=== PATIENT | female | born 1935 | race Caucasian/White ===

== ENCOUNTER 2018-07-28 17:24 | Emergency (ER) | payer OTHER, MEDICARE, BC ==
[2018-07-28] MEDS ORDERED: DIPH,PERTUS(ACELL)TETVAC-LF 0.5 ML VIAL IM ONE (17:26)
[2018-07-28] MEDS ORDERED: ceFAZolin 1,000 MG in DEXTROSE/WATER 1 50ML.BAG IVPB STA (17:33)
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
[2018-07-28 17:43] VITALS: RESP 18
[2018-07-28 17:59] LABS: Basophils % (A) 0 %; Eosinophils # (A) 0.4 k/uL (0-0.7); Eosinophils % (A) 6 %; HCT 39.3 % (34.0-46.0); Lymphocytes # (A) 1.5 k/uL (1.0-4.8); Lymphocytes % (A) 22 %; MCH 32.4 pg (25.0-35.0); MCHC 35.6 g/dL (31.0-37.0); MCV 90.8 fL (80.0-100.0); Mean Platelet Volume 6.9; Monocytes # (A) 0.2 k/uL (0-1.0); Monocytes % (A) 3 %; Neutrophils # (A) 4.3 k/uL (1.3-7.7); Neutrophils % (A) 66 %; Platelet Count 195 k/uL (150-450); RBC 4.33 m/uL (3.80-5.40); RDW 13.5 % (11.5-15.5); WBC 6.6 k/uL (3.8-10.6)
[2018-07-28 18:05] LABS: INR 2.3 (<1.2); Partial Thromboplastin Time 27.5 sec (22.0-30.0); Prothrombin Time 20.9 sec (9.0-12.0)
[2018-07-28 18:06] LABS: ALT 18 U/L (9-52); AST 34 U/L (14-36); Albumin 3.6 g/dL (3.5-5.0); Alcohol <10 mg/dL; Alkaline Phosphatase 74 U/L (38-126); Anion Gap 7 mmol/L; Blood Urea Nitrogen 20 mg/dL (7-17); Calcium 9.4 mg/dL (8.4-10.2); Carbon Dioxide 24 mmol/L (22-30); Chloride 106 mmol/L (98-107); Glucose 146 mg/dL (74-99); Potassium 4.9 mmol/L (3.5-5.1); Sodium 137 mmol/L (137-145); Total Bilirubin 0.5 mg/dL (0.2-1.3); Total Protein 6.4 g/dL (6.3-8.2)
[2018-07-28 18:12] LABS: Creatine Kinase 60 U/L (30-135)
[2018-07-28 18:25] LABS: Creatine Kinase MB 1.2 ng/mL (0.0-2.4); Troponin I <0.012 ng/mL (0.000-0.034)
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
[2018-07-28] MEDS ORDERED: fentaNYL (PF) 50 MCG/ML 2 ML AMP IVP STA (19:14)
[2018-07-28 19:33] VITALS: BP 122/98; PULSE 72; TEMP 98
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
== END 2018-07-28 19:56 | disposition other institution (70) ==
LOC: EC 17:24
DX: S02.81XA Fracture of other specified skull and facial bones, right side, initial encounter for closed fracture (principal); S52.101A Unspecified fracture of upper end of right radius, initial encounter for closed fracture; S52.001A Unspecified fracture of upper end of right ulna, initial encounter for closed fracture; S05.31XA Ocular laceration without prolapse or loss of intraocular tissue, right eye, initial encounter; S01.111A Laceration without foreign body of right eyelid and periocular area, initial encounter; I48.92 Unspecified atrial flutter; I25.10 Atherosclerotic heart disease of native coronary artery without angina pectoris; I48.91 Unspecified atrial fibrillation; I51.7 Cardiomegaly; Z95.810 Presence of automatic (implantable) cardiac defibrillator; Z95.818 Presence of other cardiac implants and grafts; Z79.899 Other long term (current) drug therapy; Z88.6 Allergy status to analgesic agent; Z88.5 Allergy status to narcotic agent; Z53.8 Procedure and treatment not carried out for other reasons; V89.2XXA Person injured in unspecified motor-vehicle accident, traffic, initial encounter; Y92.410 Unspecified street and highway as the place of occurrence of the external cause
CPT/HCPCS: 29125 ×2; 96365 ×2; 96375 ×2; 99291 ×2; 36415; 86900; 86901; 80053; 82550; 82553; 84484; 85025; 85610; 85730; 86850; 80320; 73090; 73100; 72125; 70486; 70450; 71260; 74177; J3010; J0690; Q9967

== ENCOUNTER 2018-08-02 09:06 | Emergency (ER) | payer MEDICARE, BC ==
[2018-08-02 09:12] VITALS: TEMP 98.3
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
[2018-08-02 11:12] VITALS: BP 90/60; PULSE 72; RESP 18
[2018-08-02 11:28] LABS: Basophils % (A) 0 %; Eosinophils # (A) 0.2 k/uL (0-0.7); Eosinophils % (A) 3 %; HCT 35.5 % (34.0-46.0); HGB 11.6 gm/dL (11.4-16.0); Lymphocytes # (A) 0.8 k/uL (1.0-4.8); Lymphocytes % (A) 10 %; MCH 30.3 pg (25.0-35.0); MCHC 32.8 g/dL (31.0-37.0); MCV 92.6 fL (80.0-100.0); Mean Platelet Volume 7.1; Monocytes # (A) 0.2 k/uL (0-1.0); Monocytes % (A) 3 %; Neutrophils # (A) 6.2 k/uL (1.3-7.7); Neutrophils % (A) 83 %; Platelet Count 199 k/uL (150-450); RBC 3.83 m/uL (3.80-5.40); RDW 13.8 % (11.5-15.5); WBC 7.5 k/uL (3.8-10.6)
[2018-08-02 11:42] LABS: Calcium 9.3 mg/dL (8.4-10.2); Magnesium 2.2 mg/dL (1.6-2.3)
== END 2018-08-02 11:35 | disposition home or self-care (01) ==
LOC: EC 09:06
DX: R55 Syncope and collapse (principal); S00.11XA Contusion of right eyelid and periocular area, initial encounter; I48.92 Unspecified atrial flutter; I25.10 Atherosclerotic heart disease of native coronary artery without angina pectoris; I48.91 Unspecified atrial fibrillation; I51.7 Cardiomegaly; Z95.810 Presence of automatic (implantable) cardiac defibrillator; Z95.818 Presence of other cardiac implants and grafts; Z79.52 Long term (current) use of systemic steroids; Z79.899 Other long term (current) drug therapy; Z88.6 Allergy status to analgesic agent; Z88.5 Allergy status to narcotic agent; X58.XXXA Exposure to other specified factors, initial encounter; Y92.531 Health care provider office as the place of occurrence of the external cause
CPT/HCPCS: 36415; 80048; 83735; 85025; 93005; 99284

== ENCOUNTER 2018-08-13 14:58 | Emergency (ER) | payer OTHER, MEDICARE, BC ==
[2018-08-13] MEDS ORDERED: Acetaminophen-Codeine 300-30mg TAB PO STA (15:30)
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
[2018-08-13 16:18] LABS: Basophils % (A) 0 %; Eosinophils # (A) 0.2 k/uL (0-0.7); Eosinophils % (A) 2 %; HCT 35.7 % (34.0-46.0); HGB 12.1 gm/dL (11.4-16.0); Lymphocytes % (A) 11 %; MCH 31.2 pg (25.0-35.0); MCV 91.8 fL (80.0-100.0); Mean Platelet Volume 6.5; Monocytes # (A) 0.3 k/uL (0-1.0); Monocytes % (A) 4 %; Neutrophils # (A) 7.8 k/uL (1.3-7.7); Neutrophils % (A) 82 %; Platelet Count 356 k/uL (150-450); RBC 3.89 m/uL (3.80-5.40); RDW 14.3 % (11.5-15.5); WBC 9.4 k/uL (3.8-10.6)
[2018-08-13 16:35] LABS: INR 1.4 (<1.2); Partial Thromboplastin Time 28.1 sec (22.0-30.0); Prothrombin Time 14.4 sec (9.0-12.0)
--- NOTE | 2018-08-13 16:55 | XR ---
EXAMINATION TYPE: XR forearm RT DATE OF EXAM: 08/13/2018 COMPARISON: NONE HISTORY: Pain TECHNIQUE: 3 views FINDINGS: 3 views were obtained through the cast but show transverse fractures between the proximal a nd middle thirds of the radius and ulna. There is posterior angulation at the fracture site. There is displacement up to 1.5 cm. There is probably overriding of the fragments. Exam is limited by the aman t. IMPRESSION: Angulated displaced fractures of the radius and ulna.
--- NOTE | 2018-08-13 16:57 | XR ---
EXAMINATION TYPE: XR humerus RT DATE OF EXAM: 08/13/2018 COMPARISON: NONE HISTORY: Pain TECHNIQUE: 2 views FINDINGS: I see no fracture nor dislocation. Shoulder joint is intact. Elbow joint is not well-seen o n this exam. IMPRESSION: No evidence of humerus fracture.
[2018-08-13] MEDS ORDERED: HYDROmorphone 1 MG/ML 1 ML SYRINGE IVP STA ×2 (17:50→18:27)
[2018-08-13 19:43] VITALS: BP 124/67; PULSE 74; RESP 20; TEMP 98
== END 2018-08-13 19:43 | disposition home or self-care (01) ==
LOC: EC 14:58
DX: S52.91XD Unspecified fracture of right forearm, subsequent encounter for closed fracture with routine healing (principal); S52.201D Unspecified fracture of shaft of right ulna, subsequent encounter for closed fracture with routine healing; I25.10 Atherosclerotic heart disease of native coronary artery without angina pectoris; I48.91 Unspecified atrial fibrillation; Z88.5 Allergy status to narcotic agent; Z88.6 Allergy status to analgesic agent; Z79.899 Other long term (current) drug therapy; Z86.79 Personal history of other diseases of the circulatory system; Z95.810 Presence of automatic (implantable) cardiac defibrillator; V99.XXXD Unspecified transport accident, subsequent encounter
CPT/HCPCS: 36415; 85025; 85610; 85730; 73060; 73090; 99284; 29105; 96374; 96376; J1170

== ENCOUNTER 2018-10-19 15:12 | Emergency (ER) | payer MEDICARE, BC ==
[2018-10-19 15:29] VITALS: RESP 18
--- NOTE | 2018-10-19 18:27 | CT ---
EXAMINATION TYPE: CT brain miranda guillermo con DATE OF EXAM: 10/19/2018 COMPARISON: 07/28/2018 HISTORY: Fall with mid frontal injury. Neck pain. Headache. CT DLP: 936.7 combined dlp mGycm Automated exposure control for dose reduction was used. TECHNIQUE: CT scan of the head and cervical spine are performed without contrast. FINDINGS: There is some cerebral cortical atrophy. There is no mass effect nor midline shift. There is no sign of intracranial hemorrhage. Calvarium is intact. The cervical vertebra show fairly normal alignment. There is degenerative disc space narrowing from C 3 to C7 with spurring of the endplates. Facet joints are intact. There is hypertrophic facet arthropa thy in the mid cervical spine. The skull base is intact. I see no fracture. 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 No fracture. Cerebral cortical atrophy. No acute intracranial abnormality. There is mild soft tissue swelling over the mid frontal bone. Brain and cervical spine unchanged compared to old exam.
--- NOTE | 2018-10-19 18:37 | CT ---
EXAMINATION TYPE: CT facial bones wo con DATE OF EXAM: 10/19/2018 COMPARISON: 07/28/2018 HISTORY: Fall with mid frontal injury. CT DLP: 936.7 combined dlp mGycm Automated exposure control for dose reduction was used. TECHNIQUE: CT scan of the sinuses is performed without contrast, axial images are obtained, coronal r eformatted images are also reviewed. FINDINGS: The orbital margins are intact. There is no evidence of a blowout fracture. There is fairly normal aeration of the paranasal sinuses. There is bilateral patency of the ostiomeatal complex. William al septum deviated slightly to the right side. There is no evidence of retro-orbital mass. The mandib ular ring is intact. Maxilla is intact. Zygomatic arches appear normal. Nasal bone is intact. There i s focal scalp soft tissue swelling over the mid frontal bone. IMPRESSION: Frontal scalp soft tissue swelling. No fracture.
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
[2018-10-19 19:34] VITALS: BP 133/75; PULSE 88; TEMP 98
== END 2018-10-19 19:33 | disposition home or self-care (01) ==
LOC: EC 15:12
DX: S00.83XA Contusion of other part of head, initial encounter (principal); H57.04 Mydriasis; H61.22 Impacted cerumen, left ear; I25.10 Atherosclerotic heart disease of native coronary artery without angina pectoris; Z88.5 Allergy status to narcotic agent; Z88.6 Allergy status to analgesic agent; Z79.899 Other long term (current) drug therapy; Z86.79 Personal history of other diseases of the circulatory system; Z95.810 Presence of automatic (implantable) cardiac defibrillator; Z95.818 Presence of other cardiac implants and grafts; Z98.890 Other specified postprocedural states; W18.09XA Striking against other object with subsequent fall, initial encounter; Y93.01 Activity, walking, marching and hiking; Y92.008 Other place in unspecified non-institutional (private) residence as the place of occurrence of the external cause
CPT/HCPCS: 70450; 70486; 72125; 99283

== ENCOUNTER 2018-10-29 13:08 | Inpatient (IN) | payer OTHER, MEDICARE, BC ==
[2018-10-29] MEDS ORDERED: DIPHENOX-ATROP 2.5-0.025 MG 1 EACH TAB PO STA (13:55)
[2018-10-29] MEDS ORDERED: SODIUM CHLORIDE 0.9% 1,000 ML IV STA ×2 (13:55→17:52)
[2018-10-29] MEDS ORDERED: SODIUM CHLORIDE 0.9% 500 ML 500 ML IV STA (13:55)
[2018-10-29 14:03] LABS: Basophils # (A) 0.1 k/uL (0-0.2); Basophils % (A) 1 %; Eosinophils # (A) 0.1 k/uL (0-0.7); Eosinophils % (A) 2 %; HCT 41.6 % (34.0-46.0); HGB 13.4 gm/dL (11.4-16.0); Lymphocytes # (A) 0.9 k/uL (1.0-4.8); Lymphocytes % (A) 12 %; MCH 31.5 pg (25.0-35.0); MCHC 32.3 g/dL (31.0-37.0); MCV 97.5 fL (80.0-100.0); Mean Platelet Volume 7.3; Monocytes # (A) 0.4 k/uL (0-1.0); Monocytes % (A) 5 %; Neutrophils % (A) 79 %; Platelet Count 197 k/uL (150-450); RBC 4.27 m/uL (3.80-5.40); RDW 14.6 % (11.5-15.5); WBC 7.6 k/uL (3.8-10.6)
--- NOTE | 2018-10-29 14:06 | ED ---
General Adult HPI - General Source: patient, RN notes reviewed Mode of arrival: wheelchair Limitations: no limitations <Mo Gamino - Last Filed: 10/29/18 17:00> <Mo Phipps - Last Filed: 10/29/18 18:47> - General Chief complaint: Nausea/Vomiting/Diarrhea Stated complaint: Diarrhea Time Seen by Provider: 10/29/18 13:15 - History of Present Illness Initial comments: This is an 83-year-old female presents emergency Department with a 10 day history of diarrhea. Patient has lost weight and according to family she is also altered mentally. Patient complains of generalized weakness and the diarrhea only she is not aware of being altered. Family states ask her simple questions like phone number and she does not know. Family states since July she's lost 20 pounds within that period of time she had an accident where she had some facial trauma and right arm trauma that his leg or to multiple surgeries. Patient denies any chest pain difficulty breathing shortness of breath. Patient denies any fever chills per patient denies being nauseated. Patient denies any recent injury or trauma patient has had multiple eye surgeries but the last one was a few weeks ago. (Mo Gamino) - Related Data Home Medications Medication Instructions Recorded Confirmed Digoxin [Lanoxin] 125 mcg PO DAILY 01/28/14 10/29/18 Lisinopril [Zestril] 2.5 mg PO DAILY 01/28/14 10/29/18 Allopurinol [Zyloprim] 100 mg PO DAILY 04/28/16 10/29/18 Spironolactone [Aldactone] 25 mg PO DAILY 04/28/16 10/29/18 Brimonidine Tartrate [Alphagan P 1 drop BOTH EYES BID 08/02/18 10/29/18 0.2% Ophth Soln] Carvedilol [Coreg] 25 mg PO DAILY 08/02/18 10/29/18 Dorzolamide-Timol 2.23%/0.68% 1 drop BOTH EYES BID 08/02/18 10/29/18 [Cosopt] Latanoprost/Pf [Latanoprost 0.005% 1 drop BOTH EYES HS 08/02/18 10/29/18 Eye Drop] Pilocarpine 2% Ophth Soln [Isopto 1 drops RIGHT EYE BID 10/29/18 10/29/18 Carpine 2%] Warfarin [Coumadin] 2.5 mg PO DAILY 10/29/18 10/29/18 acetaZOLAMIDE [Diamox Sequels] 500 mg PO DAILY 10/29/18 10/29/18 Allergies Allergy/AdvReac Type Severity Reaction Status Date / Time ibuprofen [From Motrin] Allergy Unknown Verified 10/29/18 13:22 meperidine HCl [From Demerol] Allergy Unknown Verified 10/29/18 13:22 morphine Allergy Unknown Verified 10/29/18 13:22 Review of Systems ROS Other: All systems not noted in ROS Statement are negative. <Mo Gamino - Last Filed: 10/29/18 17:00> ROS Other: All systems not noted in ROS Statement are negative. <Mo Phipps - Last Filed: 10/29/18 18:47> ROS Statement: Those systems with pertinent positive or pertinent negative responses have been documented in the HPI. Past Medical History Past Medical History: Atrial Flutter, Coronary Artery Disease (CAD), Osteoarthritis (OA) Additional Past Medical History / Comment(s): "DEVELOPED AFIB IN SX ONE TIME THEY PUT ME ON WARFARIN", ENLARGED HEART, HAD PNE VACCIONE APPROX 4 YEARS AGO NOT SURE OF DATE History of Any Multi-Drug Resistant Organisms: None Reported Past Surgical History: AICD, Appendectomy, Section, Heart Catheterization, Hysterectomy, Tonsillectomy Additional Past Surgical History / Comment(s): ,TOTAL HYSTERECTOMY, X3 C- SECTIONS, ORIF LEFT FEMUR-RODS/SCREWS, ANKLE /PLATE/SCREWS, TIBIAL PLATEAU REPAIRED, CATARACTS. Additional Past Anesthesia/Blood Transfusion Reaction / Comment(s): HAD BP PROBLEMS WITH ONE SX. MILD CLAUSTERPHOBIA. BLOOD TRANSFUSIONS - NO REACTIONS. Type of Cardiac Device: AICD Device Placement Date:: UNK Past Psychological History: No Psychological Hx Reported Smoking Status: Never smoker Past Alcohol Use History: Occasional Past Drug Use History: None Reported - Past Family History Mother Family Medical History: Congestive Heart Failure (CHF), Diabetes Mellitus Father Family Medical History: Renal Disease Additional Family Medical History / Comment(s): MVA <Mo Gamino - Last Filed: 10/29/18 17:00> General Exam Limitations: no limitations <Mo Gamino Filed: 10/29/18 17:00> General appearance: alert, in no apparent distress Head exam: Present: atraumatic, normocephalic, normal inspection Eye exam: Present: normal appearance, PERRL, EOMI. Absent: scleral icterus, conjunctival injection, periorbital swelling ENT exam: Present: normal exam, mucous membranes moist Neck exam: Present: normal inspection. Absent: tenderness, meningismus, lymphadenopathy Respiratory exam: Present: normal lung sounds bilaterally. Absent: respiratory distress, wheezes, rales, rhonchi, stridor Cardiovascular Exam: Present: regular rate, normal rhythm, normal heart sounds. Absent: systolic murmur, diastolic murmur, rubs, gallop, clicks GI/Abdominal exam: Present: soft, normal bowel sounds. Absent: distended, tenderness, guarding, rebound, rigid Extremities exam: Present: normal inspection, full ROM, normal capillary refill. Absent: tenderness, pedal edema, joint swelling, calf tenderness Back exam: Present: normal inspection Neurological exam: Present: alert, oriented X3, CN II-XII intact Psychiatric exam: Present: normal affect, normal mood Skin exam: Present: warm, dry, intact, normal color. Absent: rash <DesireJoshuaMo B - Last Filed: 10/29/18 18:47> - General Exam Comments Initial Comments: GENERAL: Patient is cachectic in appearance. ENT: Neck is soft and supple. No significant lymphadenopathy is noted. Extremities membranes are dry. Neck has full range of motion without eliciting any pain. EYES: The sclera were anicteric and conjunctiva were pink and moist. Patient's right pupil is dilated and she has no vision out of it. According to family this is her baseline since her accident November Eyelids were unremarkable. PULMONARY: Unlabored respirations. Good breath sounds bilaterally. No audible rales rhonchi or wheezing was noted. CARDIOVASCULAR: There is a regular rate and rhythm without any murmurs gallops or rubs. ABDOMEN: Soft and nontender with normal bowel sounds. No palpable organomegaly was noted. There is no palpable pulsatile mass. SKIN: Skin is clear with no lesions or rashes and otherwise unremarkable. NEUROLOGIC: Patient is alert and oriented 2. Cranial nerves II through XII are grossly intact. Motor and sensory are also intact. Normal speech, volume and content. Symmetrical smile. MUSCULOSKELETAL: Normal extremities with adequate strength and full range of motion. No lower extremity swelling or edema. No calf tenderness. LYMPHATICS: No significant lymphadenopathy is noted PSYCHIATRIC: Normal psychiatric evaluation. (Mo Gamino) Course <Mo Gamino - Last Filed: 10/29/18 17:00> <Mo Phipps - Last Filed: 10/29/18 18:47> Vital Signs 10/29/18 10/29/18 10/29/18 13:15 13:45 14:11 Temperature 97.9 F Pulse Rate 70 75 73 Respiratory 18 18 18 Rate Blood Pressure 62/33 81/53 81/68 O2 Sat by Pulse 89 L 96 100 Oximetry 10/29/18 10/29/18 10/29/18 14:47 15:17 16:00 Temperature Pulse Rate 75 70 72 Respiratory 18 16 18 Rate Blood Pressure 74/49 98/49 73/49 O2 Sat by Pulse 98 97 98 Oximetry 10/29/18 10/29/18 10/29/18 16:49 17:30 17:58 Temperature Pulse Rate 77 80 77 Respiratory 18 18 18 Rate Blood Pressure 85/68 116/99 67/56 O2 Sat by Pulse 100 97 97 Oximetry 10/29/18 18:18 Temperature Pulse Rate 74 Respiratory 18 Rate Blood Pressure 74/46 O2 Sat by Pulse 98 Oximetry - Reevaluation(s) Reevaluation #1: 10/29/18 18:44 Medical record is reviewed (Mo Phipps) Reevaluation #2: 10/29/18 18:44 Patient reevaluated, blood pressures improved and she is awake and alert without any significant complaint. Informed of testing results. (Mo Phipps) Procedures - Sepsis Sepsis Focused Exam #1 Time Sepsis Criteria Met: 18:46 Sepsis Focused Exam Date: 10/29/18 Sepsis Focused Exam Time: 18:46 Sepsis Focused Exam Complete: Yes Vital Signs & RN Notes Reviewed: Yes Capillary Refill: < 2 Seconds: Fingers, Toes Peripheral Pulses: Normal: Radial (R), Radial (L), Posterior Tibialis (R), Posterior Tibialis (L), Dorsalis Pedis (R), Dorsalis Pedis (L) Skin Color: Normal for Patient Respiratory Exam: normal lung sounds Cardiovascular Exam: regular rate <Roskopp,Mo B - Last Filed: 10/29/18 18:47> Medical Decision Making - Lab Data Result diagrams: 10/29/18 13:30 10/29/18 13:30 <Mo Gamino - Last Filed: 10/29/18 17:00> - Lab Data Result diagrams: 10/29/18 13:30 10/29/18 13:30 - Radiology Data Radiology results: report reviewed (CT brain CT abdomen pelvis negative for acute disease does have positive mass), image reviewed <DesireMo Allie - Last Filed: 10/29/18 18:47> - Medical Decision Making EKG shows atrial fibrillation wave at 77 bpm QRS is 148 QRS is 416 QTC is 470. Patient has a right bundle branch block. CT of the brain shows no acute abnormalities. KUB shows no acute normalities. CT of the abdomen shows some possible mass in the colon at the hepatic flexure. Patient's pancreatic enzymes are elevated. Patient has renal insufficiency. Patient is dehydrated. Patient received over 2 L of fluid. Patient also received hydrocortisone. According to family patient still slightly altered. I spoke with Dr. Aranda he agreed to admit the patient admitted the patient I wrote admitting orders. GI will be consulted. Dr. Phipps will be taking over the care of this patient at 5 PM (Mo Gamino) 83 female the ER for evaluation. Patient be admitted for continued IV resuscitation, GI evaluation as well as nephrology evaluation. Patient will place on antibiotics for UTI (Mo Phipps) - Lab Data Lab Results 10/29/18 10/29/18 10/29/18 Range/Units 13:30 13:30 13:30 WBC 7.6 (3.8-10.6) k/uL RBC 4.27 (3.80-5.40) m/uL Hgb 13.4 (11.4-16.0) gm/dL Hct 41.6 (34.0-46.0) % MCV 97.5 (80.0-100.0) fL MCH 31.5 (25.0-35.0) pg MCHC 32.3 (31.0-37.0) g/dL RDW 14.6 (11.5-15.5) % Plt Count 197 (150-450) k/uL Neutrophils % 79 % Lymphocytes % 12 % Monocytes % 5 % Eosinophils % 2 % Basophils % 1 % Neutrophils # 6.0 (1.3-7.7) k/uL Lymphocytes # 0.9 L (1.0-4.8) k/uL Monocytes # 0.4 (0-1.0) k/uL Eosinophils # 0.1 (0-0.7) k/uL Basophils # 0.1 (0-0.2) k/uL PT (9.0-12.0) sec INR (<1.2) APTT (22.0-30.0) sec Sodium 135 L (137-145) mmol/L Potassium 4.3 (3.5-5.1) mmol/L Chloride 109 H (98-107) mmol/L Carbon Dioxide 13 L (22-30) mmol/L Anion Gap 13 mmol/L BUN 46 H (7-17) mg/dL Creatinine 2.16 H (0.52-1.04) mg/dL Est GFR (CKD-EPI)AfAm 24 (>60 ml/min/1.73 sqM) Est GFR (CKD-EPI)NonAf 21 (>60 ml/min/1.73 sqM) Glucose 106 H (74-99) mg/dL Plasma Lactic Acid Sriram 1.0 (0.7-2.0) mmol/L Calcium 9.1 (8.4-10.2) mg/dL Total Bilirubin 0.5 (0.2-1.3) mg/dL AST 23 (14-36) U/L ALT 27 (9-52) U/L Alkaline Phosphatase 48 (38-126) U/L Total Protein 7.0 (6.3-8.2) g/dL Albumin 3.9 (3.5-5.0) g/dL Amylase 120 H (30-110) U/L Lipase 876 H (23-300) U/L Urine Color Urine Appearance (Clear) Urine pH (5.0-8.0) Ur Specific [place] (1.001-1.035) Urine Protein (Negative) Urine Glucose (UA) (Negative) Urine Ketones (Negative) Urine Blood (Negative) Urine Nitrite (Negative) Urine Bilirubin (Negative) Urine Urobilinogen (<2.0) mg/dL Ur Leukocyte Esterase (Negative) Urine RBC (0-5) /hpf Urine WBC (0-5) /hpf Ur Squamous Epith Cells (0-4) /hpf Urine Bacteria (None) /hpf Hyaline Casts (0-2) /lpf Urine Mucus (None) /hpf Digoxin ng/mL 10/29/18 10/29/18 10/29/18 Range/Units 13:30 13:30 17:25 WBC (3.8-10.6) k/uL RBC (3.80-5.40) m/uL Hgb (11.4-16.0) gm/dL Hct (34.0-46.0) % MCV (80.0-100.0) fL MCH (25.0-35.0) pg MCHC (31.0-37.0) g/dL RDW (11.5-15.5) % Plt Count (150-450) k/uL Neutrophils % % Lymphocytes % % Monocytes % % Eosinophils % % Basophils % % Neutrophils # (1.3-7.7) k/uL Lymphocytes # (1.0-4.8) k/uL Monocytes # (0-1.0) k/uL Eosinophils # (0-0.7) k/uL Basophils # (0-0.2) k/uL PT 9.9 (9.0-12.0) sec INR 0.9 (<1.2) APTT 26.9 (22.0-30.0) sec Sodium (137-145) mmol/L Potassium (3.5-5.1) mmol/L Chloride (98-107) mmol/L Carbon Dioxide (22-30) mmol/L Anion Gap mmol/L BUN (7-17) mg/dL Creatinine (0.52-1.04) mg/dL Est GFR (CKD-EPI)AfAm (>60 ml/min/1.73 sqM) Est GFR (CKD-EPI)NonAf (>60 ml/min/1.73 sqM) Glucose (74-99) mg/dL Plasma Lactic Acid Sriram (0.7-2.0) mmol/L Calcium (8.4-10.2) mg/dL Total Bilirubin (0.2-1.3) mg/dL AST (14-36) U/L ALT (9-52) U/L Alkaline Phosphatase (38-126) U/L Total Protein (6.3-8.2) g/dL Albumin (3.5-5.0) g/dL Amylase (30-110) U/L Lipase (23-300) U/L Urine Color Yellow Urine Appearance Cloudy H (Clear) Urine pH 6.0 (5.0-8.0) Ur Specific [place] 1.013 (1.001-1.035) Urine Protein Trace H (Negative) Urine Glucose (UA) Negative (Negative) Urine Ketones 1+ H (Negative) Urine Blood Negative (Negative) Urine Nitrite Negative (Negative) Urine Bilirubin Negative (Negative) Urine Urobilinogen <2.0 (<2.0) mg/dL Ur Leukocyte Esterase Moderate H (Negative) Urine RBC 1 (0-5) /hpf Urine WBC 27 H (0-5) /hpf Ur Squamous Epith Cells 2 (0-4) /hpf Urine Bacteria Few H (None) /hpf Hyaline Casts 5 H (0-2) /lpf Urine Mucus Rare H (None) /hpf Digoxin 1.3 ng/mL Critical Care Time Critical Care Time: Yes Total Critical Care Time: 35 <Mo Gamino - Last Filed: 10/29/18 17:00> Disposition Time of Disposition: 16:39 <Mo Gamino - Last Filed: 10/29/18 17:00> Is patient prescribed a controlled substance at d/c from ED?: No <Mo Phipps - Last Filed: 10/29/18 18:47> Clinical Impression: Renal insufficiency, Pancreatitis, Colonic mass, Dehydration, Generalized weakness, Diarrhea, Altered mental status, UTI (urinary tract infection) Disposition: ADMITTED IP TO THIS HOSP Condition: Fair Referrals: Solis Buckner MD [Primary Care Provider] - 1-2 days
[2018-10-29 14:14] LABS: Albumin 3.9 g/dL (3.5-5.0); Calcium 9.1 mg/dL (8.4-10.2); Potassium 4.3 mmol/L (3.5-5.1); Total Bilirubin 0.5 mg/dL (0.2-1.3)
--- NOTE | 2018-10-29 14:42 | CT ---
EXAMINATION TYPE: CT brain wo con DATE OF EXAM: 10/29/2018 COMPARISON: 10/19/2018 INDICATION: Diarrhea and Confusion DLP: 1099.4 mGycm, Automated exposure control for dose reduction was used. CONTRAST: None CT of the brain is performed utilizing 3 mm thick sections through the posterior fossa and 3 mm thick sections through the remaining calvarium. Study is performed within 24 hours of arrival to the hosp ital. No abnormal hyperdensity is present to suggest an acute intracranial hemorrhage. No mass lesion is evident. Physiologic basal ganglion calcifications at the bilateral basal ganglion. No acute infarcts are evident. There is mild periventricular white matter hypodensity, likely on the basis of chronic white matter ischemic changes. Ventricles and sulci are appropriate for the patient age. Paranasal sinuses and mastoid air cells within the [id number] are clear. IMPRESSIONS: 1. Mild periventricular white matter ischemic type changes. 2. No acute intracranial process
[2018-10-29 14:47] LABS: INR 0.9 (<1.2); Partial Thromboplastin Time 26.9 sec (22.0-30.0); Prothrombin Time 9.9 sec (9.0-12.0)
[2018-10-29] MEDS ORDERED: SODIUM CHLORIDE 0.9% 500 ML 500 ML IV ONE ×2 (14:56→20:08)
--- NOTE | 2018-10-29 15:03 | XR ---
EXAMINATION TYPE: XR KUB DATE OF EXAM: 10/29/2018 COMPARISON: None INDICATION: Abdomen pain TECHNIQUE: Single view abdomen supine view FINDINGS: There is a normal bowel gas pattern. Psoas margins are normal. No organomegaly is present. IMPRESSION: 1. Unremarkable Abdomen
[2018-10-29] MEDS ORDERED: SODIUM CHLORIDE 0.9% 1,000 ML IV ONE ×4 (15:18→21:24)
--- NOTE | 2018-10-29 16:05 | CT ---
EXAMINATION TYPE: CT abdomen pelvis wo con DATE OF EXAM: 10/29/2018 COMPARISON: None INDICATION: Diarrhea. DLP: 353.5 mGycm, Automated exposure control for dose reduction was used. CONTRAST: 0 mL of Isovue 300. Study performed without Oral Contrast TECHNIQUE: Axial images were obtained from above the diaphragm to the pubic rami in the axial plane a t 5 mm thick sections. Reconstructed images are reviewed on the computer in the coronal plane. FINDINGS: Limited CT sections are obtained the lung bases. The lung bases are clear. Coronary artery calcific ations present. Mild cardiomegaly is present. CT ABDOMEN: Liver: Normal Spleen: Normal. Splenic artery calcifications present. Pancreas: Normal Adrenal glands: The adrenal glands are normal. Gallbladder: Normal Kidneys: No masses are evident. No hydronephrosis is present. There is a large cyst at the inferior anterior pole right kidney measuring 4.0 cm -2 Hounsfield units Delayed images were obtained throug h the kidneys, which remain unremarkable. Aorta: Vascular calcification is within the aorta. Inferior vena cava: Normal. CT PELVIS: There may be some thickening through the splenic flexure. This may be the leading edge of the contras t. Follow-up can be performed. Little contrast is present within the bowel loops limiting their evalu ation. Appendix: The appendix is not identified and has limited evaluation. Urinary bladder: Urinary bladder is distended. There are punctate calcifications at the right uretero vesical junction. The larger measures approximately 0.2 cm. Diverticulum is in the right posterior la teral urinary bladder. No hydronephrosis or hydroureter is evident. Genitourinary structures: Uterus and ovaries are not identified. Osseous structures: No suspicious lytic or sclerotic lesions. IMPRESSIONS: 1. Thickening through the hepatic flexure suspicious for a colonic mass. Additional workup is recomm ended. Report was called to the emergency room by Dr. Quiroz at the time of dictation 1600 hours 10/07. 2. Urinary bladder diverticulum. 3. Suspected nonobstructing distal right ureteral stones. The larger measures 0.2 cm. Inferior pole r ight renal cyst. 4. Cardiomegaly
[2018-10-29] MEDS ORDERED: HYDROCORTISONE SUCCINATE 100 MG/2 ML VIAL IV STA (16:16)
[2018-10-29 17:40] LABS: Appearance,Urine Cloudy (Clear); Bacteria,Urine Few /hpf; Bilirubin,Urine Negative (Negative); Blood,Urine Negative (Negative); Color,Urine Yellow; Glucose,Urine (UA) Negative (Negative); Hyaline Casts,Urine 5 /lpf (0-2); Ketones,Urine 1+ (Negative); Leukocyte Esterase,Urine Moderate (Negative); Mucus,Urine Rare /hpf; Nitrite,Urine Negative (Negative); Protein,Urine Trace (Negative); RBC,Urine 1 /hpf (0-5); Specific Gravity,Urine 1.013 (1.001-1.035); Squamous Epithelial Cell,Urine 2 /hpf (0-4); Urobilinogen,Urine <2.0 mg/dL (<2.0); WBC,Urine 27 /hpf (0-5)
[2018-10-29] MEDS ORDERED: GLUCAGON 1 MG/ML VIAL IVP STA ×2 (20:08→21:00)
[2018-10-29] MEDS: SODIUM CHLORIDE 0.9% 1,000 ML IV ONE ×2 (20:14→20:22)
[2018-10-30 04:06] LABS: Glucose,Whole Blood 113 mg/dL (75-99)
--- NOTE | 2018-10-30 08:21 | XR ---
EXAMINATION TYPE: XR chest 1V DATE OF EXAM: 10/30/2018 CLINICAL HISTORY: Difficulty breathing progress study. TECHNIQUE: Single AP portable upright view of the chest is obtained. COMPARISON: Chest x-ray from April 28, 2016. CT July 28, 2018. FINDINGS: Cardiomegaly with single lead pacemaker/AICD is redemonstrated. Atherosclerotic thoracic a ruthie is again seen. There is chronic parenchymal change without suspicious new focal airspace opacity , pleural effusion, or pneumothorax seen bilaterally. Osseous structures are demineralized. IMPRESSION: Chronic parenchymal change and cardiomegaly without acute pulmonary process.
[2018-10-30] MEDS ORDERED: PANTOPRAZOLE 40 MG/10 ML VIAL IV SCH (09:00)
[2018-10-30] MEDS ORDERED: ENOXAPARIN 40 MG/0.4 ML SYRINGE SQ SCH (09:00)
[2018-10-30 09:59] VITALS: BMI 19.5
[2018-10-30] MEDS: LACTATED RINGERS 1,000 ML IV SCH ×3 (10:09→10:12)
[2018-10-30 11:00] LABS: Basophils % (A) 0 %; Eosinophils # (A) 0.1 k/uL (0-0.7); Eosinophils % (A) 1 %; HCT 35.2 % (34.0-46.0); HGB 11.1 gm/dL (11.4-16.0); Hypochromasia Moderate; Lymphocytes # (A) 0.9 k/uL (1.0-4.8); Lymphocytes % (A) 14 %; MCH 31.1 pg (25.0-35.0); MCHC 31.5 g/dL (31.0-37.0); MCV 98.8 fL (80.0-100.0); Mean Platelet Volume 6.6; Monocytes # (A) 0.5 k/uL (0-1.0); Monocytes % (A) 7 %; Neutrophils # (A) 5.3 k/uL (1.3-7.7); Neutrophils % (A) 77 %; Platelet Count 191 k/uL (150-450); RBC 3.56 m/uL (3.80-5.40); RDW 14.5 % (11.5-15.5); WBC 6.9 k/uL (3.8-10.6)
[2018-10-30] MEDS: DEXTROSE 5% IN WATER 1,000 ML with SODIUM BICARB (1 MEQ/ML) 150 ML IV SCH ×2 (11:07→23:16)
[2018-10-30 11:08] LABS: Amylase 94 U/L (30-110); Lipase 761 U/L (23-300)
--- NOTE | 2018-10-30 11:11 | P.NPCON ---
History of Present Illness - Reason for Consult acute renal failure, metabolic acidosis - History of Present Illness Reason for consultation: Acute kidney injury History of present illness: Patient is a 83-year-old female seen in renal consultation for acute kidney injury. Her baseline creatinine is 1 and was elevated at 2.16 as of yesterday. Patient presented to the hospital initially with diarrhea which was going on for about 10 days. She did undergo a CAT scan of the abdomen and pelvis which revealed concern for a colonic mass. No hydronephrosis was noted. She was noted to be quite acidotic and is currently maintained on bicarb drip running at 100 mL an hour. She is not on any vasopressors. She did receive 6 L of IV fluid in the ER. According to the family her ejection fraction is 18%. Her blood pressure has been fluctuating in the systolic 70s into the 1 teens. Denies use of NSAIDs. Denies family history of renal disease. No hematuria or dysuria. Oral intake has been quite poor. Vital signs are stable. General: The patient appeared well nourished and normally developed. HEENT: Head exam is unremarkable. Neck is without jugular venous distension. LUNGS: Lungs are clear to auscultation and percussion. Breath sounds decreased. HEART: Rate and Rhythm are regular. First and second heart sounds normal. No murmurs, rubs or gallops. ABDOMEN: Abdominal exam reveals normal bowel sounds. Non-tender and non- distended. No evidence of peritonitis. EXTREMITITES: No clubbing, cyanosis, or edema. Past Medical History Past Medical History: Atrial Flutter, Coronary Artery Disease (CAD), Osteoarthritis (OA) Additional Past Medical History / Comment(s): "DEVELOPED AFIB IN SX ONE TIME THEY PUT ME ON WARFARIN", ENLARGED HEART, HAD PNE VACCIONE APPROX 4 YEARS AGO NOT SURE OF DATE History of Any Multi-Drug Resistant Organisms: None Reported Past Surgical History: AICD, Appendectomy, Section, Heart Catheterization, Hysterectomy, Tonsillectomy Additional Past Surgical History / Comment(s): ,TOTAL HYSTERECTOMY, X3 C- SECTIONS, ORIF LEFT FEMUR-RODS/SCREWS, ANKLE /PLATE/SCREWS, TIBIAL PLATEAU REPAIRED, CATARACTS. Additional Past Anesthesia/Blood Transfusion Reaction / Comment(s): HAD BP PROBLEMS WITH ONE SX. MILD CLAUSTERPHOBIA. BLOOD TRANSFUSIONS - NO REACTIONS. Type of Cardiac Device: AICD Device Placement Date:: UNK Smoking Status: Never smoker - Past Family History Mother Family Medical History: Congestive Heart Failure (CHF), Diabetes Mellitus Father Family Medical History: Renal Disease Additional Family Medical History / Comment(s): MVA Medications and Allergies Home Medications Medication Instructions Recorded Confirmed Type Digoxin [Lanoxin] 125 mcg PO HS 01/28/14 10/30/18 History Lisinopril [Zestril] 2.5 mg PO HS 01/28/14 10/30/18 History Allopurinol [Zyloprim] 100 mg PO HS 04/28/16 10/30/18 History Spironolactone [Aldactone] 25 mg PO DAILY 04/28/16 10/30/18 History Brimonidine Tartrate [Alphagan P 1 drop BOTH EYES TID 08/02/18 10/30/18 History 0.2% Ophth Soln] Carvedilol [Coreg] 25 mg PO BID 08/02/18 10/30/18 History Dorzolamide-Timol 2.23%/0.68% 1 drop BOTH EYES BID 08/02/18 10/29/18 History [Cosopt] Latanoprost/Pf [Latanoprost 0.005% 1 drop BOTH EYES HS 08/02/18 10/29/18 History Eye Drop] Pilocarpine 2% Ophth Soln [Isopto 1 drops RIGHT EYE BID 10/29/18 10/29/18 History Carpine 2%] Warfarin [Coumadin] 2.5 mg PO SUTUTHSA 10/29/18 10/30/18 History acetaZOLAMIDE [Diamox Sequels] 500 mg PO BID 10/29/18 10/30/18 History Acetaminophen-Codeine 300-30mg 1 tab PO Q12H PRN 10/30/18 10/30/18 History [Tylenol w/codeine #3] Calcium Carbonate/Vitamin D3 1 tab PO BID 10/30/18 10/30/18 History [Calcium 500-Vit D3 200 Tablet] Cholecalciferol [Vitamin D3] 1,000 unit PO BID 10/30/18 10/30/18 History Cyanocobalamin (Vitamin B-12) 1,000 mcg PO DAILY 10/30/18 10/30/18 History [Vitamin B-12] Multivitamins, Thera [Multivitamin 1 tab PO DAILY 10/30/18 10/30/18 History (formulary)] Netarsudil Mesylate [Rhopressa] 1 drop RIGHT EYE HS 10/30/18 10/30/18 History Sodium Chloride 5% Ophth Oint 1 applic RIGHT EYE BID 10/30/18 10/30/18 History [Malaika 128] Warfarin [Coumadin] 1.25 mg PO MOWEFR 10/30/18 10/30/18 History diphenhydrAMINE [Benadryl] 50 mg PO HS 10/30/18 10/30/18 History prednisoLONE ACETATE 1% OPHTH 1 drops RIGHT EYE TID 10/30/18 10/30/18 History [Pred Forte 1%] Allergies Allergy/AdvReac Type Severity Reaction Status Date / Time ibuprofen [From Motrin] Allergy Unknown Verified 10/30/18 10:34 meperidine HCl [From Demerol] Allergy Unknown Verified 10/30/18 10:34 midazolam [From Versed] Allergy Unknown Verified 10/30/18 10:34 morphine Allergy Unknown Verified 10/30/18 10:34 Physical Exam Vitals: Vital Signs Temp Pulse Resp BP BP Pulse Ox 10/30/18 10:00 80 48 H 111/76 92 L 10/30/18 09:30 83 16 91/63 90 L 10/30/18 09:00 81 25 H 82/56 94 L 10/30/18 08:30 78 18 72/46 95 10/30/18 08:00 97.8 F 71 12 91/63 94 L 10/30/18 07:18 71 8 L 72/46 96 10/30/18 07:17 71 7 L 72/46 97 10/30/18 07:16 74 8 L 89/59 95 10/30/18 07:15 75 7 L 89/59 94 L 10/30/18 07:14 72 7 L 89/59 96 10/30/18 07:13 73 8 L 89/59 94 L 10/30/18 07:12 75 9 L 89/59 95 10/30/18 07:11 74 9 L 89/59 98 10/30/18 07:10 75 9 L 89/59 94 L 10/30/18 07:09 74 9 L 89/59 94 L 10/30/18 07:08 72 8 L 89/59 97 10/30/18 07:07 73 9 L 89/59 96 10/30/18 07:06 75 8 L 89/59 95 10/30/18 07:05 76 8 L 89/59 95 10/30/18 07:04 72 9 L 89/59 97 10/30/18 07:03 73 13 89/59 95 10/30/18 07:02 75 10 L 89/59 96 10/30/18 07:01 73 8 L 89/59 95 10/30/18 07:00 76 10 L 89/59 94 L 10/30/18 06:59 75 7 L 89/59 92 L 10/30/18 06:58 75 7 L 89/59 94 L 10/30/18 06:57 75 9 L 93 L 10/30/18 06:56 74 7 L 89/59 93 L 10/30/18 06:55 72 10 L 89/59 90 L 10/30/18 06:54 75 19 89/59 88 L 10/30/18 06:53 76 14 89/59 95 10/30/18 06:52 75 9 L 89/59 92 L 10/30/18 06:51 74 13 89/59 86 L 10/30/18 06:50 75 12 89/59 96 10/30/18 06:49 77 15 89/59 91 L 10/30/18 06:48 89 12 89/59 90 L 10/30/18 06:47 75 9 L 89/59 93 L 10/30/18 06:46 75 24 89/59 87 L 10/30/18 06:45 75 25 H 89/59 93 L 10/30/18 06:44 75 13 89/59 85 L 10/30/18 06:43 74 12 89/59 88 L 10/30/18 06:42 75 8 L 89/59 83 L 10/30/18 06:41 76 7 L 89/59 85 L 10/30/18 06:40 78 15 89/59 89 L 10/30/18 06:39 74 13 89/59 86 L 10/30/18 06:38 75 19 89/59 91 L 10/30/18 06:37 74 7 L 89/59 94 L 10/30/18 06:36 75 6 L 89/59 89 L 10/30/18 06:35 75 5 L 89/59 95 10/30/18 06:34 72 11 L 89/59 95 10/30/18 06:33 73 11 L 89/59 97 10/30/18 06:32 76 23 89/59 86 L 10/30/18 06:31 73 8 L 89/59 90 L 10/30/18 06:30 72 12 89/59 86 L 10/30/18 06:29 73 7 L 89/59 93 L 10/30/18 06:25 76 9 L 89/59 97 10/30/18 06:23 75 13 89/59 97 10/30/18 06:00 78 25 H 81/56 95 10/30/18 05:30 75 16 81/56 95 10/30/18 05:00 76 14 92/72 92 L 10/30/18 04:30 78 24 92/72 91 L 10/30/18 04:10 97.9 F 15 92/72 88 L 10/30/18 03:36 98.0 F 73 16 96/71 98 10/30/18 03:00 77 16 92/49 96 10/30/18 02:13 97.7 F 75 16 86/64 98 10/30/18 02:00 97.7 F 76 16 74/51 10/30/18 01:30 76 16 78/52 10/30/18 01:00 97.9 F 76 16 80/42 95 10/30/18 00:37 75 79/48 10/30/18 00:30 72 16 79/67 10/30/18 00:00 75 16 66/36 10/29/18 23:30 78 16 77/42 10/29/18 23:00 75 16 78/49 10/29/18 22:30 76 16 95/53 98 10/29/18 22:16 76 16 79/39 96 10/29/18 22:11 98.0 F 73 15 77/36 97 10/29/18 22:00 71 16 77/45 97 10/29/18 21:30 75 16 130/73 10/29/18 21:00 75 14 132/77 10/29/18 19:30 77 16 100/77 10/29/18 19:00 85 120/49 88 L 10/29/18 18:30 82 74/46 79 L 10/29/18 18:18 74 18 74/46 98 10/29/18 18:00 78 67/56 90 L 10/29/18 17:58 77 18 67/56 97 10/29/18 17:30 74 18 116/99 97 10/29/18 17:00 68 85/68 84 L 10/29/18 16:49 77 18 85/68 100 10/29/18 16:30 72 78/48 100 10/29/18 16:00 74 18 66/56 98 10/29/18 15:30 76 98/49 10/29/18 15:17 70 16 98/49 97 10/29/18 15:00 71 75/44 76 L 10/29/18 14:47 75 18 74/49 98 10/29/18 14:15 74 81/68 78 L 10/29/18 14:11 73 18 81/68 100 10/29/18 13:45 97.9 F 75 18 81/53 96 10/29/18 13:15 70 18 62/33 89 L Intake and Output 10/29/18 10/30/18 10/30/18 22:59 06:59 14:59 Intake Total 900 Output Total 150 800 305 Balance -150 -800 595 Intake: IV 450 Lactated Ringers 1,000 ml 450 @ 150 mls/hr IV .Q6H40M [facility] Rx#:[id number] Intake, IV Titration 450 Amount Lactated Ringers 1,000 ml 450 @ 150 mls/hr IV .Q6H40M [facility] Rx#:[id number] Output: Urine 150 800 305 Other: Voiding Method Indwelling Catheter Weight 45.359 kg Results - Lab Results Most recent lab results Calcium 9.1 mg/dL (8.4-10.2) 10/29/18 13:30 10/30/18 10:46 10/29/18 13:30 Assessment and Plan Plan: Assessment: 1. Acute kidney injury secondary to ATN secondary to intravascular volume depletion from diarrhea as well as hypotension. Creatinine 2.16 as of yesterday. Baseline creatinine near 1. No hydronephrosis noted on CT. 2. Systolic CHF with ejection fraction of 18%. Compensated. 3. Metabolic acidosis secondary to acute kidney injury and diarrhea. 4. Concern for colonic mass. GI has been consulted. This potential plan for colonoscopy this admission if the family and patient are agreeable. 5. Diarrhea. Possibly due to gastroenteritis. GI following. Plan: Maintain isotonic sodium bicarbonate drip to be run at 100 mL an hour. Avoid nephrotoxins. Monitor volume status closely due to depressed ejection fraction. Continue to monitor renal function and urine output. Check cortisol level. Thank you for the consultation. I will continue to follow the patient with you during her hospital stay.
[2018-10-30] MEDS ORDERED: Acetaminophen-Codeine 300-30mg TAB PO PRN (11:14)
--- NOTE | 2018-10-30 11:47 | P.HPIM ---
History of Present Illness H&P Date: 10/30/18 This is a 83-year-old female patient of Dr. Buckner. Patient presented to the hospital with complaints of increased weakness and confusion. Patient does appear to be a poor historian at this time. Family also seems to be unclear with events leading up to hospitalization. Per patient's family patient did have diarrhea for the past 3-4 days. Patient does have a past medical history of atrial flutter, coronary artery disease, osteoarthritis, AICD and heart cath. Patient reports she has not been taking her Coumadin for 2 weeks due to procedure done on her eyes. Patient and family report that she was instructed by her eye doctor to stop her Coumadin. Other reports are also seen Coumadin was stopped due to falls. Patient family also reports that she follows with [facility] cardiology. Urinary analysis showing positive for UTI. Urine culture ordered. KUB x-ray completed showing unremarkable abdomen. Head CT completed in ER showing mild periventricular white matter ischemic type changes. No intracranial process. Abdomen CT and pelvis completed showing thickening to the hepatic flexure suspicious chronic mass. Additional workup is recommended. Urinary bladder diverticulum. Suspected nonobstructing distal right ureteral stones. The larger measures 2.2 cm. Inferior Pole right renal cyst. Cardiomegaly. EKG completed showing wide QRS rhythm with occasional premature ventricular complexes. Left axis deviation. Reported bundle-branch block. Chest x-ray completed showing chronic parenchymal change and cardiomegaly without acute pulmonary process. Patient's creatinine elevated at 2.16 and bun 46. Patient also hypotensive receiving multiple fluid boluses in ER. Amylase elevated at 120 lipase 876. Digoxin level I.3. Patient admitted to the intensive care unit. Dr. Alexandra consulted for ICU management. Nephrology, cardiology and GI services consulted. As time patient remains confused. Patient denies chest pain or shortness breath. Patient denies nausea vomiting or diarrhea. Patient denies any urinary burning or frequency. Review of Systems please refer to HPI otherwise unremarkable Past Medical History Past Medical History: Atrial Flutter, Coronary Artery Disease (CAD), Osteoarthritis (OA) Additional Past Medical History / Comment(s): "DEVELOPED AFIB IN SX ONE TIME THEY PUT ME ON WARFARIN", ENLARGED HEART, HAD PNE VACCIONE APPROX 4 YEARS AGO NOT SURE OF DATE History of Any Multi-Drug Resistant Organisms: None Reported Past Surgical History: AICD, Appendectomy, Section, Heart Catheterization, Hysterectomy, Tonsillectomy Additional Past Surgical History / Comment(s): ,TOTAL HYSTERECTOMY, X3 C- SECTIONS, ORIF LEFT FEMUR-RODS/SCREWS, ANKLE /PLATE/SCREWS, TIBIAL PLATEAU REPAIRED, CATARACTS. Additional Past Anesthesia/Blood Transfusion Reaction / Comment(s): HAD BP PROBLEMS WITH ONE SX. MILD CLAUSTERPHOBIA. BLOOD TRANSFUSIONS - NO REACTIONS. Type of Cardiac Device: AICD Device Placement Date:: UNK Smoking Status: Never smoker - Past Family History Mother Family Medical History: Congestive Heart Failure (CHF), Diabetes Mellitus Father Family Medical History: Renal Disease Additional Family Medical History / Comment(s): MVA Medications and Allergies Home Medications Medication Instructions Recorded Confirmed Type Digoxin [Lanoxin] 125 mcg PO HS 01/28/14 10/30/18 History Lisinopril [Zestril] 2.5 mg PO HS 01/28/14 10/30/18 History Allopurinol [Zyloprim] 100 mg PO HS 04/28/16 10/30/18 History Spironolactone [Aldactone] 25 mg PO DAILY 04/28/16 10/30/18 History Brimonidine Tartrate [Alphagan P 1 drop BOTH EYES TID 08/02/18 10/30/18 History 0.2% Ophth Soln] Carvedilol [Coreg] 25 mg PO BID 08/02/18 10/30/18 History Dorzolamide-Timol 2.23%/0.68% 1 drop BOTH EYES BID 08/02/18 10/29/18 History [Cosopt] Latanoprost/Pf [Latanoprost 0.005% 1 drop BOTH EYES HS 08/02/18 10/29/18 History Eye Drop] [place]ine 2% Ophth Soln [Isopto 1 drops RIGHT EYE BID 10/29/18 10/29/18 History Carpine 2%] Warfarin [Coumadin] 2.5 mg PO SUTUTHSA 10/29/18 10/30/18 History acetaZOLAMIDE [Diamox Sequels] 500 mg PO BID 10/29/18 10/30/18 History Acetaminophen-Codeine 300-30mg 1 tab PO Q12H PRN 10/30/18 10/30/18 History [Tylenol w/codeine #3] Calcium Carbonate/Vitamin D3 1 tab PO BID 10/30/18 10/30/18 History [Calcium 500-Vit D3 200 Tablet] Cholecalciferol [Vitamin D3] 1,000 unit PO BID 10/30/18 10/30/18 History Cyanocobalamin (Vitamin B-12) 1,000 mcg PO DAILY 10/30/18 10/30/18 History [Vitamin B-12] Multivitamins, Thera [Multivitamin 1 tab PO DAILY 10/30/18 10/30/18 History (formulary)] Netarsudil Mesylate [Rhopressa] 1 drop RIGHT EYE HS 10/30/18 10/30/18 History Sodium Chloride 5% Ophth Oint 1 applic RIGHT EYE BID 10/30/18 10/30/18 History [Malaika 128] Warfarin [Coumadin] 1.25 mg PO MOWEFR 10/30/18 10/30/18 History diphenhydrAMINE [Benadryl] 50 mg PO HS 10/30/18 10/30/18 History prednisoLONE ACETATE 1% OPHTH 1 drops RIGHT EYE TID 10/30/18 10/30/18 History [Pred Forte 1%] Allergies Allergy/AdvReac Type Severity Reaction Status Date / Time ibuprofen [From Motrin] Allergy Unknown Verified 10/30/18 10:34 meperidine HCl [From Demerol] Allergy Unknown Verified 10/30/18 10:34 midazolam [From Versed] Allergy Unknown Verified 10/30/18 10:34 morphine Allergy Unknown Verified 10/30/18 10:34 Physical Exam Vitals: Vital Signs Temp Pulse Resp BP BP Pulse Ox 10/30/18 11:00 75 10 L 88/63 96 10/30/18 10:30 77 14 87/70 97 10/30/18 10:00 80 48 H 111/76 92 L 10/30/18 09:30 83 16 91/63 90 L 10/30/18 09:00 81 25 H 82/56 94 L 10/30/18 08:30 78 18 72/46 95 10/30/18 08:00 97.8 F 71 12 91/63 94 L 10/30/18 07:18 71 8 L 72/46 96 10/30/18 07:17 71 7 L 72/46 97 10/30/18 07:16 74 8 L 89/59 95 10/30/18 07:15 75 7 L 89/59 94 L 10/30/18 07:14 72 7 L 89/59 96 10/30/18 07:13 73 8 L 89/59 94 L 10/30/18 07:12 75 9 L 89/59 95 10/30/18 07:11 74 9 L 89/59 98 10/30/18 07:10 75 9 L 89/59 94 L 10/30/18 07:09 74 9 L 89/59 94 L 10/30/18 07:08 72 8 L 89/59 97 10/30/18 07:07 73 9 L 89/59 96 10/30/18 07:06 75 8 L 89/59 95 10/30/18 07:05 76 8 L 89/59 95 10/30/18 07:04 72 9 L 89/59 97 10/30/18 07:03 73 13 89/59 95 10/30/18 07:02 75 10 L 89/59 96 10/30/18 07:01 73 8 L 89/59 95 10/30/18 07:00 76 10 L 89/59 94 L 10/30/18 06:59 75 7 L 89/59 92 L 10/30/18 06:58 75 7 L 89/59 94 L 10/30/18 06:57 75 9 L 93 L 10/30/18 06:56 74 7 L 89/59 93 L 10/30/18 06:55 72 10 L 89/59 90 L 10/30/18 06:54 75 19 89/59 88 L 10/30/18 06:53 76 14 89/59 95 10/30/18 06:52 75 9 L 89/59 92 L 10/30/18 06:51 74 13 89/59 86 L 10/30/18 06:50 75 12 89/59 96 10/30/18 06:49 77 15 89/59 91 L 10/30/18 06:48 89 12 89/59 90 L 10/30/18 06:47 75 9 L 89/59 93 L 10/30/18 06:46 75 24 89/59 87 L 10/30/18 06:45 75 25 H 89/59 93 L 10/30/18 06:44 75 13 89/59 85 L 10/30/18 06:43 74 12 89/59 88 L 10/30/18 06:42 75 8 L 89/59 83 L 10/30/18 06:41 76 7 L 89/59 85 L 10/30/18 06:40 78 15 89/59 89 L 10/30/18 06:39 74 13 89/59 86 L 10/30/18 06:38 75 19 89/59 91 L 10/30/18 06:37 74 7 L 89/59 94 L 10/30/18 06:36 75 6 L 89/59 89 L 10/30/18 06:35 75 5 L 89/59 95 10/30/18 06:34 72 11 L 89/59 95 10/30/18 06:33 73 11 L 89/59 97 10/30/18 06:32 76 23 89/59 86 L 10/30/18 06:31 73 8 L 89/59 90 L 10/30/18 06:30 72 12 89/59 86 L 10/30/18 06:29 73 7 L 89/59 93 L 10/30/18 06:25 76 9 L 89/59 97 10/30/18 06:23 75 13 89/59 97 10/30/18 06:00 78 25 H 81/56 95 10/30/18 05:30 75 16 81/56 95 10/30/18 05:00 76 14 92/72 92 L 10/30/18 04:30 78 24 92/72 91 L 10/30/18 04:10 97.9 F 15 92/72 88 L 10/30/18 03:36 98.0 F 73 16 96/71 98 10/30/18 03:00 77 16 92/49 96 10/30/18 02:13 97.7 F 75 16 86/64 98 10/30/18 02:00 97.7 F 76 16 74/51 10/30/18 01:30 76 16 78/52 10/30/18 01:00 97.9 F 76 16 80/42 95 10/30/18 00:37 75 79/48 10/30/18 00:30 72 16 79/67 10/30/18 00:00 75 16 66/36 10/29/18 23:30 78 16 77/42 10/29/18 23:00 75 16 78/49 10/29/18 22:30 76 16 95/53 98 10/29/18 22:16 76 16 79/39 96 10/29/18 22:11 98.0 F 73 15 77/36 97 10/29/18 22:00 71 16 77/45 97 10/29/18 21:30 75 16 130/73 10/29/18 21:00 75 14 132/77 10/29/18 19:30 77 16 100/77 10/29/18 19:00 85 120/49 88 L 10/29/18 18:30 82 74/46 79 L 10/29/18 18:18 74 18 74/46 98 10/29/18 18:00 78 67/56 90 L 10/29/18 17:58 77 18 67/56 97 10/29/18 17:30 74 18 116/99 97 10/29/18 17:00 68 85/68 84 L 10/29/18 16:49 77 18 85/68 100 10/29/18 16:30 72 78/48 100 10/29/18 16:00 74 18 66/56 98 10/29/18 15:30 76 98/49 10/29/18 15:17 70 16 98/49 97 10/29/18 15:00 71 75/44 76 L 10/29/18 14:47 75 18 74/49 98 10/29/18 14:15 74 81/68 78 L 10/29/18 14:11 73 18 81/68 100 10/29/18 13:45 97.9 F 75 18 81/53 96 10/29/18 13:15 70 18 62/33 89 L Intake and Output 10/29/18 10/30/18 10/30/18 22:59 06:59 14:59 Intake Total 1050 Output Total 150 800 355 Balance -150 -800 695 Intake: IV 600 Lactated Ringers 1,000 ml 600 @ 150 mls/hr IV .Q6H40M [facility] Rx#:[id number] Intake, IV Titration 450 Amount Lactated Ringers 1,000 ml 450 @ 150 mls/hr IV .Q6H40M [facility] Rx#:[id number] Output: Urine 150 800 355 Other: Voiding Method Indwelling Catheter Weight 45.359 kg Head normocephalic Neck supple Lungs clear to auscultation bilaterally no wheezing or crackles Heart regular rate and rhythm S1-S2, no rub or gallop Abdomen is soft nontender nondistended positive bowel sounds no hepatosplenomegaly Extremities no edema Neuro equal strength throughout all extremities. Patient A and O x 2. Poor Historian Results CBC & Chem 7: 10/30/18 10:46 10/29/18 13:30 Labs: Abnormal Lab Results - Last 24 Hours (Table) 10/29/18 10/29/18 10/29/18 Range/Units 13:30 13:30 17:25 RBC (3.80-5.40) m/uL Hgb (11.4-16.0) gm/dL Lymphocytes # 0.9 L (1.0-4.8) k/uL Sodium 135 L (137-145) mmol/L Chloride 109 H (98-107) mmol/L Carbon Dioxide 13 L (22-30) mmol/L BUN 46 H (7-17) mg/dL Creatinine 2.16 H (0.52-1.04) mg/dL Glucose 106 H (74-99) mg/dL POC Glucose (mg/dL) (75-99) mg/dL Amylase 120 H (30-110) U/L Lipase 876 H (23-300) U/L Urine Appearance Cloudy H (Clear) Urine Protein Trace H (Negative) Urine Ketones 1+ H (Negative) Ur Leukocyte Esterase Moderate H (Negative) Urine WBC 27 H (0-5) /hpf Urine Bacteria Few H (None) /hpf Hyaline Casts 5 H (0-2) /lpf Urine Mucus Rare H (None) /hpf 10/30/18 10/30/18 10/30/18 Range/Units 04:05 10:46 10:46 RBC 3.56 L (3.80-5.40) m/uL Hgb 11.1 L (11.4-16.0) gm/dL Lymphocytes # 0.9 L (1.0-4.8) k/uL Sodium (137-145) mmol/L Chloride (98-107) mmol/L Carbon Dioxide (22-30) mmol/L BUN (7-17) mg/dL Creatinine (0.52-1.04) mg/dL Glucose (74-99) mg/dL POC Glucose (mg/dL) 113 H (75-99) mg/dL Amylase (30-110) U/L Lipase 761 H (23-300) U/L Urine Appearance (Clear) Urine Protein (Negative) Urine Ketones (Negative) Ur Leukocyte Esterase (Negative) Urine WBC (0-5) /hpf Urine Bacteria (None) /hpf Hyaline Casts (0-2) /lpf Urine Mucus (None) /hpf Thrombosis Risk Factor Assmnt - Choose All That Apply Each Risk Factor Represents 3 Points: Age 75 years or older Other congenital or acquired thrombophilia - If yes, enter type in comment: No Thrombosis Risk Factor Assessment Total Risk Factor Score: 3 Thrombosis Risk Factor Assessment Level: Moderate Risk Assessment and Plan Assessment: 1. Increased weakness and confusion with diarrhea. Head CT completed showing mild periventricular white matter ischemic type changes. C. diff stool culture ordered. 2. Elevated pancreatic enzymes. Initial amylase 120. Lipase 876. We'll continue to monitor GI service is consulted. Patient currently on clear liquid diet 3. Urinary tract infection. Urinary analysis positive for leukocyte esterase. Urine culture ordered. Patient currently on Rocephin. Blood culture ordered 4. Acute kidney injury. Initial creatinine 2.16 and bun 46. Nephrology services consulted. Patient to be started on sodium bicarbonate drip of Pepcid nephrotoxic medications. 5. History of A. fib/flutter. Patient reports she has been off her Coumadin for 2 weeks due to eye procedure. Jose Guadalupe Kirk consulted per Dr. Alexandra for further evaluation of d/c of coumadin. Patient reports she follows with [facility] cardiology. We'll consult our cardiology team at this time to further evaluate Coumadin and cardiac medications 6. Hypotension. Patient has received multiple fluid boluses. Patient is admitted to the intensive care unit Dr. Alexandra following. Cardiology service is consulted. Home blood pressure meds currently on hold 7. Systolic congestive heart failure. Patient reports EF of 18%. Cardiology services have been consulted 8. Metabolic acidosis secondary to kidney injury and diarrhea. Nephrology services are following. Patient will be started on sodium bicarbonate drip 9. Possible Colonic mass. CT of abdomen and pelvis completed showing thickening to the hepatic flexure suspicious for colonic mass. Additionally is recommended. Urinary bladder diverticulum. Suspect it nonobstructing distal right ureteral stones. The larger measures 0.2 cm appear pole right renal cyst cardiomegaly. GI service is consulted 10. History of coronary artery disease 11. History of AICD 12. History of osteoarthritis DVT prophylaxis Deyanirax. GI prophylaxis Protonix Patient admitted to the intensive care unit. Critical care, cardiology, GI services and nephrology service is consulted Dr. Grewal consulted due to recent eye surgery and discontinuing of coumadin per critical care Time with Patient: Greater than 30 (Greater than 60% of the total time spent in counseling and coordination of care. I performed an examination of the patient and discussed their management with the Nurse Practitioner. I have reviewed the Nurse Practitioner's notes and agree with the documented findings and plan of care)
[2018-10-30] MEDS: BRIMONIDINE TARTRATE 0.2% DROPS 5 ML BTL BOTH EYES SCH ×3 (14:16→21:41)
[2018-10-30] MEDS: DORZOLAMIDE-TIMOLOL 2.23%/0.68 10ML BTL BOTH EYES SCH ×2 (14:16→21:38)
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
[2018-10-30 15:16] LABS: Calcium 7.3 mg/dL (8.4-10.2); Magnesium 1.8 mg/dL (1.6-2.3); Phosphorus 3.2 mg/dL (2.5-4.5); Potassium 3.6 mmol/L (3.5-5.1)
[2018-10-30] MEDS: prednisoLONE ACETATE 1% OPHTH DROPS 5 ML BTL RIGHT EYE SCH ×2 (15:56→21:44)
[2018-10-30 17:22] LABS: INR 1.1 (<1.2); Prothrombin Time 11.9 sec (9.0-12.0)
[2018-10-30] MEDS: WARFARIN 5 MG TAB PO SCH (17:43)
[2018-10-30] MEDS ORDERED: acetaZOLAMIDE 250 MG TAB PO SCH (21:00)
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
[2018-10-30] MEDS: CHOLECALCIFEROL 1,000 UNIT TAB PO SCH (21:35)
[2018-10-30] MEDS: ALLOPURINOL 100 MG TAB PO SCH (21:35)
[2018-10-30] MEDS: CALCIUM CARB-VIT D 500MG-200UN 1 EACH TAB PO SCH (21:35)
[2018-10-30] MEDS: DIGOXIN 125 MCG TAB PO SCH (21:35)
[2018-10-30] MEDS: diphenhydrAMINE 50 MG CAP PO SCH (21:36)
[2018-10-30] MEDS: LATANOPROST 0.005% OPHTH DROPS 2.5 ML BTL BOTH EYES SCH (21:40)
[2018-10-30] MEDS: PILOCARPINE 2% OPHTH DROPS 15 ML BTL RIGHT EYE SCH (21:43)
[2018-10-30] MEDS: SODIUM CHLORIDE 5% OPHTH OINT 3.5 GM TUBE RIGHT EYE SCH (21:45)
[2018-10-31 05:21] LABS: Basophils % (A) 0 %; Eosinophils # (A) 0.2 k/uL (0-0.7); Eosinophils % (A) 4 %; HCT 29.7 % (34.0-46.0); HGB 10.1 gm/dL (11.4-16.0); Lymphocytes # (A) 0.7 k/uL (1.0-4.8); Lymphocytes % (A) 18 %; MCH 31.4 pg (25.0-35.0); MCHC 34.1 g/dL (31.0-37.0); Mean Platelet Volume 6.4; Monocytes # (A) 0.3 k/uL (0-1.0); Monocytes % (A) 8 %; Neutrophils # (A) 2.8 k/uL (1.3-7.7); Neutrophils % (A) 68 %; Platelet Count 181 k/uL (150-450); RBC 3.23 m/uL (3.80-5.40); RDW 14.5 % (11.5-15.5); WBC 4.1 k/uL (3.8-10.6)
[2018-10-31 05:27] LABS: MCV 92.1 fL (80.0-100.0)
[2018-10-31 05:30] LABS: INR 1.2 (<1.2); Prothrombin Time 12.3 sec (9.0-12.0)
[2018-10-31 05:35] LABS: Calcium 7.6 mg/dL (8.4-10.2); Magnesium 1.9 mg/dL (1.6-2.3); Phosphorus 1.5 mg/dL (2.5-4.5)
[2018-10-31] MEDS ORDERED: Phosphorus Replacement Protoco 1 EACH MISC MISCELLANE PRN (06:00)
[2018-10-31] MEDS ORDERED: Potassium Replacement Protocol 1 EACH MISC MISCELLANE PRN (06:00)
[2018-10-31] MEDS: POTASSIUM CHLORIDE ER 20 MEQ TAB.ER PO SCH ×2 (07:00→09:15)
[2018-10-31] MEDS: POTASSIUM PHOSPHATE 10 MMOL in SODIUM CHLORIDE 0.9% 250 ML IV SCH ×2 (07:03→09:17)
[2018-10-31] MEDS ORDERED: ENOXAPARIN 30 MG/0.3 ML SYRINGE SQ SCH (09:00)
[2018-10-31] MEDS: PANTOPRAZOLE 40 MG TABLET PO SCH (09:14)
[2018-10-31] MEDS: CHOLECALCIFEROL 1,000 UNIT TAB PO SCH ×2 (09:14→20:55)
[2018-10-31] MEDS: CALCIUM CARB-VIT D 500MG-200UN 1 EACH TAB PO SCH ×2 (09:14→20:55)
[2018-10-31] MEDS: CYANOCOBALAMIN 500 MCG TAB PO SCH (09:15)
[2018-10-31] MEDS: DEXTROSE 5% IN WATER 1,000 ML with SODIUM BICARB (1 MEQ/ML) 150 ML IV SCH (09:17)
[2018-10-31] MEDS: PILOCARPINE 2% OPHTH DROPS 15 ML BTL RIGHT EYE SCH ×2 (09:56→20:58)
[2018-10-31] MEDS: prednisoLONE ACETATE 1% OPHTH DROPS 5 ML BTL RIGHT EYE SCH ×3 (09:56→20:58)
[2018-10-31] MEDS: BRIMONIDINE TARTRATE 0.2% DROPS 5 ML BTL BOTH EYES SCH ×3 (09:56→20:58)
[2018-10-31] MEDS: DORZOLAMIDE-TIMOLOL 2.23%/0.68 10ML BTL BOTH EYES SCH ×2 (09:56→20:57)
[2018-10-31] MEDS: SODIUM CHLORIDE 5% OPHTH OINT 3.5 GM TUBE RIGHT EYE SCH ×2 (09:56→20:58)
--- NOTE | 2018-10-31 10:23 | P.PN ---
Subjective Patient is seen in follow-up for acute kidney injury. GFR is back to baseline. No significant diarrhea. Oral intake remains poor. Hemodynamically stable. Vital signs are stable. General: The patient appeared well nourished and normally developed. HEENT: Head exam is unremarkable. Neck is without jugular venous distension. LUNGS: Lungs are clear to auscultation and percussion. Breath sounds decreased. HEART: Rate and Rhythm are regular. First and second heart sounds normal. No murmurs, rubs or gallops. ABDOMEN: Abdominal exam reveals normal bowel sounds. Non-tender and non- distended. No evidence of peritonitis. EXTREMITITES: No clubbing, cyanosis, or edema. Objective - Vital Signs Vital signs: Vital Signs Temp 99.2 F 10/31/18 08:00 Pulse 83 10/31/18 09:00 Resp 12 10/31/18 09:00 BP 116/86 10/31/18 08:00 Pulse Ox 98 10/31/18 09:00 Intake & Output 10/30/18 10/31/18 10/31/18 18:59 06:59 18:59 Intake Total 1750 1200 800 Output Total 1120 1370 330 Balance 630 -170 470 Weight 45.359 kg 52.8 kg Intake: IV 1300 1200 300 Dextrose 5% in Water 1, 700 1200 300 000 ml @ 50 mls/hr IV . Q23H JESSICA with Sodium Bicarb (1 Meq/ml) 150 ml Rx#:[id number] Lactated Ringers 1,000 ml 600 @ 150 mls/hr IV .Q6H40M JESSICA Rx#:[id number] Intake, IV Titration 450 500 Amount Lactated Ringers 1,000 ml 450 @ 150 mls/hr IV .Q6H40M JESSICA Rx#:[id number] Potassium Phosphate 10 500 mmol In Sodium Chloride 0 .9% 250 ml @ 125 mls/hr IV Q2H JESSICA Rx#:[id number] Output: Urine 1120 1370 330 Other: Voiding Method Indwelling Catheter Indwelling Catheter Indwelling Catheter # Bowel Movements 1 - Labs CBC & Chem 7: 10/31/18 04:16 10/31/18 04:16 Labs: Abnormal Lab Results - Last 24 Hours (Table) 10/30/18 10/30/18 10/30/18 Range/Units 10:46 10:46 10:46 RBC 3.56 L (3.80-5.40) m/uL Hgb 11.1 L (11.4-16.0) gm/dL Hct (34.0-46.0) % Lymphocytes # 0.9 L (1.0-4.8) k/uL PT (9.0-12.0) sec INR (<1.2) Sodium (137-145) mmol/L Potassium (3.5-5.1) mmol/L Chloride 120 H (98-107) mmol/L Carbon Dioxide 8 L* (22-30) mmol/L BUN 28 H (7-17) mg/dL Creatinine 1.07 H (0.52-1.04) mg/dL Glucose (74-99) mg/dL Calcium 7.3 L (8.4-10.2) mg/dL Phosphorus (2.5-4.5) mg/dL Lipase 761 H (23-300) U/L 10/31/18 10/31/18 10/31/18 Range/Units 04:16 04:16 04:16 RBC 3.23 L (3.80-5.40) m/uL Hgb 10.1 L (11.4-16.0) gm/dL Hct 29.7 L (34.0-46.0) % Lymphocytes # 0.7 L (1.0-4.8) k/uL PT 12.3 H (9.0-12.0) sec INR 1.2 H (<1.2) Sodium 135 L (137-145) mmol/L Potassium 3.0 L (3.5-5.1) mmol/L Chloride 113 H (98-107) mmol/L Carbon Dioxide 17 L (22-30) mmol/L BUN 18 H (7-17) mg/dL Creatinine (0.52-1.04) mg/dL Glucose 110 H (74-99) mg/dL Calcium 7.6 L (8.4-10.2) mg/dL Phosphorus 1.5 L (2.5-4.5) mg/dL Lipase (23-300) U/L Microbiology - Last 24 Hours (Table) 10/30/18 11:43 Urine Culture - Preliminary Urine,Catheterized 10/30/18 15:36 Stool Culture - Preliminary Stool 02/24/19 17:15 Blood Culture - Preliminary Blood No Growth after 24 hours Assessment and Plan Plan: Assessment: 1. Acute kidney injury secondary to ATN secondary to intravascular volume depletion from diarrhea as well as hypotension. GFR back to baseline. No hydronephrosis noted on CT. 2. Systolic CHF with ejection fraction of 18%. Compensated. 3. Metabolic acidosis secondary to acute kidney injury and diarrhea. Better. 4. Concern for colonic mass. GI following. Patient refused C-scope. 5. Diarrhea. Possibly due to gastroenteritis. GI following. 6. Hypokalemia from poor oral intake and intracellular shifting from bicarb. 7. Hyperphosphatemia from poor oral intake. Plan: Maintain isotonic sodium bicarbonate drip to be run at 50 mL an hour. Avoid nephrotoxins. Encouraged oral intake. Replace potassium. 60 mEq today. Phosphorus also being replaced.
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
[2018-10-31] MEDS: MULTIVITAMINS, THERA 1 EACH TAB PO SCH (12:22)
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
[2018-10-31] MEDS: WARFARIN 5 MG TAB PO SCH (18:45)
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
[2018-10-31] MEDS: diphenhydrAMINE 50 MG CAP PO SCH (20:55)
[2018-10-31] MEDS: ALLOPURINOL 100 MG TAB PO SCH (20:55)
[2018-10-31] MEDS: DIGOXIN 125 MCG TAB PO SCH (20:56)
[2018-10-31] MEDS: LATANOPROST 0.005% OPHTH DROPS 2.5 ML BTL BOTH EYES SCH (20:57)
[2018-11-01] MEDS: CHOLECALCIFEROL 1,000 UNIT TAB PO SCH ×2 (08:44→20:55)
[2018-11-01] MEDS: MULTIVITAMINS, THERA 1 EACH TAB PO SCH (08:44)
[2018-11-01] MEDS: CALCIUM CARB-VIT D 500MG-200UN 1 EACH TAB PO SCH ×2 (08:44→20:55)
[2018-11-01] MEDS: PANTOPRAZOLE 40 MG TABLET PO SCH (08:44)
[2018-11-01] MEDS: CYANOCOBALAMIN 500 MCG TAB PO SCH (08:44)
[2018-11-01] MEDS: prednisoLONE ACETATE 1% OPHTH DROPS 5 ML BTL RIGHT EYE SCH ×3 (08:46→21:00)
[2018-11-01] MEDS: BRIMONIDINE TARTRATE 0.2% DROPS 5 ML BTL BOTH EYES SCH ×3 (08:46→21:01)
[2018-11-01] MEDS: DORZOLAMIDE-TIMOLOL 2.23%/0.68 10ML BTL BOTH EYES SCH ×2 (08:46→21:01)
[2018-11-01] MEDS: PILOCARPINE 2% OPHTH DROPS 15 ML BTL RIGHT EYE SCH ×2 (08:46→21:01)
[2018-11-01] MEDS: SODIUM CHLORIDE 5% OPHTH OINT 3.5 GM TUBE RIGHT EYE SCH ×2 (08:47→21:01)
[2018-11-01] MEDS ORDERED: ENOXAPARIN 40 MG/0.4 ML SYRINGE SQ SCH (09:00)
[2018-11-01 09:23] LABS: Basophils % (A) 1 %; Eosinophils # (A) 0.1 k/uL (0-0.7); Eosinophils % (A) 2 %; HCT 32.5 % (34.0-46.0); HGB 11.1 gm/dL (11.4-16.0); Lymphocytes # (A) 0.9 k/uL (1.0-4.8); Lymphocytes % (A) 16 %; MCH 30.5 pg (25.0-35.0); MCV 89.6 fL (80.0-100.0); Mean Platelet Volume 6.8; Monocytes # (A) 0.3 k/uL (0-1.0); Monocytes % (A) 7 %; Neutrophils # (A) 3.8 k/uL (1.3-7.7); Neutrophils % (A) 72 %; Platelet Count 184 k/uL (150-450); RBC 3.63 m/uL (3.80-5.40); RDW 14.4 % (11.5-15.5); WBC 5.2 k/uL (3.8-10.6)
[2018-11-01 09:34] LABS: Calcium 8.3 mg/dL (8.4-10.2); Potassium 3.4 mmol/L (3.5-5.1)
[2018-11-01 09:38] LABS: INR 2.2 (<1.2); Prothrombin Time 21.3 sec (9.0-12.0)
[2018-11-01] MEDS: DEXTROSE 5% IN WATER 1,000 ML with SODIUM BICARB (1 MEQ/ML) 150 ML IV SCH (10:54)
[2018-11-01] MEDS ORDERED: POTASSIUM CHLORIDE ER 20 MEQ TAB.ER PO STA (11:11)
--- NOTE | 2018-11-01 11:12 | P.PN ---
Subjective Patient is seen in follow-up for acute kidney injury. GFR is back to baseline. No significant diarrhea. Oral intake gradually improving. Hemodynamically stable. Vital signs are stable. General: The patient appeared well nourished and normally developed. HEENT: Head exam is unremarkable. Neck is without jugular venous distension. LUNGS: Lungs are clear to auscultation and percussion. Breath sounds decreased. HEART: Rate and Rhythm are regular. First and second heart sounds normal. No murmurs, rubs or gallops. ABDOMEN: Abdominal exam reveals normal bowel sounds. Non-tender and non- distended. No evidence of peritonitis. EXTREMITITES: No clubbing, cyanosis, or edema. Objective - Vital Signs Vital signs: Vital Signs Temp 98.1 F 11/01/18 05:28 Pulse 83 11/01/18 05:28 Resp 18 11/01/18 05:28 BP 133/88 11/01/18 05:28 Pulse Ox 96 11/01/18 05:28 Intake & Output 10/31/18 11/01/18 11/01/18 18:59 06:59 18:59 Intake Total 850 240 240 Output Total 330 193 Balance 520 47 240 Weight 58.5 kg Intake: IV 350 Dextrose 5% in Water 1, 350 000 ml @ 50 mls/hr IV . Q23H JESSICA with Sodium Bicarb (1 Meq/ml) 150 ml Rx#:[id number] Intake, IV Titration 500 Amount Potassium Phosphate 10 500 mmol In Sodium Chloride 0 .9% 250 ml @ 125 mls/hr IV Q2H JESSICA Rx#:[id number] Oral 240 240 Output: Urine 330 75 Post Void Residual 118 Other: Voiding Method Toilet Toilet # Voids 2 # Bowel Movements 1 - Labs CBC & Chem 7: 11/01/18 08:47 11/01/18 08:47 Labs: Abnormal Lab Results - Last 24 Hours (Table) 11/01/18 11/01/18 11/01/18 Range/Units 08:47 08:47 08:47 RBC 3.63 L (3.80-5.40) m/uL Hgb 11.1 L (11.4-16.0) gm/dL Hct 32.5 L (34.0-46.0) % Lymphocytes # 0.9 L (1.0-4.8) k/uL PT 21.3 H (9.0-12.0) sec INR 2.2 H (<1.2) Potassium 3.4 L (3.5-5.1) mmol/L Chloride 114 H (98-107) mmol/L Carbon Dioxide 19 L (22-30) mmol/L Glucose 103 H (74-99) mg/dL Calcium 8.3 L (8.4-10.2) mg/dL Lipase 885 H (23-300) U/L Microbiology - Last 24 Hours (Table) 10/30/18 11:43 Urine Culture - Final Urine,Catheterized 10/29/18 17:15 Blood Culture - Preliminary Blood No Growth after 48 hours Assessment and Plan Plan: Assessment: 1. Acute kidney injury secondary to ATN secondary to intravascular volume depletion from diarrhea as well as hypotension. GFR back to baseline. No hydronephrosis noted on CT. 2. Systolic CHF with ejection fraction of 18%. Compensated. 3. Metabolic acidosis secondary to acute kidney injury and diarrhea. Better. 4. Concern for colonic mass. GI following. Patient refused C-scope. 5. Diarrhea. Possibly due to gastroenteritis. GI following. Improved. 6. Hypokalemia from poor oral intake and intracellular shifting from bicarb. Better post replacement. 7. Hypophosphatemia from poor oral intake. Status post placement. Plan: Hep-Lock IV fluids. Review check phosphorus level. Avoid nephrotoxins. Encouraged oral intake. Replace potassium. 40 mEq today.
--- NOTE | 2018-11-01 12:49 | P.PN ---
Progress Note - Text Progress Note Date: 11/01/18 Please call GI service for questions and or concerns will follow up on an as- needed basis.
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
[2018-11-01] MEDS: CARVEDILOL 12.5 MG TAB PO SCH (17:22)
[2018-11-01] MEDS ORDERED: WARFARIN 1.25 MG TAB PO SCH (18:00)
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
[2018-11-01] MEDS: ALLOPURINOL 100 MG TAB PO SCH (20:55)
[2018-11-01] MEDS: DIGOXIN 125 MCG TAB PO SCH (20:55)
[2018-11-01] MEDS: diphenhydrAMINE 50 MG CAP PO SCH (20:55)
[2018-11-01] MEDS: LATANOPROST 0.005% OPHTH DROPS 2.5 ML BTL BOTH EYES SCH (21:00)
[2018-11-01] MEDS ORDERED: LISINOPRIL 2.5 MG TAB PO SCH (21:00)
[2018-11-02 07:17] LABS: INR 2.8 (<1.2); Prothrombin Time 26.9 sec (9.0-12.0)
[2018-11-02 07:23] LABS: Calcium 8.3 mg/dL (8.4-10.2); Magnesium 1.7 mg/dL (1.6-2.3); Phosphorus 2.3 mg/dL (2.5-4.5); Potassium 3.4 mmol/L (3.5-5.1)
[2018-11-02 07:26] LABS: Basophils % (A) 0 %; Eosinophils # (A) 0.2 k/uL (0-0.7); Eosinophils % (A) 3 %; HCT 30.6 % (34.0-46.0); HGB 10.7 gm/dL (11.4-16.0); Lymphocytes # (A) 0.7 k/uL (1.0-4.8); Lymphocytes % (A) 14 %; MCH 31.6 pg (25.0-35.0); MCHC 34.9 g/dL (31.0-37.0); MCV 90.7 fL (80.0-100.0); Mean Platelet Volume 6.5; Monocytes # (A) 0.3 k/uL (0-1.0); Monocytes % (A) 5 %; Neutrophils % (A) 76 %; Platelet Count 180 k/uL (150-450); RBC 3.37 m/uL (3.80-5.40); RDW 14.6 % (11.5-15.5); WBC 5.3 k/uL (3.8-10.6)
[2018-11-02] MEDS: DORZOLAMIDE-TIMOLOL 2.23%/0.68 10ML BTL BOTH EYES SCH (08:01)
[2018-11-02] MEDS: BRIMONIDINE TARTRATE 0.2% DROPS 5 ML BTL BOTH EYES SCH ×2 (08:01→17:57)
[2018-11-02] MEDS: SODIUM CHLORIDE 5% OPHTH OINT 3.5 GM TUBE RIGHT EYE SCH (08:02)
[2018-11-02] MEDS: PILOCARPINE 2% OPHTH DROPS 15 ML BTL RIGHT EYE SCH (08:02)
[2018-11-02] MEDS: prednisoLONE ACETATE 1% OPHTH DROPS 5 ML BTL RIGHT EYE SCH ×2 (08:02→17:57)
[2018-11-02] MEDS: PANTOPRAZOLE 40 MG TABLET PO SCH (08:33)
[2018-11-02] MEDS: CALCIUM CARB-VIT D 500MG-200UN 1 EACH TAB PO SCH (08:33)
[2018-11-02] MEDS: CYANOCOBALAMIN 500 MCG TAB PO SCH (08:33)
[2018-11-02] MEDS: CHOLECALCIFEROL 1,000 UNIT TAB PO SCH (08:33)
[2018-11-02] MEDS ORDERED: SPIRONOLACTONE 25 MG TAB PO SCH (09:00)
[2018-11-02] MEDS ORDERED: Phosphorus Replacement Protoco 1 EACH MISC MISCELLANE PRN (10:09)
[2018-11-02] MEDS ORDERED: POTASSIUM CHLORIDE ER 20 MEQ TAB.ER PO STA (10:10)
--- NOTE | 2018-11-02 10:11 | P.PN ---
Subjective Patient is seen in follow-up for acute kidney injury. GFR is back to baseline. No significant diarrhea. Oral intake gradually improving. Hemodynamically stable. No changes overnight. Vital signs are stable. General: The patient appeared well nourished and normally developed. HEENT: Head exam is unremarkable. Neck is without jugular venous distension. LUNGS: Lungs are clear to auscultation and percussion. Breath sounds decreased. HEART: Rate and Rhythm are regular. First and second heart sounds normal. No murmurs, rubs or gallops. ABDOMEN: Abdominal exam reveals normal bowel sounds. Non-tender and non- distended. No evidence of peritonitis. EXTREMITITES: No clubbing, cyanosis, or edema. Objective - Vital Signs Vital signs: Vital Signs Temp 98 F 11/02/18 04:36 Pulse 83 11/02/18 08:10 Resp 18 11/02/18 04:36 BP 101/69 11/02/18 08:10 Pulse Ox 97 11/02/18 04:36 Intake & Output 11/01/18 11/02/18 11/02/18 18:59 06:59 18:59 Intake Total 2040 Output Total 150 4 Balance 1890 -4 Weight 57.5 kg Intake: IV 600 Dextrose 5% in Water 1, 600 000 ml @ 50 mls/hr IV . Q23H JESSICA with Sodium Bicarb (1 Meq/ml) 150 ml Rx#:[id number] Intake, IV Titration 100 Amount cefTRIAXone 1 gm In 100 Sodium Chloride 0.9% 50 ml @ 100 mls/hr IVPB Q24H JSESICA Rx#:[id number] Oral 1340 Output: Urine 150 2 Stool 2 Other: Voiding Method Toilet Toilet # Voids 4 1 - Labs CBC & Chem 7: 11/02/18 06:34 11/02/18 06:34 Labs: Abnormal Lab Results - Last 24 Hours (Table) 11/01/18 11/02/18 11/02/18 Range/Units 15:16 06:34 06:34 RBC 3.37 L (3.80-5.40) m/uL Hgb 10.7 L (11.4-16.0) gm/dL Hct 30.6 L (34.0-46.0) % Lymphocytes # 0.7 L (1.0-4.8) k/uL PT (9.0-12.0) sec INR (<1.2) Potassium 3.4 L 3.4 L (3.5-5.1) mmol/L Chloride 115 H (98-107) mmol/L Carbon Dioxide 18 L (22-30) mmol/L Glucose 104 H (74-99) mg/dL Calcium 8.3 L (8.4-10.2) mg/dL Phosphorus 2.3 L (2.5-4.5) mg/dL Lipase 513 H (23-300) U/L 11/02/18 Range/Units 06:34 RBC (3.80-5.40) m/uL Hgb (11.4-16.0) gm/dL Hct (34.0-46.0) % Lymphocytes # (1.0-4.8) k/uL PT 26.9 H (9.0-12.0) sec INR 2.8 H (<1.2) Potassium (3.5-5.1) mmol/L Chloride (98-107) mmol/L Carbon Dioxide (22-30) mmol/L Glucose (74-99) mg/dL Calcium (8.4-10.2) mg/dL Phosphorus (2.5-4.5) mg/dL Lipase (23-300) U/L Microbiology - Last 24 Hours (Table) 10/30/18 15:36 Stool Culture - Preliminary Stool 10/29/18 17:15 Blood Culture - Preliminary Blood No Growth after 72 hours Assessment and Plan Plan: Assessment: 1. Acute kidney injury secondary to ATN secondary to intravascular volume depletion from diarrhea as well as hypotension. GFR back to baseline. No hydronephrosis noted on CT. 2. Systolic CHF with ejection fraction of 18%. Compensated. 3. Metabolic acidosis secondary to acute kidney injury and diarrhea. 4. Concern for colonic mass. GI following. Patient refused C-scope. 5. Diarrhea. Possibly due to gastroenteritis. GI following. Improved. 6. Hypokalemia from poor oral intake and intracellular shifting from bicarb. 7. Hypophosphatemia from poor oral intake. Plan: Avoid nephrotoxins. Encouraged oral intake. Replace potassium. 40 mEq today. Add oral bicarbonate. Replace phosphorus. Potential discharge today. Repeat BMP in 2-3 days postdischarge. Follow up outpatient in the next 2 weeks.
[2018-11-02] MEDS: MULTIVITAMINS, THERA 1 EACH TAB PO SCH (10:54)
[2018-11-02] MEDS: CARVEDILOL 12.5 MG TAB PO SCH ×2 (10:54→18:52)
--- NOTE | 2018-11-02 11:36 | US ---
EXAMINATION TYPE: US abdomen complete DATE OF EXAM: 11/02/2018 COMPARISON: CT 4 days ago CLINICAL HISTORY: elevate lipase. Elevated lipase, exam done portable. EXAM MEASUREMENTS: Liver Length: 12.1 cm Gallbladder Wall: 0.4 cm CBD: 0.8 cm Spleen: 9.9 cm Right Kidney: 9.1 x 3.9 x 4.3 cm Left Kidney: 9.5 x 4.1 x 4.2 cm Pancreas: visualized portions appear prominent Liver: mildly heterogeneous, 1.2cm echogenic focus posterior right lobe Gallbladder: multiple small echogenic foci along posterior wall, wall measures 0.4cm, small amount o f fluid seen anterior to gallbladder Evidence for sonographic Villalpando's sign: no CBD: dilated Spleen: wnl Right Kidney: complex cyst superior pole = 3.6 x 4.0 x 4.1cm Left Kidney: wnl Upper IVC: wnl Abd Aorta: wnl Small right pleural effusion The visualized liver is mildly heterogeneous without mass or ductal dilatation. The intrahepatic por tion of the IVC and visualized abdominal aorta are within normal limits. There is no evidence of sha dowing mobile cholelithiasis. Gallbladder wall thickness is 4 mm mildly thickened with trace adjacent ascites. Common bile duct is unremarkable. The visualized portions of the pancreas are homogenous. Pancreatic duct is visualized but not dilated. The spleen is unremarkable. Kidneys are symmetric an d free of hydronephrosis. Technologist nolasco 4.0 cm slightly lobulated poorly defined but otherwise t hin-walled exophytic cyst upper pole level right kidney corresponding to CT lesion. IMPRESSION: No worrisome peripancreatic mass or pancreatic ductal dilatation identified
[2018-11-02 12:18] VITALS: BP 81/60; RESP 15; TEMP 97.8
[2018-11-02] MEDS: POTASSIUM PHOSPHATE 10 MMOL in SODIUM CHLORIDE 0.9% 250 ML IV SCH ×2 (12:20→14:44)
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
[2018-11-02] MEDS ORDERED: WARFARIN 2.5 MG TAB PO SCH (18:00)
[2018-11-02 18:23] VITALS: PULSE 83
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
== END 2018-11-02 18:45 | disposition home or self-care (01) | DRG 683 ==
LOC: EC 13:08 → 3SCARD 18:47 → UNDOADMIN 18:47 → 2SICU 18:58 → 3SCARD 19:45 → EC 10-30 00:10 → 2SICU 10-30 04:36 → 3NMEDONC 10-31 19:05
PROVIDERS: ADMIT Internal Medicine; ATTEND Internal Medicine
DX: N17.0 Acute kidney failure with tubular necrosis (principal); N39.0 Urinary tract infection, site not specified; I42.9 Cardiomyopathy, unspecified; I48.92 Unspecified atrial flutter; I50.20 Unspecified systolic (congestive) heart failure; N20.1 Calculus of ureter; E87.2 Acidosis; E86.0 Dehydration; E78.00 Pure hypercholesterolemia, unspecified; E83.39 Other disorders of phosphorus metabolism; E87.6 Hypokalemia; H43.11 Vitreous hemorrhage, right eye; H54.61 Unqualified visual loss, right eye, normal vision left eye; H40.1130 Primary open-angle glaucoma, bilateral, stage unspecified; H18.20 Unspecified corneal edema; I11.0 Hypertensive heart disease with heart failure; I25.10 Atherosclerotic heart disease of native coronary artery without angina pectoris; I45.10 Unspecified right bundle-branch block; I48.2 Chronic atrial fibrillation; K86.89 Other specified diseases of pancreas; I95.9 Hypotension, unspecified; M19.90 Unspecified osteoarthritis, unspecified site; N28.1 Cyst of kidney, acquired; K52.9 Noninfective gastroenteritis and colitis, unspecified; N32.3 Diverticulum of bladder; Z79.01 Long term (current) use of anticoagulants; Z79.899 Other long term (current) drug therapy; Z82.49 Family history of ischemic heart disease and other diseases of the circulatory system; Z87.891 Personal history of nicotine dependence; Z88.5 Allergy status to narcotic agent; Z83.3 Family history of diabetes mellitus; Z90.710 Acquired absence of both cervix and uterus; Z95.810 Presence of automatic (implantable) cardiac defibrillator; Z88.6 Allergy status to analgesic agent; Z88.8 Allergy status to other drugs, medicaments and biological substances
CPT/HCPCS: 36415; 70450; 71045; 74018; 74176; 76700; 80048; 80053; 80162; 81001; 82150; 82378; 82533; 83605; 83690; 83735; 84100; 84132; 85025; 85610; 85730; 87040; 87045; 87046; 87086; 87324; 93005; 96361; 96365; 96375; 96376; 99291

== ENCOUNTER 2019-11-16 09:10 | Emergency (ER) | payer MEDICARE, BC ==
[2019-11-16] MEDS ORDERED: SODIUM CHLORIDE 0.9% 1,000 ML IV STA (09:28)
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
[2019-11-16 09:59] LABS: HCT 38.9 % (34.0-46.0); MCH 31.1 pg (25.0-35.0); MCHC 33.4 g/dL (31.0-37.0); MCV 93.2 fL (80.0-100.0); Mean Platelet Volume 7.5; Platelet Count 179 k/uL (150-450); RBC 4.18 m/uL (3.80-5.40); RDW 13.3 % (11.5-15.5); WBC 6.2 k/uL (3.8-10.6)
--- NOTE | 2019-11-16 10:01 | XR ---
EXAMINATION TYPE: XR chest 2V DATE OF EXAM: 11/16/2019 COMPARISON: Prior chest 10/30/2018 HISTORY: Weakness, syncopal episode, history atrial fibrillation TECHNIQUE: Frontal and lateral views of the chest are obtained. FINDINGS: There is a generator in left pectoral region, intracardiac defibrillator lead is stable. H eart does not appear enlarged as on prior likely due to differences in technique. Aorta is dense. Pu lmonary vascularity and herbie within normal limits. No evident airspace disease, pneumothorax or, or p leural effusion. Arthropathy is present in the chromic clavicular joints. IMPRESSION: No acute cardiopulmonary process.
[2019-11-16 10:04] VITALS: RESP 18
[2019-11-16 10:07] LABS: INR 4.6 (<1.2); Partial Thromboplastin Time 47.5 sec (22.0-30.0); Prothrombin Time 46.2 sec (9.0-12.0)
[2019-11-16 10:25] LABS: Band Neutrophils % 2 %; Eosinophils # (M) 0.06 k/uL (0-0.7); Lymphocytes # (M) 0.62 k/uL (1.0-4.8); Neutrophils % (M) 79 %; Nucleated Red Blood Cells 0 /100 WBC (0-0); Total Cells Counted 100
[2019-11-16 10:31] LABS: Digoxin 1.2 ng/mL
[2019-11-16 10:46] LABS: Albumin 3.7 g/dL (3.5-5.0); Calcium 9.2 mg/dL (8.4-10.2); Potassium 5.3 mmol/L (3.5-5.1); Total Bilirubin 0.5 mg/dL (0.2-1.3); Total Protein 6.3 g/dL (6.3-8.2)
[2019-11-16 11:34] LABS: Appearance,Urine Cloudy (Clear); Bacteria,Urine Occasional /hpf; Bilirubin,Urine Negative (Negative); Blood,Urine Negative (Negative); Color,Urine Yellow; Glucose,Urine (UA) Negative (Negative); Hyaline Casts,Urine 42 /lpf (0-2); Ketones,Urine Negative (Negative); Leukocyte Esterase,Urine Moderate (Negative); Mucus,Urine Rare /hpf; Nitrite,Urine Negative (Negative); PH, Urine 6.5 (5.0-8.0); Protein,Urine Negative (Negative); RBC,Urine 1 /hpf (0-5); Specific Gravity,Urine 1.016 (1.001-1.035); Squamous Epithelial Cell,Urine 3 /hpf (0-4); Urobilinogen,Urine <2.0 mg/dL (<2.0); WBC,Urine 7 /hpf (0-5)
[2019-11-16 12:23] VITALS: BP 96/58; PULSE 77; TEMP 97.8
[2019-11-16] MEDS ORDERED: cefTRIAXone IN SWFI 1,000 MG/10 ML SYRINGE IVP STA (12:30)
== END 2019-11-16 12:49 | disposition home or self-care (01) ==
LOC: EC 09:10
DX: N39.0 Urinary tract infection, site not specified (principal); I45.10 Unspecified right bundle-branch block; R00.1 Bradycardia, unspecified; R06.2 Wheezing; I25.10 Atherosclerotic heart disease of native coronary artery without angina pectoris; M19.90 Unspecified osteoarthritis, unspecified site; I50.9 Heart failure, unspecified; I48.20 Chronic atrial fibrillation, unspecified; Z79.01 Long term (current) use of anticoagulants; Z79.899 Other long term (current) drug therapy; Z88.6 Allergy status to analgesic agent; Z88.5 Allergy status to narcotic agent; Z95.810 Presence of automatic (implantable) cardiac defibrillator; Z95.5 Presence of coronary angioplasty implant and graft; Z82.49 Family history of ischemic heart disease and other diseases of the circulatory system
CPT/HCPCS: 99285; 96374; 96361; 36415; 93005; 80053; 82150; 80162; 83605; 83690; 83735; 84484; 85025; 85610; 85730; 81001; 71046; J0696

== ENCOUNTER 2020-02-14 14:35 | Emergency (ER) | payer MEDICARE, BC ==
[2020-02-14 14:48] VITALS: TEMP 97.9
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
--- NOTE | 2020-02-14 15:30 | XR ---
EXAMINATION TYPE: AP view pelvis and 2 views left hip DATE OF EXAM: 02/14/2020 COMPARISON: NONE HISTORY: 84-year-old female pain FINDINGS: Osteopenia. Degenerative changes lower lumbar spine. Osteitis pubis. Pelvic phleboliths. Mild degener ative change at the left hip. Partially visualized sideplate and screw fixation of the left femoral s haft. No displaced fracture seen. IMPRESSION: Mild left hip OA. Osteitis pubis. Degenerative changes lower lumbar spine. Partially visualized later al sideplate and screw fixation of the left femoral shaft. Osteopenia without displaced fracture seen .
[2020-02-14 16:14] VITALS: BP 110/70; PULSE 70; RESP 18
== END 2020-02-14 16:13 | disposition home or self-care (01) ==
LOC: EC 14:35
DX: M16.12 Unilateral primary osteoarthritis, left hip (principal); M86.8X8 Other osteomyelitis, other site; M47.896 Other spondylosis, lumbar region; M85.80 Other specified disorders of bone density and structure, unspecified site; I48.92 Unspecified atrial flutter; I25.10 Atherosclerotic heart disease of native coronary artery without angina pectoris; I48.20 Chronic atrial fibrillation, unspecified; M19.90 Unspecified osteoarthritis, unspecified site; I50.9 Heart failure, unspecified; Z79.891 Long term (current) use of opiate analgesic; Z95.810 Presence of automatic (implantable) cardiac defibrillator; Z95.818 Presence of other cardiac implants and grafts; Z79.01 Long term (current) use of anticoagulants; Z79.52 Long term (current) use of systemic steroids; Z79.899 Other long term (current) drug therapy; Z91.030 Bee allergy status; Z88.6 Allergy status to analgesic agent; Z88.5 Allergy status to narcotic agent; Z88.8 Allergy status to other drugs, medicaments and biological substances
CPT/HCPCS: 73502; 99283

== ENCOUNTER 2020-02-16 13:44 | Emergency (ER) | payer MEDICARE, BC ==
[2020-02-16 14:08] VITALS: BP 109/70; PULSE 73; RESP 18; TEMP 97.9
[2020-02-16] MEDS ORDERED: HYDROcodone/APAP 5-325MG 1 EACH TAB PO STA (14:46)
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
== END 2020-02-16 15:05 | disposition home or self-care (01) ==
LOC: EC 13:44
DX: M79.605 Pain in left leg (principal); M16.0 Bilateral primary osteoarthritis of hip; I25.10 Atherosclerotic heart disease of native coronary artery without angina pectoris; I50.9 Heart failure, unspecified; H54.61 Unqualified visual loss, right eye, normal vision left eye; I48.20 Chronic atrial fibrillation, unspecified; Z95.5 Presence of coronary angioplasty implant and graft; Z79.899 Other long term (current) drug therapy; Z88.5 Allergy status to narcotic agent; Z88.6 Allergy status to analgesic agent; Z88.8 Allergy status to other drugs, medicaments and biological substances; Z91.030 Bee allergy status; Z98.42 Cataract extraction status, left eye; Z98.41 Cataract extraction status, right eye; Z90.89 Acquired absence of other organs; Z90.49 Acquired absence of other specified parts of digestive tract; Z90.710 Acquired absence of both cervix and uterus; Z95.810 Presence of automatic (implantable) cardiac defibrillator
CPT/HCPCS: 99283

== ENCOUNTER 2021-03-04 12:15 | Emergency (ER) | payer MEDICARE, BC ==
[2021-03-04 12:26] VITALS: RESP 18; TEMP 98
[2021-03-04 13:22] LABS: Basophils # (A) 0.1 k/uL (0-0.2); Basophils % (A) 1 %; Eosinophils # (A) 0.2 k/uL (0-0.7); Eosinophils % (A) 3 %; HCT 37.2 % (34.0-46.0); HGB 12.6 gm/dL (11.4-16.0); Lymphocytes # (A) 1.7 k/uL (1.0-4.8); Lymphocytes % (A) 22 %; MCH 31.5 pg (25.0-35.0); MCHC 33.9 g/dL (31.0-37.0); Mean Platelet Volume 7.3; Monocytes # (A) 0.3 k/uL (0-1.0); Monocytes % (A) 4 %; Neutrophils # (A) 5.5 k/uL (1.3-7.7); Neutrophils % (A) 69 %; Platelet Count 196 k/uL (150-450); RDW 13.6 % (11.5-15.5); WBC 7.9 k/uL (3.8-10.6)
[2021-03-04 13:34] LABS: Albumin 3.7 g/dL (3.5-5.0); Calcium 9.3 mg/dL (8.4-10.2); INR 2.1 (<1.2); Partial Thromboplastin Time 31.1 sec (22.0-30.0); Potassium 4.9 mmol/L (3.5-5.1); Prothrombin Time 20.8 sec (9.0-12.0); Total Bilirubin 0.4 mg/dL (0.2-1.3); Total Protein 6.3 g/dL (6.3-8.2)
--- NOTE | 2021-03-04 13:49 | CT ---
EXAMINATION TYPE: CT brain wo con DATE OF EXAM: 03/04/2021 COMPARISON: 10/29/2018 INDICATION: Superior injury with laceration DLP: 1099.4 mGycm, Automated exposure control for dose reduction was used. CONTRAST: None CT of the brain is performed utilizing 3 mm thick sections through the posterior fossa and 3 mm thick sections through the remaining calvarium. Study is performed within 24 hours of arrival to the hosp [facility]. No abnormal hyperdensity is present to suggest an acute intracranial hemorrhage. No mass lesion is evident. No acute infarcts are evident. Mild periventricular white matter hypodensity is present, likely on th e basis of chronic white matter ischemic change. Ventricles and sulci are appropriate for the patient age. Paranasal sinuses and mastoid air cells within the [id number] are clear. There is soft tissue swelling over the superficial soft tissues of the left parietal vertex. No under lying fracture is evident. IMPRESSIONS: 1. Mild chronic appearing white matter changes. 2. Superficial right parietal vertex soft tissue swelling
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
[2021-03-04 14:26] VITALS: BP 125/77; PULSE 59
== END 2021-03-04 14:46 | disposition home or self-care (01) ==
LOC: EC 12:15
DX: S01.01XA Laceration without foreign body of scalp, initial encounter (principal); I25.10 Atherosclerotic heart disease of native coronary artery without angina pectoris; I48.20 Chronic atrial fibrillation, unspecified; M19.90 Unspecified osteoarthritis, unspecified site; I50.9 Heart failure, unspecified; Z79.01 Long term (current) use of anticoagulants; Z79.52 Long term (current) use of systemic steroids; Z88.5 Allergy status to narcotic agent; Z88.6 Allergy status to analgesic agent; Z91.030 Bee allergy status; Z95.810 Presence of automatic (implantable) cardiac defibrillator; Z79.899 Other long term (current) drug therapy; W23.0XXA Caught, crushed, jammed, or pinched between moving objects, initial encounter; Y93.01 Activity, walking, marching and hiking; Y92.481 Parking lot as the place of occurrence of the external cause
CPT/HCPCS: 12004; 36415; 70450; 80053; 85025; 85610; 85730; 99284

== ENCOUNTER 2021-03-06 10:10 | Emergency (ER) | payer MEDICARE, BC ==
[2021-03-06 10:14] VITALS: PULSE 68; TEMP 98.5
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
[2021-03-06] MEDS: LIDOCAINE 1%-EPI 1:100,000 20 ML VIAL SQ STA (11:06)
[2021-03-06 12:02] VITALS: BP 116/80; RESP 17
== END 2021-03-06 12:05 | disposition home or self-care (01) ==
LOC: EC 10:10
DX: L76.22 Postprocedural hemorrhage of skin and subcutaneous tissue following other procedure (principal); M19.90 Unspecified osteoarthritis, unspecified site; I25.10 Atherosclerotic heart disease of native coronary artery without angina pectoris; I48.20 Chronic atrial fibrillation, unspecified; Z91.030 Bee allergy status; Z88.6 Allergy status to analgesic agent; Z88.5 Allergy status to narcotic agent; Z88.4 Allergy status to anesthetic agent; Z79.899 Other long term (current) drug therapy; Z79.01 Long term (current) use of anticoagulants
CPT/HCPCS: 99282

== ENCOUNTER 2022-04-23 13:25 | Emergency (ER) | payer MEDICARE, BC ==
[2022-04-23] MEDS ORDERED: SODIUM CHLORIDE 0.9% 500 ML 500 ML IV ONE ×2 (13:42→15:21)
[2022-04-23 14:18] VITALS: RESP 18
[2022-04-23 14:30] LABS: Basophils # (A) 0.1 k/uL (0-0.2); Basophils % (A) 1 %; Eosinophils # (A) 0.2 k/uL (0-0.7); Eosinophils % (A) 3 %; HCT 33.9 % (34.0-46.0); HGB 11.1 gm/dL (11.4-16.0); Lymphocytes # (A) 1.1 k/uL (1.0-4.8); Lymphocytes % (A) 12 %; MCH 31.3 pg (25.0-35.0); MCHC 32.6 g/dL (31.0-37.0); MCV 96.1 fL (80.0-100.0); Mean Platelet Volume 7.3; Monocytes # (A) 0.4 k/uL (0-1.0); Monocytes % (A) 4 %; Neutrophils # (A) 7.4 k/uL (1.3-7.7); Neutrophils % (A) 80 %; Platelet Count 336 k/uL (150-450); RBC 3.53 m/uL (3.80-5.40); WBC 9.2 k/uL (3.8-10.6)
--- NOTE | 2022-04-23 14:43 | XR ---
EXAMINATION TYPE: XR chest 2V DATE OF EXAM: 04/23/2022 COMPARISON: 11/16/2019 HISTORY: Shortness of breath TECHNIQUE: Frontal and lateral views of the chest are obtained. FINDINGS: Scattered senescent parenchymal changes noted. Hyperinflation compatible with COPD. No evidence for infiltrate. No evidence for atelectasis. Heart size is stable. Mediastinal structures are stable and grossly unremarkable. No evidence for hilar prominence. Degenerative changes dorsal spine. IMPRESSION: 1. No evidence for acute pulmonary disease.
[2022-04-23 14:47] LABS: Albumin 3.6 g/dL (3.5-5.0); Calcium 9.3 mg/dL (8.4-10.2); Potassium 5.1 mmol/L (3.5-5.1); Total Bilirubin 0.6 mg/dL (0.2-1.3); Total Protein 6.3 g/dL (6.3-8.2)
--- NOTE | 2022-04-23 14:51 | CT ---
EXAMINATION TYPE: CT brain miranda guillermo con DATE OF EXAM: 04/23/2022 COMPARISON: 03/04/2021 HISTORY: fall CT DLP: 1331.6 mGycm Automated exposure control for dose reduction was used. TECHNIQUE: CT scan of the head and cervical spine are performed without contrast. FINDINGS: There is no acute intracranial hemorrhage, mass effect, or midline shift identified. The ventricles and sulci are within normal limits in size for the patient's age. There is age-appropriat e atrophy. The intraorbital contents are normal and symmetric. There is near complete opacification of the left maxillary sinus and multiple left ethmoid air cells. There is marked thinning of the medial wall of t he left maxillary sinus and enlargement of the left middle nasal turbinate. Findings suggest the pres ence of chronic sinusitis possibly inverting papilloma. Chronic inflammatory changes are also seen in the sphenoid sinus as well. The mastoid air cells are well aerated . The craniovertebral junction relationships are normal and the prevertebral soft tissues are normal. There is slight degenerative anterolisthesis of C3-4 and C5 and there are advanced degenerative nieto es at the C3-C4, C4-5, C5-6 and C6-7 levels. There is no evidence of acute trauma or fracture. There is no bony compromise of the cervical spinal canal. IMPRESSION: 1. There is no acute fracture or dislocation evident in the cervical spine. There are significant deg enerative changes as described above. 2. No acute intracranial hemorrhage, mass effect, or midline shift is seen. There is age-appropriate atrophy. 3. Abnormalities involving the paranasal sinuses as described above.
[2022-04-23 14:54] LABS: Prothrombin Time 69.1 sec (9.0-12.0)
[2022-04-23 14:59] LABS: INR 6.8 (<1.2); Partial Thromboplastin Time 62.9 sec (22.0-30.0)
[2022-04-23] MEDS ORDERED: PHYTONADIONE ORAL 5 MG/5 ML ORAL.SYRG PO STA (15:15)
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
[2022-04-23 16:13] VITALS: BP 117/73; PULSE 70; TEMP 97.7
== END 2022-04-23 16:13 | disposition home or self-care (01) ==
LOC: EC 13:25
DX: S06.0X9A Concussion with loss of consciousness of unspecified duration, initial encounter (principal); Z91.030 Bee allergy status; Z88.6 Allergy status to analgesic agent; Z88.0 Allergy status to penicillin; Z88.8 Allergy status to other drugs, medicaments and biological substances; W01.0XXA Fall on same level from slipping, tripping and stumbling without subsequent striking against object, initial encounter
CPT/HCPCS: 36415; 70450; 71046; 72125; 80053; 85025; 85610; 85730

== ENCOUNTER 2022-05-19 13:37 | Inpatient (IN) | payer MEDICARE, BC ==
[2022-05-19 14:28] LABS: Basophils % (A) 0 %; Eosinophils % (A) 0 %; HCT 40.1 % (34.0-46.0); HGB 13.4 gm/dL (11.4-16.0); Lymphocytes # (A) 0.9 k/uL (1.0-4.8); Lymphocytes % (A) 7 %; MCH 32.5 pg (25.0-35.0); MCHC 33.5 g/dL (31.0-37.0); Mean Platelet Volume 6.9; Monocytes # (A) 0.3 k/uL (0-1.0); Monocytes % (A) 3 %; Neutrophils # (A) 10.6 k/uL (1.3-7.7); Neutrophils % (A) 89 %; Platelet Count 316 k/uL (150-450); RBC 4.13 m/uL (3.80-5.40); RDW 14.5 % (11.5-15.5); WBC 11.9 k/uL (3.8-10.6)
[2022-05-19 14:34] LABS: INR 1.6 (<1.2); Partial Thromboplastin Time 26.6 sec (22.0-30.0); Prothrombin Time 16.5 sec (9.0-12.0)
[2022-05-19 14:35] LABS: ALT 14 U/L (4-34); AST 26 U/L (14-36); African American GFR (CKD) >90 (>60 ml/min/1.73 sqM); Albumin 4.2 g/dL (3.5-5.0); Alkaline Phosphatase 72 U/L (38-126); Anion Gap 12 mmol/L; Blood Urea Nitrogen 12 mg/dL (7-17); Calcium 9.3 mg/dL (8.4-10.2); Carbon Dioxide 24 mmol/L (22-30); Chloride 96 mmol/L (98-107); Glucose 153 mg/dL (74-99); Non-African American GFR(CKD) 79 (>60 ml/min/1.73 sqM); Potassium 4.1 mmol/L (3.5-5.1); Sodium 132 mmol/L (137-145); Total Bilirubin 0.6 mg/dL (0.2-1.3); Total Protein 6.7 g/dL (6.3-8.2)
[2022-05-19] MEDS ORDERED: SODIUM CHLORIDE 0.9% 500 ML 500 ML IV STA (14:35)
[2022-05-19] MEDS ORDERED: ONDANSETRON 4 MG/2 ML VIAL IVP STA (14:35)
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
[2022-05-19] MEDS ORDERED: HYDROmorphone 0.5 MG/0.5 ML SYRINGE IVP STA ×3 (15:15→19:23)
--- NOTE | 2022-05-19 16:19 | CT ---
EXAMINATION TYPE: CT abdomen pelvis w con DATE OF EXAM: 05/19/2022 COMPARISON: 10/29/2018 INDICATION: abdominal pain, nausea, vomiting DLP: 564.9 mGycm, Automated exposure control for dose reduction was used. CONTRAST: 80cc mL of Isovue 300. Study performed without Oral Contrast TECHNIQUE: Axial images were obtained from above the diaphragm to the pubic rami in the axial plane a t 5 mm thick sections. Reconstructed images are reviewed on the computer in the coronal plane. FINDINGS: Limited CT sections are obtained the lung bases. The lung bases are clear. Note is made of coronary artery calcification. CT ABDOMEN: Liver: Normal Spleen: Normal Pancreas: Normal Adrenal glands: The adrenal glands are normal. Gallbladder: Normal Kidneys: No masses are evident. No hydronephrosis is present. There is cyst superior medial right k idney measuring 3.5 cm. Delayed images were obtained through the kidneys, which remain unremarkable. Aorta: Vascular calcification is within the aorta. Inferior vena cava: Normal. CT PELVIS: There is free fluid within the pelvis. There are small bowel loops with some wall edema within the right and lower quadrant and midabdomen. This may have a zone of transition in the anterior right lower quadrant. Consider intussusception wit hin the differential. Ileitis could be considered. Sella and volvulus of the right lower quadrant ile um could be considered. Note no central swirl or malrotation of other loops of bowel are radiographic ally evident. Some fecal debris appears to be within the terminal ileum. There are diverticular nieto es within the distal colon. Proximal small bowel loops are nondilated. No obstruction is identified. Appendix: Not identified. Clinical management highly suspected appendicitis will be required. Urinary bladder: Normal. Genitourinary structures: Uterus and ovaries are not identified. Osseous structures: No suspicious lytic or sclerotic lesions. IMPRESSIONS: 1. There are dilated thick-walled loops of ileum in the right lower quadrant. An intussusception cou ld be considered. Ileitis should be considered. Volvulus not entirely excluded but considered less naomi vides. Case was called and discussed with the emergency room PA by Dr. Quiroz by telephone [id number] hours 05/19/2022. Consider repeat CT Abdomen Pelvis With water-soluble oral contrast.
[2022-05-19] MEDS ORDERED: IOPAMIDOL CONTRAST (ORAL USE) VIAL PO PRN (16:32)
[2022-05-19 18:16] LABS: Appearance,Urine Clear (Clear); Bilirubin,Urine Negative (Negative); Blood,Urine Small (Negative); Color,Urine Yellow; Glucose,Urine (UA) Negative (Negative); Ketones,Urine 2+ (Negative); Leukocyte Esterase,Urine Small (Negative); Mucus,Urine Rare /hpf; Nitrite,Urine Negative (Negative); PH, Urine 5.5 (5.0-8.0); Protein,Urine Trace (Negative); RBC,Urine 18 /hpf (0-5); Specific Gravity,Urine >1.050 (1.001-1.035); Squamous Epithelial Cell,Urine 6 /hpf (0-4); Urobilinogen,Urine <2.0 mg/dL (<2.0); WBC,Urine 7 /hpf (0-5)
[2022-05-19 18:20] LABS: Amylase 65 U/L (30-110); Lipase 184 U/L (23-300)
--- NOTE | 2022-05-19 19:17 | CT ---
EXAMINATION TYPE: CT abdomen pelvis wo con DATE OF EXAM: 05/19/2022 COMPARISON: Today HISTORY: abdominal pain. pt only able to tolerate 1 and 1/2 of the drinks over a 2 hour time frame. I V contrast was given on the scan [address] DLP: 353.8 mGycm Automated exposure control for dose reduction was used. Images obtained from the diaphragm to the floor the pelvis with the oral contrast. Lung bases show mild subsegmental atelectasis. Heart is enlarged. No pericardial effusion. No pleural effusion. Liver is intact. Stomach is distended with contrast material. Spleen is intact. There is no pancreati c mass. There is vascular calcification. Gallbladder appears normal. The bile ducts are not dilated. There is no adrenal mass. There is contrast in the kidneys and urinary bladder from previous contrast exam today. There is no hydronephrosis. There is 4.2 cm cortical cyst medial right kidney. The ureters are not di lated. No retroperitoneal adenopathy. Bladder distends smoothly. No inguinal hernia. There is interme diate density free fluid in the pelvis. This has density of 65. There are some dilated small bowel loops with mild wall thickening in the right side of the abdomen. Small bowel measures up to 3.5 cm. The fecal pattern is fairly normal. No evidence of free air. No me senteric edema. The lumbar vertebra show fairly normal alignment. There is narrowing at L4-5 disc with vacuum disc an d spur formation. No lumbar compression fracture. The bony pelvis is intact. The hip joints are intac t. IMPRESSION: Compared to exam earlier today there is significant increased density in the free fluid in the pelvis . The fluid had density of 10 and now has density of 65. This could be hemorrhagic fluid and source i s not clear. Also consider urinoma with ureteral leak. Fluid volume appears increased compared to exa m 3 hours ago. Follow-up is recommended. There is dilated thick walled small bowel in the right lower quadrant. I would consider inflammatory bowel disease or ischemic bowel.
[2022-05-19] MEDS ORDERED: NALOXONE 0.4 MG/ML 1 ML VIAL IV PRN (19:41)
[2022-05-19] MEDS ORDERED: PHYTONADIONE ORAL 5 MG/5 ML ORAL.SYRG PO STA (20:20)
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
[2022-05-19] MEDS ORDERED: SODIUM CHLORIDE 0.9% 1,000 ML IV ONE (20:22)
[2022-05-19] MEDS: SODIUM CHLORIDE 0.9% 1,000 ML IV SCH (21:27)
[2022-05-19] MEDS: HYDROmorphone 1 MG/ML 1 ML SYRINGE IVP PRN (23:24)
[2022-05-20] MEDS: HYDROmorphone 1 MG/ML 1 ML SYRINGE IVP PRN ×3 (02:18→08:36)
[2022-05-20 07:26] LABS: Basophils % (A) 0 %; Eosinophils % (A) 0 %; HCT 31.8 % (34.0-46.0); HGB 10.6 gm/dL (11.4-16.0); Lymphocytes # (A) 1.3 k/uL (1.0-4.8); Lymphocytes % (A) 8 %; MCHC 33.2 g/dL (31.0-37.0); MCV 99.4 fL (80.0-100.0); Macrocytosis Slight; Mean Platelet Volume 7.3; Monocytes # (A) 0.8 k/uL (0-1.0); Monocytes % (A) 5 %; Neutrophils # (A) 13.1 k/uL (1.3-7.7); Neutrophils % (A) 85 %; Platelet Count 293 k/uL (150-450); RDW 14.9 % (11.5-15.5); WBC 15.4 k/uL (3.8-10.6)
[2022-05-20 07:32] LABS: INR 1.8 (<1.2); Prothrombin Time 18.6 sec (9.0-12.0)
[2022-05-20 07:46] LABS: ALT 10 U/L (4-34); AST 21 U/L (14-36); African American GFR (CKD) 70 (>60 ml/min/1.73 sqM); Albumin 3.2 g/dL (3.5-5.0); Albumin/Globulin Ratio 1.5; Alkaline Phosphatase 56 U/L (38-126); Anion Gap 9 mmol/L; Blood Urea Nitrogen 15 mg/dL (7-17); Calcium 8.4 mg/dL (8.4-10.2); Carbon Dioxide 23 mmol/L (22-30); Chloride 99 mmol/L (98-107); Globulin 2.2 g/dL; Glucose 123 mg/dL (74-99); Non-African American GFR(CKD) 61 (>60 ml/min/1.73 sqM); Potassium 4.2 mmol/L (3.5-5.1); Sodium 131 mmol/L (137-145); Total Bilirubin 0.6 mg/dL (0.2-1.3); Total Protein 5.4 g/dL (6.3-8.2)
[2022-05-20] MEDS: carvediloL 12.5 MG TAB PO SCH ×2 (09:27→17:50)
[2022-05-20] MEDS: PANTOPRAZOLE 40 MG/10 ML VIAL IV SCH (09:27)
[2022-05-20] MEDS: DIGOXIN 125 MCG TAB PO SCH (09:27)
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
--- NOTE | 2022-05-20 10:20 | CA ---
Transthoracic Echo Report Name: Marina Vargas Age: 86 Gender: F : 1935 Exam Date: 05/20/2022 08:23 Exam Location: [facility] Ht (in): 59 Wt (lb): 85 Ordering Physician: Bang Zavaleta MD Attending/Referring Phys: Sagger Preparer Erika Garcia RDCS Procedure CPT: Indications: surgical clearance Cardiac Hx: Technical Quality: Fair Contrast 1: Total Dose (mL): Contrast 2: Total Dose (mL): MEASUREMENTS (Male / Female) Normal Values 2D ECHO LV Diastolic Diameter PLAX 4.8 cm 4.2 - 5.9 / 3.9 - 5.3 cm LV Systolic Diameter PLAX 3.1 cm IVS Diastolic Thickness 1.0 cm 0.6 - 1.0 / 0.6 - 0.9 cm LVPW Diastolic Thickness 1.0 cm 0.6 - 1.0 / 0.6 - 0.9 cm LV Relative Wall Thickness 0.4 RV Internal Dim ED PLAX 3.4 cm LA Systolic Diameter LX 2.9 cm 3.0 - 4.0 / 2.7 - 3.8 cm M-MODE Aortic Root Diameter MM 3.7 cm MV E Point Septal Separation 1.3 cm AV Cusp Separation MM 1.7 cm DOPPLER AV Peak Velocity 149.6 cm/s AV Peak Gradient 9.0 mmHg AI Peak Velocity 435.3 cm/s AI Peak Gradient 75.8 mmHg AI Pressure Half Time 472.0 ms TR Peak Velocity 281.1 cm/s TR Peak Gradient 31.6 mmHg Right Ventricular Systolic Press 36.0 mmHg FINDINGS Left Ventricle Left ventricular ejection fraction is estimated at 55-60 %. Left ventricular cavity size normal. Left ventricular wall thickness normal. Right Ventricle Mild right ventricular dilatation. Mild pulmonary hypertension. Right Atrium Normal right atrial size. Left Atrium Normal left atrial size. Mitral Valve Mitral valve thickened. Mitral annular calcification. Trace to mild mitral regurgitation. Aortic Valve Trileaflet aortic valve. Focal thickening of the aortic valve cusps. Mild aortic regurgitation. Tricuspid Valve Mild tricuspid regurgitation. Pulmonic Valve Trace pulmonic regurgitation. Pericardium Normal pericardium. No pericardial effusion. Aorta Normal size aortic root and proximal ascending aorta. CONCLUSIONS Preserved LV size and systolic function Mild RV enlargement Lead noted in the right ventricle Previewed by: Dr. Kye Nathan MD (Electronically Signed) Final Date: 20 May 2022 10:19
[2022-05-20] MEDS ORDERED: LACTATED RINGERS 1,000 ML IV ONE ×2 (11:40→12:49)
[2022-05-20] MEDS ORDERED: SODIUM CHLORIDE 0.9% 1,000 ML IV ONE ×2 (11:40→14:53)
[2022-05-20 11:55] LABS: Glucose,Whole Blood 142 mg/dL (70-110)
--- NOTE | 2022-05-20 12:01 | P.PN ---
Subjective Progress Note Date: 05/20/22 CHIEF COMPLAINT: Abdominal pain HISTORY OF PRESENT ILLNESS: The patient is a 86-year-old female admitted with abdominal pain. Per nursing, patient had no further episodes of emesis. This morning she reports persistent abdominal pain. Family is at bedside. Patient has been seen by cardiology and cleared. ROS: No reports of nausea and vomiting. No bowel movements. No fevers or chills. PHYSICAL EXAM: VITAL SIGNS: Reviewed CONSTITUTIONAL: Well developed and underweight. EYES: Conjuctivae without sclera icterus. Extraocular movements grossly intact. HEAD, EARS, NOSE, THROAT: Moist buccal mucosa. Head is atraumatic, normocephalic. Hears conversational speech. No nasal drainage. RESPIRATORY: Non-labored respirations and equal bilateral excursions. CARDIOVASCULAR: Palpable 2+ radial pulses. ABDOMEN: Diffusely tender with guarding. MUSCULOSKELETAL: No gross deformity of the lower extremities noted. No clubbing. No cyanosis. SKIN: Good skin turgor. Well perfused. NEUROLOGIC: Cranial nerves II through XII grossly intact. No focal or lateralizing signs. PSYCH: Alert and oriented to person, place. CLINICAL LABS: Reviewed. WBC elevated over 15,000. INR elevated to 1.8. ECHO: Reviewed with EF over 55%. ASSESSMENT: 1. Acute abdominal pain 2. Abnormal CT scan for ileitis vs volvulus 3. Chronic coumadin therapy PLAN: 1. Benefits and risks of surgery including laparotomy, bowel resection, prolonged intubation, increase bleeding, ICU recovery etc described to patient and family due to acute presentation. 2. FFP transfusion for elevated INR 3. Overall, patient is elevated risk for complications with prolonged hospitalization. 4. Questions reviewed with patient and family. Objective - Vital Signs Vital signs: Vital Signs Temp 97.4 F L 05/20/22 11:39 Pulse 95 05/20/22 11:39 Resp 16 05/20/22 11:39 BP 120/69 05/20/22 11:39 Pulse Ox 97 05/20/22 11:39 FiO2 Intake & Output 05/19/22 05/20/22 05/20/22 18:59 06:59 18:59 Intake Total 1400 Output Total 359 Balance 1400 -359 Weight 38.555 kg 38.555 kg 38.555 kg Intake: IV 900 Sodium Chloride 0.9% 1, 900 000 ml @ 75 mls/hr IV . [id number] JESSICA Rx#:[id number] Intake, IV Titration 500 Amount Sodium Chloride 0.9% 1, 500 000 ml @ 500 mls/hr IV . Q2H ONE Rx#:[id number] Output: Post Void Residual 359 Other: Voiding Method Indwelling Catheter - Labs CBC & Chem 7: 05/20/22 06:58 05/20/22 06:58 Labs: Abnormal Lab Results - Last 24 Hours (Table) 05/19/22 05/19/22 05/19/22 Range/Units 14:13 14:13 14:13 WBC 11.9 H (3.8-10.6) k/uL RBC (3.80-5.40) m/uL Hgb (11.4-16.0) gm/dL Hct (34.0-46.0) % Neutrophils # 10.6 H (1.3-7.7) k/uL Lymphocytes # 0.9 L (1.0-4.8) k/uL PT 16.5 H (9.0-12.0) sec INR 1.6 H (<1.2) Sodium 132 L (137-145) mmol/L Chloride 96 L (98-107) mmol/L Glucose 153 H (74-99) mg/dL Total Protein (6.3-8.2) g/dL Albumin (3.5-5.0) g/dL Ur Specific [place] (1.001-1.035) Urine Protein (Negative) Urine Ketones (Negative) Urine Blood (Negative) Ur Leukocyte Esterase (Negative) Urine RBC (0-5) /hpf Urine WBC (0-5) /hpf Ur Squamous Epith Cells (0-4) /hpf Urine Mucus (None) /hpf 05/19/22 05/20/22 05/20/22 Range/Units 17:55 06:58 06:58 WBC 15.4 H (3.8-10.6) k/uL RBC 3.20 L (3.80-5.40) m/uL Hgb 10.6 L (11.4-16.0) gm/dL Hct 31.8 L (34.0-46.0) % Neutrophils # 13.1 H (1.3-7.7) k/uL Lymphocytes # (1.0-4.8) k/uL PT 18.6 H (9.0-12.0) sec INR 1.8 H (<1.2) Sodium (137-145) mmol/L Chloride (98-107) mmol/L Glucose (74-99) mg/dL Total Protein (6.3-8.2) g/dL Albumin (3.5-5.0) g/dL Ur Specific [place] >1.050 H (1.001-1.035) Urine Protein Trace H (Negative) Urine Ketones 2+ H (Negative) Urine Blood Small H (Negative) Ur Leukocyte Esterase Small H (Negative) Urine RBC 18 H (0-5) /hpf Urine WBC 7 H (0-5) /hpf Ur Squamous Epith Cells 6 H (0-4) /hpf Urine Mucus Rare H (None) /hpf 05/20/22 Range/Units 06:58 WBC (3.8-10.6) k/uL RBC (3.80-5.40) m/uL Hgb (11.4-16.0) gm/dL Hct (34.0-46.0) % Neutrophils # (1.3-7.7) k/uL Lymphocytes # (1.0-4.8) k/uL PT (9.0-12.0) sec INR (<1.2) Sodium 131 L (137-145) mmol/L Chloride (98-107) mmol/L Glucose 123 H (74-99) mg/dL Total Protein 5.4 L (6.3-8.2) g/dL Albumin 3.2 L (3.5-5.0) g/dL Ur Specific [place] (1.001-1.035) Urine Protein (Negative) Urine Ketones (Negative) Urine Blood (Negative) Ur Leukocyte Esterase (Negative) Urine RBC (0-5) /hpf Urine WBC (0-5) /hpf Ur Squamous Epith Cells (0-4) /hpf Urine Mucus (None) /hpf
[2022-05-20] MEDS ORDERED: fentaNYL (PF) 50 MCG/ML 2 ML AMP ONE (12:19)
[2022-05-20] MEDS ORDERED: LIDOCAINE 2% INJ 20 MG/ML (2 ML VIAL) ONE (12:19)
[2022-05-20] MEDS ORDERED: ETOMIDATE 2 MG/ML 10 ML VIAL ONE (12:19)
[2022-05-20] MEDS ORDERED: PHENYLEPHRINE-0.9% NACL SYG 1,000 MCG/10 ML SYRINGE ONE (12:19)
[2022-05-20] MEDS ORDERED: ePHEDrine 50 MG/ML 1 ML VIAL ONE (12:19)
[2022-05-20] MEDS ORDERED: ROCURONIUM 10 MG/ML (5 ML VIAL) IV ONE (12:19)
[2022-05-20] MEDS ORDERED: SUCCINYLCHOLINE CHLORIDE 200 MG/10 ML VIAL IV ONE (12:19)
[2022-05-20] MEDS ORDERED: BUPIVACAIN-EPI 0.25%-1:200,000 30 ML VIAL SQ ONE ×2 (12:48→13:18)
[2022-05-20] MEDS ORDERED: SODIUM CHLORIDE 0.9% 100 ML with ceFAZolin 2,000 MG IV ONE ×2 (13:14)
[2022-05-20] MEDS ORDERED: metroNIDAZOLE-NS PMX 500 MG in SALINE 1 100ML.BAG IVPB ONE (13:30)
[2022-05-20] MEDS ORDERED: SODIUM CHLORIDE 0.9% 100 ML with metroNIDAZOLE-NS PMX 500 MG IV ONE ×2 (13:38)
[2022-05-20 15:24] LABS: Glucose,Whole Blood 130 mg/dL (70-110)
[2022-05-20] MEDS ORDERED: ARTIFICIAL TEARS-HYPROMELLOSE DROPS 15 ML BTL BOTH EYES PRN (15:37)
[2022-05-20 15:56] LABS: ABG Base Excess -3.8 mmol/L; ABG HCO3 21 mmol/L (21-25); ABG Hematocrit 26 % (34.0-46.0); ABG Oxygen Saturation 97.6 % (94-97); ABG PCO2 34 mmHg (35-45); ABG PO2 253 mmHg (83-108); ABG TCO2 22 mmol/L (19-24); Allen Test Performed? Yes
--- NOTE | 2022-05-20 15:59 | XR ---
EXAMINATION TYPE: XR chest 1V portable DATE OF EXAM: 05/20/2022 Comparison: 04/23/2022 Clinical History: 86-year-old female Tube placement Findings: ET tube satisfactory. NG tube sidehole at the GE junction level. Heart normal size. There is blunted right costophrenic angle. Retrocardiac and left basilar opacity is noted. Left anterior chest wall pa cemaker generator with right ventricular ICD lead. Impression: Small effusions left greater than right along with adjacent retrocardiac atelectasis and/or consolida tion.
[2022-05-20] MEDS: SODIUM CHLORIDE 0.9% 1,000 ML IV SCH ×2 (16:05→22:40)
--- NOTE | 2022-05-20 16:07 | P.OP ---
Date of Procedure: 05/20/22 Description of Procedure: SURGEON: HALINA TREJO MD PREOPERATIVE DIAGNOSIS: 1. Acute abdomen with peritonitis 2. Abnormal computed tomography scan for small bowel volvulus 3. Chronic obstructive pulmonary disease 4. Cardiac arrhythmia with atrial flutter/atrial fibrillation 5. Coronary artery disease 6. Hypertensive heart disease with congestive heart failure 7. Underweight, BMI 17.2 8. AICD in situ 9. History of total hysterectomy 10. Chronic anticoagulant use POSTOPERATIVE DIAGNOSIS: 1. Small bowel necrosis due to adhesive band disease 2. Small bowel volvulus due to adhesive band disease 3. Chronic obstructive pulmonary disease 4. Cardiac arrhythmia with atrial flutter/atrial fibrillation 5. Coronary artery disease 6. Hypertensive heart disease with congestive heart failure 7. Underweight, BMI 17.2 8. AICD in situ 9. Small bowel necrosis 10. Hemoperitoneum OPERATION: 1. Diagnostic laparoscopy converted to open exploratory laparotomy 2. Small bowel resection with primary anastomosis 3. Lysis of adhesions with reduction of small bowel volvulus 4. Abdominal washout of hemoperitoneum, 2 L normal saline for peritoneal lavage 5. Application of PREVENA 20 cm incisional length wound VAC system 6. Placement of round #19 Radhames-Conrad drain in pelvis Anesthesia: GETA Estimated Blood Loss (ml): 20 Pathology: Aerobic and anaerobic cultures of hemoperitoneum Condition: stable Disposition: floor Complications: None Operative Findings: 1. Abdominal ascites of hemoperitoneum over 500 mL aspirated from the abdomen 2. Adhesive band of greater omentum to right lower quadrant causing internal hernia, closed loop bowel obstruction and ileum small bowel volvulus of the mesentery 3. No intussusception identified 4. Moderate hemoperitoneum from small bowel necrosis evacuated 5. Small bowel resection involving over 60 cm/2 feet resected at 60 cm proximal to the ileocecal valve 6. Viable primary anastomosis with mesenteric defect closed to avoid internal hernia 7. Cecum, ascending colon, transverse colon, sigmoid colon, descending colon unremarkable for intraluminal lesions/neoplasm 8. Transverse mesocolon adherent to the abdominal wall from prior hysterectomy with internal hernias all lysed INDICATIONS: The patient is a 86-year-old female who presents with history of chronic diarrhea who developed acute onset abdominal pain diffuse. Multiple diagnostic studies were obtained with possible diagnoses of ileitis, intussusception, volvulus. Cardiac risk assessment including preoperative echo was obtained. Surgical intervention was advised with diagnostic laparoscopy possible exploratory laparotomy possible bowel resection. Benefits and risks of the procedures were discussed. Informed consent was obtained. DESCRIPTION: The patient was brought to the operating room with a Saini catheter. After general induction, the abdomen was prepped and draped in standard sterile fashion. Ioban draping was also placed. Prior to incision, a timeout protocol was confirmed with surgical team regarding patient's name including procedures to be performed. Preoperative medications were confirmed. At the left upper quadrant, a transverse incision was made using #15 blade. A 5 mm laparoscopic trocar entry was performed using a 5-mm 0 laparoscope. The abdomen was insufflated to 15 mm of pressure which she tolerated well. Diagnostic laparoscopy demonstrated midline pelvic adhesions of omentum to abdominal wall and dark violaceous small bowel of the right lower quadrant consistent with bowel. On this finding, open exploration was performed. A #10 blade was used to enter along the epigastrium and extended down to the pubis along her previous cicatrix. Carefully the abdomen was entered using electro- Bovie cautery. The small bowel along the right lower quadrant was dark violaceous consistent with bowel. A closed loop bowel obstruction was confirmed from a adhesion involving the greater omentum adherent to the right lower quadrant pelvis. Hemorrhagic ascites over 500 mL was drained from the abdomen with cultures obtained. No intussusception was found. A tight adhesive band with complete strangulation of the ileum was identified. The adhesive band was 2-cm thickness adherent to the right pelvis. The adhesive band was sharply taken down using Enseal energy device. Hemostasis was excellent. Proximally and distally to small bowel necrosis, 3-0 silk was placed and Covidien tri- stapler 60 mm james loads were fired proximally and distally for resection of small bowel necrosis. The ileum mesentery was also necrotic and resected using Enseal. In an antiperistaltic fashion, the proximal and distal viable bowel were positioned for preanastomosis. Enterotomies were placed along the antimesenteric border. 60 mm james loads were fired with closure of the enterotomy. The small bowel mesenteric defect was closed using green 2-0 VLOC. Small bowel resection confirmed 60 cm proximal to the ileocecal valve. The rest of the cecum ascending colon transverse colon descending colon and sigmoid colon were palpated and unremarkable for intraluminal metastases or neoplastic process. The liver surface was smooth and unremarkable. The greater omentum and transverse mesocolon were inspected for defects of internal hernia and were lysed. The abdomen was copiously irrigated with 2 L normal saline for peritoneal lavage until clear. Hemostasis was excellent throughout the out the entire case. Blood loss was less than 20 mL. Radhames-Conrad drain #19 was placed on the pelvis and exited via the left lower quadrant. All sponge counts were verified as correct. The abdomen was closed using double stranded 0 PDS after irrigating the subcutaneous tissue with dilute hydrogen proximal. The subcutaneous tissue was reapproximated using interrupted 3-0 Vicryl followed by running 3-0 Monocryl subcuticular fashion. An PREVENA 20-cm incisional length dressing was placed. At the end of the procedure, needle, sponge, and instrument count had been verified correct by the surgical services asst. The patient was sent to the postanesthesia care unit in stable condition. Intraoperative findings including images were described to the patient's family who were very pleased with the level of care. Postoperative recovery in detail was described.
[2022-05-20 16:34] LABS: Basophils % (A) 0 %; Eosinophils % (A) 0 %; HCT 25.9 % (34.0-46.0); Lymphocytes # (A) 0.8 k/uL (1.0-4.8); Lymphocytes % (A) 7 %; MCH 32.8 pg (25.0-35.0); MCHC 32.8 g/dL (31.0-37.0); Macrocytosis Slight; Mean Platelet Volume 8.7; Monocytes # (A) 0.5 k/uL (0-1.0); Monocytes % (A) 4 %; Neutrophils # (A) 10.2 k/uL (1.3-7.7); Neutrophils % (A) 88 %; Platelet Count 209 k/uL (150-450); RBC 2.59 m/uL (3.80-5.40); RDW 15.1 % (11.5-15.5); WBC 11.7 k/uL (3.8-10.6)
[2022-05-20 16:43] LABS: Albumin 2.7 g/dL (3.5-5.0); Calcium 7.7 mg/dL (8.4-10.2); Magnesium 1.7 mg/dL (1.6-2.3); Phosphorus 3.2 mg/dL (2.5-4.5); Potassium 3.8 mmol/L (3.5-5.1); Total Bilirubin 0.4 mg/dL (0.2-1.3); Total Protein 4.7 g/dL (6.3-8.2)
[2022-05-20 16:45] LABS: INR 1.7 (<1.2); Prothrombin Time 17.5 sec (9.0-12.0)
[2022-05-20 16:54] LABS: HGB 8.5 gm/dL (11.4-16.0)
[2022-05-20] MEDS: PIPERACILLIN-TAZOBACTAM 3.375 GM in SODIUM CHLORIDE 0.9% 100 ML IVPB SCH (17:26)
[2022-05-20] MEDS ORDERED: LACTATED RINGERS 1,000 ML IV SCH (17:30)
[2022-05-20] MEDS: HYDROmorphone 0.5 MG/0.5 ML SYRINGE IVP PRN (17:35)
[2022-05-20] MEDS: LACTATED RINGERS 500 ML IV SCH ×2 (17:36→18:46)
[2022-05-20] MEDS ORDERED: WARFARIN 1.25 MG TAB PO ONE (18:00)
--- NOTE | 2022-05-20 18:04 | P.PN ---
Progress Note - Text Progress Note Date: 05/20/22 Notified by nursing patient now extubated with OG tube pulled. Okay to leave OG tube out. NPO for tonight due to ischemic bowel and need for bowel rest. Continue antibiotics. Plan to start coumadin on Thursday 05/24 not 05/20. Pharmacy notified not to change order from original TuesdayMay 24 start of anticoagulant. Repeat INR at 1.7 from 1.8 this evening. Due to moderate pre-existing hemoperitoneum, hold anticoagulation for now. SCDs in the interim.
[2022-05-20] MEDS: ACETAMINOPHEN IVPB SCH (18:49)
[2022-05-20] MEDS ORDERED: NOREPINEPHRIN 4 MG-0.9% NS PMX 4 MG/250 ML ML IV ONE (19:25)
[2022-05-20] MEDS: LACTATED RINGERS 1,000 ML IV SCH ×3 (19:50→23:39)
[2022-05-20] MEDS: NOREPINEPHRINE 4 MG in SODIUM CHLORIDE 0.9% 250 ML IV SCH (22:00)
[2022-05-20] MEDS: DORZOLAMIDE-TIMOLOL 2.23%/0.68 10ML BTL BOTH EYES SCH (22:01)
[2022-05-20] MEDS: BRIMONIDINE TARTRATE 0.2% DROPS 5 ML BTL BOTH EYES SCH (22:02)
[2022-05-20] MEDS: LATANOPROST 0.005% OPHTH DROPS 2.5 ML BTL BOTH EYES SCH (22:02)
[2022-05-20] MEDS: CHLORHEXIDINE GLUCONATE 15 ML CUP MUCOUS MEM SCH (22:02)
[2022-05-20] MEDS: prednisoLONE ACETATE 1% OPHTH DROPS 5 ML BTL LEFT EYE SCH (22:02)
[2022-05-21] MEDS: ACETAMINOPHEN IVPB SCH ×3 (00:01→12:00)
[2022-05-21] MEDS: PIPERACILLIN-TAZOBACTAM 3.375 GM in SODIUM CHLORIDE 0.9% 100 ML IVPB SCH ×4 (00:29→23:46)
[2022-05-21 01:02] LABS: Glucose,Whole Blood 133 mg/dL (70-110)
[2022-05-21 04:52] LABS: Basophils % (A) 0 %; Eosinophils % (A) 0 %; HCT 21.8 % (34.0-46.0); HGB 7.1 gm/dL (11.4-16.0); Lymphocytes # (A) 0.7 k/uL (1.0-4.8); Lymphocytes % (A) 7 %; MCH 31.7 pg (25.0-35.0); MCHC 32.5 g/dL (31.0-37.0); MCV 97.6 fL (80.0-100.0); Mean Platelet Volume 8.5; Monocytes # (A) 0.6 k/uL (0-1.0); Monocytes % (A) 5 %; Neutrophils # (A) 9.4 k/uL (1.3-7.7); Neutrophils % (A) 87 %; Platelet Count 176 k/uL (150-450); RBC 2.23 m/uL (3.80-5.40); RDW 14.4 % (11.5-15.5); WBC 10.8 k/uL (3.8-10.6)
[2022-05-21 05:00] LABS: Albumin 2.2 g/dL (3.5-5.0); Calcium 7.4 mg/dL (8.4-10.2); Magnesium 1.7 mg/dL (1.6-2.3); Phosphorus 2.4 mg/dL (2.5-4.5); Potassium 3.8 mmol/L (3.5-5.1); Total Bilirubin 0.4 mg/dL (0.2-1.3); Total Protein 4.2 g/dL (6.3-8.2)
[2022-05-21 05:08] LABS: INR 1.9 (<1.2); Prothrombin Time 18.7 sec (9.0-12.0)
[2022-05-21] MEDS ORDERED: LACTATED RINGERS 1,000 ML IV ONE (07:00)
[2022-05-21 07:07] LABS: Glucose,Whole Blood 120 mg/dL (70-110)
--- NOTE | 2022-05-21 07:36 | P.PN ---
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 She underwent exploratory laparotomy and she underwent small bowel obstruction and abdominal wash. Currently she has a wound VAC. May [id number] The patient was seen this morning in the intensive care unit. She is agitated with a change in mental status. Hemodynamically she is in stable and she just was started on norepinephrine. She has been maintaining normal sinus mechanism. She underwent an echo earlier and that revealed preserved left ventricle systolic function with no significant valvular abnormalities. From a cardiovascular standpoint of view, we will continue the current medical regimen. Currently she is euvolemic. The only medication and going to stop his Aldactone giving that the patient is hypotensive requiring vasopressors. Her hemoglobin this morning 7.1. Objective - Vital Signs Vital signs: Vital Signs Temp 98 F 05/21/22 04:00 Pulse 87 05/21/22 06:45 Resp 15 05/21/22 06:45 BP 101/56 05/21/22 06:45 Pulse Ox 96 05/21/22 06:57 FiO2 50 05/20/22 16:00 Intake & Output 05/20/22 05/21/22 05/21/22 18:59 06:59 18:59 Intake Total 2842.713 2115.680 75 Output Total 974 470 90 Balance 0818.115 2765.680 -15 Weight 38.555 kg 49.9 kg Intake: IV 2625 8 75 .acetaminophen IV (Peds) 58 580 mg In Empty Bag 1 bag @ 232 mls/hr IVPB Q6HR JESSICA Rx#:[id number] Lactated Ringers 1,000 ml 1000 @ 999 mls/hr IV .Q1H1M JESSICA Rx#:[id number] Lactated Ringers 500 ml @ 500 999 mls/hr IV .Q31M JESSICA Rx#:[id number] Piperacillin-Tazobactam 3 100 100 .375 gm In Sodium Chloride 0.9% 100 ml @ 25 mls/hr IVPB Q8HR JESSICA Rx# :[id number] Sodium Chloride 0.9% 1, 225 900 75 000 ml @ 75 mls/hr IV . [id number] [facility] Rx#:[id number] metroNIDAZOLE-NS PMX 500 100 mg In Saline 1 100ml.bag @ 100 mls/hr IVPB ONCE ONE Rx#:[id number] Intake, IV Titration 0.713 57.680 Amount Norepinephrine 4 mg In 57.680 Sodium Chloride 0.9% 250 ml @ 0.05 MCG/KG/MIN 7. 345 mls/hr IV .Q24H [facility] Rx#:[id number] propofoL 1,000 mg In 0.713 Empty Bag 1 bag @ 5 MCG/ KG/MIN 1.157 mls/hr IV . Q24H [facility] Rx#:[id number] Blood Product 217 Ffp 24 Pher Acda Cnt1 217 Unit [id number] Output: Drainage 80 130 60 Left VERÓNICA Drain 80 130 60 Urine 515 340 30 Post Void Residual 359 Estimated Blood Loss 20 Other: Voiding Method Indwelling Catheter Indwelling Catheter ABP, PAP, CO, CI - Last Documented Arterial Blood Pressure 115/51 - Constitutional General appearance: Present: no acute distress - Respiratory Respiratory: bilateral: diminished - Cardiovascular Rhythm: regular - Labs CBC & Chem 7: 05/21/22 04:40 05/21/22 04:40 Labs: Abnormal Lab Results - Last 24 Hours (Table) 05/20/22 05/20/22 05/20/22 Range/Units 06:58 06:58 11:44 WBC (3.8-10.6) k/uL RBC (3.80-5.40) m/uL Hgb (11.4-16.0) gm/dL Hct (34.0-46.0) % Neutrophils # (1.3-7.7) k/uL Lymphocytes # (1.0-4.8) k/uL PT 18.6 H (9.0-12.0) sec INR 1.8 H (<1.2) ABG pCO2 (35-45) mmHg ABG pO2 (83-108) mmHg ABG O2 Saturation (94-97) % ABG Hematocrit (34.0-46.0) % Hemoglobin (11.4-16.0) gm/dL Sodium 131 L (137-145) mmol/L Carbon Dioxide (22-30) mmol/L BUN (7-17) mg/dL Glucose 123 H (74-99) mg/dL POC Glucose (mg/dL) 142 H (70-110) mg/dL Calcium (8.4-10.2) mg/dL Phosphorus (2.5-4.5) mg/dL Total Protein 5.4 L (6.3-8.2) g/dL Albumin 3.2 L (3.5-5.0) g/dL 05/20/22 05/20/22 05/20/22 Range/Units 15:22 15:36 15:36 WBC 11.7 H (3.8-10.6) k/uL RBC 2.59 L (3.80-5.40) m/uL Hgb 8.5 L D (11.4-16.0) gm/dL Hct 25.9 L (34.0-46.0) % Neutrophils # 10.2 H (1.3-7.7) k/uL Lymphocytes # 0.8 L (1.0-4.8) k/uL PT (9.0-12.0) sec INR (<1.2) ABG pCO2 (35-45) mmHg ABG pO2 (83-108) mmHg ABG O2 Saturation (94-97) % ABG Hematocrit (34.0-46.0) % Hemoglobin (11.4-16.0) gm/dL Sodium 134 L (137-145) mmol/L Carbon Dioxide 19 L (22-30) mmol/L BUN (7-17) mg/dL Glucose 144 H (74-99) mg/dL POC Glucose (mg/dL) 130 H (70-110) mg/dL Calcium 7.7 L (8.4-10.2) mg/dL Phosphorus (2.5-4.5) mg/dL Total Protein 4.7 L (6.3-8.2) g/dL Albumin 2.7 L (3.5-5.0) g/dL 05/20/22 05/20/22 05/21/22 Range/Units 15:37 15:46 01:00 WBC (3.8-10.6) k/uL RBC (3.80-5.40) m/uL Hgb (11.4-16.0) gm/dL Hct (34.0-46.0) % Neutrophils # (1.3-7.7) k/uL Lymphocytes # (1.0-4.8) k/uL PT 17.5 H (9.0-12.0) sec INR 1.7 H (<1.2) ABG pCO2 34 L (35-45) mmHg ABG pO2 253 H (83-108) mmHg ABG O2 Saturation 97.6 H (94-97) % ABG Hematocrit 26 L (34.0-46.0) % Hemoglobin 8.3 L (11.4-16.0) gm/dL Sodium (137-145) mmol/L Carbon Dioxide (22-30) mmol/L BUN (7-17) mg/dL Glucose (74-99) mg/dL POC Glucose (mg/dL) 133 H (70-110) mg/dL Calcium (8.4-10.2) mg/dL Phosphorus (2.5-4.5) mg/dL Total Protein (6.3-8.2) g/dL Albumin (3.5-5.0) g/dL 05/21/22 05/21/22 05/21/22 Range/Units 04:40 04:40 04:40 WBC 10.8 H (3.8-10.6) k/uL RBC 2.23 L (3.80-5.40) m/uL Hgb 7.1 L (11.4-16.0) gm/dL Hct 21.8 L (34.0-46.0) % Neutrophils # 9.4 H (1.3-7.7) k/uL Lymphocytes # 0.7 L (1.0-4.8) k/uL PT 18.7 H (9.0-12.0) sec INR 1.9 H (<1.2) ABG pCO2 (35-45) mmHg ABG pO2 (83-108) mmHg ABG O2 Saturation (94-97) % ABG Hematocrit (34.0-46.0) % Hemoglobin (11.4-16.0) gm/dL Sodium 133 L (137-145) mmol/L Carbon Dioxide (22-30) mmol/L BUN 18 H (7-17) mg/dL Glucose 117 H (74-99) mg/dL POC Glucose (mg/dL) (70-110) mg/dL Calcium 7.4 L (8.4-10.2) mg/dL Phosphorus 2.4 L (2.5-4.5) mg/dL Total Protein 4.2 L (6.3-8.2) g/dL Albumin 2.2 L (3.5-5.0) g/dL 05/21/22 Range/Units 07:06 WBC (3.8-10.6) k/uL RBC (3.80-5.40) m/uL Hgb (11.4-16.0) gm/dL Hct (34.0-46.0) % Neutrophils # (1.3-7.7) k/uL Lymphocytes # (1.0-4.8) k/uL PT (9.0-12.0) sec INR (<1.2) ABG pCO2 (35-45) mmHg ABG pO2 (83-108) mmHg ABG O2 Saturation (94-97) % ABG Hematocrit (34.0-46.0) % Hemoglobin (11.4-16.0) gm/dL Sodium (137-145) mmol/L Carbon Dioxide (22-30) mmol/L BUN (7-17) mg/dL Glucose (74-99) mg/dL POC Glucose (mg/dL) 120 H (70-110) mg/dL Calcium (8.4-10.2) mg/dL Phosphorus (2.5-4.5) mg/dL Total Protein (6.3-8.2) g/dL Albumin (3.5-5.0) g/dL Microbiology - Last 24 Hours (Table) 05/20/22 18:56 Wound Culture - Preliminary Other - Other Assessment and Plan Assessment: Assessment Abdominal discomfort and status post small bowel obstruction Paroxysmal atrial fibrillation Heart failure was preserved ejection fraction History of cardiomyopathy and status post AICD Blood loss anemia Hypertension requiring vasopressors Plan DC Aldactone in the light of low blood pressure Continue the current medical regimen Continue monitor the hemoglobin Try to wean the patient from norepinephrine She has been maintaining normal sinus mechanism Recent echo showed preserved left ventricular systolic function
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
--- NOTE | 2022-05-21 08:13 | XR ---
EXAMINATION TYPE: XR chest 1V portable DATE OF EXAM: 05/21/2022 HISTORY: Shortness of breath. COMPARISON: 05/20/2022 TECHNIQUE: Single view of the chest is submitted. FINDINGS: Demonstrated are scattered senescent parenchymal change. Endotracheal and NG tubes have been removed. No evidence for pneumothorax. Left lower lobe infiltrate and/or atelectasis persists. The heart is stable. Hilar and mediastinal structures are within normal limits. Degenerative changes are seen of the dorsal spine. IMPRESSION: 1. Left lower lobe infiltrate and/or atelectasis. Removal of the endotracheal and NG tubes.
[2022-05-21] MEDS: DEXMEDETOMIDINE/0.9% NACL(PMX) 400 MCG in EMPTY BAG 1 BAG IV SCH ×2 (08:17→22:24)
--- NOTE | 2022-05-21 08:20 | P.PN ---
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 She was extubated yesterday afternoon shortly after surgery per electric power line examiner. Overnight, patient had acute dementia with removal of lines per discussion with daytime nerves. Patient currently in restraints. Patient reports appropriate incisional pain. Per discussion with nursing, patient was on levo and now receiving fluid boluses. ROS: No reports of nausea and vomiting. No bowel movements. No fevers or chills. Overnight had tachycardia. Patient has acute dementia PHYSICAL EXAM: VITAL SIGNS: Reviewed CONSTITUTIONAL: Well developed and underweight. EYES: Conjuctivae without sclera icterus. Extraocular movements grossly intact. HEAD, EARS, NOSE, THROAT: Moist buccal mucosa. Head is atraumatic, normocephalic. No nasal drainage. RESPIRATORY: Non-labored respirations and equal bilateral excursions. CARDIOVASCULAR: Palpable 2+ radial pulses. ABDOMEN: Tender. No rigidity. VERÓNICA serosanguineous. Outputs over 200 mL in 12 hours serosanguineous. Nondistended. Incisional vacuum dressing intact. MUSCULOSKELETAL: No gross deformity of the lower extremities noted. No clubbing. No cyanosis. SKIN: Good skin turgor. Well perfused. NEUROLOGIC: Cranial nerves II through XII grossly intact. No focal or lateralizing signs. PSYCH: Alert to person. CLINICAL LABS: Reviewed. Hemoglobin down 7.1, anemia INR elevated to 1.9. WBC down 15.4-10.8. ECHO: Reviewed with EF over 55%. ASSESSMENT: 1. Small bowel necrosis status post enterectomy 2. Acute dementia 3. Acute blood loss anemia due to anticoagulant effect and pre-existing hemoperitoneum 4. Hypotension supported by vasoconstrictors PLAN: 1. Agree with fluid boluses. 2. I personally discussed patient's current concerns with her daughter Renetta Ashby. Her daughter confirms mother has acute dementia just prior to surgery. 3. Overall, continue antibiotics. 4. Continue nothing by mouth status as patient's on vasoconstrictor, levo which may aggravate small bowel ischemia. 5. May have mouth swabs. 6. Strict nothing by mouth. 7. Discontinue ice chips. 8. Recommend switch from oral medications to IV medications due to risk of recurrent small bowel infarction Objective - Vital Signs Vital signs: Vital Signs Temp 98 F 05/21/22 04:00 Pulse 78 05/21/22 07:30 Resp 13 05/21/22 07:30 BP 113/74 05/21/22 07:30 Pulse Ox 97 05/21/22 07:30 FiO2 50 05/20/22 16:00 Intake & Output 05/20/22 05/21/22 05/21/22 18:59 06:59 18:59 Intake Total 2842.713 2115.680 75 Output Total 974 470 90 Balance 9400.713 0264.680 -15 Weight 38.555 kg 49.9 kg Intake: IV 2625 2058 75 .acetaminophen IV (Peds) 58 580 mg In Empty Bag 1 bag @ 232 mls/hr IVPB Q6HR [facility] Rx#:[id number] Lactated Ringers 1,000 ml 1000 @ 999 mls/hr IV .Q1H1M [facility] Rx#:[id number] Lactated Ringers 500 ml @ 500 999 mls/hr IV .Q31M [facility] Rx#:[id number] Piperacillin-Tazobactam 3 100 100 .375 gm In Sodium Chloride 0.9% 100 ml @ 25 mls/hr IVPB Q8HR [facility] Rx# :[id number] Sodium Chloride 0.9% 1, 225 900 75 000 ml @ 75 mls/hr IV . [id number] [facility] Rx#:[id number] metroNIDAZOLE-NS PMX 500 100 mg In Saline 1 100ml.bag @ 100 mls/hr IVPB ONCE ONE Rx#:[id number] Intake, IV Titration 0.713 57.680 Amount Norepinephrine 4 mg In 57.680 Sodium Chloride 0.9% 250 ml @ 0.05 MCG/KG/MIN 7. 345 mls/hr IV .Q24H [facility] Rx#:[id number] propofoL 1,000 mg In 0.713 Empty Bag 1 bag @ 5 MCG/ KG/MIN 1.157 mls/hr IV . Q24H [facility] Rx#:[id number] Blood Product 217 Ffp 24 Pher Acda Cnt1 217 Unit [id number] Output: Drainage 80 130 60 Left VERÓNICA Drain 80 130 60 Urine 515 340 30 Post Void Residual 359 Estimated Blood Loss 20 Other: Voiding Method Indwelling Catheter Indwelling Catheter ABP, PAP, CO, CI - Last Documented Arterial Blood Pressure 102/46 - Labs CBC & Chem 7: 05/21/22 04:40 05/21/22 04:40 Labs: Abnormal Lab Results - Last 24 Hours (Table) 05/20/22 05/20/22 05/20/22 Range/Units 11:44 15:22 15:36 WBC 11.7 H (3.8-10.6) k/uL RBC 2.59 L (3.80-5.40) m/uL Hgb 8.5 L D (11.4-16.0) gm/dL Hct 25.9 L (34.0-46.0) % Neutrophils # 10.2 H (1.3-7.7) k/uL Lymphocytes # 0.8 L (1.0-4.8) k/uL PT (9.0-12.0) sec INR (<1.2) ABG pCO2 (35-45) mmHg ABG pO2 (83-108) mmHg ABG O2 Saturation (94-97) % ABG Hematocrit (34.0-46.0) % Hemoglobin (11.4-16.0) gm/dL Sodium (137-145) mmol/L Carbon Dioxide (22-30) mmol/L BUN (7-17) mg/dL Glucose (74-99) mg/dL POC Glucose (mg/dL) 142 H 130 H (70-110) mg/dL Calcium (8.4-10.2) mg/dL Phosphorus (2.5-4.5) mg/dL Total Protein (6.3-8.2) g/dL Albumin (3.5-5.0) g/dL 05/20/22 05/20/22 05/20/22 Range/Units 15:36 15:37 15:46 WBC (3.8-10.6) k/uL RBC (3.80-5.40) m/uL Hgb (11.4-16.0) gm/dL Hct (34.0-46.0) % Neutrophils # (1.3-7.7) k/uL Lymphocytes # (1.0-4.8) k/uL PT 17.5 H (9.0-12.0) sec INR 1.7 H (<1.2) ABG pCO2 34 L (35-45) mmHg ABG pO2 253 H (83-108) mmHg ABG O2 Saturation 97.6 H (94-97) % ABG Hematocrit 26 L (34.0-46.0) % Hemoglobin 8.3 L (11.4-16.0) gm/dL Sodium 134 L (137-145) mmol/L Carbon Dioxide 19 L (22-30) mmol/L BUN (7-17) mg/dL Glucose 144 H (74-99) mg/dL POC Glucose (mg/dL) (70-110) mg/dL Calcium 7.7 L (8.4-10.2) mg/dL Phosphorus (2.5-4.5) mg/dL Total Protein 4.7 L (6.3-8.2) g/dL Albumin 2.7 L (3.5-5.0) g/dL 05/21/22 05/21/22 05/21/22 Range/Units 01:00 04:40 04:40 WBC 10.8 H (3.8-10.6) k/uL RBC 2.23 L (3.80-5.40) m/uL Hgb 7.1 L (11.4-16.0) gm/dL Hct 21.8 L (34.0-46.0) % Neutrophils # 9.4 H (1.3-7.7) k/uL Lymphocytes # 0.7 L (1.0-4.8) k/uL PT (9.0-12.0) sec INR (<1.2) ABG pCO2 (35-45) mmHg ABG pO2 (83-108) mmHg ABG O2 Saturation (94-97) % ABG Hematocrit (34.0-46.0) % Hemoglobin (11.4-16.0) gm/dL Sodium 133 L (137-145) mmol/L Carbon Dioxide (22-30) mmol/L BUN 18 H (7-17) mg/dL Glucose 117 H (74-99) mg/dL POC Glucose (mg/dL) 133 H (70-110) mg/dL Calcium 7.4 L (8.4-10.2) mg/dL Phosphorus 2.4 L (2.5-4.5) mg/dL Total Protein 4.2 L (6.3-8.2) g/dL Albumin 2.2 L (3.5-5.0) g/dL 05/21/22 05/21/22 Range/Units 04:40 07:06 WBC (3.8-10.6) k/uL RBC (3.80-5.40) m/uL Hgb (11.4-16.0) gm/dL Hct (34.0-46.0) % Neutrophils # (1.3-7.7) k/uL Lymphocytes # (1.0-4.8) k/uL PT 18.7 H (9.0-12.0) sec INR 1.9 H (<1.2) ABG pCO2 (35-45) mmHg ABG pO2 (83-108) mmHg ABG O2 Saturation (94-97) % ABG Hematocrit (34.0-46.0) % Hemoglobin (11.4-16.0) gm/dL Sodium (137-145) mmol/L Carbon Dioxide (22-30) mmol/L BUN (7-17) mg/dL Glucose (74-99) mg/dL POC Glucose (mg/dL) 120 H (70-110) mg/dL Calcium (8.4-10.2) mg/dL Phosphorus (2.5-4.5) mg/dL Total Protein (6.3-8.2) g/dL Albumin (3.5-5.0) g/dL Microbiology - Last 24 Hours (Table) 05/20/22 18:56 Wound Culture - Preliminary Other - Other
[2022-05-21] MEDS: PANTOPRAZOLE 40 MG/10 ML VIAL IV SCH (08:22)
[2022-05-21] MEDS: DORZOLAMIDE-TIMOLOL 2.23%/0.68 10ML BTL BOTH EYES SCH ×2 (08:31→20:33)
[2022-05-21] MEDS: CHLORHEXIDINE GLUCONATE 15 ML CUP MUCOUS MEM SCH ×2 (08:31→20:31)
[2022-05-21] MEDS: BRIMONIDINE TARTRATE 0.2% DROPS 5 ML BTL BOTH EYES SCH ×2 (08:32→20:32)
[2022-05-21] MEDS: prednisoLONE ACETATE 1% OPHTH DROPS 5 ML BTL LEFT EYE SCH ×2 (08:32→20:33)
[2022-05-21] MEDS ORDERED: SPIRONOLACTONE 25 MG TAB PO SCH (09:00)
[2022-05-21 09:40] LABS: % Iron Saturation 3.97 (12.00-45.00)
[2022-05-21] MEDS: DIGOXIN 125 MCG TAB PO SCH (10:39)
[2022-05-21] MEDS: NOREPINEPHRINE 4 MG in SODIUM CHLORIDE 0.9% 250 ML IV SCH (10:40)
[2022-05-21] MEDS: SODIUM CHLORIDE 0.9% 1,000 ML IV SCH (10:47)
[2022-05-21] MEDS: HYDROmorphone 0.5 MG/0.5 ML SYRINGE IVP PRN ×3 (11:17→20:42)
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
--- NOTE | 2022-05-21 14:38 | P.PN ---
Subjective Progress Note Date: 05/21/22 Marina Vargas, he is an 86-year-old female presented to [facility] emergency room with a chief complaint of abdominal pain, with nausea and vomiting She was evaluated in the emergency room vital examination on presentation revealed a temperature of 96.9 pulse 80 respiration 18 blood pressure 133/76 pulse ox 98% on room air Laboratory data reveals a white blood count of 15.4 hemoglobin 10.6 platelet count 293 INR 1.8 sodium 131 potassium 4.2 chloride 99 CO2 23 BUN 15 creatinine 0.87 Testing in the emergency room revealed computed tomography scan of the abdomen and pelvis done in the emergency room revealed dilated thick-walled loops of ileum in the right lower quadrant with differential diagnosis of intussusception versus volulus, repeat computed tomography scan done with oral contrast revealed evidence of fluid density in the pelvis possible hemorrhage. Patient had evidence of acute abdomen she was taken to operating room by Dr. Louise and and evidence of small bowel necrosis and volvulus, and hemoperitoneum, patient had open exploratory laparotomy with small bowel resection and primary anastomosis and lysis of adhesion and reduction of small bowel volvulus, she was admitted to intensive care unit post surgery Past medical history is significant for history of coronary artery disease, history of COPD, history of cardiac arrhythmia with atrial fibrillation, history of AICD placement. Objective - Vital Signs Vital signs: Vital Signs Temp 97.8 F 05/21/22 08:00 Pulse 84 05/21/22 10:15 Resp 22 05/21/22 10:15 BP 82/54 05/21/22 10:15 Pulse Ox 95 05/21/22 10:15 FiO2 50 05/20/22 16:00 Intake & Output 05/20/22 05/21/22 05/21/22 18:59 06:59 18:59 Intake Total 2842.713 2115.680 654.320 Output Total 974 470 210 Balance 0303.640 4943.680 444.320 Weight 38.555 kg 49.9 kg 49.9 kg Intake: IV 2625 2058 458 .acetaminophen IV (Peds) 58 58 580 mg In Empty Bag 1 bag @ 232 mls/hr IVPB Q6HR [facility] Rx#:[id number] Lactated Ringers 1,000 ml 1000 @ 999 mls/hr IV .Q1H1M [facility] Rx#:[id number] Lactated Ringers 500 ml @ 500 999 mls/hr IV .Q31M [facility] Rx#:[id number] Piperacillin-Tazobactam 3 100 100 100 .375 gm In Sodium Chloride 0.9% 100 ml @ 25 mls/hr IVPB Q8HR [facility] Rx# :[id number] Sodium Chloride 0.9% 1, 225 900 300 000 ml @ 75 mls/hr IV . [id number] [facility] Rx#:[id number] metroNIDAZOLE-NS PMX 500 100 mg In Saline 1 100ml.bag @ 100 mls/hr IVPB ONCE ONE Rx#:[id number] Intake, IV Titration 0.713 57.680 196.320 Amount Norepinephrine 4 mg In 57.680 196.320 Sodium Chloride 0.9% 250 ml @ 0.05 MCG/KG/MIN 7. 345 mls/hr IV .Q24H [facility] Rx#:[id number] propofoL 1,000 mg In 0.713 Empty Bag 1 bag @ 5 MCG/ KG/MIN 1.157 mls/hr IV . Q24H [facility] Rx#:[id number] Blood Product 217 Ffp 24 Pher Acda Cnt1 217 Unit [id number] Output: Drainage 80 130 60 Left VERÓNICA Drain 80 130 60 Urine 515 340 150 Post Void Residual 359 Estimated Blood Loss 20 Other: Voiding Method Indwelling Catheter Indwelling Catheter ABP, PAP, CO, CI - Last Documented Arterial Blood Pressure 98/47 - Exam In general patient is alert and oriented x 3 in no distress HEENT head normocephalic and atraumatic Neck is supple no JVD no goiter no lymphadenopathy no carotid bruit Chest examination is clear to auscultation no crackles no wheezing Cardiac exam reveals regular heart sounds S1 and S2 no gallops no murmurs Abdomen is soft nontender no organomegaly with normal bowel sounds Extremity exam reveals no edema no cyanosis or clubbing Neurological examination reveals no gross focal deficits - Labs CBC & Chem 7: 05/21/22 04:40 05/21/22 04:40 Labs: Abnormal Lab Results - Last 24 Hours (Table) 05/20/22 05/20/22 05/20/22 Range/Units 15:22 15:36 15:36 WBC 11.7 H (3.8-10.6) k/uL RBC 2.59 L (3.80-5.40) m/uL Hgb 8.5 L D (11.4-16.0) gm/dL Hct 25.9 L (34.0-46.0) % Neutrophils # 10.2 H (1.3-7.7) k/uL Lymphocytes # 0.8 L (1.0-4.8) k/uL PT (9.0-12.0) sec INR (<1.2) ABG pCO2 (35-45) mmHg ABG pO2 (83-108) mmHg ABG O2 Saturation (94-97) % ABG Hematocrit (34.0-46.0) % Hemoglobin (11.4-16.0) gm/dL Sodium 134 L (137-145) mmol/L Carbon Dioxide 19 L (22-30) mmol/L BUN (7-17) mg/dL Glucose 144 H (74-99) mg/dL POC Glucose (mg/dL) 130 H (70-110) mg/dL Calcium 7.7 L (8.4-10.2) mg/dL Phosphorus (2.5-4.5) mg/dL Iron (50-170) ug/dL TIBC (228-460) ug/dL % Saturation (12.00-45.00) Transferrin (204.0-354.0) mg/dL Total Protein 4.7 L (6.3-8.2) g/dL Albumin 2.7 L (3.5-5.0) g/dL 05/20/22 05/20/22 05/21/22 Range/Units 15:37 15:46 01:00 WBC (3.8-10.6) k/uL RBC (3.80-5.40) m/uL Hgb (11.4-16.0) gm/dL Hct (34.0-46.0) % Neutrophils # (1.3-7.7) k/uL Lymphocytes # (1.0-4.8) k/uL PT 17.5 H (9.0-12.0) sec INR 1.7 H (<1.2) ABG pCO2 34 L (35-45) mmHg ABG pO2 253 H (83-108) mmHg ABG O2 Saturation 97.6 H (94-97) % ABG Hematocrit 26 L (34.0-46.0) % Hemoglobin 8.3 L (11.4-16.0) gm/dL Sodium (137-145) mmol/L Carbon Dioxide (22-30) mmol/L BUN (7-17) mg/dL Glucose (74-99) mg/dL POC Glucose (mg/dL) 133 H (70-110) mg/dL Calcium (8.4-10.2) mg/dL Phosphorus (2.5-4.5) mg/dL Iron (50-170) ug/dL TIBC (228-460) ug/dL % Saturation (12.00-45.00) Transferrin (204.0-354.0) mg/dL Total Protein (6.3-8.2) g/dL Albumin (3.5-5.0) g/dL 05/21/22 05/21/22 05/21/22 Range/Units 04:40 04:40 04:40 WBC 10.8 H (3.8-10.6) k/uL RBC 2.23 L (3.80-5.40) m/uL Hgb 7.1 L (11.4-16.0) gm/dL Hct 21.8 L (34.0-46.0) % Neutrophils # 9.4 H (1.3-7.7) k/uL Lymphocytes # 0.7 L (1.0-4.8) k/uL PT 18.7 H (9.0-12.0) sec INR 1.9 H (<1.2) ABG pCO2 (35-45) mmHg ABG pO2 (83-108) mmHg ABG O2 Saturation (94-97) % ABG Hematocrit (34.0-46.0) % Hemoglobin (11.4-16.0) gm/dL Sodium 133 L (137-145) mmol/L Carbon Dioxide (22-30) mmol/L BUN 18 H (7-17) mg/dL Glucose 117 H (74-99) mg/dL POC Glucose (mg/dL) (70-110) mg/dL Calcium 7.4 L (8.4-10.2) mg/dL Phosphorus 2.4 L (2.5-4.5) mg/dL Iron 6 L (50-170) ug/dL TIBC 160 L (228-460) ug/dL % Saturation 3.97 L (12.00-45.00) Transferrin 114.0 L (204.0-354.0) mg/dL Total Protein 4.2 L (6.3-8.2) g/dL Albumin 2.2 L (3.5-5.0) g/dL 05/21/22 Range/Units 07:06 WBC (3.8-10.6) k/uL RBC (3.80-5.40) m/uL Hgb (11.4-16.0) gm/dL Hct (34.0-46.0) % Neutrophils # (1.3-7.7) k/uL Lymphocytes # (1.0-4.8) k/uL PT (9.0-12.0) sec INR (<1.2) ABG pCO2 (35-45) mmHg ABG pO2 (83-108) mmHg ABG O2 Saturation (94-97) % ABG Hematocrit (34.0-46.0) % Hemoglobin (11.4-16.0) gm/dL Sodium (137-145) mmol/L Carbon Dioxide (22-30) mmol/L BUN (7-17) mg/dL Glucose (74-99) mg/dL POC Glucose (mg/dL) 120 H (70-110) mg/dL Calcium (8.4-10.2) mg/dL Phosphorus (2.5-4.5) mg/dL Iron (50-170) ug/dL TIBC (228-460) ug/dL % Saturation (12.00-45.00) Transferrin (204.0-354.0) mg/dL Total Protein (6.3-8.2) g/dL Albumin (3.5-5.0) g/dL Microbiology - Last 24 Hours (Table) 05/20/22 18:56 Wound Culture - Preliminary Other - Other Assessment and Plan Plan: Acute abdomen with evidence of Volvulus and small bowel necrosis, status post surgery today Underlying history of COPD Underlying history of coronary artery disease Underlying history of AICD placement Underlying history of cardiac arrhythmia Postoperative mechanical ventilation, patient was extubated on 05/20/2022 Episode of mild hypotension patient received 1 L of lactated Ringer, and received norepinephrine for pressure support At this time patient remains on IV Zosyn and Flagyl At this time patient underwent surgery she is admitted to intensive care unit She was evaluated by cardiology and was cleared for surgery Pulmonary critical care are following for management in ICU Will follow closely prognosis is guarded due to age and multiple underlying morbidities.
--- NOTE | 2022-05-21 14:46 | CDI ---
Documentation Clarification Form Date: 05/24/2022 02:28:28 PM From: Renetta BrionesANIBAL cobb, CCDS Admit Date: 05/19/2022 07:41:00 PM Patient Name: Marina Vargas Visit Number: [id number] Discharge Date: ATTENTION: The Clinical Documentation Specialists (CDI) and [facility] Coding Staff appreciate your assistance in clarifying documentation. Please respond to the clarification below the line at the bottom and electronically sign. The CDI & [facility] Coding staff will review the response and follow-up if needed. Please note: Queries are made part of the Legal Health Record. If you have any questions, please contact the author of this message via ITS. Dr. Kirill Malhotra: Mild Postoperative Hypotension is documented in the 05/21 Pulmonary/Critical Care Consult. Additional clarification is requested regarding the relationship, if any, that exists between the diagnosis and the procedure. Patients Admitting Diagnosis per the 05/20 Procedure Note: Abdominal ascites of hemoperitoneum, Adhesive band of greater omentum to right lower quadrant causing hernia, closed loop bowel obstruction and ileum small bowel volvulus of the mesentery. Transverse mesocolon adherent to the abdominal wall from prior hysterectomy with internal hernias. Post-Operative Diagnosis: Same. Procedure performed: Diagnostic Laparoscopy, converted to open Exploratory Laparotomy. Small bowel resection with primary anastomosis. Lysis of adhesions with reduction of small bowel volvulus. Abdominal washout of hemoperitoneum, 2L normal saline for peritoneal lavage. History/Risk Factors per the 05/19 ED Note: CAD, CHF with EF <20%, Atrial Flutter with AICD. Osteoarthritis, Chronic Atrial Fibrillation, Alcoholism. Clinical Indicators: Presented to the ED on 05/19 with Abdominal Pain, Back Pain, multiple episodes of Vomiting and some diarrhea. Admit with Bowel Obstruction 05/20 Procedure as above. To ICU on vent, subsequently extubated postoperatively. 05/19 BP: 133/76, 147/66. 05/20 BP: 123/70, 80/44, 80/53. 05/21 BP: 87/51, 113/74, 82/54 Treatment 05/20: Extubated in ICU to 4Lnc, IV Zosyn 100 mls @ 25 mls/hr q8H, IV Lactated Ringers 1,000 mls @ 999 mls/hr q1H , IV Tylenol 58 mls @ 2.32 mls/hr q6H, IV Norepinephrine 254 mls @ 7.345 mls/hr q24H What relationship, if any, exists between the diagnosis of Postoperative Hypotension and the procedure: [ x ] Postoperative Hypotension is a complication of surgical procedure [ ] Postoperative Hypotension is an expected outcome of the surgical procedure [ ] Postoperative Hypotension is related to patients co-morbid condition(s), (Please specify: ) and is not a complication of the procedure [ ] Other please specify: [ ] Unable to determine (Template Last Revised: November 2020) MTDD
[2022-05-21] MEDS ORDERED: ACETAMINOPHEN IVPB ONE (16:30)
[2022-05-21] MEDS: LATANOPROST 0.005% OPHTH DROPS 2.5 ML BTL BOTH EYES SCH (20:32)
[2022-05-21] MEDS: diphenhydrAMINE 50 MG/ML 1 ML VIAL IVP PRN (20:42)
[2022-05-22] MEDS: HYDROmorphone 0.5 MG/0.5 ML SYRINGE IVP PRN ×3 (00:15→14:53)
[2022-05-22 04:51] LABS: Basophils % (A) 0 %; Eosinophils # (A) 0.1 k/uL (0-0.7); Eosinophils % (A) 1 %; Lymphocytes # (A) 0.5 k/uL (1.0-4.8); Lymphocytes % (A) 8 %; MCH 32.1 pg (25.0-35.0); MCHC 32.3 g/dL (31.0-37.0); MCV 99.3 fL (80.0-100.0); Macrocytosis Slight; Monocytes # (A) 0.3 k/uL (0-1.0); Monocytes % (A) 5 %; Neutrophils # (A) 5.9 k/uL (1.3-7.7); Neutrophils % (A) 86 %; Platelet Count 161 k/uL (150-450); RBC 1.93 m/uL (3.80-5.40); RDW 14.5 % (11.5-15.5); WBC 6.9 k/uL (3.8-10.6)
[2022-05-22 04:55] LABS: HGB 6.2 gm/dL (11.4-16.0)
[2022-05-22] MEDS: DEXMEDETOMIDINE/0.9% NACL(PMX) 400 MCG in EMPTY BAG 1 BAG IV SCH (04:55)
[2022-05-22 04:56] LABS: HCT 19.2 % (34.0-46.0)
[2022-05-22] MEDS: SODIUM CHLORIDE 0.9% 1,000 ML IV SCH ×2 (04:57→13:46)
[2022-05-22 05:08] LABS: Calcium 7.1 mg/dL (8.4-10.2); Potassium 3.3 mmol/L (3.5-5.1)
[2022-05-22 05:11] LABS: INR 1.3 (<1.2); Prothrombin Time 13.2 sec (9.0-12.0)
[2022-05-22] MEDS ORDERED: Potassium Replacement Protocol 1 EACH MISC MISCELLANE PRN (05:40)
--- NOTE | 2022-05-22 07:22 | P.PN ---
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 She underwent exploratory laparotomy and she underwent small bowel obstruction and abdominal wash. Currently she has a wound VAC. May [id number] The patient was seen this morning in the intensive care unit. She is agitated with a change in mental status. Hemodynamically she is in stable and she just was started on norepinephrine. She has been maintaining normal sinus mechanism. She underwent an echo earlier and that revealed preserved left ventricle systolic function with no significant valvular abnormalities. From a cardiovascular standpoint of view, we will continue the current medical regimen. Currently she is euvolemic. The only medication and going to stop his Aldactone giving that the patient is hypotensive requiring vasopressors. Her hemoglobin this morning 7.1. 05/12/2022 The patient was seen this morning. She is definitely less agitated than yesterday. Hemodynamically she continues to be unstable and requiring norepinephrine but at the same time she is severely anemic with a hemoglobin below 7 and currently she is in process of receiving blood. Beside that she has been maintaining normal sinus mechanism. She underwent an echo which revealed normal left ventricular systolic function was no significant valvular abnormalities. Overall clinically on examination she seems to be euvolemic and not in fluid overload. Obviously oral anticoagulation is on hold in the light of the recent surgery and blood loss anemia Objective - Vital Signs Vital signs: Vital Signs Temp 97.3 F L 05/22/22 07:11 Pulse 74 05/22/22 07:11 Resp 15 05/22/22 07:11 BP 102/75 05/22/22 07:11 Pulse Ox 97 05/22/22 07:11 FiO2 50 05/20/22 16:00 Intake & Output 05/21/22 05/22/22 05/22/22 18:59 06:59 18:59 Intake Total 6672.623 3437.097 85.795 Output Total 780 640 100 Balance 831.226 523.097 -14.205 Weight 49.9 kg 58 kg Intake: IV 1216 900 75 .acetaminophen IV (Peds) 116 580 mg In Empty Bag 1 bag @ 232 mls/hr IVPB Q6HR JESSICA Rx#:[id number] Piperacillin-Tazobactam 3 200 .375 gm In Sodium Chloride 0.9% 100 ml @ 25 mls/hr IVPB Q8HR JESSICA Rx# :[id number] Sodium Chloride 0.9% 1, 900 900 75 000 ml @ 75 mls/hr IV . [id number] JESSICA Rx#:[id number] Intake, IV Titration 295.226 263.097 10.795 Amount Dexmedetomidine/0.9% NaCl 70.061 10.795 (Pmx) 400 mcg In Empty Bag 1 bag @ 0.2 MCG/KG/HR 1.928 mls/hr IV .Q24H JESSICA Rx#:[id number] Norepinephrine 4 mg In 295.226 93.036 Sodium Chloride 0.9% 250 ml @ 0.05 MCG/KG/MIN 7. 345 mls/hr IV .Q24H JESSICA Rx#:[id number] Piperacillin-Tazobactam 3 100 .375 gm In Sodium Chloride 0.9% 100 ml @ 25 mls/hr IVPB Q8HR JESSICA Rx# :[id number] Oral 100 Blood Product 0 Unit 0 Output: Drainage 190 Left VERÓNICA Drain 190 Urine 590 640 100 Other: Voiding Method Indwelling Catheter Indwelling Catheter ABP, PAP, CO, CI - Last Documented Arterial Blood Pressure 85/73 - Constitutional General appearance: Present: no acute distress - Respiratory Respiratory: bilateral: diminished - Cardiovascular Rhythm: regular Abnormal Heart Sounds: Present: systolic murmur - Labs CBC & Chem 7: 05/22/22 04:20 05/22/22 04:20 Labs: Abnormal Lab Results - Last 24 Hours (Table) 05/20/22 05/21/22 05/22/22 Range/Units 06:58 04:40 04:20 RBC 1.93 L (3.80-5.40) m/uL Hgb 6.2 L* (11.4-16.0) gm/dL Hct 19.2 L* (34.0-46.0) % Lymphocytes # 0.5 L (1.0-4.8) k/uL PT (9.0-12.0) sec INR (<1.2) Sodium (137-145) mmol/L Potassium (3.5-5.1) mmol/L Carbon Dioxide (22-30) mmol/L Calcium (8.4-10.2) mg/dL Iron 6 L (50-170) ug/dL TIBC 160 L (228-460) ug/dL % Saturation 3.97 L (12.00-45.00) Transferrin 114.0 L (204.0-354.0) mg/dL Crossmatch See Detail 05/22/22 05/22/22 Range/Units 04:20 04:45 RBC (3.80-5.40) m/uL Hgb (11.4-16.0) gm/dL Hct (34.0-46.0) % Lymphocytes # (1.0-4.8) k/uL PT 13.2 H (9.0-12.0) sec INR 1.3 H (<1.2) Sodium 134 L (137-145) mmol/L Potassium 3.3 L (3.5-5.1) mmol/L Carbon Dioxide 20 L (22-30) mmol/L Calcium 7.1 L (8.4-10.2) mg/dL Iron (50-170) ug/dL TIBC (228-460) ug/dL % Saturation (12.00-45.00) Transferrin (204.0-354.0) mg/dL Crossmatch Microbiology - Last 24 Hours (Table) 05/20/22 18:56 Gram Stain - Preliminary Other - Other Wound Culture - Preliminary Assessment and Plan Assessment: Assessment Abdominal discomfort and status post small bowel obstruction Paroxysmal atrial fibrillation Heart failure was preserved ejection fraction History of cardiomyopathy and status post AICD Blood loss anemia Hypertension requiring vasopressors Plan The patient is in process of receiving blood Continue the current medical regimen Continue monitor the hemoglobin Try to wean the patient from norepinephrine She has been maintaining normal sinus mechanism Recent echo showed preserved left ventricular systolic function
[2022-05-22] MEDS: PIPERACILLIN-TAZOBACTAM 3.375 GM in SODIUM CHLORIDE 0.9% 100 ML IVPB SCH ×3 (09:11→23:46)
[2022-05-22] MEDS: PANTOPRAZOLE 40 MG/10 ML VIAL IV SCH (09:11)
[2022-05-22] MEDS: DIGOXIN 125 MCG TAB PO SCH (09:11)
[2022-05-22] MEDS: POTASSIUM CHLORIDE 10 MEQ in WATER FOR INJECTION 1 100ML.BAG IVPB SCH ×4 (09:11→13:45)
[2022-05-22] MEDS: BRIMONIDINE TARTRATE 0.2% DROPS 5 ML BTL BOTH EYES SCH ×2 (09:12→20:42)
[2022-05-22] MEDS: prednisoLONE ACETATE 1% OPHTH DROPS 5 ML BTL LEFT EYE SCH ×2 (09:13→20:41)
[2022-05-22] MEDS: DORZOLAMIDE-TIMOLOL 2.23%/0.68 10ML BTL BOTH EYES SCH ×2 (09:13→20:41)
--- NOTE | 2022-05-22 09:24 | P.PN ---
Subjective Progress Note Date: 05/22/22 Marina Vargas, he is an 86-year-old female presented to [facility] emergency room with a chief complaint of abdominal pain, with nausea and vomiting She was evaluated in the emergency room vital examination on presentation revealed a temperature of 96.9 pulse 80 respiration 18 blood pressure 133/76 pulse ox 98% on room air Laboratory data reveals a white blood count of 15.4 hemoglobin 10.6 platelet count 293 INR 1.8 sodium 131 potassium 4.2 chloride 99 CO2 23 BUN 15 creatinine 0.87 Testing in the emergency room revealed computed tomography scan of the abdomen and pelvis done in the emergency room revealed dilated thick-walled loops of ileum in the right lower quadrant with differential diagnosis of intussusception versus volulus, repeat computed tomography scan done with oral contrast revealed evidence of fluid density in the pelvis possible hemorrhage. Patient had evidence of acute abdomen she was taken to operating room by Dr. Louise and and evidence of small bowel necrosis and volvulus, and hemoperitoneum, patient had open exploratory laparotomy with small bowel resection and primary anastomosis and lysis of adhesion and reduction of small bowel volvulus, she was admitted to intensive care unit post surgery Past medical history is significant for history of coronary artery disease, history of COPD, history of cardiac arrhythmia with atrial fibrillation, history of AICD placement. On 05/22/2022 patient is resting comfortably in the intensive care unit. Per nursing staff patient did have some confusion last night seems to be improved. Patient remains on small dose of Levophed for pressure support at this time. Hemoglobin was 6.2 this AM. 1 unit PRBCs have been ordered. Patient remains nothing by mouth. Good urine output per nursing staff. White Blood cell 6.9. Current vital signs temp 97.3, heart rate 74, respiratory rate 15, blood pressure 102/75, oxygen saturation 97% on 3 L Objective - Vital Signs Vital signs: Vital Signs Temp 97.3 F L 05/22/22 07:11 Pulse 74 05/22/22 07:11 Resp 15 05/22/22 07:11 BP 102/75 05/22/22 07:11 Pulse Ox 97 05/22/22 07:11 FiO2 50 05/20/22 16:00 Intake & Output 05/21/22 05/22/22 05/22/22 18:59 06:59 18:59 Intake Total 6235.533 4442.097 85.795 Output Total 780 640 100 Balance 831.226 523.097 -14.205 Weight 49.9 kg 58 kg Intake: IV 1216 900 75 .acetaminophen IV (Peds) 116 580 mg In Empty Bag 1 bag @ 232 mls/hr IVPB Q6HR JESSICA Rx#:[id number] Piperacillin-Tazobactam 3 200 .375 gm In Sodium Chloride 0.9% 100 ml @ 25 mls/hr IVPB Q8HR JESSICA Rx# :[id number] Sodium Chloride 0.9% 1, 900 900 75 000 ml @ 75 mls/hr IV . [id number] JESSICA Rx#:[id number] Intake, IV Titration 295.226 263.097 10.795 Amount Dexmedetomidine/0.9% NaCl 70.061 10.795 (Pmx) 400 mcg In Empty Bag 1 bag @ 0.2 MCG/KG/HR 1.928 mls/hr IV .Q24H JESSICA Rx#:[id number] Norepinephrine 4 mg In 295.226 93.036 Sodium Chloride 0.9% 250 ml @ 0.05 MCG/KG/MIN 7. 345 mls/hr IV .Q24H JESSICA Rx#:[id number] Piperacillin-Tazobactam 3 100 .375 gm In Sodium Chloride 0.9% 100 ml @ 25 mls/hr IVPB Q8HR JESSICA Rx# :[id number] Oral 100 Blood Product 0 Unit 0 Output: Drainage 190 Left VERÓNICA Drain 190 Urine 590 640 100 Other: Voiding Method Indwelling Catheter Indwelling Catheter ABP, PAP, CO, CI - Last Documented Arterial Blood Pressure 85/73 - Exam In general patient is alert and oriented x 3 in no distress HEENT head normocephalic and atraumatic Neck is supple no JVD no goiter no lymphadenopathy no carotid bruit Chest examination is clear to auscultation no crackles no wheezing Cardiac exam reveals regular heart sounds S1 and S2 no gallops no murmurs Abdomen is soft nontender no organomegaly with normal bowel sounds Extremity exam reveals no edema no cyanosis or clubbing Neurological examination reveals no gross focal deficits - Labs CBC & Chem 7: 05/22/22 04:20 05/22/22 04:20 Labs: Abnormal Lab Results - Last 24 Hours (Table) 05/20/22 05/21/22 05/22/22 Range/Units 06:58 04:40 04:20 RBC 1.93 L (3.80-5.40) m/uL Hgb 6.2 L* (11.4-16.0) gm/dL Hct 19.2 L* (34.0-46.0) % Lymphocytes # 0.5 L (1.0-4.8) k/uL PT (9.0-12.0) sec INR (<1.2) Sodium (137-145) mmol/L Potassium (3.5-5.1) mmol/L Carbon Dioxide (22-30) mmol/L Calcium (8.4-10.2) mg/dL Iron 6 L (50-170) ug/dL TIBC 160 L (228-460) ug/dL % Saturation 3.97 L (12.00-45.00) Transferrin 114.0 L (204.0-354.0) mg/dL Crossmatch See Detail 05/22/22 05/22/22 Range/Units 04:20 04:45 RBC (3.80-5.40) m/uL Hgb (11.4-16.0) gm/dL Hct (34.0-46.0) % Lymphocytes # (1.0-4.8) k/uL PT 13.2 H (9.0-12.0) sec INR 1.3 H (<1.2) Sodium 134 L (137-145) mmol/L Potassium 3.3 L (3.5-5.1) mmol/L Carbon Dioxide 20 L (22-30) mmol/L Calcium 7.1 L (8.4-10.2) mg/dL Iron (50-170) ug/dL TIBC (228-460) ug/dL % Saturation (12.00-45.00) Transferrin (204.0-354.0) mg/dL Crossmatch Microbiology - Last 24 Hours (Table) 05/20/22 18:56 Gram Stain - Preliminary Other - Other Wound Culture - Preliminary Assessment and Plan Plan: Acute abdomen with evidence of Volvulus and small bowel necrosis, status post surgery 05/21/2022 Underlying history of COPD Underlying history of coronary artery disease Underlying history of AICD placement Underlying history of cardiac arrhythmia Postoperative mechanical ventilation, patient was extubated on 05/20/2022 Episode of mild hypotension patient received 1 L of lactated Ringer, and received norepinephrine for pressure support At this time patient remains on IV Zosyn and Flagyl Acute blood loss secondary to surgery expected. Hemoglobin 6.2. 1 unit of PRBCs ordered At this time patient underwent surgery she is admitted to intensive care unit She was evaluated by cardiology and was cleared for surgery Pulmonary critical care are following for management in ICU Will follow closely prognosis is guarded due to age and multiple underlying morbidities.
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
[2022-05-22 12:13] LABS: Glucose,Whole Blood 87 mg/dL (70-110)
[2022-05-22] MEDS: SODIUM FERRIC GLUCONAT-SUCROSE 125 MG in SODIUM CHLORIDE 0.9% 100 ML IVPB SCH (14:53)
[2022-05-22 15:43] LABS: Basophils % (A) 0 %; Eosinophils % (A) 0 %; HCT 25.9 % (34.0-46.0); Hypochromasia Slight; Lymphocytes # (A) 0.5 k/uL (1.0-4.8); Lymphocytes % (A) 6 %; MCH 32.8 pg (25.0-35.0); MCHC 32.6 g/dL (31.0-37.0); MCV 100.6 fL (80.0-100.0); Macrocytosis Slight; Mean Platelet Volume 7.8; Monocytes # (A) 0.3 k/uL (0-1.0); Monocytes % (A) 3 %; Neutrophils # (A) 7.5 k/uL (1.3-7.7); Neutrophils % (A) 89 %; Platelet Count 180 k/uL (150-450); RBC 2.57 m/uL (3.80-5.40); RDW 15.3 % (11.5-15.5); WBC 8.4 k/uL (3.8-10.6)
[2022-05-22 15:45] LABS: HGB 8.4 gm/dL (11.4-16.0)
--- NOTE | 2022-05-22 15:54 | P.PN ---
Subjective Progress Note Date: 05/22/22 CHIEF COMPLAINT: Abdominal pain HISTORY OF PRESENT ILLNESS: The patient is a 86-year-old female status post exploratory laparotomy, small bowel resection for small bowel necrosis due to closed-loop obstruction and volvulus, 05/20/2022. Family is at bedside. Patient is confused. No flatus. No bowel movement. Patient given 1 unit of blood for hemoglobin 6.2. No osiel source of bleeding. She is off vasopressors from this morning. ROS: No reports of nausea and vomiting. No bowel movements. No fevers or chills. PHYSICAL EXAM: VITAL SIGNS: Reviewed CONSTITUTIONAL: Well developed and underweight. EYES: Conjuctivae without sclera icterus. Extraocular movements grossly intact. HEAD, EARS, NOSE, THROAT: Moist buccal mucosa. Head is atraumatic, normocephalic. No nasal drainage. RESPIRATORY: Non-labored respirations and equal bilateral excursions. CARDIOVASCULAR: Palpable 2+ radial pulses. ABDOMEN: Incision clean dry and intact. VERÓNICA serous sanguinous MUSCULOSKELETAL: No gross deformity of the lower extremities noted. No clubbing. No cyanosis. SKIN: Good skin turgor. Well perfused. NEUROLOGIC: Cranial nerves II through XII grossly intact. No focal or lateralizing signs. PSYCH: Alert to person. CLINICAL LABS: Reviewed. Hemoglobin down 7.1 to 6.2 now 8.4 after 1 unit of blood. WBC normal 8.4. Iron low ASSESSMENT: 1. Small bowel necrosis status post enterectomy 2. Acute dementia 3. Acute blood loss anemia due to anticoagulant effect and pre-existing hemoperitoneum 4. Hypotension supported by vasoconstrictors 5. Iron deficiency anemia PLAN: 1. May start popsicles with clear liquid diet in 24 hours 2. Continue ICU care 3. Continue antibiotics 4. Incentive spirometer use encourage the patient and family 5. Resume anticoagulation in 48 hours pending improvement of hemoglobin 6. Iron infusion ordered 7. Care plan discussed and reviewed with patient and family at bedside with questions answered Objective - Vital Signs Vital signs: Vital Signs Temp 98.0 F 05/22/22 12:00 Pulse 68 05/22/22 15:00 Resp 15 05/22/22 15:30 BP 104/68 05/22/22 15:30 Pulse Ox 95 05/22/22 15:30 FiO2 50 05/20/22 16:00 Intake & Output 05/21/22 05/22/22 05/22/22 18:59 06:59 18:59 Intake Total 7389.207 1504.097 1026.928 Output Total 780 640 470 Balance 831.226 523.097 556.928 Weight 49.9 kg 58 kg Intake: IV 1216 900 975 .acetaminophen IV (Peds) 116 580 mg In Empty Bag 1 bag @ 232 mls/hr IVPB Q6HR JESSICA Rx#:[id number] Piperacillin-Tazobactam 3 200 100 .375 gm In Sodium Chloride 0.9% 100 ml @ 25 mls/hr IVPB Q8HR JESSICA Rx# :[id number] Potassium Chloride 10 meq 400 In Water For Injection 1 100ml.bag @ 100 mls/hr IVPB Q1HR JESSICA Rx#: [id number] Sodium Chloride 0.9% 1, 900 900 375 000 ml @ 75 mls/hr IV . [id number] JESSICA Rx#:[id number] Sodium Ferric Gluconat- 100 Sucrose 125 mg In Sodium Chloride 0.9% 100 ml @ 100 mls/hr IVPB DAILY JESSICA Rx#:[id number] Intake, IV Titration 295.226 263.097 51.928 Amount Dexmedetomidine/0.9% NaCl 70.061 10.795 (Pmx) 400 mcg In Empty Bag 1 bag @ 0.2 MCG/KG/HR 1.928 mls/hr IV .Q24H JESSICA Rx#:[id number] Norepinephrine 4 mg In 295.226 93.036 41.133 Sodium Chloride 0.9% 250 ml @ 0.05 MCG/KG/MIN 7. 345 mls/hr IV .Q24H JESSICA Rx#:[id number] Piperacillin-Tazobactam 3 100 .375 gm In Sodium Chloride 0.9% 100 ml @ 25 mls/hr IVPB Q8HR JESSICA Rx# :[id number] Oral 100 Blood Product 0 Unit 0 Output: Drainage 190 120 Left VERÓNICA Drain 190 120 Urine 590 640 350 Other: Voiding Method Indwelling Catheter Indwelling Catheter Indwelling Catheter ABP, PAP, CO, CI - Last Documented Arterial Blood Pressure 85/73 - Labs CBC & Chem 7: 05/22/22 12:31 05/22/22 04:20 Labs: Abnormal Lab Results - Last 24 Hours (Table) 05/20/22 05/22/2205/22/22 Range/Units 06:58 04:20 04:20 RBC 1.93 L (3.80-5.40) m/uL Hgb 6.2 L* (11.4-16.0) gm/dL Hct 19.2 L* (34.0-46.0) % MCV (80.0-100.0) fL Lymphocytes # 0.5 L (1.0-4.8) k/uL PT (9.0-12.0) sec INR (<1.2) Sodium 134 L (137-145) mmol/L Potassium 3.3 L (3.5-5.1) mmol/L Carbon Dioxide 20 L (22-30) mmol/L Calcium 7.1 L (8.4-10.2) mg/dL Crossmatch See Detail 05/22/22 05/22/22 Range/Units 04:45 12:31 RBC 2.57 L (3.80-5.40) m/uL Hgb 8.4 L D (11.4-16.0) gm/dL Hct 25.9 L (34.0-46.0) % MCV 100.6 H (80.0-100.0) fL Lymphocytes # 0.5 L (1.0-4.8) k/uL PT 13.2 H (9.0-12.0) sec INR 1.3 H (<1.2) Sodium (137-145) mmol/L Potassium (3.5-5.1) mmol/L Carbon Dioxide (22-30) mmol/L Calcium (8.4-10.2) mg/dL Crossmatch Microbiology - Last 24 Hours (Table) 05/20/22 18:56 Gram Stain - Preliminary Other - Other Wound Culture - Preliminary
[2022-05-22] MEDS: HYDROmorphone 1 MG/ML 1 ML SYRINGE IVP PRN (17:59)
[2022-05-22] MEDS: LATANOPROST 0.005% OPHTH DROPS 2.5 ML BTL BOTH EYES SCH (20:42)
[2022-05-22 23:57] LABS: Glucose,Whole Blood 72 mg/dL (70-110)
[2022-05-23] MEDS: HYDROmorphone 0.5 MG/0.5 ML SYRINGE IVP PRN ×4 (01:25→21:01)
[2022-05-23] MEDS: SODIUM CHLORIDE 0.9% 1,000 ML IV SCH ×2 (02:45→15:57)
[2022-05-23] MEDS: ONDANSETRON 4 MG/2 ML VIAL IVP PRN ×2 (04:42→15:14)
[2022-05-23 05:56] LABS: Glucose,Whole Blood 76 mg/dL (70-110)
[2022-05-23 06:04] LABS: Basophils % (A) 0 %; Eosinophils # (A) 0.1 k/uL (0-0.7); Eosinophils % (A) 1 %; HCT 28.2 % (34.0-46.0); HGB 9.3 gm/dL (11.4-16.0); Hypochromasia Slight; INR 1.1 (<1.2); Lymphocytes # (A) 0.7 k/uL (1.0-4.8); Lymphocytes % (A) 7 %; MCH 32.8 pg (25.0-35.0); MCHC 32.9 g/dL (31.0-37.0); MCV 99.5 fL (80.0-100.0); Macrocytosis Slight; Mean Platelet Volume 7.5; Monocytes # (A) 0.4 k/uL (0-1.0); Monocytes % (A) 4 %; Neutrophils # (A) 8.9 k/uL (1.3-7.7); Neutrophils % (A) 88 %; Platelet Count 227 k/uL (150-450); Poikilocytosis Slight; Prothrombin Time 12.1 sec (9.0-12.0); RBC 2.83 m/uL (3.80-5.40); RDW 15.4 % (11.5-15.5); WBC 10.1 k/uL (3.8-10.6)
[2022-05-23 06:12] LABS: Albumin 2.4 g/dL (3.5-5.0); Calcium 7.6 mg/dL (8.4-10.2); Potassium 3.9 mmol/L (3.5-5.1); Total Bilirubin 0.5 mg/dL (0.2-1.3); Total Protein 4.5 g/dL (6.3-8.2)
[2022-05-23] MEDS: POTASSIUM CHLORIDE 10 MEQ in WATER FOR INJECTION 1 100ML.BAG IVPB SCH ×2 (07:06→08:47)
--- NOTE | 2022-05-23 07:30 | P.PN ---
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 She underwent exploratory laparotomy and she underwent small bowel obstruction and abdominal wash. Currently she has a wound VAC. May [id number] The patient was seen this morning in the intensive care unit. She is agitated with a change in mental status. Hemodynamically she is in stable and she just was started on norepinephrine. She has been maintaining normal sinus mechanism. She underwent an echo earlier and that revealed preserved left ventricle systolic function with no significant valvular abnormalities. From a cardiovascular standpoint of view, we will continue the current medical regimen. Currently she is euvolemic. The only medication and going to stop his Aldactone giving that the patient is hypotensive requiring vasopressors. Her hemoglobin this morning 7.1. 05/22/2022 The patient was seen this morning. She is definitely less agitated than yesterday. Hemodynamically she continues to be unstable and requiring norepinephrine but at the same time she is severely anemic with a hemoglobin below 7 and currently she is in process of receiving blood. Beside that she has been maintaining normal sinus mechanism. She underwent an echo which revealed normal left ventricular systolic function was no significant valvular abnormalities. Overall clinically on examination she seems to be euvolemic and not in fluid overload. Obviously oral anticoagulation is on hold in the light of the recent surgery and blood loss anemia May [id number] The patient was seen this morning. She is able to 90 stable and not on norepinephrine anymore. She has been maintaining normal sinus mechanism with frequent PVCs. I am going to start the patient back on a small dose of lisinopril at 2.5 mg by mouth daily. She was receiving Coumadin as an outpatient. We'll restart the Coumadin back was patient is stable from the surgical standpoint of view. Meanwhile continue monitor the kidney function as well as continue monitor the electrolytes and follow-up with the patient Objective - Vital Signs Vital signs: Vital Signs Temp 98.3 F 05/23/22 05:00 Pulse 80 05/23/22 06:30 Resp 11 L 05/23/22 06:30 BP 130/71 05/23/22 06:30 Pulse Ox 95 05/23/22 06:30 FiO2 50 05/20/22 16:00 Intake & Output 05/22/22 05/23/22 05/23/22 18:59 06:59 18:59 Intake Total 1460.665 950 Output Total 750 1025 Balance 710.665 -75 Weight 60.4 kg Intake: IV 1375 925 Piperacillin-Tazobactam 3 200 100 .375 gm In Sodium Chloride 0.9% 100 ml @ 25 mls/hr IVPB Q8HR [facility] Rx# :[id number] Potassium Chloride 10 meq 400 In Water For Injection 1 100ml.bag @ 100 mls/hr IVPB Q1HR [facility] Rx#: [id number] Sodium Chloride 0.9% 1, 675 825 000 ml @ 75 mls/hr IV . [id number] [facility] Rx#:[id number] Sodium Ferric Gluconat- 100 Sucrose 125 mg In Sodium Chloride 0.9% 100 ml @ 100 mls/hr IVPB DAILY [facility] Rx#:[id number] Intake, IV Titration 85.665 25 Amount Dexmedetomidine/0.9% NaCl 44.532 (Pmx) 400 mcg In Empty Bag 1 bag @ 0.2 MCG/KG/HR 1.928 mls/hr IV .Q24H [facility] Rx#:[id number] Norepinephrine 4 mg In 41.133 Sodium Chloride 0.9% 250 ml @ 0.05 MCG/KG/MIN 7. 345 mls/hr IV .Q24H [facility] Rx#:[id number] Piperacillin-Tazobactam 3 25 .375 gm In Sodium Chloride 0.9% 100 ml @ 25 mls/hr IVPB Q8HR [facility] Rx# :[id number] Output: Drainage 220 390 Left VERÓNICA Drain 220 390 Urine 530 635 Other: Voiding Method Indwelling Catheter Indwelling Catheter ABP, PAP, CO, CI - Last Documented Arterial Blood Pressure 85/73 - Constitutional General appearance: Present: no acute distress - Respiratory Respiratory: bilateral: diminished - Cardiovascular Rhythm: regular - Labs CBC & Chem 7: 05/23/22 05:04 05/23/22 05:04 Labs: Abnormal Lab Results - Last 24 Hours (Table) 05/22/22 05/23/22 05/23/22 Range/Units 12:31 05:04 05:04 RBC 2.57 L 2.83 L (3.80-5.40) m/uL Hgb 8.4 L D 9.3 L (11.4-16.0) gm/dL Hct 25.9 L 28.2 L (34.0-46.0) % MCV 100.6 H (80.0-100.0) fL Neutrophils # 8.9 H (1.3-7.7) k/uL Lymphocytes # 0.5 L 0.7 L (1.0-4.8) k/uL PT 12.1 H (9.0-12.0) sec Sodium (137-145) mmol/L Carbon Dioxide (22-30) mmol/L Glucose (74-99) mg/dL Calcium (8.4-10.2) mg/dL Total Protein (6.3-8.2) g/dL Albumin (3.5-5.0) g/dL 05/23/22 Range/Units 05:04 RBC (3.80-5.40) m/uL Hgb (11.4-16.0) gm/dL Hct (34.0-46.0) % MCV (80.0-100.0) fL Neutrophils # (1.3-7.7) k/uL Lymphocytes # (1.0-4.8) k/uL PT (9.0-12.0) sec Sodium 134 L (137-145) mmol/L Carbon Dioxide 16 L (22-30) mmol/L Glucose 71 L (74-99) mg/dL Calcium 7.6 L (8.4-10.2) mg/dL Total Protein 4.5 L (6.3-8.2) g/dL Albumin 2.4 L (3.5-5.0) g/dL Microbiology - Last 24 Hours (Table) 05/20/22 18:56 Gram Stain - Final Other - Other Wound Culture - Final Assessment and Plan Assessment: Assessment Abdominal discomfort and status post small bowel obstruction Paroxysmal atrial fibrillation History of nonischemic cardiomyopathy History of cardiomyopathy and status post AICD Blood loss anemia Hypertension requiring vasopressors Plan Continue the current medical regimen Restart the patient back on small dose of lisinopril Continue Coumadin once the patient stable from the surgical standpoint overview Follow-up with the patient
[2022-05-23] MEDS: NOREPINEPHRINE 4 MG in SODIUM CHLORIDE 0.9% 250 ML IV SCH ×2 (08:01→21:59)
--- NOTE | 2022-05-23 08:06 | XR ---
EXAMINATION TYPE: XR chest 1V portable DATE OF EXAM: 05/23/2022 Comparison: 05/21/2022 Clinical History: 86-year-old female shortness of breath, ICU follow-up Findings: Left anterior chest wall AICD generator with right ventricular lead. Heart upper limits of normal in size. Worsening retrocardiac and left basilar opacity. Remainder of the lungs appear relatively clear . Impression: Worsening retrocardiac and left basilar opacity, likely combination of pleural effusion with atelecta sis and/or airspace disease.
[2022-05-23] MEDS: diphenhydrAMINE 50 MG/ML 1 ML VIAL IVP PRN (08:39)
[2022-05-23] MEDS: PIPERACILLIN-TAZOBACTAM 3.375 GM in SODIUM CHLORIDE 0.9% 100 ML IVPB SCH ×3 (08:43→23:05)
[2022-05-23] MEDS: PANTOPRAZOLE 40 MG/10 ML VIAL IV SCH (08:43)
[2022-05-23] MEDS: DORZOLAMIDE-TIMOLOL 2.23%/0.68 10ML BTL BOTH EYES SCH ×2 (08:49→20:15)
[2022-05-23] MEDS: prednisoLONE ACETATE 1% OPHTH DROPS 5 ML BTL LEFT EYE SCH ×2 (08:49→20:15)
[2022-05-23] MEDS: BRIMONIDINE TARTRATE 0.2% DROPS 5 ML BTL BOTH EYES SCH ×2 (08:49→20:15)
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
[2022-05-23] MEDS ORDERED: TRIMETHOBENZAMIDE 100 MG/ML 2 ML VIAL IM PRN (10:52)
[2022-05-23] MEDS: PROCHLORPERAZINE INJ 10 MG/2 ML VIAL IVP PRN ×2 (11:36→21:25)
[2022-05-23] MEDS: SODIUM FERRIC GLUCONAT-SUCROSE 125 MG in SODIUM CHLORIDE 0.9% 100 ML IVPB SCH (11:36)
[2022-05-23 12:10] LABS: Glucose,Whole Blood 84 mg/dL (70-110)
--- NOTE | 2022-05-23 12:25 | P.PN ---
Subjective Progress Note Date: 05/23/22 Marina Vargas, he is an 86-year-old female presented to [facility] emergency room with a chief complaint of abdominal pain, with nausea and vomiting She was evaluated in the emergency room vital examination on presentation revealed a temperature of 96.9 pulse 80 respiration 18 blood pressure 133/76 pulse ox 98% on room air Laboratory data reveals a white blood count of 15.4 hemoglobin 10.6 platelet count 293 INR 1.8 sodium 131 potassium 4.2 chloride 99 CO2 23 BUN 15 creatinine 0.87 Testing in the emergency room revealed computed tomography scan of the abdomen and pelvis done in the emergency room revealed dilated thick-walled loops of ileum in the right lower quadrant with differential diagnosis of intussusception versus volulus, repeat computed tomography scan done with oral contrast revealed evidence of fluid density in the pelvis possible hemorrhage. Patient had evidence of acute abdomen she was taken to operating room by Dr. Louise and and evidence of small bowel necrosis and volvulus, and hemoperitoneum, patient had open exploratory laparotomy with small bowel resection and primary anastomosis and lysis of adhesion and reduction of small bowel volvulus, she was admitted to intensive care unit post surgery Past medical history is significant for history of coronary artery disease, history of COPD, history of cardiac arrhythmia with atrial fibrillation, history of AICD placement. On 05/22/2022 patient is resting comfortably in the intensive care unit. Per nursing staff patient did have some confusion last night seems to be improved. Patient remains on small dose of Levophed for pressure support at this time. Hemoglobin was 6.2 this AM. 1 unit PRBCs have been ordered. Patient remains nothing by mouth. Good urine output per nursing staff. White Blood cell 6.9. Current vital signs temp 97.3, heart rate 74, respiratory rate 15, blood pressure 102/75, oxygen saturation 97% on 3 L On 05/23/2022 patient was seen and examined in the ICU she is alert responsive in no apparent distress she had episodes of nausea and vomiting this morning she is complaining of abdominal pain otherwise she denies any complaints there is no fever or chills no headache or dizziness no chest pain no shortness of breath no cough and no urinary symptoms Objective - Vital Signs Vital signs: Vital Signs Temp 98.4 F 05/23/22 08:00 Pulse 75 05/23/22 11:00 Resp 13 05/23/22 11:00 BP 140/78 05/23/22 11:00 Pulse Ox 96 05/23/22 11:00 FiO2 50 05/20/22 16:00 Intake & Output 05/22/22 05/23/22 05/23/22 18:59 06:59 18:59 Intake Total 1770.665 950 475 Output Total 750 1025 295 Balance 1020.665 -75 180 Weight 60.4 kg Intake: IV 1375 925 475 Piperacillin-Tazobactam 3 200 100 75 .375 gm In Sodium Chloride 0.9% 100 ml @ 25 mls/hr IVPB Q8HR [facility] Rx# :[id number] Potassium Chloride 10 meq 400 100 In Water For Injection 1 100ml.bag @ 100 mls/hr IVPB Q1HR [facility] Rx#: [id number] Sodium Chloride 0.9% 1, 675 825 300 000 ml @ 75 mls/hr IV . [id number] [facility] Rx#:[id number] Sodium Ferric Gluconat- 100 Sucrose 125 mg In Sodium Chloride 0.9% 100 ml @ 100 mls/hr IVPB DAILY [facility] Rx#:[id number] Intake, IV Titration 85.665 25 Amount Dexmedetomidine/0.9% NaCl 44.532 (Pmx) 400 mcg In Empty Bag 1 bag @ 0.2 MCG/KG/HR 1.928 mls/hr IV .Q24H [facility] Rx#:[id number] Norepinephrine 4 mg In 41.133 Sodium Chloride 0.9% 250 ml @ 0.05 MCG/KG/MIN 7. 345 mls/hr IV .Q24H [facility] Rx#:[id number] Piperacillin-Tazobactam 3 25 .375 gm In Sodium Chloride 0.9% 100 ml @ 25 mls/hr IVPB Q8HR [facility] Rx# :[id number] Blood Product 310 Rc As-1 Unit 310 [id number] Output: Drainage 220 390 40 Left VERÓNICA Drain 220 390 40 Urine 530 635 255 Other: Voiding Method Indwelling Catheter Indwelling Catheter ABP, PAP, CO, CI - Last Documented Arterial Blood Pressure 85/73 - Exam In general patient is alert and oriented x 3 in no distress HEENT head normocephalic and atraumatic Neck is supple no JVD no goiter no lymphadenopathy no carotid bruit Chest examination is clear to auscultation no crackles no wheezing Cardiac exam reveals regular heart sounds S1 and S2 no gallops no murmurs Abdomen is soft with mild diffuse tenderness no organomegaly bowel sounds are sluggish Extremity exam reveals no edema no cyanosis or clubbing Neurological examination reveals no gross focal deficits - Labs CBC & Chem 7: 05/23/22 05:04 05/23/22 05:04 Labs: Abnormal Lab Results - Last 24 Hours (Table) 05/20/22 05/22/22 05/23/22 Range/Units 06:58 12:31 05:04 RBC 2.57 L (3.80-5.40) m/uL Hgb 8.4 L D (11.4-16.0) gm/dL Hct 25.9 L (34.0-46.0) % MCV 100.6 H (80.0-100.0) fL Neutrophils # (1.3-7.7) k/uL Lymphocytes # 0.5 L (1.0-4.8) k/uL PT 12.1 H (9.0-12.0) sec Sodium (137-145) mmol/L Carbon Dioxide (22-30) mmol/L Glucose (74-99) mg/dL Calcium (8.4-10.2) mg/dL Total Protein (6.3-8.2) g/dL Albumin (3.5-5.0) g/dL Crossmatch See Detail 05/23/22 05/23/22 Range/Units 05:04 05:04 RBC 2.83 L (3.80-5.40) m/uL Hgb 9.3 L (11.4-16.0) gm/dL Hct 28.2 L (34.0-46.0) % MCV (80.0-100.0) fL Neutrophils # 8.9 H (1.3-7.7) k/uL Lymphocytes # 0.7 L (1.0-4.8) k/uL PT (9.0-12.0) sec Sodium 134 L (137-145) mmol/L Carbon Dioxide 16 L (22-30) mmol/L Glucose 71 L (74-99) mg/dL Calcium 7.6 L (8.4-10.2) mg/dL Total Protein 4.5 L (6.3-8.2) g/dL Albumin 2.4 L (3.5-5.0) g/dL Crossmatch Microbiology - Last 24 Hours (Table) 05/20/22 18:56 Gram Stain - Final Other - Other Wound Culture - Final Assessment and Plan Plan: Acute abdomen with evidence of Volvulus and small bowel necrosis, status post surgery 05/21/2022 Underlying history of COPD Underlying history of coronary artery disease Underlying history of AICD placement Underlying history of cardiac arrhythmia Postoperative mechanical ventilation, patient was extubated on 05/20/2022 Episode of mild hypotension patient received 1 L of lactated Ringer, and received norepinephrine for pressure support At this time patient remains on IV Zosyn and Flagyl Acute blood loss secondary to surgery expected. Hemoglobin 6.2. 1 unit of PRBCs ordered At this time patient underwent surgery she is admitted to intensive care unit She was evaluated by cardiology and was cleared for surgery Pulmonary critical care are following for management in ICU Will follow closely prognosis is guarded due to age and multiple underlying morbidities.
[2022-05-23] MEDS: DIGOXIN 125 MCG TAB PO SCH (13:08)
--- NOTE | 2022-05-23 14:10 | P.PN ---
Subjective Progress Note Date: 05/23/22 CHIEF COMPLAINT: Abdominal pain HISTORY OF PRESENT ILLNESS: The patient is a 86-year-old female status post exploratory laparotomy, small bowel resection for small bowel necrosis due to closed-loop obstruction and volvulus, 05/20/2022. Family is at bedside. Patient had intractable nausea vomiting starting this morning after start of clear liquid diet. Hemoglobin improved from 6.2-9.3 after 1 unit of blood. She is on iron infusions. ROS: No bowel movements. No fevers or chills. PHYSICAL EXAM: VITAL SIGNS: Reviewed CONSTITUTIONAL: Well developed and underweight. EYES: Conjuctivae without sclera icterus. Extraocular movements grossly intact. HEAD, EARS, NOSE, THROAT: Moist buccal mucosa. Head is atraumatic, normocephalic. No nasal drainage. RESPIRATORY: Non-labored respirations and equal bilateral excursions. CARDIOVASCULAR: Palpable 2+ radial pulses. ABDOMEN: Incision clean dry and intact incisional wound VAC system. VERÓNICA serous sanguinous MUSCULOSKELETAL: No gross deformity of the lower extremities noted. No clubbing. No cyanosis. SKIN: Good skin turgor. Well perfused. NEUROLOGIC: Cranial nerves II through XII grossly intact. No focal or lateralizing signs. PSYCH: Alert to person. CLINICAL LABS: Reviewed. Hemoglobin up to 9.3 after 1 unit of blood for hemoglobin 6.2. WBC normal 10.1. ASSESSMENT: 1. Small bowel necrosis status post enterectomy 2. Acute dementia 3. Acute blood loss anemia due to anticoagulant effect and pre-existing hemoperitoneum 4. Hypotension supported by vasoconstrictors 5. Iron deficiency anemia 6. Intractable nausea and vomiting PLAN: 1. I discussed with patient and family will start PICC line for TPN including IV antibiotics 2. Downgrade to ice chips Popsicles and medications 3. Do not start Coumadin until after PICC line placement 4. Overall, expected ileus due to small bowel ischemia due to pathology Objective - Vital Signs Vital signs: Vital Signs Temp 98.4 F 05/23/22 08:00 Pulse 79 05/23/22 14:00 Resp 22 05/23/22 14:00 BP 138/95 05/23/22 14:00 Pulse Ox 95 05/23/22 14:00 FiO2 50 05/20/22 16:00 Intake & Output 05/22/22 05/23/22 05/23/22 18:59 06:59 18:59 Intake Total 1770.665 950 750 Output Total 750 1025 405 Balance 1020.665 -75 345 Weight 60.4 kg Intake: IV 1375 925 750 Piperacillin-Tazobactam 3 200 100 100 .375 gm In Sodium Chloride 0.9% 100 ml @ 25 mls/hr IVPB Q8HR [facility] Rx# :[id number] Potassium Chloride 10 meq 400 100 In Water For Injection 1 100ml.bag @ 100 mls/hr IVPB Q1HR [facility] Rx#: [id number] Sodium Chloride 0.9% 1, 675 825 450 000 ml @ 75 mls/hr IV . [id number] [facility] Rx#:[id number] Sodium Ferric Gluconat- 100 100 Sucrose 125 mg In Sodium Chloride 0.9% 100 ml @ 100 mls/hr IVPB DAILY [facility] Rx#:[id number] Intake, IV Titration 85.665 25 Amount Dexmedetomidine/0.9% NaCl 44.532 (Pmx) 400 mcg In Empty Bag 1 bag @ 0.2 MCG/KG/HR 1.928 mls/hr IV .Q24H [facility] Rx#:[id number] Norepinephrine 4 mg In 41.133 Sodium Chloride 0.9% 250 ml @ 0.05 MCG/KG/MIN 7. 345 mls/hr IV .Q24H [facility] Rx#:[id number] Piperacillin-Tazobactam 3 25 .375 gm In Sodium Chloride 0.9% 100 ml @ 25 mls/hr IVPB Q8HR [facility] Rx# :[id number] Blood Product 310 Rc As-1 Unit 310 [id number] Output: Drainage 220 390 40 Left VERÓNICA Drain 220 390 40 Urine 530 635 365 Other: Voiding Method Indwelling Catheter Indwelling Catheter Indwelling Catheter ABP, PAP, CO, CI - Last Documented Arterial Blood Pressure 85/73 - Labs CBC & Chem 7: 05/23/22 05:04 05/23/22 05:04 Labs: Abnormal Lab Results - Last 24 Hours (Table) 05/20/22 05/22/22 05/23/22 Range/Units 06:58 12:31 05:04 RBC 2.57 L (3.80-5.40) m/uL Hgb 8.4 L D (11.4-16.0) gm/dL Hct 25.9 L (34.0-46.0) % MCV 100.6 H (80.0-100.0) fL Neutrophils # (1.3-7.7) k/uL Lymphocytes # 0.5 L (1.0-4.8) k/uL PT 12.1 H (9.0-12.0) sec Sodium (137-145) mmol/L Carbon Dioxide (22-30) mmol/L Glucose (74-99) mg/dL Calcium (8.4-10.2) mg/dL Total Protein (6.3-8.2) g/dL Albumin (3.5-5.0) g/dL Crossmatch See Detail 05/23/22 05/23/22 Range/Units 05:04 05:04 RBC 2.83 L (3.80-5.40) m/uL Hgb 9.3 L (11.4-16.0) gm/dL Hct 28.2 L (34.0-46.0) % MCV (80.0-100.0) fL Neutrophils # 8.9 H (1.3-7.7) k/uL Lymphocytes # 0.7 L (1.0-4.8) k/uL PT (9.0-12.0) sec Sodium 134 L (137-145) mmol/L Carbon Dioxide 16 L (22-30) mmol/L Glucose 71 L (74-99) mg/dL Calcium 7.6 L (8.4-10.2) mg/dL Total Protein 4.5 L (6.3-8.2) g/dL Albumin 2.4 L (3.5-5.0) g/dL Crossmatch Microbiology - Last 24 Hours (Table) 05/20/22 18:56 Gram Stain - Final Other - Other Wound Culture - Final
[2022-05-23 16:27] LABS: Glucose,Whole Blood 72 mg/dL (70-110)
[2022-05-23] MEDS: DEXMEDETOMIDINE/0.9% NACL(PMX) 400 MCG in EMPTY BAG 1 BAG IV SCH (19:59)
[2022-05-23] MEDS: LATANOPROST 0.005% OPHTH DROPS 2.5 ML BTL BOTH EYES SCH (20:15)
[2022-05-24] LABS: Glucose,Whole Blood 84 mg/dL (70-110)
[2022-05-24] MEDS: HYDROmorphone 0.5 MG/0.5 ML SYRINGE IVP PRN ×4 (03:28→18:32)
[2022-05-24] MEDS: ONDANSETRON 4 MG/2 ML VIAL IVP PRN ×3 (03:38→17:45)
[2022-05-24 04:17] LABS: Basophils % (A) 0 %; Eosinophils # (A) 0.1 k/uL (0-0.7); Eosinophils % (A) 1 %; HCT 29.7 % (34.0-46.0); HGB 9.7 gm/dL (11.4-16.0); Hypochromasia Slight; Lymphocytes # (A) 0.8 k/uL (1.0-4.8); Lymphocytes % (A) 8 %; MCH 31.8 pg (25.0-35.0); MCHC 32.5 g/dL (31.0-37.0); MCV 97.8 fL (80.0-100.0); Mean Platelet Volume 7.9; Monocytes # (A) 0.5 k/uL (0-1.0); Monocytes % (A) 5 %; Neutrophils # (A) 7.6 k/uL (1.3-7.7); Neutrophils % (A) 84 %; Platelet Count 259 k/uL (150-450); RBC 3.04 m/uL (3.80-5.40); RDW 14.7 % (11.5-15.5)
[2022-05-24 04:22] LABS: INR 1.6 (<1.2); Prothrombin Time 16.2 sec (9.0-12.0)
[2022-05-24] MEDS: SODIUM CHLORIDE 0.9% 1,000 ML IV SCH (04:23)
[2022-05-24 04:54] LABS: ALT 9 U/L (4-34); AST 22 U/L (14-36); African American GFR (CKD) >90 (>60 ml/min/1.73 sqM); Albumin 2.3 g/dL (3.5-5.0); Alkaline Phosphatase 45 U/L (38-126); Anion Gap 13 mmol/L; Blood Urea Nitrogen 9 mg/dL (7-17); Calcium 7.5 mg/dL (8.4-10.2); Carbon Dioxide 15 mmol/L (22-30); Chloride 105 mmol/L (98-107); Glucose 86 mg/dL (74-99); Magnesium 1.8 mg/dL (1.6-2.3); Non-African American GFR(CKD) 80 (>60 ml/min/1.73 sqM); Potassium 3.8 mmol/L (3.5-5.1); Sodium 133 mmol/L (137-145); Total Bilirubin 0.4 mg/dL (0.2-1.3); Total Protein 4.4 g/dL (6.3-8.2)
[2022-05-24] MEDS ORDERED: Magnesium Replacement Protocol 1 EACH MISC MISCELLANE PRN (04:56)
[2022-05-24] MEDS: POTASSIUM CHLORIDE 10 MEQ in WATER FOR INJECTION 1 100ML.BAG IVPB SCH ×2 (05:22→06:27)
[2022-05-24] MEDS: MAGNESIUM SULFATE-D5W PMX 1 GM in DEXTROSE/WATER 1 100ML.BAG IVPB SCH ×2 (05:26→06:29)
[2022-05-24] MEDS: PROCHLORPERAZINE INJ 10 MG/2 ML VIAL IVP PRN ×3 (05:32→21:33)
[2022-05-24 06:40] LABS: Glucose,Whole Blood 103 mg/dL (70-110)
--- NOTE | 2022-05-24 07:44 | P.PN ---
Subjective Progress Note Date: 05/24/22 PROGRESS NOTE The patient is an 86-year-old female with a history of nonischemic cardiomyopathy in the past, post ICD, followed by Dr. Dejesus at [facility] who presented with abdominal pain and underwent surgical intervention on the May with small bowel resection and lysis of adhesion. Her echocardiogram here showed a preserved systolic function. She is in sinus mechanism this morning. She has a history of paroxysmal atrial fibrillation. She is sleeping but has no symptoms of chest discomfort. Her anticoagulation continues to be on hold. Hemodynamically her blood pressure is stable and she is on no vasopressor. There is no evidence of ventricular ectopic activity. Medications: Digoxin 0.125 mg daily, lisinopril 2.5 mg daily PHYSICAL EXAMINATION: Blood pressure 138/89 heart rate 72 LUNGS: Clear to auscultation HEART: Regular rate and rhythm, S1, S2. No S3. systolic ejection murmur at the base ABDOMEN: Soft, nontender, no organomegaly, dressing in place, hypoactive bowel sounds EXTREMETIES: No edema LAB: Hemoglobin 9.7, BUN 9, creatinine 0.67, potassium 3.8 IMPRESSION: 1. Status post bowel resection with ileus 2. Paroxysmal atrial fibrillation, maintaining sinus mechanism at this time 3. Prior history of cardiomyopathy, post ICD, repeat echocardiogram done during this admission shows a preserved systolic function 4. Hypotension, resolved 5. Change in mental status PLAN: 1. Restart low dose beta teresa 2. PICC line today and then initiate anticoagulation 3. Follow her renal functions 4. Depending on her progress further recommendations will be made Objective - Vital Signs Vital signs: Vital Signs Temp 98.1 F 05/24/22 04:00 Pulse 72 05/24/22 07:00 Resp 12 05/24/22 07:00 BP 138/89 05/24/22 07:00 Pulse Ox 98 05/24/22 07:21 FiO2 50 05/20/22 16:00 Intake & Output 05/23/22 05/24/22 05/24/22 18:59 06:59 18:59 Intake Total 1225 1125 275 Output Total 820 830 45 Balance 405 295 230 Weight 59.1 kg Intake: IV 1225 1125 275 Magnesium Sulfate-D5w Pmx 100 100 1 gm In Dextrose/Water 1 100ml.bag @ 100 mls/hr IVPB Q1H [facility] Rx#: [id number] Piperacillin-Tazobactam 3 200 100 .375 gm In Sodium Chloride 0.9% 100 ml @ 25 mls/hr IVPB Q8HR [facility] Rx# :[id number] Potassium Chloride 10 meq 100 100 In Water For Injection 1 100ml.bag @ 100 mls/hr IVPB Q1H [facility] Rx#: [id number] Potassium Chloride 10 meq 100 In Water For Injection 1 100ml.bag @ 100 mls/hr IVPB Q1HR [facility] Rx#: [id number] Sodium Chloride 0.9% 1, 825 825 75 000 ml @ 75 mls/hr IV . [id number] [facility] Rx#:[id number] Sodium Ferric Gluconat- 100 Sucrose 125 mg In Sodium Chloride 0.9% 100 ml @ 100 mls/hr IVPB DAILY [facility] Rx#:[id number] Output: Drainage 220 160 VERÓNICA Drain 220 160 Urine 600 670 45 Other: Voiding Method Indwelling Catheter Indwelling Catheter ABP, PAP, CO, CI - Last Documented Arterial Blood Pressure 85/73 - Labs CBC & Chem 7: 05/24/22 04:06 05/24/22 04:06 Labs: Abnormal Lab Results - Last 24 Hours (Table) 05/20/22 05/24/22 05/24/22 Range/Units 06:58 04:06 04:06 RBC 3.04 L (3.80-5.40) m/uL Hgb 9.7 L (11.4-16.0) gm/dL Hct 29.7 L (34.0-46.0) % Lymphocytes # 0.8 L (1.0-4.8) k/uL PT 16.2 H (9.0-12.0) sec INR 1.6 H (<1.2) Sodium (137-145) mmol/L Carbon Dioxide (22-30) mmol/L Calcium (8.4-10.2) mg/dL Total Protein (6.3-8.2) g/dL Albumin (3.5-5.0) g/dL Crossmatch See Detail 05/24/22 Range/Units 04:06 RBC (3.80-5.40) m/uL Hgb (11.4-16.0) gm/dL Hct (34.0-46.0) % Lymphocytes # (1.0-4.8) k/uL PT (9.0-12.0) sec INR (<1.2) Sodium 133 L (137-145) mmol/L Carbon Dioxide 15 L (22-30) mmol/L Calcium 7.5 L (8.4-10.2) mg/dL Total Protein 4.4 L (6.3-8.2) g/dL Albumin 2.3 L (3.5-5.0) g/dL Crossmatch
[2022-05-24] MEDS: PIPERACILLIN-TAZOBACTAM 3.375 GM in SODIUM CHLORIDE 0.9% 100 ML IVPB SCH ×2 (07:46→17:18)
[2022-05-24] MEDS: PANTOPRAZOLE 40 MG/10 ML VIAL IV SCH (08:46)
[2022-05-24] MEDS: SODIUM FERRIC GLUCONAT-SUCROSE 125 MG in SODIUM CHLORIDE 0.9% 100 ML IVPB SCH (09:20)
[2022-05-24] MEDS: carvediloL 3.125 MG TAB PO SCH ×2 (09:45→18:32)
[2022-05-24] MEDS: DIGOXIN 125 MCG TAB PO SCH (09:45)
[2022-05-24] MEDS: DEXTROSE 5% IN WATER 1,000 ML with SODIUM BICARB (1 MEQ/ML) 50 ML IV SCH (09:46)
[2022-05-24] MEDS: DORZOLAMIDE-TIMOLOL 2.23%/0.68 10ML BTL BOTH EYES SCH ×2 (09:47→20:09)
[2022-05-24] MEDS: prednisoLONE ACETATE 1% OPHTH DROPS 5 ML BTL LEFT EYE SCH ×2 (09:47→20:09)
[2022-05-24] MEDS: BRIMONIDINE TARTRATE 0.2% DROPS 5 ML BTL BOTH EYES SCH ×2 (09:47→20:09)
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
[2022-05-24 12:24] LABS: Glucose,Whole Blood 87 mg/dL (70-110)
[2022-05-24 12:38] LABS: Phosphorus 1.8 mg/dL (2.5-4.5)
--- NOTE | 2022-05-24 13:25 | CDI ---
Documentation Clarification Form Date: 05/24/2022 01:11:19 PM From: Renetta MonroeBrionesANIBAL cobb, CCDs Admit Date: 05/19/2022 07:41:00 PM Patient Name: Marina Vargas Visit Number: [id number] Discharge Date: ATTENTION: The Clinical Documentation Specialists (CDI) and [facility] Coding Staff appreciate your assistance in clarifying documentation. Please respond to the clarification below the line at the bottom and electronically sign. The CDI & [facility] Coding staff will review the response and follow-up if needed. Please note: Queries are made part of the Legal Health Record. If you have any questions, please contact the author of this message via ITS. Dr. Lisandro Aranda: Per the 05/21, 05/22 and 05/23 Attending Physician Progress Notes: patient was agitated with a change in mental status. The patient is POD 4 status post Small Bowel Resection. Additional clarification regarding the patient's change in mental status is requested. History/Risk Factors per the 05/20 H/P: CAD, COPD, Atrial Fibrillation, has AICD, CHF with EF <20%. Clinical Indicators: Presented to the ED on 05/19 with Abdominal Pain, Nausea, Vomiting and Diarrhea. Admit with Bowel Obstruction. 05/20 Procedure Note Diagnosis: Small bowel necrosis due to adhesive band disease. Small bowel volvulus due to adhesive band disease. Procedure: Diagnostic laparosocpy converted to Open Exploratory Laparotomy, Small Bowel Resection with primary anastomosis, Lysis of Adhesions with reduction of small bowel volvulus, Abdominal washout of Hemoperitoneum. 05/21 VS: T 98.0, P 101, 82, 106; R 17, 22; BP 101/69, 115/64, 98/75; PO 98 4Lnc. 05/21 LAB: WBC 10.8, RBC 2.23, Hgb 7.1, Hct 21.8, Neut 9.4, Lymph 0.7. Na 133, BUN 18, Glucose 117, Calcium 7.4, Phosphorus 2.4, Iron 6, TIBC 160, % Sat 3.97, Transferrin 114.0, Total protein 4.2, Albumin 2.2. 05/22 LAB: RBC 1.93, Hgb 6.2, Hct 19.2, Lymph 0.5. 05/21 CXR: Left lower lobe infiltrate and/or atelectasis. Treatment 05/21: IV Lactated Ringers 1,000 mls @ 999 mls/hr q1H, IV tylenol 58 mls @ 232 mls/hr x1. Please clarify the cause of the patient's mental status changes if known: [ x] Metabolic Encephalopathy [ ] Toxic Encephalopathy [ ] Other, please specify [ ] Unable to determine (Template Last Revised: November 2020) metabolic encephalopathy MTDD
--- NOTE | 2022-05-24 13:53 | P.PN ---
Subjective Progress Note Date: 05/24/22 CHIEF COMPLAINT: Abdominal pain HISTORY OF PRESENT ILLNESS: The patient is a 86-year-old female status post exploratory laparotomy, small bowel resection for small bowel necrosis due to closed-loop obstruction and volvulus, 05/20/2022. Family is at bedside. She had a bowel movement. She still reports appropriate nausea. She is in the intensive care unit. She is off pressors. She is on ice chips and popsicles. She is sitting up in a chair. ROS: No fevers or chills. No chest pain. No new neurological event PHYSICAL EXAM: VITAL SIGNS: Reviewed CONSTITUTIONAL: Well developed and underweight. EYES: Conjuctivae without sclera icterus. Extraocular movements grossly intact. HEAD, EARS, NOSE, THROAT: Moist buccal mucosa. Head is atraumatic, normocephalic. No nasal drainage. RESPIRATORY: Non-labored respirations and equal bilateral excursions. CARDIOVASCULAR: Palpable 2+ radial pulses. ABDOMEN: Incision clean dry and intact incisional wound VAC system. VERÓNICA serous sanguinous MUSCULOSKELETAL: No gross deformity of the lower extremities noted. No clubbing. No cyanosis. SKIN: Good skin turgor. Well perfused. NEUROLOGIC: Cranial nerves II through XII grossly intact. No focal or lateralizing signs. PSYCH: Alert to person. CLINICAL LABS: Reviewed. Hemoglobin up to 9.3 up to 9.7. WBC normal. ASSESSMENT: 1. 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 Acute dementia 3. Acute blood loss anemia due to anticoagulant effect and pre-existing hemoperitoneum 4. Hypotension supported by vasoconstrictors now resolved 5. Iron deficiency anemia 6. Intractable nausea and vomiting PLAN: 1. At this time, pending PICC line for TPN 2. Slow advancement of diet due to nausea 3. Continue ICU care Objective - Vital Signs Vital signs: Vital Signs Temp 97.6 F 05/24/22 12:00 Pulse 78 05/24/22 12:00 Resp 14 05/24/22 12:00 BP 118/76 05/24/22 12:00 Pulse Ox 96 05/24/22 12:00 FiO2 50 05/20/22 16:00 Intake & Output 05/23/22 05/24/22 05/24/22 18:59 06:59 18:59 Intake Total 1225 1125 750 Output Total 820 830 470 Balance 405 295 280 Weight 59.1 kg 59.1 kg Intake: IV 1225 1125 700 Dextrose 5% in Water 1, 150 000 ml @ 75 mls/hr IV . Q14H [facility] with Sodium Bicarb (1 Meq/ml) 50 ml Rx#:[id number] Magnesium Sulfate-D5w Pmx 100 100 1 gm In Dextrose/Water 1 100ml.bag @ 100 mls/hr IVPB Q1H [facility] Rx#: [id number] Piperacillin-Tazobactam 3 200 100 100 .375 gm In Sodium Chloride 0.9% 100 ml @ 25 mls/hr IVPB Q8HR [facility] Rx# :[id number] Potassium Chloride 10 meq 100 100 In Water For Injection 1 100ml.bag @ 100 mls/hr IVPB Q1H [facility] Rx#: [id number] Potassium Chloride 10 meq 100 In Water For Injection 1 100ml.bag @ 100 mls/hr IVPB Q1HR [facility] Rx#: [id number] Sodium Chloride 0.9% 1, 825 825 150 000 ml @ 75 mls/hr IV . [id number] [facility] Rx#:[id number] Sodium Ferric Gluconat- 100 100 Sucrose 125 mg In Sodium Chloride 0.9% 100 ml @ 100 mls/hr IVPB DAILY [facility] Rx#:[id number] Oral 50 Output: Drainage 220 160 115 VERÓNICA Drain 220 160 115 Urine 600 670 355 Other: Voiding Method Indwelling Catheter Indwelling Catheter Indwelling Catheter ABP, PAP, CO, CI - Last Documented Arterial Blood Pressure 85/73 - Labs CBC & Chem 7: 05/24/22 04:06 05/24/22 04:06 Labs: Abnormal Lab Results - Last 24 Hours (Table) 05/24/22 05/24/22 05/24/22 Range/Units 04:06 04:06 04:06 RBC 3.04 L (3.80-5.40) m/uL Hgb 9.7 L (11.4-16.0) gm/dL Hct 29.7 L (34.0-46.0) % Lymphocytes # 0.8 L (1.0-4.8) k/uL PT 16.2 H (9.0-12.0) sec INR 1.6 H (<1.2) Sodium 133 L (137-145) mmol/L Carbon Dioxide 15 L (22-30) mmol/L Calcium 7.5 L (8.4-10.2) mg/dL Phosphorus (2.5-4.5) mg/dL Total Protein 4.4 L (6.3-8.2) g/dL Albumin 2.3 L (3.5-5.0) g/dL 05/24/22 Range/Units 04:06 RBC (3.80-5.40) m/uL Hgb (11.4-16.0) gm/dL Hct (34.0-46.0) % Lymphocytes # (1.0-4.8) k/uL PT (9.0-12.0) sec INR (<1.2) Sodium (137-145) mmol/L Carbon Dioxide (22-30) mmol/L Calcium (8.4-10.2) mg/dL Phosphorus 1.8 L (2.5-4.5) mg/dL Total Protein (6.3-8.2) g/dL Albumin (3.5-5.0) g/dL
[2022-05-24] MEDS ORDERED: Phosphorus Replacement Protoco 1 EACH MISC MISCELLANE PRN (14:42)
[2022-05-24] MEDS ORDERED: LIDOCAINE 1% INJ 10MG/ML (30 ML VIAL-PF) SQ ONE (15:30)
--- NOTE | 2022-05-24 16:05 | XR ---
EXAMINATION TYPE: XR chest 1V portable DATE OF EXAM: 05/24/2022 1542 hours COMPARISON: 05/24/2022 INDICATION: PICC line placement TECHNIQUE: Single frontal view of the chest is obtained. FINDINGS: The heart size is normal. The pulmonary vasculature is normal. There is silhouetting left diaphragm. Pacemaker overlies the left chest. PICC line enters on the right with tip directed out of the [id number] into the neck. IMPRESSION: 1. PICC line entering on the right directed superiorly.
--- NOTE | 2022-05-24 16:09 | XR ---
EXAMINATION TYPE: XR chest 1V DATE OF EXAM: 05/24/2022 COMPARISON: Chest x-ray same dated earlier time HISTORY: PICC line placement TECHNIQUE: Single frontal view of the chest is obtained. FINDINGS: There is been interval repositioning of the PICC line, distal tip is near the cavoatrial j unction. No evident pneumothorax or pleural effusion. IMPRESSION: No evident complication status post PICC line placement
--- NOTE | 2022-05-24 16:13 | XR ---
EXAMINATION TYPE: XR chest 1V portable DATE OF EXAM: 05/24/2022 COMPARISON: Chest x-ray 05/23/2022 HISTORY: PICC line placement TECHNIQUE: Single frontal view of the chest is obtained. FINDINGS: Right-sided PICC line is coursing in a cephalad direction likely in the course of the righ t jugular vein. No evident pneumothorax or pleural effusion. No other significant interval change. IMPRESSION: PICC line as described
--- NOTE | 2022-05-24 16:16 | XR ---
EXAMINATION TYPE: XR chest 1V portable DATE OF EXAM: 05/24/2022 1539 hours COMPARISON: 05/23/2022 INDICATION: PICC line placement TECHNIQUE: Single frontal view of the chest is obtained. FINDINGS: The heart size is normal. The pulmonary vasculature is normal. There is silhouetting of the left diaphragm. Small effusion may be present. A PIC line on the right with the tip out of the field of view directed into the neck. IMPRESSION: 1. Right-sided PICC line directed superiorly in the neck.
--- NOTE | 2022-05-24 16:26 | IR ---
EXAMINATION TYPE: IR cvc insert >=5 years DATE OF EXAM: 05/24/2022 COMPARISON: NONE HISTORY: Small bowel necrosis, needs long-term intravenous access for therapy FINDINGS: Maximal barrier technique was utilized. Hand hygiene obtained with soap and water and alco hol-based hand rub. The skin overlying the right brachial vein was localized with ultrasound and note d to be compressible and patent by ultrasound. An ultrasound image was obtained and submitted on pat rosi's chart. Sterile technique utilized with the ultrasound machine. The skin overlying was prepped and draped and Lidocaine used for local anesthesia. A skin paul was made with a scalpel. Access was gained to the vein under direct ultrasound guidance with a 21-gauge needle and a 0.018 inch wire was advanced. Access site was dilated with a peel-away sheath and the catheter tailored to length. Cat heter advanced centrally and a post procedure chest x-ray verified placement with tip at the cavoatri al junction following manipulations. Catheter was fixed to the skin and a sterile dressing placed. Hemostasis achieved and the catheter was aspirated and flushed with sterile saline. The patient laurel ined in stable condition. IMPRESSION: STATUS POST ULTRASOUND GUIDED PICC LINE PLACEMENT, READY FOR USE. THIS PROCEDURE WAS PER FORMED BY THE UNDERSIGNED.
[2022-05-24] MEDS ORDERED: MVI, ADULT NO.4 WITH VIT K 10 ML, TRACE (CONC-1ML/DOSE) 1 ML in AMINO ACID 5%-D15W+LYTE... IV ONE ×3 (17:00)
[2022-05-24] MEDS: SODIUM PHOSPHATE 10 MMOL in SODIUM CHLORIDE 0.9% 250 ML IVPB SCH ×2 (17:18→20:08)
[2022-05-24] MEDS ORDERED: WARFARIN 1.25 MG TAB PO ONE ×2 (18:00)
--- NOTE | 2022-05-24 18:59 | P.PN ---
Subjective Progress Note Date: 05/24/22 Marina Vargas, he is an 86-year-old female presented to [facility] emergency room with a chief complaint of abdominal pain, with nausea and vomiting She was evaluated in the emergency room vital examination on presentation revealed a temperature of 96.9 pulse 80 respiration 18 blood pressure 133/76 pulse ox 98% on room air Laboratory data reveals a white blood count of 15.4 hemoglobin 10.6 platelet count 293 INR 1.8 sodium 131 potassium 4.2 chloride 99 CO2 23 BUN 15 creatinine 0.87 Testing in the emergency room revealed computed tomography scan of the abdomen and pelvis done in the emergency room revealed dilated thick-walled loops of ileum in the right lower quadrant with differential diagnosis of intussusception versus volulus, repeat computed tomography scan done with oral contrast revealed evidence of fluid density in the pelvis possible hemorrhage. Patient had evidence of acute abdomen she was taken to operating room by Dr. Louise and and evidence of small bowel necrosis and volvulus, and hemoperitoneum, patient had open exploratory laparotomy with small bowel resection and primary anastomosis and lysis of adhesion and reduction of small bowel volvulus, she was admitted to intensive care unit post surgery Past medical history is significant for history of coronary artery disease, history of COPD, history of cardiac arrhythmia with atrial fibrillation, history of AICD placement. On 05/22/2022 patient is resting comfortably in the intensive care unit. Per nursing staff patient did have some confusion last night seems to be improved. Patient remains on small dose of Levophed for pressure support at this time. Hemoglobin was 6.2 this AM. 1 unit PRBCs have been ordered. Patient remains nothing by mouth. Good urine output per nursing staff. White Blood cell 6.9. Current vital signs temp 97.3, heart rate 74, respiratory rate 15, blood pressure 102/75, oxygen saturation 97% on 3 L On 05/23/2022 patient was seen and examined in the ICU she is alert responsive in no apparent distress she had episodes of nausea and vomiting this morning she is complaining of abdominal pain otherwise she denies any complaints there is no fever or chills no headache or dizziness no chest pain no shortness of breath no cough and no urinary symptoms. On 05/24/2022 patient was seen and examined in the ICU patient is complaining of nausea and occasional vomiting she is still having some abdominal pain she is not passing any gas or having any bowel movements, temperature is 98.1 white blood count 9.0 hemoglobin 9.7 critical care are following patient is being considered for TPN, will continue to follow closely Objective - Vital Signs Vital signs: Vital Signs Temp 98.1 F 05/24/22 16:00 Pulse 98 05/24/22 18:00 Resp 10 L 05/24/22 18:00 BP 120/86 05/24/22 18:00 Pulse Ox 93 L 05/24/22 18:00 FiO2 50 05/20/22 16:00 Intake & Output 05/23/22 05/24/22 05/24/22 18:59 06:59 18:59 Intake Total 1225 1125 1475 Output Total 820 830 695 Balance 405 295 780 Weight 59.1 kg 59.1 kg Intake: IV 1225 1125 1425 Dextrose 5% in Water 1, 525 000 ml @ 75 mls/hr IV . Q14H [facility] with Sodium Bicarb (1 Meq/ml) 50 ml Rx#:[id number] Magnesium Sulfate-D5w Pmx 100 100 1 gm In Dextrose/Water 1 100ml.bag @ 100 mls/hr IVPB Q1H [facility] Rx#: [id number] Piperacillin-Tazobactam 3 200 100 200 .375 gm In Sodium Chloride 0.9% 100 ml @ 25 mls/hr IVPB Q8HR [facility] Rx# :[id number] Potassium Chloride 10 meq 100 100 In Water For Injection 1 100ml.bag @ 100 mls/hr IVPB Q1H [facility] Rx#: [id number] Potassium Chloride 10 meq 100 In Water For Injection 1 100ml.bag @ 100 mls/hr IVPB Q1HR [facility] Rx#: [id number] Sodium Chloride 0.9% 1, 825 825 150 000 ml @ 75 mls/hr IV . [id number] [facility] Rx#:[id number] Sodium Ferric Gluconat- 100 100 Sucrose 125 mg In Sodium Chloride 0.9% 100 ml @ 100 mls/hr IVPB DAILY [facility] Rx#:[id number] Sodium Phosphate 10 mmol 250 In Sodium Chloride 0.9% 250 ml @ 125 mls/hr IVPB Q2H [facility] Rx#:[id number] Oral 50 Output: Drainage 220 160 115 VERÓNICA Drain 220 160 115 Urine [phone] Other: Voiding Method Indwelling Catheter Indwelling Catheter Indwelling Catheter ABP, PAP, CO, CI - Last Documented Arterial Blood Pressure 85/73 - Exam In general patient is alert and oriented x 3 in no distress HEENT head normocephalic and atraumatic Neck is supple no JVD no goiter no lymphadenopathy no carotid bruit Chest examination is clear to auscultation no crackles no wheezing Cardiac exam reveals regular heart sounds S1 and S2 no gallops no murmurs Abdomen is soft with mild diffuse tenderness no organomegaly bowel sounds are sluggish Extremity exam reveals no edema no cyanosis or clubbing Neurological examination reveals no gross focal deficits - Labs CBC & Chem 7: 05/24/22 04:06 05/24/22 04:06 Labs: Abnormal Lab Results - Last 24 Hours (Table) 05/24/22 05/24/22 05/24/22 Range/Units 04:06 04:06 04:06 RBC 3.04 L (3.80-5.40) m/uL Hgb 9.7 L (11.4-16.0) gm/dL Hct 29.7 L (34.0-46.0) % Lymphocytes # 0.8 L (1.0-4.8) k/uL PT 16.2 H (9.0-12.0) sec INR 1.6 H (<1.2) Sodium 133 L (137-145) mmol/L Carbon Dioxide 15 L (22-30) mmol/L Calcium 7.5 L (8.4-10.2) mg/dL Phosphorus (2.5-4.5) mg/dL Total Protein 4.4 L (6.3-8.2) g/dL Albumin 2.3 L (3.5-5.0) g/dL 05/24/22 Range/Units 04:06 RBC (3.80-5.40) m/uL Hgb (11.4-16.0) gm/dL Hct (34.0-46.0) % Lymphocytes # (1.0-4.8) k/uL PT (9.0-12.0) sec INR (<1.2) Sodium (137-145) mmol/L Carbon Dioxide (22-30) mmol/L Calcium (8.4-10.2) mg/dL Phosphorus 1.8 L (2.5-4.5) mg/dL Total Protein (6.3-8.2) g/dL Albumin (3.5-5.0) g/dL Assessment and Plan Plan: Acute abdomen with evidence of Volvulus and small bowel necrosis, status post surgery 05/21/2022 Underlying history of COPD Underlying history of coronary artery disease Underlying history of AICD placement Underlying history of cardiac arrhythmia Postoperative mechanical ventilation, patient was extubated on 05/20/2022 Episode of mild hypotension patient received 1 L of lactated Ringer, and received norepinephrine for pressure support At this time patient remains on IV Zosyn and Flagyl Acute blood loss secondary to surgery expected. Hemoglobin 6.2. 1 unit of PRBCs ordered At this time patient underwent surgery she is admitted to intensive care unit She was evaluated by cardiology and was cleared for surgery Pulmonary critical care are following for management in ICU Will follow closely prognosis is guarded due to age and multiple underlying morbidities.
[2022-05-24] MEDS: LATANOPROST 0.005% OPHTH DROPS 2.5 ML BTL BOTH EYES SCH (20:08)
[2022-05-24] MEDS: DEXMEDETOMIDINE/0.9% NACL(PMX) 400 MCG in EMPTY BAG 1 BAG IV SCH (20:08)
[2022-05-24] MEDS: HYDROmorphone 1 MG/ML 1 ML SYRINGE IVP PRN (21:33)
[2022-05-25] MEDS: PIPERACILLIN-TAZOBACTAM 3.375 GM in SODIUM CHLORIDE 0.9% 100 ML IVPB SCH ×3 (00:14→16:41)
[2022-05-25] MEDS: HYDROmorphone 0.5 MG/0.5 ML SYRINGE IVP PRN ×4 (00:43→21:14)
[2022-05-25] MEDS: DEXTROSE 5% IN WATER 1,000 ML with SODIUM BICARB (1 MEQ/ML) 50 ML IV SCH (03:11)
[2022-05-25 04:43] LABS: INR 1.7 (<1.2)
[2022-05-25 04:51] LABS: Chloride 99 mmol/L (98-107); Glucose 162 mg/dL (74-99)
[2022-05-25 04:52] LABS: African American GFR (CKD) >90 (>60 ml/min/1.73 sqM); Anion Gap 6 mmol/L; Blood Urea Nitrogen 8 mg/dL (7-17); Calcium 7.3 mg/dL (8.4-10.2); Carbon Dioxide 23 mmol/L (22-30); Magnesium 1.7 mg/dL (1.6-2.3); Non-African American GFR(CKD) 85 (>60 ml/min/1.73 sqM); Phosphorus 1.6 mg/dL (2.5-4.5); Sodium 128 mmol/L (137-145)
[2022-05-25] MEDS: ONDANSETRON 4 MG/2 ML VIAL IVP PRN (04:53)
[2022-05-25] MEDS: MAGNESIUM SULFATE-D5W PMX 1 GM in DEXTROSE/WATER 1 100ML.BAG IVPB SCH ×2 (06:21→10:55)
[2022-05-25] MEDS: POTASSIUM CHLORIDE 20 MEQ in WATER FOR INJECTION 1 100ML.BAG IVPB SCH ×2 (06:21→08:35)
[2022-05-25] MEDS: carvediloL 3.125 MG TAB PO SCH ×2 (07:00→18:40)
--- NOTE | 2022-05-25 07:27 | P.PN ---
Subjective Progress Note Date: 05/25/22 PROGRESS NOTE The patient is an 86-year-old female with a history of nonischemic cardiomyopathy in the past, post ICD, followed by Dr. Dejesus at [facility] who presented with abdominal pain and underwent surgical intervention on the May with small bowel resection and lysis of adhesion. Her echocardiogram here showed a preserved systolic function. She is in sinus mechanism this morning. She has a history of paroxysmal atrial fibrillation. She is sleeping but has no symptoms of chest discomfort. Her anticoagulation continues to be on hold. Hemodynamically her blood pressure is stable and she is on no vasopressor. There is no evidence of ventricular ectopic activity. May 25: The patient is more awake and alert today, she is in sinus mechanism, she had episodes of paroxysmal atrial fibrillation earlier. She had a PICC line placed yesterday. She denies any chest discomfort or dizziness. She was up in the chair. Her urinary output has been.. She denies any nausea or vomiting. She continues to be on IV antibiotics. Medications: Digoxin 0.125 mg daily, lisinopril 2.5 mg daily, Coreg 3.125 mg twice a day, her Coumadin was reinitiated yesterday PHYSICAL EXAMINATION: Blood pressure 105/70 heart rate 89 LUNGS: Clear to auscultation HEART: Regular rate and rhythm, S1, S2. No S3. systolic ejection murmur at the base ABDOMEN: Soft, nontender, no organomegaly, dressing in place, hypoactive bowel sounds EXTREMETIES: No edema LAB: Potassium 3.0, BUN 8, creatinine 0.56. INR 1.7 IMPRESSION: 1. Status post bowel resection with ileus, improving 2. Paroxysmal atrial fibrillation, maintaining sinus mechanism at this time, anticoagulation reinitiated 3. Prior history of cardiomyopathy, post ICD, repeat echocardiogram done during this admission shows a preserved systolic function 4. Hypotension, resolved 5. Change in mental status, improved PLAN: 1. Continue present therapy 2. Increase physical activity 3. Pending on her blood pressure adjust beta teresa and DEANDRE inhibitor. 4. Continue anticoagulation 5. Replace potassium Objective - Vital Signs Vital signs: Vital Signs Temp 97.8 F 05/25/22 07:00 Pulse 89 05/25/22 07:00 Resp 10 L 05/25/22 07:00 BP 105/77 05/25/22 07:00 Pulse Ox 95 05/25/22 07:00 FiO2 50 05/20/22 16:00 Intake & Output 05/24/22 05/25/22 05/25/22 18:59 06:59 18:59 Intake Total 1550 1250 75 Output Total 770 775 40 Balance 780 475 35 Weight 59.1 kg 58.8 kg Intake: IV 1500 1250 75 Dextrose 5% in Water 1, 600 900 75 000 ml @ 75 mls/hr IV . Q14H [facility] with Sodium Bicarb (1 Meq/ml) 50 ml Rx#:[id number] Magnesium Sulfate-D5w Pmx 100 1 gm In Dextrose/Water 1 100ml.bag @ 100 mls/hr IVPB Q1H [facility] Rx#: [id number] Piperacillin-Tazobactam 3 200 100 .375 gm In Sodium Chloride 0.9% 100 ml @ 25 mls/hr IVPB Q8HR [facility] Rx# :[id number] Potassium Chloride 10 meq 100 In Water For Injection 1 100ml.bag @ 100 mls/hr IVPB Q1H [facility] Rx#: [id number] Sodium Chloride 0.9% 1, 150 000 ml @ 75 mls/hr IV . [id number] [facility] Rx#:[id number] Sodium Ferric Gluconat- 100 Sucrose 125 mg In Sodium Chloride 0.9% 100 ml @ 100 mls/hr IVPB DAILY [facility] Rx#:[id number] Sodium Phosphate 10 mmol 250 250 In Sodium Chloride 0.9% 250 ml @ 125 mls/hr IVPB Q2H [facility] Rx#:[id number] Oral 50 Output: Drainage 115 80 VERÓNICA Drain 115 80 Urine [phone] 40 Other: Voiding Method Indwelling Catheter Indwelling Catheter ABP, PAP, CO, CI - Last Documented Arterial Blood Pressure 85/73 - Labs CBC & Chem 7: 05/24/22 04:06 05/25/22 04:19 Labs: Abnormal Lab Results - Last 24 Hours (Table) 05/24/22 05/25/22 05/25/22 Range/Units 04:06 04:19 04:19 PT 17.0 H (9.0-12.0) sec INR 1.7 H (<1.2) Sodium 128 L (137-145) mmol/L Potassium 3.0 L (3.5-5.1) mmol/L Glucose 162 H (74-99) mg/dL Calcium 7.3 L (8.4-10.2) mg/dL Phosphorus 1.8 L 1.6 L (2.5-4.5) mg/dL
[2022-05-25] MEDS: PANTOPRAZOLE 40 MG/10 ML VIAL IV SCH (08:30)
[2022-05-25] MEDS: DIGOXIN 125 MCG TAB PO SCH (08:31)
[2022-05-25] MEDS: DORZOLAMIDE-TIMOLOL 2.23%/0.68 10ML BTL BOTH EYES SCH ×2 (08:36→20:43)
[2022-05-25] MEDS: BRIMONIDINE TARTRATE 0.2% DROPS 5 ML BTL BOTH EYES SCH ×2 (08:36→20:43)
[2022-05-25] MEDS: prednisoLONE ACETATE 1% OPHTH DROPS 5 ML BTL LEFT EYE SCH ×2 (08:37→20:43)
[2022-05-25] MEDS: PROCHLORPERAZINE INJ 10 MG/2 ML VIAL IVP PRN (08:48)
[2022-05-25] MEDS: DEXMEDETOMIDINE/0.9% NACL(PMX) 400 MCG in EMPTY BAG 1 BAG IV SCH (08:49)
[2022-05-25] MEDS ORDERED: FAT EMULSION 20% 500 ML in EMPTY BAG 1 BAG IV SCH (09:00)
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
[2022-05-25] MEDS: POTASSIUM PHOSPHATE 10 MMOL in SODIUM CHLORIDE 0.9% 100 ML IV SCH ×2 (10:55→12:46)
[2022-05-25 11:53] LABS: Glucose,Whole Blood 207 mg/dL (70-110)
--- NOTE | 2022-05-25 12:07 | US ---
EXAMINATION TYPE: US venous doppler duplex UE LT DATE OF EXAM: 05/25/2022 COMPARISON: NONE CLINICAL HISTORY: LUE swelling and redness. Left arm swelling. Not on blood thinners. ICU pt. SIDE PERFORMED: Left Grayscale, color doppler, spectral doppler imaging performed of the deep veins of the left upper extr emity. There is normal venous waveforms with color flow and compressibility involving the internal ju gular vein. Normal venous waveforms with color Doppler flow involving the left subclavian vein. There is compressibility of the left axillary, brachial, basilic, cephalic, radial, and ulnar veins. Left Arm: Negative for DVT. Edema seen. IMPRESSION: No deep venous thrombosis of the left upper extremity.
--- NOTE | 2022-05-25 15:23 | P.PN ---
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 Patient remains in the ICU. She had 4 bowel movements yesterday and 2 bowel movements today. She does complain of some left lower sided abdominal pain. Pain is better with pain medication. Per nursing staff patient had been complaining of pain throughout the body. Nausea is better. Patient has started on TPN. She did have some clear liquids. VERÓNICA drain with 310 mL serous drainage throughout the night and 30 mL today. Afebrile. INR 1.7 sodium 128 potassium is up from 3-3.6 creatinine 0.56 magnesium 1.7 PHYSICAL EXAM: VITAL SIGNS: Reviewed. GENERAL: Well-developed in no acute distress. HEENT: No sclera icterus. Extraocular movements grossly intact. Moist buccal mucosa. Head is atraumatic, normocephalic. ABDOMEN: Soft. Nondistended. Tenderness to palpation left lower abdomen NEUROLOGIC: Alert to her name ASSESSMENT: 1. 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 Acute dementia 3. Acute blood loss anemia due to anticoagulant effect and pre-existing hemoperitoneum 4. Hypotension supported by vasoconstrictors now resolved 5. Iron deficiency anemia 6. Intractable nausea and vomiting PLAN: -Continue clear liquid diet -Continue TPN for nutrition support -Continue to replace potassium -Change abdominal dressing to optifoam silver -Continue supportive care -Surgical standpoint patient can be transferred out of the ICU to regular medical floor Physician Fish Stringer Assembler note has been reviewed by physician. Signing provider agrees with the documented findings, assessment, and plan of care. 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 She is in the intensive care unit. She is sitting up in a chair. Per discussion with nursing, she is having bowel movements. She is increasing her diet with clear liquids. She reports appropriate abdominal soreness. She is on TPN. She is ambulating to the commode and back. Blood pressure stable. She is not on vasopressors. She was started on Coumadin yesterday. ROS: No fevers or chills. No chest pain. No new neurological event PHYSICAL EXAM: VITAL SIGNS: Reviewed CONSTITUTIONAL: Well developed and underweight. EYES: Conjuctivae without sclera icterus. Extraocular movements grossly intact. HEAD, EARS, NOSE, THROAT: Moist buccal mucosa. Head is atraumatic, normocephalic. No nasal drainage. RESPIRATORY: Non-labored respirations and equal bilateral excursions. CARDIOVASCULAR: Palpable 2+ radial pulses. ABDOMEN: Incision clean dry and intact incisional wound VAC system. VERÓNICA serous sanguinous MUSCULOSKELETAL: No gross deformity of the lower extremities noted. No clubbing. No cyanosis. SKIN: Good skin turgor. Well perfused. NEUROLOGIC: Cranial nerves II through XII grossly intact. No focal or lateralizing signs. PSYCH: Alert to person. CLINICAL LABS: Reviewed. Sodium low at 128. Potassium low at 3.0. INR 1.7. ASSESSMENT: 1. 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 Acute dementia 3. Acute blood loss anemia due to anticoagulant effect and pre-existing hemoperitoneum 4. Iron deficiency anemia PLAN: 1. Continue TPN 2. Continue antibiotics 3. Continue anticoagulation 4. Slow advancement of diet to full liquids 5. Change incisional VAC system to optifoam dressing 6. Stable for transfer out of intensive care unit once cleared by recyclable materials distributor 7. Sodium replacement and potassium replacement Objective - Vital Signs Vital signs: Vital Signs Temp 97.7 F 05/25/22 08:00 Pulse 101 H 05/25/22 15:00 Resp 12 05/25/22 15:00 BP 108/72 05/25/22 15:00 Pulse Ox 91 L 05/25/22 15:00 FiO2 50 05/20/22 16:00 Intake & Output 05/24/22 05/25/22 05/25/22 18:59 06:59 18:59 Intake Total 1550 1250 840 Output Total 770 775 970 Balance 780 475 -130 Weight 59.1 kg 58.8 kg Intake: IV 1500 1250 840 .9 NS 50 Dextrose 5% in Water 1, 600 900 150 000 ml @ 75 mls/hr IV . Q14H [facility] with Sodium Bicarb (1 Meq/ml) 50 ml Rx#:[id number] Magnesium Sulfate-D5w Pmx 100 1 gm In Dextrose/Water 1 100ml.bag @ 100 mls/hr IVPB Q1H [facility] Rx#: [id number] Magnesium Sulfate-D5w Pmx 100 1 gm In Dextrose/Water 1 100ml.bag @ 100 mls/hr IVPB Q1H [facility] Rx#: [id number] Mvi, Adult No.4 with Vit 240 K 10 ml Trace (Conc-1Ml/ Dose) 1 ml In Amino Acid 5%-D15w+Lytes*E* 1,000 ml @ 30 mls/hr IV .Q24H [facility] Rx#:[id number] Piperacillin-Tazobactam 3 200 100 100 .375 gm In Sodium Chloride 0.9% 100 ml @ 25 mls/hr IVPB Q8HR [facility] Rx# :[id number] Potassium Chloride 10 meq 100 In Water For Injection 1 100ml.bag @ 100 mls/hr IVPB Q1H [facility] Rx#: [id number] Potassium Chloride 20 meq 200 In Water For Injection 1 100ml.bag @ 50 mls/hr IVPB Q2H [facility] Rx#: [id number] Sodium Chloride 0.9% 1, 150 000 ml @ 75 mls/hr IV . [id number] [facility] Rx#:[id number] Sodium Ferric Gluconat- 100 Sucrose 125 mg In Sodium Chloride 0.9% 100 ml @ 100 mls/hr IVPB DAILY [facility] Rx#:[id number] Sodium Phosphate 10 mmol 250 250 In Sodium Chloride 0.9% 250 ml @ 125 mls/hr IVPB Q2H [facility] Rx#:[id number] Oral 50 Output: Drainage 115 80 30 VERÓNICA Drain 115 80 30 Urine [id number] Other: Voiding Method Indwelling Catheter Indwelling Catheter Indwelling Catheter ABP, PAP, CO, CI - Last Documented Arterial Blood Pressure 85/73 - Labs CBC & Chem 7: 05/24/22 04:06 05/25/22 13:11 Labs: Abnormal Lab Results - Last 24 Hours (Table) 05/25/22 05/25/22 05/25/22 Range/Units 04:19 04:19 11:52 PT 17.0 H (9.0-12.0) sec INR 1.7 H (<1.2) Sodium 128 L (137-145) mmol/L Potassium 3.0 L (3.5-5.1) mmol/L Glucose 162 H (74-99) mg/dL POC Glucose (mg/dL) 207 H (70-110) mg/dL Calcium 7.3 L (8.4-10.2) mg/dL Phosphorus 1.6 L (2.5-4.5) mg/dL
[2022-05-25] MEDS ORDERED: POTASSIUM CHLORIDE ER 20 MEQ TAB.ER PO SCH (16:00)
[2022-05-25] MEDS ORDERED: 1: MVI, ADULT NO.4 WITH VIT K 10 ML, TRACE (CONC-1ML/DOSE) 1 ML in AMINO ACID 5%-D15W+LY IV SCH ×3 (17:00)
[2022-05-25] MEDS ORDERED: 1: MVI, ADULT NO.4 WITH VIT K 10 ML, TRACE (CONC-1ML/DOSE) 1 ML, POTASSIUM CHLORIDE 20 M IV SCH ×6 (17:00)
--- NOTE | 2022-05-25 17:43 | P.PN ---
Subjective Progress Note Date: 05/25/22 Marina Vargas, he is an 86-year-old female presented to [facility] emergency room with a chief complaint of abdominal pain, with nausea and vomiting She was evaluated in the emergency room vital examination on presentation revealed a temperature of 96.9 pulse 80 respiration 18 blood pressure 133/76 pulse ox 98% on room air Laboratory data reveals a white blood count of 15.4 hemoglobin 10.6 platelet count 293 INR 1.8 sodium 131 potassium 4.2 chloride 99 CO2 23 BUN 15 creatinine 0.87 Testing in the emergency room revealed computed tomography scan of the abdomen and pelvis done in the emergency room revealed dilated thick-walled loops of ileum in the right lower quadrant with differential diagnosis of intussusception versus volulus, repeat computed tomography scan done with oral contrast revealed evidence of fluid density in the pelvis possible hemorrhage. Patient had evidence of acute abdomen she was taken to operating room by Dr. Louise and and evidence of small bowel necrosis and volvulus, and hemoperitoneum, patient had open exploratory laparotomy with small bowel resection and primary anastomosis and lysis of adhesion and reduction of small bowel volvulus, she was admitted to intensive care unit post surgery Past medical history is significant for history of coronary artery disease, history of COPD, history of cardiac arrhythmia with atrial fibrillation, history of AICD placement. On 05/22/2022 patient is resting comfortably in the intensive care unit. Per nursing staff patient did have some confusion last night seems to be improved. Patient remains on small dose of Levophed for pressure support at this time. Hemoglobin was 6.2 this AM. 1 unit PRBCs have been ordered. Patient remains nothing by mouth. Good urine output per nursing staff. White Blood cell 6.9. Current vital signs temp 97.3, heart rate 74, respiratory rate 15, blood pressure 102/75, oxygen saturation 97% on 3 L On 05/23/2022 patient was seen and examined in the ICU she is alert responsive in no apparent distress she had episodes of nausea and vomiting this morning she is complaining of abdominal pain otherwise she denies any complaints there is no fever or chills no headache or dizziness no chest pain no shortness of breath no cough and no urinary symptoms. On 05/24/2022 patient was seen and examined in the ICU patient is complaining of nausea and occasional vomiting she is still having some abdominal pain she is not passing any gas or having any bowel movements, temperature is 98.1 white blood count 9.0 hemoglobin 9.7 critical care are following patient is being considered for TPN, will continue to follow closely. On 05/25/2022 patient was seen and examined in the ICU she is still complaining of abdominal pain but is feeling better she is sitting up in a chair she is maintained on TPN for nutrition support she is passing gas and having liquid bowel movements, otherwise she denies any complaints there is no fever or chills no headache or dizziness no chest pain no shortness of breath no cough no nausea or vomiting no burning was urination no frequency or urgency and no hematuria Objective - Vital Signs Vital signs: Vital Signs Temp 97.7 F 05/25/22 08:00 Pulse 101 H 05/25/22 15:00 Resp 12 05/25/22 15:00 BP 108/72 05/25/22 15:00 Pulse Ox 91 L 05/25/22 15:00 FiO2 50 05/20/22 16:00 Intake & Output 05/24/22 05/25/22 05/25/22 18:59 06:59 18:59 Intake Total 1550 1250 840 Output Total 770 775 970 Balance 780 475 -130 Weight 59.1 kg 58.8 kg Intake: IV 1500 1250 840 .9 NS 50 Dextrose 5% in Water 1, 600 900 150 000 ml @ 75 mls/hr IV . Q14H [facility] with Sodium Bicarb (1 Meq/ml) 50 ml Rx#:[id number] Magnesium Sulfate-D5w Pmx 100 1 gm In Dextrose/Water 1 100ml.bag @ 100 mls/hr IVPB Q1H [facility] Rx#: [id number] Magnesium Sulfate-D5w Pmx 100 1 gm In Dextrose/Water 1 100ml.bag @ 100 mls/hr IVPB Q1H [facility] Rx#: [id number] Mvi, Adult No.4 with Vit 240 K 10 ml Trace (Conc-1Ml/ Dose) 1 ml In Amino Acid 5%-D15w+Lytes*E* 1,000 ml @ 30 mls/hr IV .Q24H [facility] Rx#:[id number] Piperacillin-Tazobactam 3 200 100 100 .375 gm In Sodium Chloride 0.9% 100 ml @ 25 mls/hr IVPB Q8HR [facility] Rx# :[id number] Potassium Chloride 10 meq 100 In Water For Injection 1 100ml.bag @ 100 mls/hr IVPB Q1H [facility] Rx#: [id number] Potassium Chloride 20 meq 200 In Water For Injection 1 100ml.bag @ 50 mls/hr IVPB Q2H [facility] Rx#: [id number] Sodium Chloride 0.9% 1, 150 000 ml @ 75 mls/hr IV . [id number] [facility] Rx#:[id number] Sodium Ferric Gluconat- 100 Sucrose 125 mg In Sodium Chloride 0.9% 100 ml @ 100 mls/hr IVPB DAILY [facility] Rx#:[id number] Sodium Phosphate 10 mmol 250 250 In Sodium Chloride 0.9% 250 ml @ 125 mls/hr IVPB Q2H [facility] Rx#:[id number] Oral 50 Output: Drainage 115 80 30 VERÓNICA Drain 115 80 30 Urine [id number] Other: Voiding Method Indwelling Catheter Indwelling Catheter Indwelling Catheter ABP, PAP, CO, CI - Last Documented Arterial Blood Pressure 85/73 - Exam In general patient is alert and oriented x 3 in no distress HEENT head normocephalic and atraumatic Neck is supple no JVD no goiter no lymphadenopathy no carotid bruit Chest examination is clear to auscultation no crackles no wheezing Cardiac exam reveals regular heart sounds S1 and S2 no gallops no murmurs Abdomen is soft with mild diffuse tenderness no organomegaly bowel sounds are sluggish Extremity exam reveals no edema no cyanosis or clubbing Neurological examination reveals no gross focal deficits - Labs CBC & Chem 7: 05/24/22 04:06 05/25/22 13:11 Labs: Abnormal Lab Results - Last 24 Hours (Table) 05/25/22 05/25/22 05/25/22 Range/Units 04:19 04:19 11:52 PT 17.0 H (9.0-12.0) sec INR 1.7 H (<1.2) Sodium 128 L (137-145) mmol/L Potassium 3.0 L (3.5-5.1) mmol/L Glucose 162 H (74-99) mg/dL POC Glucose (mg/dL) 207 H (70-110) mg/dL Calcium 7.3 L (8.4-10.2) mg/dL Phosphorus 1.6 L (2.5-4.5) mg/dL Assessment and Plan Plan: Acute abdomen with evidence of Volvulus and small bowel necrosis, status post surgery 05/21/2022 Underlying history of COPD Underlying history of coronary artery disease Underlying history of AICD placement Underlying history of cardiac arrhythmia Postoperative mechanical ventilation, patient was extubated on 05/20/2022 Episode of mild hypotension patient received 1 L of lactated Ringer, and received norepinephrine for pressure support At this time patient remains on IV Zosyn and Flagyl Acute blood loss secondary to surgery expected. Hemoglobin 6.2. 1 unit of PRBCs ordered At this time patient underwent surgery she is admitted to intensive care unit She was evaluated by cardiology and was cleared for surgery Pulmonary critical care are following for management in ICU Will follow closely prognosis is guarded due to age and multiple underlying morb idities.
[2022-05-25] MEDS: WARFARIN 1.25 MG TAB PO ONE ×2 (18:28→18:41)
[2022-05-25] MEDS: LATANOPROST 0.005% OPHTH DROPS 2.5 ML BTL BOTH EYES SCH (20:43)
[2022-05-25] MEDS: ACETAMINOPHEN TAB 325 MG TAB PO PRN (21:15)
--- NOTE | 2022-05-25 23:53 | XR ---
EXAMINATION TYPE: XR chest 1V portable DATE OF EXAM: 05/25/2022 COMPARISON: Yesterday HISTORY: PICC line removal TECHNIQUE: Single view FINDINGS: There is some mild infiltrate and atelectasis at the lung bases without change. No pneumoth orax. Thoracic aorta is atheromatous. There is left axillary pacemaker. No heart failure. IMPRESSION: Bilateral patchy linear infiltrate and atelectasis. No change.
[2022-05-26] MEDS ORDERED: QUEtiapine 25 MG TAB PO STA (00:16)
[2022-05-26] MEDS: DEXTROSE 5%-0.45% NACL 1,000 ML IV SCH ×2 (01:09→16:03)
[2022-05-26] MEDS: PIPERACILLIN-TAZOBACTAM 3.375 GM in SODIUM CHLORIDE 0.9% 100 ML IVPB SCH ×4 (01:09→23:13)
[2022-05-26] MEDS ORDERED: LORazepam 1 MG/0.5 ML VIAL IV PRN (03:27)
[2022-05-26] MEDS: ACETAMINOPHEN TAB 325 MG TAB PO PRN (03:39)
[2022-05-26 04:14] LABS: Basophils # (A) 0.1 k/uL (0-0.2); Basophils % (A) 1 %; Eosinophils # (A) 0.4 k/uL (0-0.7); Eosinophils % (A) 4 %; HCT 31.4 % (34.0-46.0); HGB 10.4 gm/dL (11.4-16.0); Lymphocytes % (A) 12 %; MCH 31.6 pg (25.0-35.0); MCHC 33.1 g/dL (31.0-37.0); MCV 95.3 fL (80.0-100.0); Monocytes # (A) 0.5 k/uL (0-1.0); Monocytes % (A) 6 %; Neutrophils # (A) 6.9 k/uL (1.3-7.7); Neutrophils % (A) 77 %; Platelet Count 233 k/uL (150-450); RDW 14.5 % (11.5-15.5); WBC 8.9 k/uL (3.8-10.6)
[2022-05-26 04:21] LABS: INR 1.2 (<1.2); Prothrombin Time 12.3 sec (9.0-12.0)
[2022-05-26 04:32] LABS: ALT 11 U/L (4-34); AST 26 U/L (14-36); African American GFR (CKD) >90 (>60 ml/min/1.73 sqM); Albumin 2.3 g/dL (3.5-5.0); Alkaline Phosphatase 47 U/L (38-126); Anion Gap 7 mmol/L; Blood Urea Nitrogen 8 mg/dL (7-17); Carbon Dioxide 24 mmol/L (22-30); Chloride 99 mmol/L (98-107); Glucose 98 mg/dL (74-99); Magnesium 1.9 mg/dL (1.6-2.3); Non-African American GFR(CKD) 84 (>60 ml/min/1.73 sqM); Phosphorus 2.3 mg/dL (2.5-4.5); Potassium 3.8 mmol/L (3.5-5.1); Sodium 130 mmol/L (137-145); Total Bilirubin 0.5 mg/dL (0.2-1.3); Total Protein 4.4 g/dL (6.3-8.2)
[2022-05-26] MEDS: DEXMEDETOMIDINE/0.9% NACL(PMX) 400 MCG in EMPTY BAG 1 BAG IV SCH (05:26)
[2022-05-26] MEDS: carvediloL 3.125 MG TAB PO SCH (06:50)
[2022-05-26] MEDS ORDERED: NOREPINEPHRIN 4 MG-0.9% NS PMX 4 MG/250 ML ML IV ONE (07:31)
[2022-05-26] MEDS: NOREPINEPHRINE 4 MG in SODIUM CHLORIDE 0.9% 250 ML IV SCH (07:36)
--- NOTE | 2022-05-26 07:45 | P.PN ---
Subjective Progress Note Date: 05/26/22 PROGRESS NOTE The patient is an 86-year-old female with a history of nonischemic cardiomyopathy in the past, post ICD, followed by Dr. Dejesus at [facility] who presented with abdominal pain and underwent surgical intervention on the May with small bowel resection and lysis of adhesion. Her echocardiogram here showed a preserved systolic function. She is in sinus mechanism this morning. She has a history of paroxysmal atrial fibrillation. She is sleeping but has no symptoms of chest discomfort. Her anticoagulation continues to be on hold. Hemodynamically her blood pressure is stable and she is on no vasopressor. There is no evidence of ventricular ectopic activity. May 25: The patient is more awake and alert today, she is in sinus mechanism, she had episodes of paroxysmal atrial fibrillation earlier. She had a PICC line placed yesterday. She denies any chest discomfort or dizziness. She was up in the chair. Her urinary output has been.. She denies any nausea or vomiting. She continues to be on IV antibiotics. May 26: During the night the patient became more confused, pulled her PICC line out. She is moving all her extremities but confused and not responding to verbal commands. Her blood pressure has been stable earlier, her O2 saturation is above 90 on room air. She had episodes of paroxysmal atrial fibrillation. There is no ventricular ectopic activity. Her urine output has been good and she is afebrile. Her lab data showed no leukocytosis and her renal function remained stable. She was started on Precedex. Medications: Digoxin 0.125 mg daily, lisinopril 2.5 mg daily, Coreg 3.125 mg twice a day, her Coumadin was reinitiated yesterday, Precedex IV PHYSICAL EXAMINATION: She is confused, not responding to verbal command, moving all extremities Blood pressure 110/80 heart rate 110 LUNGS: Clear to auscultation anteriorly HEART: Irregular rate and rhythm, S1, S2. No S3. systolic ejection murmur at the base ABDOMEN: Soft, nontender, no organomegaly, dressing in place, hypoactive bowel sounds EXTREMETIES: No edema LAB: Potassium 3.8, sodium 1:30, BUN 8, creatinine 0.58, hemoglobin 10.4, white blood cell 8.9. IMPRESSION: 1. Acute confusion, appears to be metabolic encephalopathy. There is no evidence to suggest cerebrovascular accident. 2. Status post small bowel resection and lysis of adhesion with abdominal washout 3. Paroxysmal atrial fibrillation, anticoagulation being initiated 4. Prior history of cardiomyopathy and ICD implantation, echocardiogram showed a preserved systolic function 5. History of CAD PLAN: 1. Evaluation of the mental change, may require computed tomography scan 2. Continue supportive care and anticoagulation 3. Placement of a new PICC line for feeding 4. Findings discussed with family Objective - Vital Signs Vital signs: Vital Signs Temp 98.1 F 05/26/22 03:27 Pulse 126 H 05/26/22 06:00 Resp 23 05/26/22 06:00 BP 110/81 05/26/22 06:00 Pulse Ox 96 05/26/22 06:00 FiO2 50 05/20/22 16:00 Intake & Output 05/25/22 05/26/22 05/26/22 18:59 06:59 18:59 Intake Total 880 1022.137 Output Total 1220 2000 Balance -340 -577.863 Intake: IV 880 1020 .9 NS 60 10 Dextrose 5% in Water 1, 150 490 000 ml @ 75 mls/hr IV . Q14H [facility] with Sodium Bicarb (1 Meq/ml) 50 ml Rx#:[id number] Magnesium Sulfate-D5w Pmx 100 1 gm In Dextrose/Water 1 100ml.bag @ 100 mls/hr IVPB Q1H [facility] Rx#: [id number] Mvi, Adult No.4 with Vit 270 420 K 10 ml Trace (Conc-1Ml/ Dose) 1 ml In Amino Acid 5%-D15w+Lytes*E* 1,000 ml @ 30 mls/hr IV .Q24H [facility] Rx#:[id number] Piperacillin-Tazobactam 3 100 100 .375 gm In Sodium Chloride 0.9% 100 ml @ 25 mls/hr IVPB Q8HR [facility] Rx# :[id number] Potassium Chloride 20 meq 200 In Water For Injection 1 100ml.bag @ 50 mls/hr IVPB Q2H [facility] Rx#: [id number] Intake, IV Titration 2.137 Amount Dexmedetomidine/0.9% NaCl 2.137 (Pmx) 400 mcg In Empty Bag 1 bag @ 0.2 MCG/KG/HR 1.928 mls/hr IV .Q24H [facility] Rx#:[id number] Output: Drainage 30 180 VERÓNICA Drain 30 180 Urine [id number] Other: Voiding Method Indwelling Catheter Indwelling Catheter # Bowel Movements 4 ABP, PAP, CO, CI - Last Documented Arterial Blood Pressure 85/73 - Labs CBC & Chem 7: 05/26/22 03:43 05/26/22 03:43 Labs: Abnormal Lab Results - Last 24 Hours (Table) 05/25/22 05/26/22 05/26/22 Range/Units 11:52 03:43 03:43 RBC (3.80-5.40) m/uL Hgb (11.4-16.0) gm/dL Hct (34.0-46.0) % PT 12.3 H (9.0-12.0) sec INR 1.2 H (<1.2) Sodium 130 L (137-145) mmol/L POC Glucose (mg/dL) 207 H (70-110) mg/dL Calcium 8.0 L (8.4-10.2) mg/dL Phosphorus 2.3 L (2.5-4.5) mg/dL Total Protein 4.4 L (6.3-8.2) g/dL Albumin 2.3 L (3.5-5.0) g/dL 05/26/22 Range/Units 03:43 RBC 3.30 L (3.80-5.40) m/uL Hgb 10.4 L (11.4-16.0) gm/dL Hct 31.4 L (34.0-46.0) % PT (9.0-12.0) sec INR (<1.2) Sodium (137-145) mmol/L POC Glucose (mg/dL) (70-110) mg/dL Calcium (8.4-10.2) mg/dL Phosphorus (2.5-4.5) mg/dL Total Protein (6.3-8.2) g/dL Albumin (3.5-5.0) g/dL
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
[2022-05-26] MEDS ORDERED: QUEtiapine 50 MG TAB PO SCH (09:00)
[2022-05-26] MEDS ORDERED: LIDOCAINE 1% INJ 10MG/ML (30 ML VIAL-PF) SQ ONE (09:16)
--- NOTE | 2022-05-26 09:42 | XR ---
EXAMINATION TYPE: XR chest 1V portable DATE OF EXAM: 05/26/2022 COMPARISON: 05/25/2022 INDICATION: PICC line placement TECHNIQUE: Single frontal view of the chest is obtained. FINDINGS: The heart size is normal. The pulmonary vasculature is normal. There is some silhouetting the left diaphragm. Retrocardiac infiltrate should be suspected. There is placement of PICC line on the left with the tip directed out of the field of view and the ne ck. Readjustment is recommended. IMPRESSION: 1. PICC line directed superiorly into the neck. 2. Correlate for retrocardiac infiltrate. Small effusion could be considered.
--- NOTE | 2022-05-26 09:44 | XR ---
EXAMINATION TYPE: XR chest 1V portable DATE OF EXAM: 05/26/2022 0925 hours COMPARISON: Earlier exam INDICATION: PICC line adjustment TECHNIQUE: Single frontal view of the chest is obtained. FINDINGS: The heart size is normal. The pulmonary vasculature is normal. Retrocardiac infiltrate or small effusion may be present on the left. PICC line remains directed into the neck with the tip out of the field of view. IMPRESSION: 1. Retrocardiac infiltrate and/or small left pleural effusion. 2. Right-sided PICC line remains directed superiorly into the neck.
[2022-05-26] MEDS: PANTOPRAZOLE 40 MG/10 ML VIAL IV SCH (09:46)
--- NOTE | 2022-05-26 09:46 | XR ---
EXAMINATION TYPE: XR chest 1V portable DATE OF EXAM: 05/26/2022 0931 hours COMPARISON: Earlier exams INDICATION: PICC line adjustment TECHNIQUE: Single frontal view of the chest is obtained. FINDINGS: The heart size is normal. The pulmonary vasculature is normal. Small left pleural effusion is present. There is partial silhouetting of the left diaphragm. PICC line adjustment has the right-sided PICC line directed into the distal superior vena cava region . Pacemaker overlies the left chest. Right-sided lateral chest excluded from the [id number]. IMPRESSION: 1. PICC line adjustment with the tip directed into the distal superior vena cava region. 2. Small left pleural effusion. There is partial silhouetting left diaphragm exam
[2022-05-26 09:58] VITALS: BMI 26.2
[2022-05-26] MEDS: prednisoLONE ACETATE 1% OPHTH DROPS 5 ML BTL LEFT EYE SCH ×2 (10:23→21:44)
[2022-05-26] MEDS: DORZOLAMIDE-TIMOLOL 2.23%/0.68 10ML BTL BOTH EYES SCH ×2 (10:24→21:42)
[2022-05-26] MEDS: BRIMONIDINE TARTRATE 0.2% DROPS 5 ML BTL BOTH EYES SCH ×2 (10:34→21:42)
--- NOTE | 2022-05-26 10:52 | IR ---
EXAMINATION TYPE: IR cvc insert >=5 years DATE OF EXAM: 05/26/2022 COMPARISON: NONE HISTORY: Altered mental status, needs long-term intravenous access for total parenteral nutrition. Bong weiner pulled prior PICC line out. FINDINGS: Maximal barrier technique was utilized. Hand hygiene obtained with soap and water and alco hol-based hand rub. The skin overlying the right brachial vein was localized with ultrasound and note d to be compressible and patent by ultrasound. An ultrasound image was obtained and submitted on kirill aranda's chart. Sterile technique utilized with the ultrasound machine. The skin overlying was prepped and draped and Lidocaine used for local anesthesia. A skin paul was made with a scalpel. Access was gained to the vein under direct ultrasound guidance with a 21-gauge needle and a 0.018 inch wire was advanced. Access site was dilated with a peel-away sheath and the catheter tailored to length. Cat heter advanced centrally and a post procedure chest x-ray verified placement with tip at the superior vena cava. Catheter was fixed to the skin and a sterile dressing placed. Hemostasis achieved and t he catheter was aspirated and flushed with sterile saline. The patient remained in stable condition. IMPRESSION: STATUS POST ULTRASOUND GUIDED PICC LINE PLACEMENT, READY FOR USE. THIS PROCEDURE WAS PER FORMED BY THE UNDERSIGNED.
[2022-05-26] MEDS: DIGOXIN 125 MCG TAB PO SCH (11:24)
[2022-05-26] MEDS ORDERED: 1: MVI, ADULT NO.4 WITH VIT K 10 ML, TRACE (CONC-1ML/DOSE) 1 ML, POTASSIUM CHLORIDE 20 M IV SCH ×7 (11:30)
--- NOTE | 2022-05-26 11:56 | P.PN ---
Subjective Progress Note Date: 05/26/22 Marina Vargas, he is an 86-year-old female presented to [facility] emergency room with a chief complaint of abdominal pain, with nausea and vomiting She was evaluated in the emergency room vital examination on presentation revealed a temperature of 96.9 pulse 80 respiration 18 blood pressure 133/76 pulse ox 98% on room air Laboratory data reveals a white blood count of 15.4 hemoglobin 10.6 platelet count 293 INR 1.8 sodium 131 potassium 4.2 chloride 99 CO2 23 BUN 15 creatinine 0.87 Testing in the emergency room revealed computed tomography scan of the abdomen and pelvis done in the emergency room revealed dilated thick-walled loops of ileum in the right lower quadrant with differential diagnosis of intussusception versus volulus, repeat computed tomography scan done with oral contrast revealed evidence of fluid density in the pelvis possible hemorrhage. Patient had evidence of acute abdomen she was taken to operating room by Dr. Louise and and evidence of small bowel necrosis and volvulus, and hemoperitoneum, patient had open exploratory laparotomy with small bowel resection and primary anastomosis and lysis of adhesion and reduction of small bowel volvulus, she was admitted to intensive care unit post surgery Past medical history is significant for history of coronary artery disease, history of COPD, history of cardiac arrhythmia with atrial fibrillation, history of AICD placement. On 05/22/2022 patient is resting comfortably in the intensive care unit. Per nursing staff patient did have some confusion last night seems to be improved. Patient remains on small dose of Levophed for pressure support at this time. Hemoglobin was 6.2 this AM. 1 unit PRBCs have been ordered. Patient remains nothing by mouth. Good urine output per nursing staff. White Blood cell 6.9. Current vital signs temp 97.3, heart rate 74, respiratory rate 15, blood pressure 102/75, oxygen saturation 97% on 3 L On 05/23/2022 patient was seen and examined in the ICU she is alert responsive in no apparent distress she had episodes of nausea and vomiting this morning she is complaining of abdominal pain otherwise she denies any complaints there is no fever or chills no headache or dizziness no chest pain no shortness of breath no cough and no urinary symptoms. On 05/24/2022 patient was seen and examined in the ICU patient is complaining of nausea and occasional vomiting she is still having some abdominal pain she is not passing any gas or having any bowel movements, temperature is 98.1 white blood count 9.0 hemoglobin 9.7 critical care are following patient is being considered for TPN, will continue to follow closely. On 05/25/2022 patient was seen and examined in the ICU she is still complaining of abdominal pain but is feeling better she is sitting up in a chair she is maintained on TPN for nutrition support she is passing gas and having liquid bowel movements, otherwise she denies any complaints there is no fever or chills no headache or dizziness no chest pain no shortness of breath no cough no nausea or vomiting no burning was urination no frequency or urgency and no hematuria On 05/26/2022 patient remains in the intensive care unit per nursing staff last night patient had increased confusion pulled out PICC line wound VAC. Patient was started on precedex critical care but did have drop in blood pressure requiring Levophed. Psychiatry service is consulted for increased confusion. Patient also given Ativan. Due to decrease in blood pressure will check blood and urine cultures. Critical care services, cardiology and surgical service is currently following. New PICC line to be placed Objective - Vital Signs Vital signs: Vital Signs Temp 98.1 F 05/26/22 03:27 Pulse 84 05/26/22 11:00 Resp 14 05/26/22 11:00 BP 79/25 05/26/22 11:00 Pulse Ox 100 05/26/22 11:00 FiO2 50 05/20/22 16:00 Intake & Output 05/25/22 05/26/22 05/26/22 18:59 06:59 18:59 Intake Total 880 1022.137 326.509 Output Total 1220 2000 500 Balance -340 -977.863 -173.491 Weight 58.8 kg Intake: IV 880 1020 300 .9 NS 60 10 300 Dextrose 5% in Water 1, 150 490 000 ml @ 75 mls/hr IV . Q14H JESSICA with Sodium Bicarb (1 Meq/ml) 50 ml Rx#:[id number] Magnesium Sulfate-D5w Pmx 100 1 gm In Dextrose/Water 1 100ml.bag @ 100 mls/hr IVPB Q1H JESSICA Rx#: [id number] Mvi, Adult No.4 with Vit 270 420 K 10 ml Trace (Conc-1Ml/ Dose) 1 ml In Amino Acid 5%-D15w+Lytes*E* 1,000 ml @ 30 mls/hr IV .Q24H ONE Rx#:[id number] Piperacillin-Tazobactam 3 100 100 .375 gm In Sodium Chloride 0.9% 100 ml @ 25 mls/hr IVPB Q8HR ON LICENSE OF [facility] Rx# :[id number] Potassium Chloride 20 meq 200 In Water For Injection 1 100ml.bag @ 50 mls/hr IVPB Q2H ON LICENSE OF [facility] Rx#: [id number] Intake, IV Titration 2.137 26.509 Amount Dexmedetomidine/0.9% NaCl 2.137 (Pmx) 400 mcg In Empty Bag 1 bag @ 0.2 MCG/KG/HR 1.928 mls/hr IV .Q24H ON LICENSE OF [facility] Rx#:[id number] Norepinephrine 4 mg In 26.509 Sodium Chloride 0.9% 250 ml @ 0.05 MCG/KG/MIN 11. 201 mls/hr IV .[id number] ON LICENSE OF [facility] Rx#:[id number] Output: Drainage 30 180 VERÓNICA Drain 30 180 Urine 1190 1820 500 Other: Voiding Method Indwelling Catheter Indwelling Catheter # Bowel Movements 4 ABP, PAP, CO, CI - Last Documented Arterial Blood Pressure 85/73 - Exam In general patient is alert and oriented x 3 in no distress HEENT head normocephalic and atraumatic Neck is supple no JVD no goiter no lymphadenopathy no carotid bruit Chest examination is clear to auscultation no crackles no wheezing Cardiac exam reveals regular heart sounds S1 and S2 no gallops no murmurs Abdomen is soft with mild diffuse tenderness no organomegaly bowel sounds are sluggish Extremity exam reveals no edema no cyanosis or clubbing Neurological examination reveals no gross focal deficits - Labs CBC & Chem 7: 05/26/22 03:43 05/26/22 03:43 Labs: Abnormal Lab Results - Last 24 Hours (Table) 05/25/22 05/26/22 05/26/22 Range/Units 11:52 03:43 03:43 RBC (3.80-5.40) m/uL Hgb (11.4-16.0) gm/dL Hct (34.0-46.0) % PT 12.3 H (9.0-12.0) sec INR 1.2 H (<1.2) Sodium 130 L (137-145) mmol/L POC Glucose (mg/dL) 207 H (70-110) mg/dL Calcium 8.0 L (8.4-10.2) mg/dL Phosphorus 2.3 L (2.5-4.5) mg/dL Total Protein 4.4 L (6.3-8.2) g/dL Albumin 2.3 L (3.5-5.0) g/dL 05/26/22 Range/Units 03:43 RBC 3.30 L (3.80-5.40) m/uL Hgb 10.4 L (11.4-16.0) gm/dL Hct 31.4 L (34.0-46.0) % PT (9.0-12.0) sec INR (<1.2) Sodium (137-145) mmol/L POC Glucose (mg/dL) (70-110) mg/dL Calcium (8.4-10.2) mg/dL Phosphorus (2.5-4.5) mg/dL Total Protein (6.3-8.2) g/dL Albumin (3.5-5.0) g/dL Assessment and Plan Plan: Acute abdomen with evidence of Volvulus and small bowel necrosis, status post surgery 05/21/2022 Underlying history of COPD Underlying history of coronary artery disease Underlying history of AICD placement Underlying history of cardiac arrhythmia Postoperative mechanical ventilation, patient was extubated on 05/20/2022 Episode of mild hypotension patient received 1 L of lactated Ringer, and receiv ed norepinephrine for pressure support At this time patient remains on IV Zosyn and Flagyl Acute blood loss secondary to surgery expected. Hemoglobin 6.2. 1 unit of PRBCs ordered Increased confusion. [facility] Hypotension blood and urine cultures ordered patient started on Levophed per critical care Patient remains in the intensive care unit Critical care, surgical services, cardiology and psychiatry service is consulted Plan new PICC line to be placed Blood and urine cultures ordered
[2022-05-26] MEDS: METOPROLOL TARTRATE 5 MG/5 ML VIAL IVP SCH ×2 (11:57→21:44)
[2022-05-26] MEDS ORDERED: ENOXAPARIN 60 MG/0.6 ML SYRINGE SQ SCH (12:00)
[2022-05-26 12:47] LABS: Glucose,Whole Blood 127 mg/dL (70-110)
[2022-05-26] MEDS ORDERED: HALOPERIDOL LACTATE 5 MG/ML 1 ML VIAL IVP ONE (13:18)
[2022-05-26 13:22] LABS: Appearance,Urine Cloudy (Clear); Bacteria,Urine Rare /hpf; Bilirubin,Urine Negative (Negative); Blood,Urine Moderate (Negative); Color,Urine Yellow; Glucose,Urine (UA) Negative (Negative); Ketones,Urine Negative (Negative); Leukocyte Esterase,Urine Moderate (Negative); Mucus,Urine Occasional /hpf; Nitrite,Urine Negative (Negative); PH, Urine 6.5 (5.0-8.0); Protein,Urine Negative (Negative); RBC,Urine 39 /hpf (0-5); Specific Gravity,Urine 1.008 (1.001-1.035); Squamous Epithelial Cell,Urine 4 /hpf (0-4); Urobilinogen,Urine <2.0 mg/dL (<2.0); WBC,Urine 6 /hpf (0-5)
[2022-05-26] MEDS ORDERED: OLANZapine 2.5 MG TAB PO PRN (15:16)
[2022-05-26] MEDS ORDERED: OLANZapine 10 MG VIAL IM PRN (15:16)
--- NOTE | 2022-05-26 15:18 | P.PN ---
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 Patient remains in the ICU. Patient became severely agitated this morning. She had pulled out her PICC line and pulled off her prevana wound vac. She had become tachycardic and was placed on Precedex. Precedex was then discontinued patient was becoming hypotensive. She did require to be placed on Levophed. Her PICC line has been replaced. She is being restarted on TPN and. And she is currently receiving a wet-to-dry dressing on the abdomen. VERÓNICA drain 180 ML of serous output. Patient was seen and examined this morning and was resting comfortably. Afebrile. WBC is 8.9 Hgb 10.4+ to 33 INR is 1.2 sodium is 1:30 creatinine 0.58 potassium 3.8 lactic acid 1.2 critical care service has added Seroquel due to patient's agitation. She did also receive a dose of Haldol this morning. And Lovenox and his added for DVT prophylaxis PHYSICAL EXAM: VITAL SIGNS: Reviewed. GENERAL: Well-developed in no acute distress. HEENT: No sclera icterus. Extraocular movements grossly intact. Moist buccal mucosa. Head is atraumatic, normocephalic. ABDOMEN: Soft. Nondistended. NEUROLOGIC: Resting comfortably ASSESSMENT: 1. 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 Acute dementia 3. Acute blood loss anemia due to anticoagulant effect and pre-existing hemoperitoneum 4. Hypotension 5. Iron deficiency anemia 6. Intractable nausea and vomiting 7. History of atrial fibrillation PLAN: -Continue full liquid diet -Continue TPN for nutrition support -Continue supportive care -Change incisional dressing to optifoam -Continue supportive care -Continue ICU management Physician Filter Tank Tender Helper note has been reviewed by physician. Signing provider agrees with the documented findings, assessment, and plan of care. 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 She is in the intensive care unit. Her family is at bedside. She had acute delirium last night and removed her vac dressing and PICC line. VERÓNICA is present. She is in restraints. She has tolerated full liquid diet. Family notes she has not needed any pain medications or complaining of abdominal pain. PICC line was replaced for her TPN and antibiotics. ROS: No fevers or chills. No chest pain. Acute psychosis overnight with afib PHYSICAL EXAM: VITAL SIGNS: Reviewed CONSTITUTIONAL: Well developed and underweight. EYES: Conjuctivae without sclera icterus. Extraocular movements grossly intact. HEAD, EARS, NOSE, THROAT: Moist buccal mucosa. Head is atraumatic, normocephalic. No nasal drainage. RESPIRATORY: Non-labored respirations and equal bilateral excursions. CARDIOVASCULAR: Palpable 2+ radial pulses. ABDOMEN: Optifoam dressing placed. No infection. Incision intact. VERÓNICA serous. MUSCULOSKELETAL: No gross deformity of the lower extremities noted. No clubbing. No cyanosis. SKIN: Good skin turgor. Well perfused. NEUROLOGIC: Cranial nerves II through XII grossly intact. No focal or lateralizing signs. PSYCH: Alert to person. CLINICAL LABS: Reviewed. WBC normal. INR 1.3. Hgb 10.3 and improving. ASSESSMENT: 1. 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 Acute dementia 3. Acute blood loss anemia due to anticoagulant effect and pre-existing hemoperitoneum 4. Iron deficiency anemia PLAN: 1. She is on percidex. Continue ICU care 2. Continue full liquid diet for now as delirium improves 3. Coumadin re-started 4. Continue VERÓNICA drain until output less than 30 ml/hr 5. Care plan reviewed with family for dietary plan Objective - Vital Signs Vital signs: Vital Signs Temp 97.9 F 05/26/22 08:00 Pulse 80 05/26/22 12:00 Resp 15 05/26/22 12:00 BP 120/68 05/26/22 12:00 Pulse Ox 100 05/26/22 12:00 FiO2 50 05/20/22 16:00 Intake & Output 05/25/22 05/26/22 05/26/22 18:59 06:59 18:59 Intake Total 880 1022.137 527.550 Output Total 1220 2000 715 Balance -340 -977.863 -187.450 Weight 58.8 kg Intake: IV 880 1020 450 .9 NS 60 10 450 Dextrose 5% in Water 1, 150 490 000 ml @ 75 mls/hr IV . Q14H JESSICA with Sodium Bicarb (1 Meq/ml) 50 ml Rx#:[id number] Magnesium Sulfate-D5w Pmx 100 1 gm In Dextrose/Water 1 100ml.bag @ 100 mls/hr IVPB Q1H [facility] Rx#: [id number] Mvi, Adult No.4 with Vit 270 420 K 10 ml Trace (Conc-1Ml/ Dose) 1 ml In Amino Acid 5%-D15w+Lytes*E* 1,000 ml @ 30 mls/hr IV .Q24H [facility] Rx#:[id number] Piperacillin-Tazobactam 3 100 100 .375 gm In Sodium Chloride 0.9% 100 ml @ 25 mls/hr IVPB Q8HR [facility] Rx# :[id number] Potassium Chloride 20 meq 200 In Water For Injection 1 100ml.bag @ 50 mls/hr IVPB Q2H [facility] Rx#: [id number] Intake, IV Titration 2.137 77.550 Amount Dexmedetomidine/0.9% NaCl 2.137 (Pmx) 400 mcg In Empty Bag 1 bag @ 0.2 MCG/KG/HR 1.928 mls/hr IV .Q24H [facility] Rx#:[id number] Norepinephrine 4 mg In 77.550 Sodium Chloride 0.9% 250 ml @ 0.05 MCG/KG/MIN 11. 201 mls/hr IV .[id number] [facility] Rx#:[id number] Output: Drainage 30 180 VERÓNICA Drain 30 180 Urine 1190 1820 715 Other: Voiding Method Indwelling Catheter Indwelling Catheter Indwelling Catheter # Bowel Movements 4 1 ABP, PAP, CO, CI - Last Documented Arterial Blood Pressure 85/73 - Labs CBC & Chem 7: 05/26/22 03:43 05/26/22 03:43 Labs: Abnormal Lab Results - Last 24 Hours (Table) 05/26/22 05/26/22 05/26/22 Range/Units 03:43 03:43 03:43 RBC 3.30 L (3.80-5.40) m/uL Hgb 10.4 L (11.4-16.0) gm/dL Hct 31.4 L (34.0-46.0) % PT 12.3 H (9.0-12.0) sec INR 1.2 H (<1.2) Sodium 130 L (137-145) mmol/L POC Glucose (mg/dL) (70-110) mg/dL Calcium 8.0 L (8.4-10.2) mg/dL Phosphorus 2.3 L (2.5-4.5) mg/dL Total Protein 4.4 L (6.3-8.2) g/dL Albumin 2.3 L (3.5-5.0) g/dL Urine Appearance (Clear) Urine Blood (Negative) Ur Leukocyte Esterase (Negative) Urine RBC (0-5) /hpf Urine WBC (0-5) /hpf Urine Bacteria (None) /hpf Urine Mucus (None) /hpf 05/26/22 05/26/22 Range/Units 12:45 13:16 RBC (3.80-5.40) m/uL Hgb (11.4-16.0) gm/dL Hct (34.0-46.0) % PT (9.0-12.0) sec INR (<1.2) Sodium (137-145) mmol/L POC Glucose (mg/dL) 127 H (70-110) mg/dL Calcium (8.4-10.2) mg/dL Phosphorus (2.5-4.5) mg/dL Total Protein (6.3-8.2) g/dL Albumin (3.5-5.0) g/dL Urine Appearance Cloudy H (Clear) Urine Blood Moderate H (Negative) Ur Leukocyte Esterase Moderate H (Negative) Urine RBC 39 H (0-5) /hpf Urine WBC 6 H (0-5) /hpf Urine Bacteria Rare H (None) /hpf Urine Mucus Occasional H (None) /hpf
--- NOTE | 2022-05-26 15:25 | P.CN ---
Psychiatric Consult - . Consult date: 05/26/22 Consult:: 05/26/22 14:29 IDENTIFYING DATA: This patient is a 86-year-old female, currently lives alone independently in a duplex, has 4 daughters. REASON FOR REFERRAL: Psychiatry was consulted for delirium/confusion HISTORY OF PRESENT ILLNESS: The patient presented to the hospital initially on 05/19 for nausea and vomiting and abdominal pain. Patient was noted to have elevated WBCs. Patient was operated on and had surgery for her small bowel necrosis volvulus and hemoperitoneum. Patient's sodium level was 1:30. Patient apparently was having an increase in confusion last night and apparently pulling out her lines. Patient's nurse states that patient has been confused after her extubation. Nurse also claims that patient pulled out her picc and also her wound VAC. They apparently attempted Precedex yesterday however pressure had dropped. Patient was not given Seroquel yet today however was given yesterday. Patient's granddaughter gave further history and social history as well. She states that patient has been hallucinating and "speaking bizarrely". Patient was seen at the bedside today and was illogical, inappropriate and disorganized. She was oriented to her first name only and did not know today's date or that she was in the hospital. She does not understand her situation at this time and appeared to be taking and moving restlessly on the bed. At this time patient denies any suicidal or homical ideations, intent or plan. Patient denies any auditory, visual hallucinations. Granddaughter states that patient does not use any drugs or substances. PAST PSYCHIATRIC HISTORY: Patient apparently has no significant psychiatric history. Patient denies being on any psychiatric medications. Patient denies any previous psychiatric hospitalizations. Patient denies any psychiatric outpatient follow-up. Patient denies any history of suicide attempts in the past. PAST MEDICAL HISTORY: As per medicine H&P ALLERGIES: as per EMR. CHEMICAL DEPENDENCY HISTORY: as per HPI. FAMILY PSYCHIATRIC/SUBSTANCE USE HISTORY: denies SOCIAL HISTORY: Patient was born and raised in [place] and also in [place]. 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 Patient has 4 daughters. She lives independently in a duplex. MENTAL STATUS EXAM: General Appearance: Patient appears to be thin, wearing glasses, stated age is alert, kicking and restless in the past. Patient appears to have fair hygiene and grooming wearing hospital gown with poor eye contact. Behavior: Patient is lying in the bed, restless. Speech: Patient's speech is fluent and nonpressured. Disorganized. Mood/Affect: Patient reports their mood is "ok", affect is congruent Suicidality/Homicidality: Patient denies having any suicidal or homicidal ideation intent or plan. Perceptions: Patient denies any visual hallucinations and denies any auditory hallucinations however patient is responding to internal stimuli. Though content/process: Disorganized, illogical and loose associations. Memory and concentration: AOX1 to her name only and has poor attention span. Not following commands. Cannot spell "WORLD" backwards Judgment and insight: poor IMPRESSIONS: Delirium, multifactorial PLAN: -At this time patient DOES NOT meet criteria for inpatient psychiatric admission. 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 please attempt to cut down on opioids as this will increase confusion/delirium. also d/c ativan and benadryl as this will increase delirium. -Communicated plan to patient's nurse and patients family -Will continue to follow along -Please contact with any questions. 05/26/22 15:24
[2022-05-26] MEDS: HALOPERIDOL ORAL SOLN 10 MG/5 ML CUP PO SCH ×2 (15:57→21:43)
[2022-05-26 16:00] LABS: Glucose,Whole Blood 145 mg/dL (70-110)
[2022-05-26] MEDS ORDERED: WARFARIN 2.5 MG TAB PO ONE (18:00)
[2022-05-26 20:33] LABS: Glucose,Whole Blood 154 mg/dL (70-110)
[2022-05-26] MEDS ORDERED: MELATONIN 3 MG TABLET PO SCH (21:00)
[2022-05-26] MEDS: LATANOPROST 0.005% OPHTH DROPS 2.5 ML BTL BOTH EYES SCH (21:43)
[2022-05-27] MEDS: 1: MVI, ADULT NO.4 WITH VIT K 10 ML, TRACE (CONC-1ML/DOSE) 1 ML, POTASSIUM CHLORIDE 20 M IV SCH ×12 (02:26→17:49)
[2022-05-27 06:16] LABS: Basophils % (A) 0 %; Eosinophils # (A) 0.4 k/uL (0-0.7); Eosinophils % (A) 4 %; HCT 30.3 % (34.0-46.0); Lymphocytes # (A) 1.1 k/uL (1.0-4.8); Lymphocytes % (A) 12 %; MCH 32.1 pg (25.0-35.0); MCHC 33.1 g/dL (31.0-37.0); MCV 96.9 fL (80.0-100.0); Mean Platelet Volume 7.2; Monocytes # (A) 0.4 k/uL (0-1.0); Monocytes % (A) 4 %; Neutrophils # (A) 6.7 k/uL (1.3-7.7); Neutrophils % (A) 78 %; Platelet Count 251 k/uL (150-450); RBC 3.12 m/uL (3.80-5.40); RDW 14.5 % (11.5-15.5); WBC 8.6 k/uL (3.8-10.6)
[2022-05-27 06:31] LABS: ALT 15 U/L (4-34); AST 34 U/L (14-36); African American GFR (CKD) >90 (>60 ml/min/1.73 sqM); Albumin 2.4 g/dL (3.5-5.0); Alkaline Phosphatase 46 U/L (38-126); Anion Gap 8 mmol/L; Blood Urea Nitrogen 10 mg/dL (7-17); Calcium 7.9 mg/dL (8.4-10.2); Carbon Dioxide 23 mmol/L (22-30); Chloride 101 mmol/L (98-107); Glucose 131 mg/dL (74-99); Magnesium 1.8 mg/dL (1.6-2.3); Non-African American GFR(CKD) 90 (>60 ml/min/1.73 sqM); Phosphorus 2.6 mg/dL (2.5-4.5); Potassium 3.8 mmol/L (3.5-5.1); Sodium 132 mmol/L (137-145); Total Bilirubin 0.3 mg/dL (0.2-1.3); Total Protein 4.5 g/dL (6.3-8.2)
[2022-05-27 06:32] LABS: INR 1.2 (<1.2); Prothrombin Time 12.7 sec (9.0-12.0)
--- NOTE | 2022-05-27 07:29 | P.PN ---
Subjective Progress Note Date: 05/27/22 PROGRESS NOTE The patient is an 86-year-old female with a history of nonischemic cardiomyopathy in the past, post ICD, followed by Dr. Dejesus at [facility] who presented with abdominal pain and underwent surgical intervention on the May with small bowel resection and lysis of adhesion. Her echocardiogram here showed a preserved systolic function. She is in sinus mechanism this morning. She has a history of paroxysmal atrial fibrillation. She is sleeping but has no symptoms of chest discomfort. Her anticoagulation continues to be on hold. Hemodynamically her blood pressure is stable and she is on no vasopressor. There is no evidence of ventricular ectopic activity. May 25: The patient is more awake and alert today, she is in sinus mechanism, she had episodes of paroxysmal atrial fibrillation earlier. She had a PICC line placed yesterday. She denies any chest discomfort or dizziness. She was up in the chair. Her urinary output has been.. She denies any nausea or vomiting. She continues to be on IV antibiotics. May 26: During the night the patient became more confused, pulled her PICC line out. She is moving all her extremities but confused and not responding to verbal commands. Her blood pressure has been stable earlier, her O2 saturation is above 90 on room air. She had episodes of paroxysmal atrial fibrillation. There is no ventricular ectopic activity. Her urine output has been good and she is afebrile. Her lab data showed no leukocytosis and her renal function remained stable. She was started on Precedex. May 27: The patient is more awake and alert remains confused but is aware that she is in the hospital. She is in sinus mechanism with frequent PACs and short burst of atrial fibrillation. She is on TPN. She is off norepinephrine and her blood pressure is under good control. Her urinary output is good. There is no evidence to suggest acute cerebrovascular accident. She is taking clear fluid. Medications: Digoxin 0.125 mg daily, lisinopril 2.5 mg daily, metoprolol 2.5 mg IV twice a day, her Coumadin was reinitiated yesterday, she is on subcu Lovenox PHYSICAL EXAMINATION: She is confused, answering questions at times appropriate, aware she is in the hospital. Blood pressure 136/84, heart rate of 100 LUNGS: Clear to auscultation anteriorly HEART: Regular rate and rhythm, S1, S2. No S3. systolic ejection murmur at the base ABDOMEN: Soft, nontender, no organomegaly, dressing in place, hypoactive bowel sounds EXTREMETIES: No edema LAB: Potassium 3.8, BUN 10, creatinine 0.47, sodium 132, hemoglobin of 10, white blood cells 8.6 IMPRESSION: 1. Acute confusion, appears to be metabolic encephalopathy. There is no evidence to suggest cerebrovascular accident., Improving slowly 2. Status post small bowel resection and lysis of adhesion with abdominal washout 3. Paroxysmal atrial fibrillation, anticoagulation being initiated 4. Prior history of cardiomyopathy and ICD implantation, echocardiogram showed a preserved systolic function 5. History of CAD PLAN: 1. Change anticoagulation to Eliquis 2. Change beta teresa to oral 3. Continue supportive care 4. Continue TPN 5. Follow renal functions Objective - Vital Signs Vital signs: Vital Signs Temp 98.2 F 05/27/22 04:00 Pulse 105 H 05/27/22 07:00 Resp 14 05/27/22 07:00 BP 136/84 05/27/22 07:00 Pulse Ox 97 05/27/22 07:00 FiO2 21 05/26/22 19:19 Intake & Output 05/26/22 05/27/22 05/27/22 18:59 06:59 18:59 Intake Total 8192.997 8747 90 Output Total 1445 2475 420 Balance -377.450 -1375 -330 Weight 58.8 kg Intake: IV 570 1030 90 .9 NS 570 160 20 Mvi, Adult No.4 with Vit 770 70 K 10 ml Trace (Conc-1Ml/ Dose) 1 ml Potassium Chloride 20 meq Potassium Phosphate 6 mmol Magnesium Sulfate gm 1 gm In Amino Acid 5%-D15w+ Lytes*E* 1,000 ml @ 70 mls/hr IV .BY DURATION [facility] Rx#:[id number] Piperacillin-Tazobactam 3 100 .375 gm In Sodium Chloride 0.9% 100 ml @ 25 mls/hr IVPB Q8HR [facility] Rx# :[id number] Intake, IV Titration 497.550 70 Amount Norepinephrine 4 mg In 77.550 Sodium Chloride 0.9% 250 ml @ 0.05 MCG/KG/MIN 11. 201 mls/hr IV .[id number] [facility] Rx#:[id number] Potassium Chloride 20 meq 420 70 Potassium Phosphate 6 mmol Magnesium Sulfate gm 1 gm In Amino Acid 5%- D15w+Lytes*E* 1,000 ml @ 70 mls/hr IV .BY DURATION [facility] Rx#:[id number] Output: Drainage 30 90 20 VERÓNICA Drain 30 90 20 Urine 1415 2385 400 Other: Voiding Method Indwelling Catheter Indwelling Catheter # Bowel Movements 1 1 ABP, PAP, CO, CI - Last Documented Arterial Blood Pressure 85/73 - Labs CBC & Chem 7: 05/27/22 06:01 05/27/22 06:01 Labs: Abnormal Lab Results - Last 24 Hours (Table) 05/26/22 05/26/22 05/26/22 Range/Units 12:45 13:16 15:58 RBC (3.80-5.40) m/uL Hgb (11.4-16.0) gm/dL Hct (34.0-46.0) % PT (9.0-12.0) sec INR (<1.2) Sodium (137-145) mmol/L Creatinine (0.52-1.04) mg/dL Glucose (74-99) mg/dL POC Glucose (mg/dL) 127 H 145 H (70-110) mg/dL Calcium (8.4-10.2) mg/dL Total Protein (6.3-8.2) g/dL Albumin (3.5-5.0) g/dL Urine Appearance Cloudy H (Clear) Urine Blood Moderate H (Negative) Ur Leukocyte Esterase Moderate H (Negative) Urine RBC 39 H (0-5) /hpf Urine WBC 6 H (0-5) /hpf Urine Bacteria Rare H (None) /hpf Urine Mucus Occasional H (None) /hpf 05/26/22 05/27/22 05/27/22 Range/Units 20:32 06:01 06:01 RBC 3.12 L (3.80-5.40) m/uL Hgb 10.0 L (11.4-16.0) gm/dL Hct 30.3 L (34.0-46.0) % PT (9.0-12.0) sec INR (<1.2) Sodium 132 L (137-145) mmol/L Creatinine 0.47 L (0.52-1.04) mg/dL Glucose 131 H (74-99) mg/dL POC Glucose (mg/dL) 154 H (70-110) mg/dL Calcium 7.9 L (8.4-10.2) mg/dL Total Protein 4.5 L (6.3-8.2) g/dL Albumin 2.4 L (3.5-5.0) g/dL Urine Appearance (Clear) Urine Blood (Negative) Ur Leukocyte Esterase (Negative) Urine RBC (0-5) /hpf Urine WBC (0-5) /hpf Urine Bacteria (None) /hpf Urine Mucus (None) /hpf 05/27/22 Range/Units 06:01 RBC (3.80-5.40) m/uL Hgb (11.4-16.0) gm/dL Hct (34.0-46.0) % PT 12.7 H (9.0-12.0) sec INR 1.2 H (<1.2) Sodium (137-145) mmol/L Creatinine (0.52-1.04) mg/dL Glucose (74-99) mg/dL POC Glucose (mg/dL) (70-110) mg/dL Calcium (8.4-10.2) mg/dL Total Protein (6.3-8.2) g/dL Albumin (3.5-5.0) g/dL Urine Appearance (Clear) Urine Blood (Negative) Ur Leukocyte Esterase (Negative) Urine RBC (0-5) /hpf Urine WBC (0-5) /hpf Urine Bacteria (None) /hpf Urine Mucus (None) /hpf
[2022-05-27] MEDS: NOREPINEPHRINE 4 MG in SODIUM CHLORIDE 0.9% 250 ML IV SCH (07:51)
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
[2022-05-27] MEDS: PIPERACILLIN-TAZOBACTAM 3.375 GM in SODIUM CHLORIDE 0.9% 100 ML IVPB SCH (09:24)
[2022-05-27] MEDS: PANTOPRAZOLE 40 MG/10 ML VIAL IV SCH (09:25)
[2022-05-27] MEDS: HALOPERIDOL ORAL SOLN 10 MG/5 ML CUP PO SCH (09:25)
[2022-05-27] MEDS: DORZOLAMIDE-TIMOLOL 2.23%/0.68 10ML BTL BOTH EYES SCH ×2 (09:25→20:34)
[2022-05-27] MEDS: APIXABAN 2.5 MG TABLET PO SCH ×2 (09:25→20:33)
[2022-05-27] MEDS: BRIMONIDINE TARTRATE 0.2% DROPS 5 ML BTL BOTH EYES SCH ×2 (09:25→20:33)
[2022-05-27] MEDS: DIGOXIN 125 MCG TAB PO SCH (09:25)
[2022-05-27] MEDS: METOPROLOL SUCCINATE (ER) 25 MG TAB.ER.24H PO SCH ×2 (09:25→20:33)
[2022-05-27] MEDS: prednisoLONE ACETATE 1% OPHTH DROPS 5 ML BTL LEFT EYE SCH (09:26)
[2022-05-27 11:07] LABS: Glucose,Whole Blood 141 mg/dL (70-110)
[2022-05-27] MEDS: ACETAMINOPHEN TAB 325 MG TAB PO PRN ×2 (12:20→23:29)
--- NOTE | 2022-05-27 13:52 | P.PN ---
Progress Note - Text Progress Note Date: 05/27/22 Interval History: Patient was seen today for psychiatric follow-up regarding patient's delirium. Patient appears to be less restless today in the bed and more directable during conversation. Improvement in her attention span. She claims that she does not recognize medical technical writer from yesterday. She believes that she is at the "[facility]" and believes that it is "the 19" and the year is 1934. She is denying any depression or anxiety today. She continues to ramble at times and his illogical however this is improving. She is less bizarre today and more directable. Apparently she did not sleep well last night. [employer] Field Processing Supervisor spoke with patient's daughter outside of the room who claims that patient is doing better from yesterday however continues to be "making up stories" and apparently stating that she is hallucinating as well at times during the day. At this time patient denies any suicidal or homical ideations, intent or plan. Patient denies any auditory, visual hallucinations and denies any paranoia or delusions. Patient denies any side effects from the medications and has been compliant with meds. Mental Status Exam: General Appearance: Patient appears to be thin, wearing glasses, stated age is alert, calmer today. Patient appears to have fair hygiene and grooming wearing hospital gown with improving eye contact. Behavior: Patient is lying in the bed, less restless. Speech: Patient's speech is fluent and nonpressured. Disorganized, mild improvement. Mood/Affect: Patient reports their mood is "ok", affect is congruent Suicidality/Homicidality: Patient denies having any suicidal or homicidal ideation intent or plan. Perceptions: Patient denies any visual hallucinations and denies any auditory hallucinations Though content/process: Disorganized, illogical and loose associations, improving mildly Memory and concentration: AOX1 to her name only and has improving attention span. follows some commands. Cannot spell "WORLD" backwards Judgment and insight: poor, improving mildly IMPRESSIONS: Delirium, multiple etiologies PLAN: -At this time patient DOES NOT meet criteria for inpatient psychiatric admission. -Delirium precautions recommended with patient including - avoiding use of narcotics and MANAGER MISSION sedatives, limit anticholinergic medications when possible, frequent re-orientation, minimize use of restraints, open window shades during the day and close them at night -Would recommend the following medication changes/additions: increase Melatonin 6 mg daily at bedtime for sleep, increase Haldol liquid 2 mg twice a day for delirium/psychosis, Zyprexa by mouth and IM when necessary's for agitation/psychosis. added remeron 7.5 mg qhs for insomnia/mood. please attempt to cut down on opioids as this will increase confusion/delirium. -Communicated plan to patient's patients family -Will continue to follow along -Please contact with any questions.
--- NOTE | 2022-05-27 13:53 | P.PN ---
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 Patient remains in the ICU. She is off of Levophed. Her incisional dressing was changed to optifoam silver. Patient did have 2 liquidy bowel movements. No nausea or vomiting. Tolerating full liquid diet. Afebrile. Cardiology did change Coumadin to Eliquis for a nticoagulation PHYSICAL EXAM: VITAL SIGNS: Reviewed. GENERAL: Well-developed in no acute distress. HEENT: No sclera icterus. Extraocular movements grossly intact. Moist buccal mucosa. Head is atraumatic, normocephalic. ABDOMEN: Soft. Nondistended. Incisional dressing clean dry and intact NEUROLOGIC: Pleasantly confused ASSESSMENT: 1. 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 Acute dementia 3. Acute blood loss anemia due to anticoagulant effect and pre-existing hemoperitoneum 4. Hypotension 5. Iron deficiency anemia 6. Intractable nausea and vomiting 7. History of atrial fibrillation PLAN: -Continue full liquid diet -Continue TPN for nutrition support -Continue supportive care -Continue ICU management Physician Fpga Engineer note has been reviewed by physician. Signing provider agrees with the documented findings, assessment, and plan of care. 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 Patient is now on Haldol and medications for antipsychotics. No further acute psychosis or acute delirium. Family is at bedside. Patient tolerating full liquid diet. She denies any moderate abdominal pain. She is passing flatus having bowel movements. She is off pressors. No reports or signs of bleeding upon start of Coumadin. ROS: No fevers or chills. No chest pain. No nausea or vomiting. PHYSICAL EXAM: VITAL SIGNS: Reviewed CONSTITUTIONAL: Well developed and underweight. EYES: Conjuctivae without sclera icterus. Extraocular movements grossly intact. HEAD, EARS, NOSE, THROAT: Moist buccal mucosa. Head is atraumatic, normocephalic. No nasal drainage. RESPIRATORY: Non-labored respirations and equal bilateral excursions. CARDIOVASCULAR: Palpable 2+ radial pulses. ABDOMEN: Optifoam dressing placed by me clean dry and intact. VERÓNICA serous. MUSCULOSKELETAL: No gross deformity of the lower extremities noted. No clubbing. No cyanosis. SKIN: Good skin turgor. Well perfused. NEUROLOGIC: Cranial nerves II through XII grossly intact. No focal or lateralizing signs. PSYCH: Alert to person, place. CLINICAL LABS: Reviewed. WBC normal. INR 1.2. Hgb 10.3 now 10.0. ASSESSMENT: 1. 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 Acute dementia 3. Acute blood loss anemia due to anticoagulant effect and pre-existing hemoperitoneum 4. Iron deficiency anemia PLAN: 1. Will advance diet to mechanical ground diet due to her being edentulous. 2. Start calorie counts prior to discontinuing TPN 3. Segundo nutritional supplement 3 times daily 4. Agreeable for transfer to floor once cleared by intensive 5. Patient has been switched from Coumadin to Eliquis. Monitor for signs of bleeding. Objective - Vital Signs Vital signs: Vital Signs Temp 98.2 F 05/27/22 04:00 Pulse 95 05/27/22 12:00 Resp 14 05/27/22 12:00 BP 125/83 05/27/22 12:00 Pulse Ox 96 05/27/22 12:00 FiO2 21 05/26/22 19:19 Intake & Output 05/26/22 05/27/22 05/27/22 18:59 06:59 18:59 Intake Total 4798.088 3413 90 Output Total 1445 2475 1770 Balance -377.450 -1375 -1680 Weight 58.8 kg Intake: IV 570 1030 90 .9 NS 570 160 20 Mvi, Adult No.4 with Vit 770 70 K 10 ml Trace (Conc-1Ml/ Dose) 1 ml Potassium Chloride 20 meq Potassium Phosphate 6 mmol Magnesium Sulfate gm 1 gm In Amino Acid 5%-D15w+ Lytes*E* 1,000 ml @ 70 mls/hr IV .BY DURATION [facility] Rx#:[id number] Piperacillin-Tazobactam 3 100 .375 gm In Sodium Chloride 0.9% 100 ml @ 25 mls/hr IVPB Q8HR [facility] Rx# :[id number] Intake, IV Titration 497.550 70 Amount Norepinephrine 4 mg In 77.550 Sodium Chloride 0.9% 250 ml @ 0.05 MCG/KG/MIN 11. 201 mls/hr IV .[id number] [facility] Rx#:[id number] Potassium Chloride 20 meq 420 70 Potassium Phosphate 6 mmol Magnesium Sulfate gm 1 gm In Amino Acid 5%- D15w+Lytes*E* 1,000 ml @ 70 mls/hr IV .BY DURATION [facility] Rx#:[id number] Output: Drainage 30 90 20 VERÓNICA Drain 30 90 20 Urine 1415 2385 1750 Other: Voiding Method Indwelling Catheter Indwelling Catheter Indwelling Catheter # Bowel Movements 1 1 ABP, PAP, CO, CI - Last Documented Arterial Blood Pressure 85/73 - Labs CBC & Chem 7: 05/27/22 06:01 05/27/22 06:01 Labs: Abnormal Lab Results - Last 24 Hours (Table) 05/26/22 05/26/22 05/27/22 Range/Units 15:58 20:32 06:01 RBC 3.12 L (3.80-5.40) m/uL Hgb 10.0 L (11.4-16.0) gm/dL Hct 30.3 L (34.0-46.0) % PT (9.0-12.0) sec INR (<1.2) Sodium (137-145) mmol/L Creatinine (0.52-1.04) mg/dL Glucose (74-99) mg/dL POC Glucose (mg/dL) 145 H 154 H (70-110) mg/dL Calcium (8.4-10.2) mg/dL Total Protein (6.3-8.2) g/dL Albumin (3.5-5.0) g/dL 05/27/22 05/27/22 05/27/22 Range/Units 06:01 06:01 11:06 RBC (3.80-5.40) m/uL Hgb (11.4-16.0) gm/dL Hct (34.0-46.0) % PT 12.7 H (9.0-12.0) sec INR 1.2 H (<1.2) Sodium 132 L (137-145) mmol/L Creatinine 0.47 L (0.52-1.04) mg/dL Glucose 131 H (74-99) mg/dL POC Glucose (mg/dL) 141 H (70-110) mg/dL Calcium 7.9 L (8.4-10.2) mg/dL Total Protein 4.5 L (6.3-8.2) g/dL Albumin 2.4 L (3.5-5.0) g/dL
[2022-05-27] MEDS: MELATONIN 3 MG TABLET PO SCH (20:32)
[2022-05-27] MEDS: LATANOPROST 0.005% OPHTH DROPS 2.5 ML BTL BOTH EYES SCH (20:34)
[2022-05-27] MEDS: MIRTAZAPINE 15 MG TAB PO SCH (20:58)
[2022-05-27] MEDS ORDERED: HALOPERIDOL ORAL SOLN 10 MG/5 ML CUP PO SCH (21:00)
[2022-05-28] MEDS: NOREPINEPHRINE 4 MG in SODIUM CHLORIDE 0.9% 250 ML IV SCH (06:16)
[2022-05-28 07:15] LABS: HGB 10.3 gm/dL (11.4-16.0); Hypochromasia Slight; MCH 32.1 pg (25.0-35.0); MCHC 32.4 g/dL (31.0-37.0); MCV 99.3 fL (80.0-100.0); Macrocytosis Slight; Mean Platelet Volume 7.3; Platelet Count 248 k/uL (150-450); RBC 3.22 m/uL (3.80-5.40); RDW 14.8 % (11.5-15.5); WBC 9.5 k/uL (3.8-10.6)
[2022-05-28 07:31] LABS: African American GFR (CKD) >90 (>60 ml/min/1.73 sqM); Anion Gap 8 mmol/L; Blood Urea Nitrogen 14 mg/dL (7-17); Calcium 8.1 mg/dL (8.4-10.2); Carbon Dioxide 22 mmol/L (22-30); Chloride 103 mmol/L (98-107); Glucose 124 mg/dL (74-99); Non-African American GFR(CKD) >90 (>60 ml/min/1.73 sqM); Phosphorus 3.4 mg/dL (2.5-4.5); Sodium 133 mmol/L (137-145)
--- NOTE | 2022-05-28 07:32 | P.PN ---
Subjective Progress Note Date: 05/28/22 PROGRESS NOTE The patient is an 86-year-old female with a history of nonischemic cardiomyopathy in the past, post ICD, followed by Dr. Dejesus at [facility] who presented with abdominal pain and underwent surgical intervention on the May with small bowel resection and lysis of adhesion. Her echocardiogram here showed a preserved systolic function. She is in sinus mechanism this morning. She has a history of paroxysmal atrial fibrillation. She is sleeping but has no symptoms of chest discomfort. Her anticoagulation continues to be on hold. Hemodynamically her blood pressure is stable and she is on no vasopressor. There is no evidence of ventricular ectopic activity. May 25: The patient is more awake and alert today, she is in sinus mechanism, she had episodes of paroxysmal atrial fibrillation earlier. She had a PICC line placed yesterday. She denies any chest discomfort or dizziness. She was up in the chair. Her urinary output has been.. She denies any nausea or vomiting. She continues to be on IV antibiotics. May 26: During the night the patient became more confused, pulled her PICC line out. She is moving all her extremities but confused and not responding to verbal commands. Her blood pressure has been stable earlier, her O2 saturation is above 90 on room air. She had episodes of paroxysmal atrial fibrillation. There is no ventricular ectopic activity. Her urine output has been good and she is afebrile. Her lab data showed no leukocytosis and her renal function remained stable. She was started on Precedex. May 27: The patient is more awake and alert remains confused but is aware that she is in the hospital. She is in sinus mechanism with frequent PACs and short burst of atrial fibrillation. She is on TPN. She is off norepinephrine and her blood pressure is under good control. Her urinary output is good. There is no evidence to suggest acute cerebrovascular accident. She is taking clear fluid. May 28: The patient is sleeping today but she was more awake and alert during the afternoon, was able to ambulate in the unit. She has been waking up frequently during the night going to the bathroom. She continues to be in sinus mechanism with frequent PACs. Her blood pressure is stable. Her confusion was better. She had no evidence of ventricular ectopic activity. She has been able to tolerate oral medication and intake. Her confusion has improved. She is receiving TPN. Her urinary output is stable. Medications: Digoxin 0.125 mg daily, lisinopril 2.5 mg daily, metoprolol succinate 25 mg twice a day, Eliquis 2.5 mg twice a day PHYSICAL EXAMINATION: She is sleepy. Blood pressure 121/80, heart rate of 70 LUNGS: Clear to auscultation anteriorly HEART: Regular rate and rhythm, S1, S2. No S3. systolic ejection murmur at the base ABDOMEN: Soft, nontender, no organomegaly, dressing in place, hypoactive bowel sounds EXTREMETIES: No edema LAB: Hemoglobin 10.3, white blood cell 9.5 IMPRESSION: 1. Acute confusion, appears to be metabolic encephalopathy. Improved 2. Status post small bowel resection and lysis of adhesion with abdominal washout 3. Paroxysmal atrial fibrillation, anticoagulation being initiated, maintaining sinus mechanism 4. Prior history of cardiomyopathy and ICD implantation, echocardiogram showed a preserved systolic function 5. History of CAD PLAN: 1. Stop digoxin 2. Continue beta teresa and DEANDRE inhibitor 3. Continue anticoagulation 4. Increase physical activity 5. We will see her on an as needed basis, please feel free to call us for any question. Objective - Vital Signs Vital signs: Vital Signs Temp 97.2 F L 05/28/22 04:00 Pulse 70 05/28/22 07:00 Resp 11 L 05/28/22 07:00 BP 121/80 05/28/22 04:00 Pulse Ox 97 05/28/22 04:00 FiO2 21 05/26/22 19:19 Intake & Output 05/27/22 05/28/22 05/28/22 18:59 06:59 18:59 Intake Total 640 990 90 Output Total 3170 100 Balance -2530 890 90 Intake: IV 90 990 90 .9 NS 20 220 20 Mvi, Adult No.4 with Vit 70 770 70 K 10 ml Trace (Conc-1Ml/ Dose) 1 ml Potassium Chloride 20 meq Potassium Phosphate 6 mmol Magnesium Sulfate gm 1 gm In Amino Acid 5%-D15w+ Lytes*E* 1,000 ml @ 70 mls/hr IV .BY DURATION JESSICA Rx#:[id number] Oral 550 Output: Drainage 20 100 VERÓNICA Drain 20 100 Urine 3150 Other: Voiding Method Indwelling Catheter Toilet Bedside Commode Bedpan # Voids 2 2 1 # Bowel Movements 1 ABP, PAP, CO, CI - Last Documented Arterial Blood Pressure 85/73 - Labs CBC & Chem 7: 05/28/22 06:57 05/27/22 06:01 Labs: Abnormal Lab Results - Last 24 Hours (Table) 05/27/22 05/28/22 Range/Units 11:06 06:57 RBC 3.22 L (3.80-5.40) m/uL Hgb 10.3 L (11.4-16.0) gm/dL Hct 32.0 L (34.0-46.0) % POC Glucose (mg/dL) 141 H (70-110) mg/dL Microbiology - Last 24 Hours (Table) 05/26/22 16:16 Blood Culture - Preliminary Blood No Growth after 24 hours
[2022-05-28 07:34] LABS: Potassium 4.6 mmol/L (3.5-5.1)
[2022-05-28] MEDS: 1: MVI, ADULT NO.4 WITH VIT K 10 ML, TRACE (CONC-1ML/DOSE) 1 ML, POTASSIUM CHLORIDE 20 M IV SCH ×6 (08:58)
--- NOTE | 2022-05-28 09:18 | P.PN ---
Subjective Progress Note Date: 05/27/22 Marina Vargas, he is an 86-year-old female presented to [facility] emergency room with a chief complaint of abdominal pain, with nausea and vomiting She was evaluated in the emergency room vital examination on presentation revealed a temperature of 96.9 pulse 80 respiration 18 blood pressure 133/76 pulse ox 98% on room air Laboratory data reveals a white blood count of 15.4 hemoglobin 10.6 platelet count 293 INR 1.8 sodium 131 potassium 4.2 chloride 99 CO2 23 BUN 15 creatinine 0.87 Testing in the emergency room revealed computed tomography scan of the abdomen and pelvis done in the emergency room revealed dilated thick-walled loops of ileum in the right lower quadrant with differential diagnosis of intussusception versus volulus, repeat computed tomography scan done with oral contrast revealed evidence of fluid density in the pelvis possible hemorrhage. Patient had evidence of acute abdomen she was taken to operating room by Dr. Louise and and evidence of small bowel necrosis and volvulus, and hemoperitoneum, patient had open exploratory laparotomy with small bowel resection and primary anastomosis and lysis of adhesion and reduction of small bowel volvulus, she was admitted to intensive care unit post surgery Past medical history is significant for history of coronary artery disease, history of COPD, history of cardiac arrhythmia with atrial fibrillation, history of AICD placement. On 05/22/2022 patient is resting comfortably in the intensive care unit. Per nursing staff patient did have some confusion last night seems to be improved. Patient remains on small dose of Levophed for pressure support at this time. Hemoglobin was 6.2 this AM. 1 unit PRBCs have been ordered. Patient remains nothing by mouth. Good urine output per nursing staff. White Blood cell 6.9. Current vital signs temp 97.3, heart rate 74, respiratory rate 15, blood pressure 102/75, oxygen saturation 97% on 3 L On 05/23/2022 patient was seen and examined in the ICU she is alert responsive in no apparent distress she had episodes of nausea and vomiting this morning she is complaining of abdominal pain otherwise she denies any complaints there is no fever or chills no headache or dizziness no chest pain no shortness of breath no cough and no urinary symptoms. On 05/24/2022 patient was seen and examined in the ICU patient is complaining of nausea and occasional vomiting she is still having some abdominal pain she is not passing any gas or having any bowel movements, temperature is 98.1 white blood count 9.0 hemoglobin 9.7 critical care are following patient is being considered for TPN, will continue to follow closely. On 05/25/2022 patient was seen and examined in the ICU she is still complaining of abdominal pain but is feeling better she is sitting up in a chair she is maintained on TPN for nutrition support she is passing gas and having liquid bowel movements, otherwise she denies any complaints there is no fever or chills no headache or dizziness no chest pain no shortness of breath no cough no nausea or vomiting no burning was urination no frequency or urgency and no hematuria On 05/26/2022 patient remains in the intensive care unit per nursing staff last night patient had increased confusion pulled out PICC line wound VAC. Patient was started on precedex critical care but did have drop in blood pressure requiring Levophed. Psychiatry service is consulted for increased confusion. Patient also given Ativan. Due to decrease in blood pressure will check blood and urine cultures. Critical care services, cardiology and surgical service is currently following. New PICC line to be placed On 05/27/2020 patient was seen and examined in the ICU she is alert, she has episodes of confusion, she has a new PICC line in and is maintained on TPN, she was seen by psychiatry and was started on Haldol and Zyprexa, she is afebrile, she is complaining of abdominal pain otherwise she denies any complaints, she is followed by pulmonary critical care , prognosis is guarded Objective - Vital Signs Vital signs: Vital Signs Temp 98.2 F 05/27/22 04:00 Pulse 95 05/27/22 12:00 Resp 14 05/27/22 12:00 BP 125/83 05/27/22 12:00 Pulse Ox 96 05/27/22 12:00 FiO2 21 05/26/22 19:19 Intake & Output 05/26/22 05/27/22 05/27/22 18:59 06:59 18:59 Intake Total 2024.952 5337 90 Output Total 1445 6305 6420 Balance -768.338 -8687 -4210 Weight 58.8 kg Intake: IV 570 1030 90 .9 NS 570 160 20 Mvi, Adult No.4 with Vit 770 70 K 10 ml Trace (Conc-1Ml/ Dose) 1 ml Potassium Chloride 20 meq Potassium Phosphate 6 mmol Magnesium Sulfate gm 1 gm In Amino Acid 5%-D15w+ Lytes*E* 1,000 ml @ 70 mls/hr IV .BY DURATION [facility] Rx#:[id number] Piperacillin-Tazobactam 3 100 .375 gm In Sodium Chloride 0.9% 100 ml @ 25 mls/hr IVPB Q8HR JESSICA Rx# :[id number] Intake, IV Titration 497.550 70 Amount Norepinephrine 4 mg In 77.550 Sodium Chloride 0.9% 250 ml @ 0.05 MCG/KG/MIN 11. 201 mls/hr IV .[id number] JESSICA Rx#:[id number] Potassium Chloride 20 meq 420 70 Potassium Phosphate 6 mmol Magnesium Sulfate gm 1 gm In Amino Acid 5%- D15w+Lytes*E* 1,000 ml @ 70 mls/hr IV .BY DURATION [facility] Rx#:[id number] Output: Drainage 30 90 20 VERÓNICA Drain 30 90 20 Urine 1415 2385 2250 Other: Voiding Method Indwelling Catheter Indwelling Catheter Indwelling Catheter # Voids 2 # Bowel Movements 1 1 ABP, PAP, CO, CI - Last Documented Arterial Blood Pressure 85/73 - Exam In general patient is alert and oriented x 3 in no distress HEENT head normocephalic and atraumatic Neck is supple no JVD no goiter no lymphadenopathy no carotid bruit Chest examination is clear to auscultation no crackles no wheezing Cardiac exam reveals regular heart sounds S1 and S2 no gallops no murmurs Abdomen is soft with mild diffuse tenderness no organomegaly bowel sounds are sluggish Extremity exam reveals no edema no cyanosis or clubbing Neurological examination reveals no gross focal deficits - Labs CBC & Chem 7: 05/28/22 06:57 05/28/22 06:57 Labs: Abnormal Lab Results - Last 24 Hours (Table) 05/26/22 05/26/22 05/27/22 Range/Units 15:58 20:32 06:01 RBC 3.12 L (3.80-5.40) m/uL Hgb 10.0 L (11.4-16.0) gm/dL Hct 30.3 L (34.0-46.0) % PT (9.0-12.0) sec INR (<1.2) Sodium (137-145) mmol/L Creatinine (0.52-1.04) mg/dL Glucose (74-99) mg/dL POC Glucose (mg/dL) 145 H 154 H (70-110) mg/dL Calcium (8.4-10.2) mg/dL Total Protein (6.3-8.2) g/dL Albumin (3.5-5.0) g/dL 05/27/22 05/27/22 05/27/22 Range/Units 06:01 06:01 11:06 RBC (3.80-5.40) m/uL Hgb (11.4-16.0) gm/dL Hct (34.0-46.0) % PT 12.7 H (9.0-12.0) sec INR 1.2 H (<1.2) Sodium 132 L (137-145) mmol/L Creatinine 0.47 L (0.52-1.04) mg/dL Glucose 131 H (74-99) mg/dL POC Glucose (mg/dL) 141 H (70-110) mg/dL Calcium 7.9 L (8.4-10.2) mg/dL Total Protein 4.5 L (6.3-8.2) g/dL Albumin 2.4 L (3.5-5.0) g/dL Assessment and Plan Plan: Acute abdomen with evidence of Volvulus and small bowel necrosis, status post surgery 05/21/2022 Underlying history of COPD Underlying history of coronary artery disease Underlying history of AICD placement Underlying history of cardiac arrhythmia Postoperative mechanical ventilation, patient was extubated on 05/20/2022 Episode of mild hypotension patient received 1 L of lactated Ringer, and received norepinephrine for pressure support At this time patient remains on IV Zosyn and Flagyl Acute blood loss secondary to surgery expected. Hemoglobin 6.2. 1 unit of PRBCs ordered Increased confusion. Psychiatry service is consulted Ativan order Hypotension blood and urine cultures ordered patient started on Levophed per critical care Patient remains in the intensive care unit Critical care, surgical services, cardiology and psychiatry service is consulted Plan new PICC line to be placed Blood and urine cultures ordered
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
[2022-05-28] MEDS: PANTOPRAZOLE 40 MG/10 ML VIAL IV SCH (10:13)
[2022-05-28] MEDS: METOPROLOL SUCCINATE (ER) 25 MG TAB.ER.24H PO SCH ×2 (10:13→21:37)
[2022-05-28] MEDS: APIXABAN 2.5 MG TABLET PO SCH ×2 (10:14→21:37)
[2022-05-28] MEDS: BRIMONIDINE TARTRATE 0.2% DROPS 5 ML BTL BOTH EYES SCH ×2 (10:15→21:47)
[2022-05-28] MEDS: DORZOLAMIDE-TIMOLOL 2.23%/0.68 10ML BTL BOTH EYES SCH ×2 (10:16→21:47)
--- NOTE | 2022-05-28 10:20 | P.PN ---
Subjective Progress Note Date: 05/28/22 Marina Vargas, he is an 86-year-old female presented to [facility] emergency room with a chief complaint of abdominal pain, with nausea and vomiting She was evaluated in the emergency room vital examination on presentation revealed a temperature of 96.9 pulse 80 respiration 18 blood pressure 133/76 pulse ox 98% on room air Laboratory data reveals a white blood count of 15.4 hemoglobin 10.6 platelet count 293 INR 1.8 sodium 131 potassium 4.2 chloride 99 CO2 23 BUN 15 creatinine 0.87 Testing in the emergency room revealed computed tomography scan of the abdomen and pelvis done in the emergency room revealed dilated thick-walled loops of ileum in the right lower quadrant with differential diagnosis of intussusception versus volulus, repeat computed tomography scan done with oral contrast revealed evidence of fluid density in the pelvis possible hemorrhage. Patient had evidence of acute abdomen she was taken to operating room by Dr. Louise and and evidence of small bowel necrosis and volvulus, and hemoperitoneum, patient had open exploratory laparotomy with small bowel resection and primary anastomosis and lysis of adhesion and reduction of small bowel volvulus, she was admitted to intensive care unit post surgery Past medical history is significant for history of coronary artery disease, history of COPD, history of cardiac arrhythmia with atrial fibrillation, history of AICD placement. On 05/22/2022 patient is resting comfortably in the intensive care unit. Per nursing staff patient did have some confusion last night seems to be improved. Patient remains on small dose of Levophed for pressure support at this time. Hemoglobin was 6.2 this AM. 1 unit PRBCs have been ordered. Patient remains nothing by mouth. Good urine output per nursing staff. White Blood cell 6.9. Current vital signs temp 97.3, heart rate 74, respiratory rate 15, blood pressure 102/75, oxygen saturation 97% on 3 L On 05/23/2022 patient was seen and examined in the ICU she is alert responsive in no apparent distress she had episodes of nausea and vomiting this morning she is complaining of abdominal pain otherwise she denies any complaints there is no fever or chills no headache or dizziness no chest pain no shortness of breath no cough and no urinary symptoms. On 05/24/2022 patient was seen and examined in the ICU patient is complaining of nausea and occasional vomiting she is still having some abdominal pain she is not passing any gas or having any bowel movements, temperature is 98.1 white blood count 9.0 hemoglobin 9.7 critical care are following patient is being considered for TPN, will continue to follow closely. On 05/25/2022 patient was seen and examined in the ICU she is still complaining of abdominal pain but is feeling better she is sitting up in a chair she is maintained on TPN for nutrition support she is passing gas and having liquid bowel movements, otherwise she denies any complaints there is no fever or chills no headache or dizziness no chest pain no shortness of breath no cough no nausea or vomiting no burning was urination no frequency or urgency and no hematuria On 05/26/2022 patient remains in the intensive care unit per nursing staff last night patient had increased confusion pulled out PICC line wound VAC. Patient was started on precedex critical care but did have drop in blood pressure requiring Levophed. Psychiatry service is consulted for increased confusion. Patient also given Ativan. Due to decrease in blood pressure will check blood and urine cultures. Critical care services, cardiology and surgical service is currently following. New PICC line to be placed On 05/27/2020 patient was seen and examined in the ICU she is alert, she has episodes of confusion, she has a new PICC line in and is maintained on TPN, she was seen by psychiatry and was started on Haldol and Zyprexa, she is afebrile, she is complaining of abdominal pain otherwise she denies any complaints, she is followed by pulmonary critical care , prognosis is guarded On 05/28/2022 patient is more alert. Patient remains in the ICU. Patient remains on p.m. Patient has been tolerating minimal diet. Critical care, surgical, psychiatry and cardiology services following. Dressing is clean dry and intact at this time patient denies chest pain or shortness breath. Patient denies nausea vomiting or diarrhea. Patient denies urinary burning or frequency Objective - Vital Signs Vital signs: Vital Signs Temp 97.2 F L 05/28/22 04:00 Pulse 70 05/28/22 07:00 Resp 11 L 05/28/22 07:00 BP 121/80 05/28/22 04:00 Pulse Ox 97 05/28/22 04:00 FiO2 21 05/26/22 19:19 Intake & Output 05/27/22 05/28/22 05/28/22 18:59 06:59 18:59 Intake Total 1665 990 90 Output Total 3170 100 Balance -1505 890 90 Intake: IV 90 990 90 .9 NS 20 220 20 Mvi, Adult No.4 with Vit 70 770 70 K 10 ml Trace (Conc-1Ml/ Dose) 1 ml Potassium Chloride 20 meq Potassium Phosphate 6 mmol Magnesium Sulfate gm 1 gm In Amino Acid 5%-D15w+ Lytes*E* 1,000 ml @ 70 mls/hr IV .BY DURATION JESSICA Rx#:[id number] Intake, IV Titration 1025 Amount Mvi, Adult No.4 with Vit 1025 K 10 ml Trace (Conc-1Ml/ Dose) 1 ml Potassium Chloride 20 meq Potassium Phosphate 6 mmol Magnesium Sulfate gm 1 gm In Amino Acid 5%-D15w+ Lytes*E* 1,000 ml @ 70 mls/hr IV .BY DURATION JESSICA Rx#:[id number] Oral 550 Output: Drainage 20 100 VERÓNICA Drain 20 100 Urine 3150 Other: Voiding Method Indwelling Catheter Toilet Bedside Commode Bedpan # Voids 2 2 1 # Bowel Movements 1 ABP, PAP, CO, CI - Last Documented Arterial Blood Pressure 85/73 - Exam In general patient is alert and oriented x 3 in no distress HEENT head normocephalic and atraumatic Neck is supple no JVD no goiter no lymphadenopathy no carotid bruit Chest examination is clear to auscultation no crackles no wheezing Cardiac exam reveals regular heart sounds S1 and S2 no gallops no murmurs Abdomen is soft with mild diffuse tenderness no organomegaly bowel sounds are sluggish Extremity exam reveals no edema no cyanosis or clubbing Neurological examination reveals no gross focal deficits - Labs CBC & Chem 7: 05/28/22 06:57 05/28/22 06:57 Labs: Abnormal Lab Results - Last 24 Hours (Table) 05/27/22 05/28/22 05/28/22 Range/Units 11:06 06:57 06:57 RBC 3.22 L (3.80-5.40) m/uL Hgb 10.3 L (11.4-16.0) gm/dL Hct 32.0 L (34.0-46.0) % Sodium 133 L (137-145) mmol/L Creatinine 0.44 L (0.52-1.04) mg/dL Glucose 124 H (74-99) mg/dL POC Glucose (mg/dL) 141 H (70-110) mg/dL Calcium 8.1 L (8.4-10.2) mg/dL Microbiology - Last 24 Hours (Table) 05/26/22 16:16 Blood Culture - Preliminary Blood No Growth after 24 hours Assessment and Plan Plan: Acute abdomen with evidence of Volvulus and small bowel necrosis, status post surgery 05/21/2022 Underlying history of COPD Underlying history of coronary artery disease Underlying history of AICD placement Underlying history of cardiac arrhythmia Postoperative mechanical ventilation, patient was extubated on 05/20/2022 Episode of mild hypotension patient received 1 L of lactated Ringer, and received norepinephrine for pressure support Acute blood loss secondary to surgery expected. Hemoglobin 6.2. 1 unit of PRBCs ordered Increased confusion. Psychiatry service is consulted Hypotension blood and urine cultures ordered patient started on Levophed per critical care. This has been weaned off Patient remains in the intensive care unit Critical care, surgical services, cardiology and psychiatry service is consulted Plan new PICC line to be placed Blood and urine cultures ordered
[2022-05-28] MEDS ORDERED: HALOPERIDOL ORAL SOLN 10 MG/5 ML CUP PO SCH (10:30)
[2022-05-28] MEDS: ACETAMINOPHEN TAB 325 MG TAB PO PRN (10:32)
--- NOTE | 2022-05-28 11:26 | P.PN ---
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 Family is at bedside. She is tolerating mechanical ground diet. No reports of abdominal pain. She is having bowel movements. She passing flatus. No further psychosis or delirium. She is on blood thinner Eliquis. ROS: No fevers or chills. No chest pain. No nausea or vomiting. PHYSICAL EXAM: VITAL SIGNS: Reviewed CONSTITUTIONAL: Well developed and underweight. EYES: Conjuctivae without sclera icterus. Extraocular movements grossly intact. HEAD, EARS, NOSE, THROAT: Moist buccal mucosa. Head is atraumatic, normocephalic. No nasal drainage. RESPIRATORY: Non-labored respirations and equal bilateral excursions. CARDIOVASCULAR: Palpable 2+ radial pulses. ABDOMEN: Dressing clean dry and intact. VERÓNICA is serous. MUSCULOSKELETAL: No gross deformity of the lower extremities noted. No clubbing. No cyanosis. SKIN: Good skin turgor. Well perfused. NEUROLOGIC: Cranial nerves II through XII grossly intact. No focal or lateralizing signs. PSYCH: Alert to person, place. CLINICAL LABS: Reviewed. WBC normal at 9.5. Hemoglobin improved 10.0-10.3 d espite anticoagulant. ASSESSMENT: 1. 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 Acute dementia 3. Acute blood loss anemia due to anticoagulant effect and pre-existing hemoperitoneum 4. Iron deficiency anemia PLAN: 1. She has made remarkable improvement during her hospital course. Recommend calorie count to discontinue TPN once nutritional goals met. 2. Continue Radhames-Conrad drain until outputs less than 30 mL daily. 3. Physical therapy occupational therapy 4. Continue anticoagulation. 5. Stable for discharge from a surgical standpoint once meeting nutritional goals and stable from a medical standpoint Objective - Vital Signs Vital signs: Vital Signs Temp 97.2 F L 05/28/22 04:00 Pulse 70 05/28/22 07:00 Resp 11 L 05/28/22 07:00 BP 121/80 05/28/22 04:00 Pulse Ox 97 05/28/22 04:00 FiO2 21 05/26/22 19:19 Intake & Output 0905/28/22 05/28/22 18:59 06:59 18:59 Intake Total 1665 990 90 Output Total 3170 100 Balance -1505 890 90 Intake: IV 90 990 90 .9 NS 20 220 20 Mvi, Adult No.4 with Vit 70 770 70 K 10 ml Trace (Conc-1Ml/ Dose) 1 ml Potassium Chloride 20 meq Potassium Phosphate 6 mmol Magnesium Sulfate gm 1 gm In Amino Acid 5%-D15w+ Lytes*E* 1,000 ml @ 70 mls/hr IV .BY DURATION JESSICA Rx#:[id number] Intake, IV Titration 1025 Amount Mvi, Adult No.4 with Vit 1025 K 10 ml Trace (Conc-1Ml/ Dose) 1 ml Potassium Chloride 20 meq Potassium Phosphate 6 mmol Magnesium Sulfate gm 1 gm In Amino Acid 5%-D15w+ Lytes*E* 1,000 ml @ 70 mls/hr IV .BY DURATION JESSICA Rx#:[id number] Oral 550 Output: Drainage 20 100 VERÓNICA Drain 20 100 Urine 3150 Other: Voiding Method Indwelling Catheter Toilet Bedside Commode Bedpan # Voids 2 2 1 # Bowel Movements 1 ABP, PAP, CO, CI - Last Documented Arterial Blood Pressure 85/73 - Labs CBC & Chem 7: 05/28/22 06:57 05/28/22 06:57 Labs: Abnormal Lab Results - Last 24 Hours (Table) 05/28/22 05/28/22 Range/Units 06:57 06:57 RBC 3.22 L (3.80-5.40) m/uL Hgb 10.3 L (11.4-16.0) gm/dL Hct 32.0 L (34.0-46.0) % Sodium 133 L (137-145) mmol/L Creatinine 0.44 L (0.52-1.04) mg/dL Glucose 124 H (74-99) mg/dL Calcium 8.1 L (8.4-10.2) mg/dL Microbiology - Last 24 Hours (Table) 05/26/22 16:16 Blood Culture - Preliminary Blood No Growth after 24 hours
--- NOTE | 2022-05-28 12:21 | P.PN ---
Progress Note - Text Progress Note Date: 05/28/22 Interval History: Patient was seen today for psychiatric follow-up regarding patient's delirium. Patient appears to be more directable today during conversation. She also appeared to have improvement in her attention span. She was more appropriate during interaction and showed an improvement in her affect. She was able to identify that she is in the hospital in [place], she knows her full name and when she was born. She was able to identify her daughter in the room. She knows that it is "Tuesday" today however does not know the specific date. She knows the current year. She denies any problems with depression or anxiety at this time. 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 She claims that she is able to sleep last night fairly however needed to go to the restroom every couple of hours. She was asleep mainly throughout the night. Improving appetite. At this time patient denies any suicidal or homical ideations, intent or plan. Patient denies any auditory, visual hallucinations and denies any paranoia or delusions. Patient denies any side effects from the medications and has been compliant with meds. Mental Status Exam: General Appearance: Patient appears to be thin, wearing glasses, stated age is alert, calmer today. Patient appears to have fair hygiene and grooming wearing hospital gown with improving eye contact. Behavior: Patient is lying in the bed, cooperative. Speech: Patient's speech is fluent and nonpressured, improvement. Mood/Affect: Patient reports their mood is "good", affect is congruent Suicidality/Homicidality: Patient denies having any suicidal or homicidal ideation intent or plan. Perceptions: Patient denies any visual hallucinations and denies any auditory hallucinations Though content/process: Disorganized, illogical and loose associations, improving mildly Memory and concentration: AOX2-3, has some trouble with the specific date however does know the day and also the year. improving attention span. follows following commands. Judgment and insight: improving mildly IMPRESSIONS: Delirium, multiple etiologies PLAN: -At this time patient DOES NOT meet criteria for inpatient psychiatric admission. -Delirium precautions recommended with patient including - avoiding use of narcotics and [employer]ER sedatives, limit anticholinergic medications when possible, frequent re-orientation, minimize use of restraints, open window shades during the day and close them at night -Would recommend the following medication changes/additions: Melatonin 6 mg daily at bedtime for sleep, Haldol liquid 1 mg twice a day for delirium/psychosis and continue weaning off over the next couple of days, Zyprexa by mouth and IM when necessary's for agitation/psychosis. remeron 7.5 mg qhs for insomnia/mood. please attempt to cut down on opioids as this will increase confusion/delirium. -Communicated plan to patient's patients family and nurse about plan. -at this time psychiatry will sign off. -Please contact with any questions.
[2022-05-28] MEDS: DEXTROSE 5%-0.45% NACL 1,000 ML IV SCH (16:01)
[2022-05-28 17:25] LABS: Glucose,Whole Blood 123 mg/dL (70-110)
[2022-05-28] MEDS: MELATONIN 3 MG TABLET PO SCH (21:37)
[2022-05-28] MEDS: LATANOPROST 0.005% OPHTH DROPS 2.5 ML BTL BOTH EYES SCH (21:46)
[2022-05-28] MEDS: MIRTAZAPINE 15 MG TAB PO SCH (22:00)
[2022-05-28] MEDS: HALOPERIDOL ORAL SOLN 10 MG/5 ML CUP PO SCH (22:26)
[2022-05-29 00:21] LABS: Glucose,Whole Blood 103 mg/dL (70-110)
[2022-05-29] MEDS: 1: MVI, ADULT NO.4 WITH VIT K 10 ML, TRACE (CONC-1ML/DOSE) 1 ML, POTASSIUM CHLORIDE 20 M IV SCH ×6 (00:46)
[2022-05-29 06:18] LABS: Glucose,Whole Blood 131 mg/dL (70-110)
[2022-05-29] MEDS: ACETAMINOPHEN TAB 325 MG TAB PO PRN ×2 (08:35→18:12)
[2022-05-29] MEDS: HALOPERIDOL ORAL SOLN 10 MG/5 ML CUP PO SCH ×2 (08:37→21:55)
[2022-05-29] MEDS: APIXABAN 2.5 MG TABLET PO SCH ×2 (08:41→21:50)
[2022-05-29] MEDS: PANTOPRAZOLE 40 MG/10 ML VIAL IV SCH (08:41)
[2022-05-29] MEDS: METOPROLOL SUCCINATE (ER) 25 MG TAB.ER.24H PO SCH ×2 (08:41→21:50)
[2022-05-29] MEDS: BRIMONIDINE TARTRATE 0.2% DROPS 5 ML BTL BOTH EYES SCH ×2 (08:42→21:53)
[2022-05-29] MEDS: DORZOLAMIDE-TIMOLOL 2.23%/0.68 10ML BTL BOTH EYES SCH ×2 (08:42→21:53)
[2022-05-29 09:10] LABS: Basophils # (A) 0.06 X 10*3/uL (0.00-0.10); Basophils % (A) 0.6 %; Eosinophils # (A) 0.34 X 10*3/uL (0.04-0.35); Eosinophils % (A) 3.4 %; HCT 27.4 % (37.2-46.3); HGB 9.3 g/dL (12.0-15.0); Lymphocytes # (A) 1.33 X 10*3/uL (0.90-5.00); Lymphocytes % (A) 13.1 %; MCH 31.8 pg (27.0-32.0); MCHC 33.9 g/dL (32.0-37.0); MCV 93.8 fL (80.0-97.0); Mean Platelet Volume 9.4 fL (9.5-12.2); Monocytes # (A) 0.59 X 10*3/uL (0.20-1.00); Monocytes % (A) 5.8 %; NRBC Per 100 WBC 0 /100 WBCS (0.0-0.0); Neutrophils # (A) 7.72 X 10*3/uL (1.80-7.70); Neutrophils % (A) 76.1 %; Platelet Count 275 X 10*3/uL (140-440); RBC 2.92 X 10*6/uL (4.10-5.20); RDW 15.1 % (11.5-14.5); WBC 10.14 X 10*3/uL (4.50-10.00)
[2022-05-29 09:28] LABS: African American GFR (CKD) 101.6 (60.0-200.0); Albumin 2.8 g/dL (3.8-4.9); Albumin/Globulin Ratio 1.47 (1.60-3.17); Anion Gap 7.2 mmol/L (10.00-18.00); BUN/Creat Ratio 29.8 Ratio (12.00-20.00); Blood Urea Nitrogen 14.9 mg/dL (9.0-27.0); Calcium 8.5 mg/dL (8.7-10.3); Carbon Dioxide 23.8 mmol/L (20.0-27.5); Globulin 1.9 g/dL (1.6-3.3); Magnesium 2.1 mg/dL (1.5-2.4); Non-African American GFR(CKD) 87.6 (60.0-200.0); Phosphorus 3.7 mg/dL (2.4-5.1); Potassium 4.7 mmol/L (3.5-5.5); Total Bilirubin 0.2 mg/dL (0.30-1.20); Total Protein 4.7 g/dL (6.2-8.2)
[2022-05-29 09:30] LABS: ALT 24 U/L (8-44); AST 40 U/L (13-35); African American GFR (CKD) 109.3 (60.0-200.0); Albumin 2.6 g/dL (3.8-4.9); Alkaline Phosphatase 53 U/L (41-126); BUN/Creat Ratio 37.75 Ratio (12.00-20.00); Blood Urea Nitrogen 15.1 mg/dL (9.0-27.0); Calcium 8.4 mg/dL (8.7-10.3); Carbon Dioxide 22.1 mmol/L (20.0-27.5); Chloride 103 mmol/L (96-109); Glucose 125 mg/dL (70-110); Non-African American GFR(CKD) 94.3 (60.0-200.0); Potassium 4.8 mmol/L (3.5-5.5); Sodium 133 mmol/L (135-145); Total Bilirubin <0.15 mg/dL (0.30-1.20); Total Protein 4.6 g/dL (6.2-8.2)
--- NOTE | 2022-05-29 12:09 | P.PN ---
Subjective Progress Note Date: 05/29/22 Principal diagnosis: Small bowel resection Patient doing well today. Complaining of mild back pain. She is tolerating her diet. No nausea or vomiting. White blood cell count 10.1, hemoglobin 9.3. VERÓNICA drain serosanguineous Objective - Vital Signs Vital signs: Vital Signs Temp 97.8 F 05/29/22 07:08 Pulse 88 05/29/22 08:40 Resp 18 05/29/22 07:08 BP 135/74 05/29/22 08:40 Pulse Ox 95 05/29/22 07:08 FiO2 21 05/26/22 19:19 Intake & Output 05/28/22 05/29/22 05/29/22 18:59 06:59 18:59 Intake Total 1734 840 Output Total 560 210 Balance 1174 630 Weight 58.8 kg Intake: IV 720 840 .9 NS 160 Mvi, Adult No.4 with Vit 560 840 K 10 ml Trace (Conc-1Ml/ Dose) 1 ml Potassium Chloride 20 meq Potassium Phosphate 6 mmol Magnesium Sulfate gm 1 gm In Amino Acid 5%-D15w+ Lytes*E* 1,000 ml @ 70 mls/hr IV .BY DURATION JESSICA Rx#:[id number] Intake, IV Titration 1014 Amount Potassium Chloride 20 meq 1014 Potassium Phosphate 6 mmol Magnesium Sulfate gm 1 gm In Amino Acid 5%- D15w+Lytes*E* 1,000 ml @ 70 mls/hr IV .BY DURATION JESSICA Rx#:[id number] Output: Drainage 60 60 VERÓNICA Drain 60 60 Urine 500 150 Other: Voiding Method Toilet Toilet Bedside Commode Bedside Commode # Voids 2 2 # Bowel Movements 1 ABP, PAP, CO, CI - Last Documented Arterial Blood Pressure 85/73 - Exam Abdomen: Soft, nondistended, incision clean dry, minimal tenderness - Labs CBC & Chem 7: 05/29/22 05:50 05/29/22 05:50 Labs: Abnormal Lab Results - Last 24 Hours (Table) 05/28/22 05/29/22 05/29/22 Range/Units 17:20 05:50 05:50 WBC 10.14 H (4.50-10.00) X 10*3/uL RBC 2.92 L (4.10-5.20) X 10*6/uL Hgb 9.3 L (12.0-15.0) g/dL Hct 27.4 L (37.2-46.3) % RDW 15.1 H (11.5-14.5) % MPV 9.4 L (9.5-12.2) fL Immature Gran # 0.10 H (0.00-0.04) X 10*3/uL Neutrophils # 7.72 H (1.80-7.70) X 10*3/uL Sodium 132 L (135-145) mmol/L Anion Gap 7.20 L (10.00-18.00) mmol/L Creatinine 0.5 L (0.6-1.5) mg/dL BUN/Creatinine Ratio 29.80 H (12.00-20.00) Ratio Glucose 129 H (70-110) mg/dL POC Glucose (mg/dL) 123 H (70-110) mg/dL Calcium 8.5 L (8.7-10.3) mg/dL Total Bilirubin 0.20 L (0.30-1.20) mg/dL AST 39 H (13-35) U/L Total Protein 4.7 L (6.2-8.2) g/dL Albumin 2.8 L (3.8-4.9) g/dL Albumin/Globulin Ratio 1.47 L (1.60-3.17) g/dL 05/29/22 05/29/22 Range/Units 05:50 06:15 WBC (4.50-10.00) X 10*3/uL RBC (4.10-5.20) X 10*6/uL Hgb (12.0-15.0) g/dL Hct (37.2-46.3) % RDW (11.5-14.5) % MPV (9.5-12.2) fL Immature Gran # (0.00-0.04) X 10*3/uL Neutrophils # (1.80-7.70) X 10*3/uL Sodium 133 L (135-145) mmol/L Anion Gap 7.90 L (10.00-18.00) mmol/L Creatinine 0.4 L (0.6-1.5) mg/dL BUN/Creatinine Ratio 37.75 H (12.00-20.00) Ratio Glucose 125 H (70-110) mg/dL POC Glucose (mg/dL) 131 H (70-110) mg/dL Calcium 8.4 L (8.7-10.3) mg/dL Total Bilirubin <0.15 L (0.30-1.20) mg/dL AST 40 H (13-35) U/L Total Protein 4.6 L (6.2-8.2) g/dL Albumin 2.6 L (3.8-4.9) g/dL Albumin/Globulin Ratio 1.30 L (1.60-3.17) g/dL Microbiology - Last 24 Hours (Table) 05/26/22 16:16 Blood Culture - Preliminary Blood No Growth after 48 hours 05/28/22 09:00 Urine Culture - Preliminary Urine,Voided Assessment and Plan (1) Bowel obstruction Narrative/Plan: Patient doing better gradually. She is eating better now that her family is bringing her food. Continue increasing activity. Keep VERÓNICA drain in place for now. Current Visit: Yes Status: Acute Code(s): K56.609 - UNSP INTESTNL OBST, UNSP TO PARTIAL VERSUS COMPLETE OBST SNOMED Code(s): 28133494
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
--- NOTE | 2022-05-29 15:09 | P.PN ---
Subjective Progress Note Date: 05/29/22 Marina Vargas, he is an 86-year-old female presented to [facility] emergency room with a chief complaint of abdominal pain, with nausea and vomiting She was evaluated in the emergency room vital examination on presentation revealed a temperature of 96.9 pulse 80 respiration 18 blood pressure 133/76 pulse ox 98% on room air Laboratory data reveals a white blood count of 15.4 hemoglobin 10.6 platelet count 293 INR 1.8 sodium 131 potassium 4.2 chloride 99 CO2 23 BUN 15 creatinine 0.87 Testing in the emergency room revealed computed tomography scan of the abdomen and pelvis done in the emergency room revealed dilated thick-walled loops of ileum in the right lower quadrant with differential diagnosis of intussusception versus volulus, repeat computed tomography scan done with oral contrast revealed evidence of fluid density in the pelvis possible hemorrhage. Patient had evidence of acute abdomen she was taken to operating room by Dr. Louise and and evidence of small bowel necrosis and volvulus, and hemoperitoneum, patient had open exploratory laparotomy with small bowel resection and primary anastomosis and lysis of adhesion and reduction of small bowel volvulus, she was admitted to intensive care unit post surgery Past medical history is significant for history of coronary artery disease, history of COPD, history of cardiac arrhythmia with atrial fibrillation, history of AICD placement. On 05/22/2022 patient is resting comfortably in the intensive care unit. Per nursing staff patient did have some confusion last night seems to be improved. Patient remains on small dose of Levophed for pressure support at this time. Hemoglobin was 6.2 this AM. 1 unit PRBCs have been ordered. Patient remains nothing by mouth. Good urine output per nursing staff. White Blood cell 6.9. Current vital signs temp 97.3, heart rate 74, respiratory rate 15, blood pressure 102/75, oxygen saturation 97% on 3 L On 05/23/2022 patient was seen and examined in the ICU she is alert responsive in no apparent distress she had episodes of nausea and vomiting this morning she is complaining of abdominal pain otherwise she denies any complaints there is no fever or chills no headache or dizziness no chest pain no shortness of breath no cough and no urinary symptoms. On 05/24/2022 patient was seen and examined in the ICU patient is complaining of nausea and occasional vomiting she is still having some abdominal pain she is not passing any gas or having any bowel movements, temperature is 98.1 white blood count 9.0 hemoglobin 9.7 critical care are following patient is being considered for TPN, will continue to follow closely. On 05/25/2022 patient was seen and examined in the ICU she is still complaining of abdominal pain but is feeling better she is sitting up in a chair she is maintained on TPN for nutrition support she is passing gas and having liquid bowel movements, otherwise she denies any complaints there is no fever or chills no headache or dizziness no chest pain no shortness of breath no cough no nausea or vomiting no burning was urination no frequency or urgency and no hematuria On 05/26/2022 patient remains in the intensive care unit per nursing staff last night patient had increased confusion pulled out PICC line wound VAC. Patient was started on precedex critical care but did have drop in blood pressure requiring Levophed. Psychiatry service is consulted for increased confusion. Patient also given Ativan. Due to decrease in blood pressure will check blood and urine cultures. Critical care services, cardiology and surgical service is currently following. New PICC line to be placed On 05/27/2020 patient was seen and examined in the ICU she is alert, she has episodes of confusion, she has a new PICC line in and is maintained on TPN, she was seen by psychiatry and was started on Haldol and Zyprexa, she is afebrile, she is complaining of abdominal pain otherwise she denies any complaints, she is followed by pulmonary critical care , prognosis is guarded On 05/28/2022 patient is more alert. Patient remains in the ICU. Patient remains on p.m. Patient has been tolerating minimal diet. Critical care, surgical, psychiatry and cardiology services following. Dressing is clean dry and intact at this time patient denies chest pain or shortness breath. Patient denies nausea vomiting or diarrhea. Patient denies urinary burning or frequency. On 05/29/2022 patient was seen and examined on the medical floor she is alert and oriented 3 in no apparent distress she is still requiring help to get out of bed dose stand up from sitting position otherwise she was able to walk in the hallway with help and with walker this morning she is feeling better her diet is improving she is denying any complaints at this time family is refusing any transferred to any senior living [facility] will consult Dr. Hatch for possible admission to [facility] Objective - Vital Signs Vital signs: Vital Signs Temp 97.8 F 05/29/22 11:26 Pulse 92 05/29/22 11:26 Resp 20 05/29/22 11:26 BP 112/70 05/29/22 11:26 Pulse Ox 99 05/29/22 11:26 FiO2 21 05/26/22 19:19 Intake & Output 05/28/22 05/29/22 05/29/22 18:59 06:59 18:59 Intake Total 1734 840 Output Total 560 210 Balance 1174 630 Weight 58.8 kg Intake: IV 720 840 .9 NS 160 Mvi, Adult No.4 with Vit 560 840 K 10 ml Trace (Conc-1Ml/ Dose) 1 ml Potassium Chloride 20 meq Potassium Phosphate 6 mmol Magnesium Sulfate gm 1 gm In Amino Acid 5%-D15w+ Lytes*E* 1,000 ml @ 70 mls/hr IV .BY DURATION [facility] Rx#:[id number] Intake, IV Titration 1014 Amount Potassium Chloride 20 meq 1014 Potassium Phosphate 6 mmol Magnesium Sulfate gm 1 gm In Amino Acid 5%- D15w+Lytes*E* 1,000 ml @ 70 mls/hr IV .BY DURATION [facility] Rx#:[id number] Output: Drainage 60 60 VERÓNICA Drain 60 60 Urine 500 150 Other: Voiding Method Toilet Toilet Toilet Bedside Commode Bedside Commode Bedside Commode # Voids 2 2 # Bowel Movements 1 ABP, PAP, CO, CI - Last Documented Arterial Blood Pressure 85/73 - Exam In general patient is alert and oriented x 3 in no distress HEENT head normocephalic and atraumatic Neck is supple no JVD no goiter no lymphadenopathy no carotid bruit Chest examination is clear to auscultation no crackles no wheezing Cardiac exam reveals regular heart sounds S1 and S2 no gallops no murmurs Abdomen is soft with mild diffuse tenderness no organomegaly bowel sounds are sluggish Extremity exam reveals no edema no cyanosis or clubbing Neurological examination reveals no gross focal deficits - Labs CBC & Chem 7: 05/29/22 05:50 05/29/22 05:50 Labs: Abnormal Lab Results - Last 24 Hours (Table) 05/28/22 05/29/22 05/29/22 Range/Units 17:20 05:50 05:50 WBC 10.14 H (4.50-10.00) X 10*3/uL RBC 2.92 L (4.10-5.20) X 10*6/uL Hgb 9.3 L (12.0-15.0) g/dL Hct 27.4 L (37.2-46.3) % RDW 15.1 H (11.5-14.5) % MPV 9.4 L (9.5-12.2) fL Immature Gran # 0.10 H (0.00-0.04) X 10*3/uL Neutrophils # 7.72 H (1.80-7.70) X 10*3/uL Sodium 132 L (135-145) mmol/L Anion Gap 7.20 L (10.00-18.00) mmol/L Creatinine 0.5 L (0.6-1.5) mg/dL BUN/Creatinine Ratio 29.80 H (12.00-20.00) Ratio Glucose 129 H (70-110) mg/dL POC Glucose (mg/dL) 123 H (70-110) mg/dL Calcium 8.5 L (8.7-10.3) mg/dL Total Bilirubin 0.20 L (0.30-1.20) mg/dL AST 39 H (13-35) U/L Total Protein 4.7 L (6.2-8.2) g/dL Albumin 2.8 L (3.8-4.9) g/dL Albumin/Globulin Ratio 1.47 L (1.60-3.17) g/dL 05/29/22 05/29/22 Range/Units 05:50 06:15 WBC (4.50-10.00) X 10*3/uL RBC (4.10-5.20) X 10*6/uL Hgb (12.0-15.0) g/dL Hct (37.2-46.3) % RDW (11.5-14.5) % MPV (9.5-12.2) fL Immature Gran # (0.00-0.04) X 10*3/uL Neutrophils # (1.80-7.70) X 10*3/uL Sodium 133 L (135-145) mmol/L Anion Gap 7.90 L (10.00-18.00) mmol/L Creatinine 0.4 L (0.6-1.5) mg/dL BUN/Creatinine Ratio 37.75 H (12.00-20.00) Ratio Glucose 125 H (70-110) mg/dL POC Glucose (mg/dL) 131 H (70-110) mg/dL Calcium 8.4 L (8.7-10.3) mg/dL Total Bilirubin <0.15 L (0.30-1.20) mg/dL AST 40 H (13-35) U/L Total Protein 4.6 L (6.2-8.2) g/dL Albumin 2.6 L (3.8-4.9) g/dL Albumin/Globulin Ratio 1.30 L (1.60-3.17) g/dL Microbiology - Last 24 Hours (Table) 05/28/22 09:00 Urine Culture - Final Urine,Voided 05/26/22 16:16 Blood Culture - Preliminary Blood No Growth after 48 hours Assessment and Plan Plan: Acute abdomen with evidence of Volvulus and small bowel necrosis, status post surgery 05/21/2022 Underlying history of COPD Underlying history of coronary artery disease Underlying history of AICD placement Underlying history of cardiac arrhythmia Postoperative mechanical ventilation, patient was extubated on 05/20/2022 Episode of mild hypotension patient received 1 L of lactated Ringer, and receiv ed norepinephrine for pressure support Acute blood loss secondary to surgery expected. Hemoglobin 6.2. 1 unit of PRBCs ordered Increased confusion. Psychiatry service is consulted Hypotension blood and urine cultures ordered patient started on Levophed per critical care. This has been weaned off Patient remains in the intensive care unit Critical care, surgical services, cardiology and psychiatry service is consulted Plan new PICC line to be placed Blood and urine cultures ordered
[2022-05-29] MEDS: [UNRECOGNIZED DRUG - REMARK] IV SCH ×5 (15:11)
[2022-05-29] MEDS: MELATONIN 3 MG TABLET PO SCH (21:49)
[2022-05-29] MEDS: MIRTAZAPINE 15 MG TAB PO SCH (21:50)
[2022-05-29] MEDS: LATANOPROST 0.005% OPHTH DROPS 2.5 ML BTL BOTH EYES SCH (21:53)
[2022-05-29] MEDS ORDERED: HALOPERIDOL ORAL SOLN 10 MG/5 ML CUP PO SCH (23:00)
[2022-05-30 00:39] LABS: Glucose,Whole Blood 108 mg/dL (70-110)
[2022-05-30] MEDS: ACETAMINOPHEN TAB 325 MG TAB PO PRN ×5 (03:36→19:45)
[2022-05-30 05:59] LABS: Glucose,Whole Blood 108 mg/dL (70-110)
[2022-05-30] MEDS: [UNRECOGNIZED DRUG - REMARK] IV SCH ×5 (06:11)
[2022-05-30 07:47] LABS: ALT 25 U/L (4-34); AST 36 U/L (14-36); African American GFR (CKD) >90 (>60 ml/min/1.73 sqM); Albumin/Globulin Ratio 1.3; Alkaline Phosphatase 64 U/L (38-126); Anion Gap 8 mmol/L; Blood Urea Nitrogen 19 mg/dL (7-17); Calcium 8.5 mg/dL (8.4-10.2); Carbon Dioxide 22 mmol/L (22-30); Chloride 102 mmol/L (98-107); Globulin 2.3 g/dL; Glucose 118 mg/dL (74-99); Magnesium 1.9 mg/dL (1.6-2.3); Non-African American GFR(CKD) 87 (>60 ml/min/1.73 sqM); Phosphorus 4.3 mg/dL (2.5-4.5); Potassium 4.5 mmol/L (3.5-5.1); Sodium 132 mmol/L (137-145); Total Bilirubin 0.4 mg/dL (0.2-1.3); Total Protein 5.3 g/dL (6.3-8.2)
[2022-05-30] MEDS: METOPROLOL SUCCINATE (ER) 25 MG TAB.ER.24H PO SCH ×2 (08:00→20:57)
[2022-05-30] MEDS: HALOPERIDOL ORAL SOLN 10 MG/5 ML CUP PO SCH ×2 (08:00→20:56)
[2022-05-30] MEDS: APIXABAN 2.5 MG TABLET PO SCH ×2 (08:00→20:56)
[2022-05-30] MEDS: PANTOPRAZOLE 40 MG/10 ML VIAL IV SCH (08:00)
[2022-05-30] MEDS: DORZOLAMIDE-TIMOLOL 2.23%/0.68 10ML BTL BOTH EYES SCH ×2 (08:01→19:46)
[2022-05-30] MEDS: BRIMONIDINE TARTRATE 0.2% DROPS 5 ML BTL BOTH EYES SCH ×2 (08:02→19:46)
[2022-05-30 10:19] LABS: Basophils # (A) 0.08 X 10*3/uL (0.00-0.10); Basophils % (A) 0.7 %; Eosinophils # (A) 0.36 X 10*3/uL (0.04-0.35); Eosinophils % (A) 3.3 %; HCT 30.4 % (37.2-46.3); HGB 9.8 g/dL (12.0-15.0); Immature Grans, Automated 1.2 %; Lymphocytes # (A) 1.37 X 10*3/uL (0.90-5.00); Lymphocytes % (A) 12.7 %; MCH 31.2 pg (27.0-32.0); MCHC 32.2 g/dL (32.0-37.0); MCV 96.8 fL (80.0-97.0); Mean Platelet Volume 9.5 fL (9.5-12.2); Monocytes # (A) 0.58 X 10*3/uL (0.20-1.00); Monocytes % (A) 5.4 %; NRBC Per 100 WBC 0 /100 WBCS (0.0-0.0); Neutrophils # (A) 8.28 X 10*3/uL (1.80-7.70); Neutrophils % (A) 76.7 %; Platelet Count 306 X 10*3/uL (140-440); RBC 3.14 X 10*6/uL (4.10-5.20); RDW 15.2 % (11.5-14.5)
--- NOTE | 2022-05-30 10:57 | P.PN ---
Subjective Progress Note Date: 05/30/22 Marina Vargas, he is an 86-year-old female presented to [facility] emergency room with a chief complaint of abdominal pain, with nausea and vomiting She was evaluated in the emergency room vital examination on presentation revealed a temperature of 96.9 pulse 80 respiration 18 blood pressure 133/76 pulse ox 98% on room air Laboratory data reveals a white blood count of 15.4 hemoglobin 10.6 platelet count 293 INR 1.8 sodium 131 potassium 4.2 chloride 99 CO2 23 BUN 15 creatinine 0.87 Testing in the emergency room revealed computed tomography scan of the abdomen and pelvis done in the emergency room revealed dilated thick-walled loops of ileum in the right lower quadrant with differential diagnosis of intussusception versus volulus, repeat computed tomography scan done with oral contrast revealed evidence of fluid density in the pelvis possible hemorrhage. Patient had evidence of acute abdomen she was taken to operating room by Dr. Louise and and evidence of small bowel necrosis and volvulus, and hemoperitoneum, patient had open exploratory laparotomy with small bowel resection and primary anastomosis and lysis of adhesion and reduction of small bowel volvulus, she was admitted to intensive care unit post surgery Past medical history is significant for history of coronary artery disease, history of COPD, history of cardiac arrhythmia with atrial fibrillation, history of AICD placement. On 05/22/2022 patient is resting comfortably in the intensive care unit. Per nursing staff patient did have some confusion last night seems to be improved. Patient remains on small dose of Levophed for pressure support at this time. Hemoglobin was 6.2 this AM. 1 unit PRBCs have been ordered. Patient remains nothing by mouth. Good urine output per nursing staff. White Blood cell 6.9. Current vital signs temp 97.3, heart rate 74, respiratory rate 15, blood pressure 102/75, oxygen saturation 97% on 3 L On 05/23/2022 patient was seen and examined in the ICU she is alert responsive in no apparent distress she had episodes of nausea and vomiting this morning she is complaining of abdominal pain otherwise she denies any complaints there is no fever or chills no headache or dizziness no chest pain no shortness of breath no cough and no urinary symptoms. On 05/24/2022 patient was seen and examined in the ICU patient is complaining of nausea and occasional vomiting she is still having some abdominal pain she is not passing any gas or having any bowel movements, temperature is 98.1 white blood count 9.0 hemoglobin 9.7 critical care are following patient is being considered for TPN, will continue to follow closely. On 05/25/2022 patient was seen and examined in the ICU she is still complaining of abdominal pain but is feeling better she is sitting up in a chair she is maintained on TPN for nutrition support she is passing gas and having liquid bowel movements, otherwise she denies any complaints there is no fever or chills no headache or dizziness no chest pain no shortness of breath no cough no nausea or vomiting no burning was urination no frequency or urgency and no hematuria On 05/26/2022 patient remains in the intensive care unit per nursing staff last night patient had increased confusion pulled out PICC line wound VAC. Patient was started on precedex critical care but did have drop in blood pressure requiring Levophed. Psychiatry service is consulted for increased confusion. Patient also given Ativan. Due to decrease in blood pressure will check blood and urine cultures. Critical care services, cardiology and surgical service is currently following. New PICC line to be placed On 05/27/2020 patient was seen and examined in the ICU she is alert, she has episodes of confusion, she has a new PICC line in and is maintained on TPN, she was seen by psychiatry and was started on Haldol and Zyprexa, she is afebrile, she is complaining of abdominal pain otherwise she denies any complaints, she is followed by pulmonary critical care , prognosis is guarded On 05/28/2022 patient is more alert. Patient remains in the ICU. Patient remains on p.m. Patient has been tolerating minimal diet. Critical care, surgical, psychiatry and cardiology services following. Dressing is clean dry and intact at this time patient denies chest pain or shortness breath. Patient denies nausea vomiting or diarrhea. Patient denies urinary burning or frequency. On 05/29/2022 patient was seen and examined on the medical floor she is alert and oriented 3 in no apparent distress she is still requiring help to get out of bed dose stand up from sitting position otherwise she was able to walk in the hallway with help and with walker this morning she is feeling better her diet is improving she is denying any complaints at this time family is refusing any transferred to any care home however they are agreeable to [facility], will consult Dr. Hatch for possible admission to [facility] On 05/30/2022 patient is alert and oriented [address] Jiménez has been consulted awaiting input for possible discharge to rehab placement. Family at bedside. Patient denies chest pain or shortness breath. Patient denies nausea vomiting or diarrhea. Patient denies any urinary burning or frequency Objective - Vital Signs Vital signs: Vital Signs Temp 97.6 F 05/30/22 05:00 Pulse 82 05/30/22 05:00 Resp 18 05/30/22 05:00 BP 126/83 05/30/22 05:00 Pulse Ox 97 05/30/22 05:00 FiO2 21 05/26/22 19:19 Intake & Output 05/29/22 05/30/22 05/30/22 18:59 06:59 18:59 Intake Total 120 850 296 Balance 120 850 296 Intake: IV 120 .9 NS 120 Oral 850 296 Other: Voiding Method Toilet Toilet Bedside Commode Bedside Commode # Voids 6 6 ABP, PAP, CO, CI - Last Documented Arterial Blood Pressure 85/73 - Exam In general patient is alert and oriented x 3 in no distress HEENT head normocephalic and atraumatic Neck is supple no JVD no goiter no lymphadenopathy no carotid bruit Chest examination is clear to auscultation no crackles no wheezing Cardiac exam reveals regular heart sounds S1 and S2 no gallops no murmurs Abdomen is soft with mild diffuse tenderness no organomegaly bowel sounds are sluggish Extremity exam reveals no edema no cyanosis or clubbing Neurological examination reveals no gross focal deficits - Labs CBC & Chem 7: 05/30/22 07:09 05/30/22 07:09 Labs: Abnormal Lab Results - Last 24 Hours (Table) 05/30/22 05/30/22 Range/Units 07:09 07:09 WBC 10.80 H (4.50-10.00) X 10*3/uL RBC 3.14 L (4.10-5.20) X 10*6/uL Hgb 9.8 L (12.0-15.0) g/dL Hct 30.4 L (37.2-46.3) % RDW 15.2 H (11.5-14.5) % Immature Gran # 0.13 H (0.00-0.04) X 10*3/uL Neutrophils # 8.28 H (1.80-7.70) X 10*3/uL Eosinophils # 0.36 H (0.04-0.35) X 10*3/uL Sodium 132 L (137-145) mmol/L BUN 19 H (7-17) mg/dL Glucose 118 H (74-99) mg/dL Total Protein 5.3 L (6.3-8.2) g/dL Albumin 3.0 L (3.5-5.0) g/dL Microbiology - Last 24 Hours (Table) 05/26/22 16:16 Blood Culture - Preliminary Blood No Growth after 72 hours 05/28/22 09:00 Urine Culture - Final Urine,Voided Assessment and Plan Plan: Acute abdomen with evidence of Volvulus and small bowel necrosis, status post surgery 05/21/2022 Underlying history of COPD Underlying history of coronary artery disease Underlying history of AICD placement Underlying history of cardiac arrhythmia Postoperative mechanical ventilation, patient was extubated on 05/20/2022 Episode of mild hypotension patient received 1 L of lactated Ringer, and received norepinephrine for pressure support Acute blood loss secondary to surgery expected. Hemoglobin 6.2. 1 unit of PRBCs ordered Increased confusion. Psychiatry service is consulted Hypotension blood and urine cultures ordered patient started on Levophed per critical care. This has been weaned off Patient remains in the intensive care unit Critical care, surgical services, cardiology and psychiatry service is consulted Plan new PICC line to be placed Blood and urine cultures ordered Dr. Larios consulted for possible inpatient rehab upon discharge
--- NOTE | 2022-05-30 11:46 | P.PN ---
Subjective Progress Note Date: 05/30/22 Principal diagnosis: Small bowel resection Patient doing well today. Complaining of mild soreness at the dressing site. VERÓNICA remained serosanguineous. Tolerating diet. Per the family she is eating more now than she does at home normally. Objective - Vital Signs Vital signs: Vital Signs Temp 97.6 F 05/30/22 05:00 Pulse 82 05/30/22 05:00 Resp 18 05/30/22 05:00 BP 126/83 05/30/22 05:00 Pulse Ox 97 05/30/22 05:00 FiO2 21 05/26/22 19:19 Intake & Output 05/29/22 05/30/22 05/30/22 18:59 06:59 18:59 Intake Total 120 850 296 Balance 120 850 296 Intake: IV 120 .9 NS 120 Oral 850 296 Other: Voiding Method Toilet Toilet Toilet Bedside Commode Bedside Commode Bedside Commode # Voids 6 6 ABP, PAP, CO, CI - Last Documented Arterial Blood Pressure 85/73 - Exam Abdomen: Soft, nondistended, mild incisional tenderness - Labs CBC & Chem 7: 05/30/22 07:09 05/30/22 07:09 Labs: Abnormal Lab Results - Last 24 Hours (Table) 05/30/22 05/30/22 Range/Units 07:09 07:09 WBC 10.80 H (4.50-10.00) X 10*3/uL RBC 3.14 L (4.10-5.20) X 10*6/uL Hgb 9.8 L (12.0-15.0) g/dL Hct 30.4 L (37.2-46.3) % RDW 15.2 H (11.5-14.5) % Immature Gran # 0.13 H (0.00-0.04) X 10*3/uL Neutrophils # 8.28 H (1.80-7.70) X 10*3/uL Eosinophils # 0.36 H (0.04-0.35) X 10*3/uL Sodium 132 L (137-145) mmol/L BUN 19 H (7-17) mg/dL Glucose 118 H (74-99) mg/dL Total Protein 5.3 L (6.3-8.2) g/dL Albumin 3.0 L (3.5-5.0) g/dL Microbiology - Last 24 Hours (Table) 05/26/22 16:16 Blood Culture - Preliminary Blood No Growth after 72 hours 05/28/22 09:00 Urine Culture - Final Urine,Voided Assessment and Plan (1) Bowel obstruction Narrative/Plan: Patient continues to improve. We'll discontinue TPN. Saline lock the IV. Increase activity. Possible inpatient rehab. Current Visit: Yes Status: Acute Code(s): K56.609 - UNSP INTESTNL OBST, UNSP TO PARTIAL VERSUS COMPLETE OBST SNOMED Code(s): 78270688
[2022-05-30 12:32] LABS: Glucose,Whole Blood 108 mg/dL (70-110)
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
[2022-05-30 17:27] LABS: Glucose,Whole Blood 106 mg/dL (70-110)
[2022-05-30] MEDS: LATANOPROST 0.005% OPHTH DROPS 2.5 ML BTL BOTH EYES SCH (19:46)
[2022-05-30] MEDS: MIRTAZAPINE 15 MG TAB PO SCH (20:56)
[2022-05-30] MEDS: MELATONIN 3 MG TABLET PO SCH (20:57)
[2022-05-31 00:13] LABS: Glucose,Whole Blood 148 mg/dL (70-110)
[2022-05-31] MEDS: ACETAMINOPHEN TAB 325 MG TAB PO PRN ×5 (00:42→19:50)
[2022-05-31 06:12] LABS: ALT 21 U/L (4-34); AST 29 U/L (14-36); African American GFR (CKD) >90 (>60 ml/min/1.73 sqM); Albumin 2.9 g/dL (3.5-5.0); Albumin/Globulin Ratio 1.3; Alkaline Phosphatase 72 U/L (38-126); Anion Gap 9 mmol/L; Blood Urea Nitrogen 21 mg/dL (7-17); Calcium 8.7 mg/dL (8.4-10.2); Carbon Dioxide 23 mmol/L (22-30); Chloride 101 mmol/L (98-107); Globulin 2.3 g/dL; Glucose 109 mg/dL (74-99); Magnesium 1.8 mg/dL (1.6-2.3); Non-African American GFR(CKD) 85 (>60 ml/min/1.73 sqM); Potassium 4.4 mmol/L (3.5-5.1); Sodium 133 mmol/L (137-145); Total Bilirubin 0.3 mg/dL (0.2-1.3); Total Protein 5.2 g/dL (6.3-8.2)
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
[2022-05-31 08:36] LABS: Basophils # (A) 0.09 X 10*3/uL (0.00-0.10); Basophils % (A) 0.9 %; Eosinophils # (A) 0.42 X 10*3/uL (0.04-0.35); Eosinophils % (A) 4.1 %; HCT 29.1 % (37.2-46.3); HGB 9.7 g/dL (12.0-15.0); Immature Grans, Automated 1.2 %; Lymphocytes # (A) 1.63 X 10*3/uL (0.90-5.00); Lymphocytes % (A) 15.9 %; MCH 32.2 pg (27.0-32.0); MCHC 33.3 g/dL (32.0-37.0); MCV 96.7 fL (80.0-97.0); Mean Platelet Volume 9.5 fL (9.5-12.2); Monocytes # (A) 0.63 X 10*3/uL (0.20-1.00); Monocytes % (A) 6.2 %; NRBC Per 100 WBC 0 /100 WBCS (0.0-0.0); Neutrophils # (A) 7.33 X 10*3/uL (1.80-7.70); Neutrophils % (A) 71.7 %; Platelet Count 339 X 10*3/uL (140-440); RBC 3.01 X 10*6/uL (4.10-5.20); WBC 10.22 X 10*3/uL (4.50-10.00)
[2022-05-31] MEDS: METOPROLOL SUCCINATE (ER) 25 MG TAB.ER.24H PO SCH ×2 (10:27→21:20)
[2022-05-31] MEDS: APIXABAN 2.5 MG TABLET PO SCH ×2 (10:27→21:20)
[2022-05-31] MEDS: PANTOPRAZOLE 40 MG/10 ML VIAL IV SCH (10:27)
[2022-05-31] MEDS: BRIMONIDINE TARTRATE 0.2% DROPS 5 ML BTL BOTH EYES SCH ×2 (10:28→19:51)
[2022-05-31] MEDS: DORZOLAMIDE-TIMOLOL 2.23%/0.68 10ML BTL BOTH EYES SCH ×2 (10:29→19:51)
--- NOTE | 2022-05-31 12:00 | P.PN ---
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 Patient is currently on a regular medical floor. Patient evaluated by physical therapy today the recommending home with home care. Patient is sleeping comfortably. Per nurse she ate 1/2 of her oatmeal. Afebrile. On Room air. WBC is 10.22 hemoglobin 9.7 platelets 339 sodium 133 potassium is 4.4 creatinine 0.56 patient was weaned off the TPN yesterday. VERÓNICA drain with 32 mL serosanguineous output PHYSICAL EXAM: VITAL SIGNS: Reviewed. GENERAL: Well-developed in no acute distress. HEENT: No sclera icterus. Extraocular movements grossly intact. Moist buccal mucosa. Head is atraumatic, normocephalic. ABDOMEN: Soft. Nondistended. Incisional dressing clean dry and intact NEUROLOGIC: Pleasantly confused ASSESSMENT: 1. 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 Acute dementia 3. Acute blood loss anemia due to anticoagulant effect and pre-existing hemoperitoneum 4. Hypotension 5. Iron deficiency anemia PLAN: -Continue dysphagia chopped diet -Continue supportive care -Continue Radhames-Conrad drain until outputs less than 30 mL daily -Stable for discharge from a surgical standpoint once meeting nutritional goals and stable from a medical standpoint Physician Supervisor [employer] note has been reviewed by physician. Signing provider agrees with the documented findings, assessment, and plan of care. 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 Family is at bedside. She is tolerating diet. Per discussion with family, patient anticipated to go home with physical therapy. She denies any moderate abdominal pain. She is passing flatus and bowel movements. ROS: No fevers or chills. No chest pain. PHYSICAL EXAM: VITAL SIGNS: Reviewed CONSTITUTIONAL: Well developed and underweight. EYES: Conjuctivae without sclera icterus. Extraocular movements grossly intact. HEAD, EARS, NOSE, THROAT: Moist buccal mucosa. Head is atraumatic, normocephalic. No nasal drainage. RESPIRATORY: Non-labored respirations and equal bilateral excursions. CARDIOVASCULAR: Palpable 2+ radial pulses. ABDOMEN: Dressing clean dry and intact. VERÓNICA is serous. MUSCULOSKELETAL: No gross deformity of the lower extremities noted. No clubbing. No cyanosis. SKIN: Good skin turgor. Well perfused. NEUROLOGIC: Cranial nerves II through XII grossly intact. No focal or lateralizing signs. PSYCH: Alert to person, place. CLINICAL LABS: Reviewed. WBC elevated 10.2. Hemoglobin 9.7. ASSESSMENT: 1. 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 Acute dementia 3. Acute blood loss anemia due to anticoagulant effect and pre-existing hemoperitoneum 4. Iron deficiency anemia PLAN: 1. May discontinue TPN and PICC line 2. May discontinue VERÓNICA drain for outputs less than 30 mL daily. 3. Stable discharge from surgical standpoint 4. All intra-abdominal cultures negative with antibiotics course completed Objective - Vital Signs Vital signs: Vital Signs Temp 98.1 F 05/31/22 05:00 Pulse 73 05/31/22 05:00 Resp 16 05/31/22 05:00 BP 98/60 05/31/22 05:00 Pulse Ox 98 05/31/22 05:00 FiO2 21 05/26/22 19:19 Intake & Output 05/30/22 05/31/22 05/31/22 18:59 06:59 18:59 Intake Total 1785 920 Output Total 32 Balance 1785 888 Intake: Intake, IV Titration 1013 320 Amount Mvi, Adult No.4 with Vit 1013 K 10 ml Trace (Conc-1Ml/ Dose) 1 ml Potassium Phosphate 3 mmol Magnesium Sulfate gm 0.5 gm In Amino Acid 5%-D15w+ Lytes*E* 1,000 ml @ 70 mls/hr IV .BY DURATION JESSICA Rx#:[id number] Sodium Acetate 12 meq 320 Magnesium Sulfate gm 0.75 gm In Amino Acid 5%-D15w +Lytes*E* 1,000 ml @ 70 mls/hr IV .BY DURATION JESSICA Rx#:[id number] Oral 772 600 Output: Drainage 32 VERÓNICA Drain 32 Other: Voiding Method Toilet Toilet Toilet Bedside Commode Bedside Commode Bedside Commode # Voids 1 4 ABP, PAP, CO, CI - Last Documented Arterial Blood Pressure 85/73 - Labs CBC & Chem 7: 05/31/22 05:15 05/31/22 05:15 Labs: Abnormal Lab Results - Last 24 Hours (Table) 05/31/22 05/31/22 05/31/22 Range/Units 00:08 05:15 05:15 WBC 10.22 H (4.50-10.00) X 10*3/uL RBC 3.01 L (4.10-5.20) X 10*6/uL Hgb 9.7 L (12.0-15.0) g/dL Hct 29.1 L (37.2-46.3) % MCH 32.2 H (27.0-32.0) pg RDW 15.0 H (11.5-14.5) % Immature Gran # 0.12 H (0.00-0.04) X 10*3/uL Eosinophils # 0.42 H (0.04-0.35) X 10*3/uL Sodium 133 L (137-145) mmol/L BUN 21 H (7-17) mg/dL Glucose 109 H (74-99) mg/dL POC Glucose (mg/dL) 148 H (70-110) mg/dL Total Protein 5.2 L (6.3-8.2) g/dL Albumin 2.9 L (3.5-5.0) g/dL Microbiology - Last 24 Hours (Table) 05/26/22 16:16 Blood Culture - Preliminary Blood No Growth after 96 hours
--- NOTE | 2022-05-31 17:13 | P.PN ---
Subjective Progress Note Date: 05/31/22 Marina Vargas, he is an 86-year-old female presented to [facility] emergency room with a chief complaint of abdominal pain, with nausea and vomiting She was evaluated in the emergency room vital examination on presentation revealed a temperature of 96.9 pulse 80 respiration 18 blood pressure 133/76 pulse ox 98% on room air Laboratory data reveals a white blood count of 15.4 hemoglobin 10.6 platelet count 293 INR 1.8 sodium 131 potassium 4.2 chloride 99 CO2 23 BUN 15 creatinine 0.87 Testing in the emergency room revealed computed tomography scan of the abdomen and pelvis done in the emergency room revealed dilated thick-walled loops of ileum in the right lower quadrant with differential diagnosis of intussusception versus volulus, repeat computed tomography scan done with oral contrast revealed evidence of fluid density in the pelvis possible hemorrhage. Patient had evidence of acute abdomen she was taken to operating room by Dr. Louise and and evidence of small bowel necrosis and volvulus, and hemoperitoneum, patient had open exploratory laparotomy with small bowel resection and primary anastomosis and lysis of adhesion and reduction of small bowel volvulus, she was admitted to intensive care unit post surgery Past medical history is significant for history of coronary artery disease, history of COPD, history of cardiac arrhythmia with atrial fibrillation, history of AICD placement. On 05/22/2022 patient is resting comfortably in the intensive care unit. Per nursing staff patient did have some confusion last night seems to be improved. Patient remains on small dose of Levophed for pressure support at this time. Hemoglobin was 6.2 this AM. 1 unit PRBCs have been ordered. Patient remains nothing by mouth. Good urine output per nursing staff. White Blood cell 6.9. Current vital signs temp 97.3, heart rate 74, respiratory rate 15, blood pressure 102/75, oxygen saturation 97% on 3 L On 05/23/2022 patient was seen and examined in the ICU she is alert responsive in no apparent distress she had episodes of nausea and vomiting this morning she is complaining of abdominal pain otherwise she denies any complaints there is no fever or chills no headache or dizziness no chest pain no shortness of breath no cough and no urinary symptoms. On 05/24/2022 patient was seen and examined in the ICU patient is complaining of nausea and occasional vomiting she is still having some abdominal pain she is not passing any gas or having any bowel movements, temperature is 98.1 white blood count 9.0 hemoglobin 9.7 critical care are following patient is being considered for TPN, will continue to follow closely. On 05/25/2022 patient was seen and examined in the ICU she is still complaining of abdominal pain but is feeling better she is sitting up in a chair she is maintained on TPN for nutrition support she is passing gas and having liquid bowel movements, otherwise she denies any complaints there is no fever or chills no headache or dizziness no chest pain no shortness of breath no cough no nausea or vomiting no burning was urination no frequency or urgency and no hematuria On 05/26/2022 patient remains in the intensive care unit per nursing staff last night patient had increased confusion pulled out PICC line wound VAC. Patient was started on precedex critical care but did have drop in blood pressure requiring Levophed. Psychiatry service is consulted for increased confusion. Patient also given Ativan. Due to decrease in blood pressure will check blood and urine cultures. Critical care services, cardiology and surgical service is currently following. New PICC line to be placed On 05/27/2020 patient was seen and examined in the ICU she is alert, she has episodes of confusion, she has a new PICC line in and is maintained on TPN, she was seen by psychiatry and was started on Haldol and Zyprexa, she is afebrile, she is complaining of abdominal pain otherwise she denies any complaints, she is followed by pulmonary critical care , prognosis is guarded On 05/28/2022 patient is more alert. Patient remains in the ICU. Patient remains on p.m. Patient has been tolerating minimal diet. Critical care, surgical, psychiatry and cardiology services following. Dressing is clean dry and intact at this time patient denies chest pain or shortness breath. Patient denies nausea vomiting or diarrhea. Patient denies urinary burning or frequency. On 05/29/2022 patient was seen and examined on the medical floor she is alert and oriented 3 in no apparent distress she is still requiring help to get out of bed dose stand up from sitting position otherwise she was able to walk in the hallway with help and with walker this morning she is feeling better her diet is improving she is denying any complaints at this time family is refusing any transferred to any alf however [facility] will consult Dr. Hatch for possible admission to [facility] On 05/30/2022 patient is alert and oriented [address] Dr[address] Jiménez has been consulted awaiting input for possible discharge to rehab placement. Family at bedside. Patient denies chest pain or shortness breath. Patient denies nausea vomiting or diarrhea. Patient denies any urinary burning or frequency On 05/31/2022 patient was seen and examined on the medical floor she is alert and oriented 3 in no apparent distress last night she had episodes of worsening shortness of breath and her daughter contacted her criminal justice social worker who advised to check chest x-ray and BNP to rule out fluid overload otherwise TPN has been discontinued patient is having good oral intake she still has a drain tube in, possible discharge to home tomorrow, she was not accepted at [facility], and patient and her family don't want to go to any of the nursing homes for rehabilitation they prefer home with home care and family will provide 24-hour care. Objective - Vital Signs Vital signs: Vital Signs Temp 98.1 F 05/31/22 05:00 Pulse 73 05/31/22 05:00 Resp 16 05/31/22 05:00 BP 98/60 05/31/22 05:00 Pulse Ox 98 05/31/22 05:00 FiO2 21 05/26/22 19:19 Intake & Output 05/30/22 05/31/22 05/31/22 18:59 06:59 18:59 Intake Total 1785 920 Output Total 32 Balance 1785 888 Weight 58.8 kg Intake: Intake, IV Titration 1013 320 Amount Mvi, Adult No.4 with Vit 1013 K 10 ml Trace (Conc-1Ml/ Dose) 1 ml Potassium Phosphate 3 mmol Magnesium Sulfate gm 0.5 gm In Amino Acid 5%-D15w+ Lytes*E* 1,000 ml @ 70 mls/hr IV .BY DURATION JESSICA Rx#:[id number] Sodium Acetate 12 meq 320 Magnesium Sulfate gm 0.75 gm In Amino Acid 5%-D15w +Lytes*E* 1,000 ml @ 70 mls/hr IV .BY DURATION JESSICA Rx#:[id number] Oral 772 600 Output: Drainage 32 VERÓNICA Drain 32 Other: Voiding Method Toilet Toilet Toilet Bedside Commode Bedside Commode Bedside Commode # Voids 1 4 ABP, PAP, CO, CI - Last Documented Arterial Blood Pressure 85/73 - Exam In general patient is alert and oriented x 3 in no distress HEENT head normocephalic and atraumatic Neck is supple no JVD no goiter no lymphadenopathy no carotid bruit Chest examination is clear to auscultation no crackles no wheezing Cardiac exam reveals regular heart sounds S1 and S2 no gallops no murmurs Abdomen is soft with mild diffuse tenderness no organomegaly bowel sounds are sluggish Extremity exam reveals no edema no cyanosis or clubbing Neurological examination reveals no gross focal deficits - Labs CBC & Chem 7: 05/31/22 05:15 05/31/22 05:15 Labs: Abnormal Lab Results - Last 24 Hours (Table) 05/31/22 05/31/22 05/31/22 Range/Units 00:08 05:15 05:15 WBC 10.22 H (4.50-10.00) X 10*3/uL RBC 3.01 L (4.10-5.20) X 10*6/uL Hgb 9.7 L (12.0-15.0) g/dL Hct 29.1 L (37.2-46.3) % MCH 32.2 H (27.0-32.0) pg RDW 15.0 H (11.5-14.5) % Immature Gran # 0.12 H (0.00-0.04) X 10*3/uL Eosinophils # 0.42 H (0.04-0.35) X 10*3/uL Sodium 133 L (137-145) mmol/L BUN 21 H (7-17) mg/dL Glucose 109 H (74-99) mg/dL POC Glucose (mg/dL) 148 H (70-110) mg/dL Total Protein 5.2 L (6.3-8.2) g/dL Albumin 2.9 L (3.5-5.0) g/dL Microbiology - Last 24 Hours (Table) 05/26/22 16:16 Blood Culture - Preliminary Blood No Growth after 96 hours Assessment and Plan Plan: Acute abdomen with evidence of Volvulus and small bowel necrosis, status post surgery 05/21/2022 Underlying history of COPD Underlying history of coronary artery disease Underlying history of AICD placement Underlying history of cardiac arrhythmia Postoperative mechanical ventilation, patient was extubated on 05/20/2022 Episode of mild hypotension patient received 1 L of lactated Ringer, and received norepinephrine for pressure support Acute blood loss secondary to surgery expected. Hemoglobin 6.2. 1 unit of WA BCs ordered Increased confusion. Psychiatry service is consulted Hypotension blood and urine cultures ordered patient started on Levophed per critical care. This has been weaned off Patient remains in the intensive care unit Critical care, surgical services, cardiology and psychiatry service is consulted Plan new PICC line to be placed Blood and urine cultures ordered Dr. Larios consulted for possible inpatient rehab upon discharge
--- NOTE | 2022-05-31 18:46 | XR ---
EXAMINATION TYPE: XR lumbar spine 2 or 3V DATE OF EXAM: 05/31/2022 COMPARISON: None HISTORY: Low back pain TECHNIQUE: 3 views FINDINGS: Vertebra have fairly normal alignment. There is osteopenia. There is disc space narrowing f rom L3 to S1. No compression fracture. Abdominal aorta is atheromatous. Sacroiliac joints are intact. IMPRESSION: Mild spondylotic changes. No fracture seen.
--- NOTE | 2022-05-31 18:49 | XR ---
EXAMINATION TYPE: XR chest 1V portable DATE OF EXAM: 05/31/2022 COMPARISON: 05/26/2022 HISTORY: Short of breath TECHNIQUE: FINDINGS: Heart is normal. Lungs are clear of infiltrate. No heart failure. There is left axillary pa cemaker. There is no pleural effusion. There are no hilar masses. IMPRESSION: No active cardiopulmonary disease. Normal heart. There is clearing of some infiltrate beh ind the heart in the left lower lobe and pleural fluid compared to old exam.
[2022-05-31] MEDS: LATANOPROST 0.005% OPHTH DROPS 2.5 ML BTL BOTH EYES SCH (19:51)
[2022-05-31] MEDS: MELATONIN 3 MG TABLET PO SCH (21:20)
[2022-05-31] MEDS: MIRTAZAPINE 15 MG TAB PO SCH (21:20)
[2022-06-01] MEDS: ACETAMINOPHEN TAB 325 MG TAB PO PRN ×3 (02:17→10:28)
[2022-06-01 07:03] LABS: ALT 19 U/L (4-34); AST 27 U/L (14-36); African American GFR (CKD) >90 (>60 ml/min/1.73 sqM); Albumin 3.1 g/dL (3.5-5.0); Albumin/Globulin Ratio 1.2; Alkaline Phosphatase 76 U/L (38-126); Anion Gap 10 mmol/L; Blood Urea Nitrogen 17 mg/dL (7-17); Calcium 8.7 mg/dL (8.4-10.2); Carbon Dioxide 22 mmol/L (22-30); Chloride 101 mmol/L (98-107); Globulin 2.5 g/dL; Glucose 92 mg/dL (74-99); Magnesium 1.7 mg/dL (1.6-2.3); Non-African American GFR(CKD) 81 (>60 ml/min/1.73 sqM); Phosphorus 4.1 mg/dL (2.5-4.5); Potassium 4.4 mmol/L (3.5-5.1); Sodium 133 mmol/L (137-145); Total Bilirubin 0.3 mg/dL (0.2-1.3); Total Protein 5.6 g/dL (6.3-8.2)
[2022-06-01 07:24] VITALS: BP 102/69; PULSE 110; RESP 16; TEMP 97.8
[2022-06-01] MEDS: DORZOLAMIDE-TIMOLOL 2.23%/0.68 10ML BTL BOTH EYES SCH (09:31)
[2022-06-01] MEDS: BRIMONIDINE TARTRATE 0.2% DROPS 5 ML BTL BOTH EYES SCH (09:32)
[2022-06-01 09:34] LABS: Basophils # (A) 0.08 X 10*3/uL (0.00-0.10); Basophils % (A) 0.8 %; Eosinophils # (A) 0.34 X 10*3/uL (0.04-0.35); Eosinophils % (A) 3.5 %; HCT 30.1 % (37.2-46.3); Lymphocytes # (A) 1.71 X 10*3/uL (0.90-5.00); Lymphocytes % (A) 17.7 %; MCH 31.8 pg (27.0-32.0); MCHC 33.2 g/dL (32.0-37.0); MCV 95.9 fL (80.0-97.0); Mean Platelet Volume 9.5 fL (9.5-12.2); Monocytes # (A) 0.62 X 10*3/uL (0.20-1.00); Monocytes % (A) 6.4 %; NRBC Per 100 WBC 0 /100 WBCS (0.0-0.0); Neutrophils # (A) 6.83 X 10*3/uL (1.80-7.70); Neutrophils % (A) 70.6 %; Platelet Count 376 X 10*3/uL (140-440); RBC 3.14 X 10*6/uL (4.10-5.20); RDW 15.2 % (11.5-14.5); WBC 9.68 X 10*3/uL (4.50-10.00)
[2022-06-01] MEDS: APIXABAN 2.5 MG TABLET PO SCH (09:34)
[2022-06-01] MEDS: PANTOPRAZOLE 40 MG/10 ML VIAL IV SCH (09:34)
[2022-06-01] MEDS: METOPROLOL SUCCINATE (ER) 25 MG TAB.ER.24H PO SCH (09:35)
--- NOTE | 2022-06-01 13:03 | P.PN ---
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 Patient is lying in bed comfortably. She is scheduled for discharge today. Her pain is controlled. She is tolerating diet. VERÓNICA drain with 47 mL serosanguineous output yesterday. Afebrile. WBC is down from 10.222 9.68 hemoglobin 10.0 PHYSICAL EXAM: VITAL SIGNS: Reviewed. GENERAL: Well-developed in no acute distress. HEENT: No sclera icterus. Extraocular movements grossly intact. Moist buccal mucosa. Head is atraumatic, normocephalic. ABDOMEN: Soft. Nondistended. Incision is clean dry and intact. VERÓNICA drain was a single dose output NEUROLOGIC: Awake and alert ASSESSMENT: 1. 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 Acute dementia 3. Acute blood loss anemia due to anticoagulant effect and pre-existing hemoper itoneum 4. Hypotension resolved 5. Iron deficiency anemia PLAN: -Patient can be discharged from surgical standpoint -Patient can be discharged without antibiotics. 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 Signing provider agrees with the documented findings, assessment, and plan of care. Please see additional documentation below. Patient tolerating diet. All cultures has been negative for active infection. Albumin less than 3.0. Overall, stable from a surgical standpoint for discharge. Follow-up as outpatient for removal of VERÓNICA drain. Objective - Vital Signs Vital signs: Vital Signs Temp 97.8 F 06/01/22 07:20 Pulse 110 H 06/01/22 08:00 Resp 16 06/01/22 08:00 BP 102/69 06/01/22 07:20 Pulse Ox 99 06/01/22 07:20 FiO2 21 05/26/22 19:19 Intake & Output 05/31/22 06/01/22 06/01/22 18:59 06:59 18:59 Intake Total 70 Output Total 15 Balance 55 Weight 58.8 kg Intake: Intake, IV Titration 70 Amount Sodium Acetate 12 meq 70 Magnesium Sulfate gm 0.75 gm In Amino Acid 5%-D15w +Lytes*E* 1,000 ml @ 70 mls/hr IV .[facility] Rx#:[id number] Output: Drainage 15 VERÓNICA Drain 15 Other: Voiding Method Toilet Toilet Toilet Bedside Commode Bedside Commode Bedside Commode ABP, PAP, CO, CI - Last Documented Arterial Blood Pressure 85/73 - Labs CBC & Chem 7: 06/01/22 06:00 06/01/22 06:00 Labs: Abnormal Lab Results - Last 24 Hours (Table) 06/01/22 06/01/22 Range/Units 06:00 06:00 RBC 3.14 L (4.10-5.20) X 10*6/uL Hgb 10.0 L (12.0-15.0) g/dL Hct 30.1 L (37.2-46.3) % RDW 15.2 H (11.5-14.5) % Immature Gran # 0.10 H (0.00-0.04) X 10*3/uL Sodium 133 L (137-145) mmol/L Total Protein 5.6 L (6.3-8.2) g/dL Albumin 3.1 L (3.5-5.0) g/dL Microbiology - Last 24 Hours (Table) 05/26/22 16:16 Blood Culture - Preliminary Blood No Growth after 120 hours
--- NOTE | 2022-06-03 11:37 | CDI ---
Documentation Clarification Form Date: 06/03/22 From: Evette Mota Admit Date: 05/19/2022 07:41:00 PM Patient Name: Marina Vargas Visit Number: [id number] Discharge Date: 06/01/2022 12:05:00 PM ATTENTION: The Clinical Documentation Specialists (CDI) and [facility] Coding Staff appreciate your assistance in clarifying documentation. Please respond to the clarification below the line at the bottom and electronically sign. The CDI & [facility] Coding staff will review the response and follow-up if needed. Please note: Queries are made part of the Legal Health Record. If you have any questions, please contact the author of this message via ITS. Dr. Lisandro Aranda, Malnourished is documented in the 05/[address] Humphries. Additional clarification regarding the severity of malnutrition is requested. History/Risk Factors: Pt is an 86 year old female admitted with abdominal pain and possible volvulus/bowel obstruction. Multiple episodes of vomiting and diarrhea noted prior to arrival. Hx: CAD, CHF, atrial flutter, OA; surgical hx: appendectomy and multiple C-sections. S/P code stroke, S/P exploratory laparatomy with small bowel resection secondary to small bowel necrosis and closed loop obstruction and volvulus Clinical Indicators: She looks quite malnourshed. Current BMI: 26.2 Insufficient energy intake: inadequate oral intake Weight Loss: Wound healing post surgery Treatment: Dietary Consult: Pt NPO x 5 days post gastric surgery. Pt had intractable N/V when started on a clear liquid diet. Pt's diet was downgraded to NPO again. Pt hasn't had a BM yet or bowel sounds. Pt is waiting to get a PICC line placed today to initiate TPN. TPN: started Lab monitoring: Total Protein: 6.7, 5.4, 4.7, 4.2, 4.5, 4.4, 4.4, 4.5, 4.7, 4.6, 5.3, 5.2, 5.6 (05/19-06/01) Albumin:,4.2, 3.2, 2.7, 2.2, 2.4, 2.3, 2.3, 2.4, 2.8, 2.6, 3.0, 2.9, 3.1 (05/19-06/01) Please clarify the type of malnutrition, if known: [ ] Mild Protein-Calorie Malnutrition [x ] Moderate Protein-Calorie Malnutrition [ ] Severe Protein-Calorie Malnutrition [ ] Malnutrition, unspecified [ ] Other condition, please specify [ ] Unable to Determine MTDD
== END 2022-06-01 12:05 | disposition home health service (06) | DRG 329 ==
LOC: EC 13:37 → 5NMEDONC 19:41 → 2SICU 05-20 14:18 → 5NMEDONC 05-28 14:04
PROVIDERS: ADMIT Internal Medicine; ATTEND Internal Medicine
PROC: 3E033XZ Introduction of Vasopressor into Peripheral Vein, Percutaneous Approach (ICD-10-PCS; 2022-05-20)
PROC: 30233K1 Transfusion of Nonautologous Frozen Plasma into Peripheral Vein, Percutaneous Approach (ICD-10-PCS; 2022-05-20)
PROC: 0DS80ZZ Reposition Small Intestine, Open Approach (ICD-10-PCS; principal; 2022-05-20 12:30)
PROC: 3E1M38Z Irrigation of Peritoneal Cavity using Irrigating Substance, Percutaneous Approach (ICD-10-PCS; principal; 2022-05-20 12:30)
PROC: 0DN80ZZ Release Small Intestine, Open Approach (ICD-10-PCS; principal; 2022-05-20 12:30)
PROC: 0DNW0ZZ Release Peritoneum, Open Approach (ICD-10-PCS; principal; 2022-05-20 12:30)
PROC: 0DB80ZZ Excision of Small Intestine, Open Approach (ICD-10-PCS; principal; 2022-05-20 12:30)
PROC: 0D9670Z Drainage of Stomach with Drainage Device, Via Natural or Artificial Opening (ICD-10-PCS; 2022-05-20 12:30)
PROC: 30233N1 Transfusion of Nonautologous Red Blood Cells into Peripheral Vein, Percutaneous Approach (ICD-10-PCS; 2022-05-22)
PROC: 02HV33Z Insertion of Infusion Device into Superior Vena Cava, Percutaneous Approach (ICD-10-PCS; 2022-05-24)
PROC: 3E0436Z Introduction of Nutritional Substance into Central Vein, Percutaneous Approach (ICD-10-PCS; 2022-05-24)
PROC: 02HV33Z Insertion of Infusion Device into Superior Vena Cava, Percutaneous Approach (ICD-10-PCS; 2022-05-26)
DX: K55.029 Acute infarction of small intestine, extent unspecified (principal); G93.41 Metabolic encephalopathy; K66.1 Hemoperitoneum; K56.2 Volvulus; K65.9 Peritonitis, unspecified; K46.1 Unspecified abdominal hernia with gangrene; E44.0 Moderate protein-calorie malnutrition; D68.32 Hemorrhagic disorder due to extrinsic circulating anticoagulants; F05 Delirium due to known physiological condition; I42.8 Other cardiomyopathies; R18.8 Other ascites; D62 Acute posthemorrhagic anemia; I48.19 Other persistent atrial fibrillation; K56.7 Ileus, unspecified; I48.92 Unspecified atrial flutter; I50.32 Chronic diastolic (congestive) heart failure; Z68.1 Body mass index [BMI] 19.9 or less, adult; J98.11 Atelectasis; I11.0 Hypertensive heart disease with heart failure; F03.90 Unspecified dementia, unspecified severity, without behavioral disturbance, psychotic disturbance, mood disturbance, and anxiety; J44.9 Chronic obstructive pulmonary disease, unspecified; F10.21 Alcohol dependence, in remission; I95.81 Postprocedural hypotension; N73.6 Female pelvic peritoneal adhesions (postinfective); M54.9 Dorsalgia, unspecified; I25.10 Atherosclerotic heart disease of native coronary artery without angina pectoris; I49.3 Ventricular premature depolarization; H54.61 Unqualified visual loss, right eye, normal vision left eye; M19.90 Unspecified osteoarthritis, unspecified site; T45.515A Adverse effect of anticoagulants, initial encounter; Z53.31 Laparoscopic surgical procedure converted to open procedure; Z79.01 Long term (current) use of anticoagulants; Z79.899 Other long term (current) drug therapy; Z78.1 Physical restraint status; Z91.81 History of falling; Z95.810 Presence of automatic (implantable) cardiac defibrillator; Z60.2 Problems related to living alone; Z88.5 Allergy status to narcotic agent; Z88.8 Allergy status to other drugs, medicaments and biological substances; Z88.6 Allergy status to analgesic agent; Z91.030 Bee allergy status
CPT/HCPCS: 36415; 36573; 71045; 72100; 74176; 74177; 80048; 80053; 81001; 82150; 82330; 82533; 82728; 82805; 83540; 83550; 83605; 83690; 83735; 83880; 84100; 84132; 84478; 84484; 85025; 85027; 85610; 85730; 86850; 86900; 86901; 86920; 87040; 87070; 87086; 87205; 88305; 88307; 93005; 93306; 94002; 94760; 96374; 96375; 96376; 99285

== ENCOUNTER 2022-06-03 14:44 | Emergency (ER) | payer MEDICARE, BC ==
[2022-06-03 14:55] VITALS: TEMP 98
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
[2022-06-03] MEDS ORDERED: SODIUM CHLORIDE 0.9% 1,000 ML IV STA (15:07)
[2022-06-03 15:15] LABS: Basophils # (A) 0.1 k/uL (0-0.2); Basophils % (A) 1 %; Eosinophils # (A) 0.3 k/uL (0-0.7); Eosinophils % (A) 3 %; HCT 29.5 % (34.0-46.0); HGB 9.7 gm/dL (11.4-16.0); Lymphocytes # (A) 1.4 k/uL (1.0-4.8); Lymphocytes % (A) 17 %; MCH 31.7 pg (25.0-35.0); MCV 96.2 fL (80.0-100.0); Mean Platelet Volume 7.9; Monocytes # (A) 0.4 k/uL (0-1.0); Monocytes % (A) 5 %; Neutrophils # (A) 5.9 k/uL (1.3-7.7); Neutrophils % (A) 72 %; Platelet Count 408 k/uL (150-450); RBC 3.07 m/uL (3.80-5.40); RDW 14.4 % (11.5-15.5); WBC 8.2 k/uL (3.8-10.6)
[2022-06-03 15:24] LABS: Albumin 3.3 g/dL (3.5-5.0); Calcium 8.3 mg/dL (8.4-10.2); INR 1.5 (<1.2); Magnesium 1.9 mg/dL (1.6-2.3); Partial Thromboplastin Time 26.6 sec (22.0-30.0); Potassium 3.7 mmol/L (3.5-5.1); Prothrombin Time 15.6 sec (9.0-12.0); Total Bilirubin 0.1 mg/dL (0.2-1.3); Total Protein 5.8 g/dL (6.3-8.2)
[2022-06-03 17:27] VITALS: BP 99/61; PULSE 75; RESP 16
== END 2022-06-03 17:26 | disposition home or self-care (01) ==
LOC: EC 14:44
DX: I95.9 Hypotension, unspecified (principal); E86.0 Dehydration; I25.10 Atherosclerotic heart disease of native coronary artery without angina pectoris; M19.90 Unspecified osteoarthritis, unspecified site; Z88.5 Allergy status to narcotic agent; Z91.030 Bee allergy status; Z88.6 Allergy status to analgesic agent; Z79.899 Other long term (current) drug therapy
CPT/HCPCS: 36415; 80053; 83605; 83735; 85025; 85610; 85730; 86850; 86900; 86901; 93005; 96360; 99285

== ENCOUNTER 2022-06-19 19:46 | Inpatient (IN) | payer MEDICARE, BC ==
[2022-06-19 20:14] LABS: Basophils % (A) 1 %; Eosinophils # (A) 0.3 k/uL (0-0.7); Eosinophils % (A) 4 %; HGB 11.3 gm/dL (11.4-16.0); Hypochromasia Slight; Lymphocytes # (A) 1.8 k/uL (1.0-4.8); Lymphocytes % (A) 29 %; MCHC 33.2 g/dL (31.0-37.0); MCV 96.4 fL (80.0-100.0); Mean Platelet Volume 8.1; Monocytes # (A) 0.4 k/uL (0-1.0); Monocytes % (A) 6 %; Neutrophils # (A) 3.6 k/uL (1.3-7.7); Neutrophils % (A) 58 %; Platelet Count 220 k/uL (150-450); RBC 3.53 m/uL (3.80-5.40); RDW 14.2 % (11.5-15.5); WBC 6.2 k/uL (3.8-10.6)
[2022-06-19 20:23] LABS: Potassium 3.8 mmol/L (3.5-5.1)
[2022-06-19 20:24] LABS: ALT 25 U/L (4-34); AST 31 U/L (14-36); African American GFR (CKD) 64 (>60 ml/min/1.73 sqM); Albumin 3.5 g/dL (3.5-5.0); Alkaline Phosphatase 77 U/L (38-126); Anion Gap 11 mmol/L; Blood Urea Nitrogen 11 mg/dL (7-17); Calcium 9.1 mg/dL (8.4-10.2); Carbon Dioxide 21 mmol/L (22-30); Chloride 105 mmol/L (98-107); Glucose 105 mg/dL (74-99); Magnesium 1.6 mg/dL (1.6-2.3); Non-African American GFR(CKD) 55 (>60 ml/min/1.73 sqM); Sodium 137 mmol/L (137-145); Total Bilirubin 0.3 mg/dL (0.2-1.3); Total Protein 5.9 g/dL (6.3-8.2)
[2022-06-19] MEDS: METOPROLOL TARTRATE 5 MG/5 ML VIAL IVP SCH ×3 (20:26→23:53)
[2022-06-19 20:47] LABS: INR 1.1 (<1.2); Prothrombin Time 11.7 sec (9.0-12.0)
[2022-06-19] MEDS ORDERED: LORazepam 2 MG/ML INJ IV STA (21:22)
[2022-06-19] MEDS ORDERED: SODIUM CHLORIDE 0.9% 500 ML 500 ML IV ONE (21:22)
[2022-06-19] MEDS ORDERED: MAGNESIUM SULFATE-D5W PMX 1 GM in DEXTROSE/WATER 1 100ML.BAG IVPB ONE (21:32)
--- NOTE | 2022-06-19 21:45 | XR ---
EXAMINATION TYPE: XR chest 2V DATE OF EXAM: 06/19/2022 9:05 PM COMPARISON: Chest x-ray 05/31/2022 TECHNIQUE: XR chest 2V . CLINICAL INDICATION:Female, 86 years old with history of dysrhythmia; FINDINGS: Lungs/Pleura: There is no evidence of pleural effusion, focal consolidation, or pneumothorax. Pulmonary vascularity: Mild pulmonary vascular congestion. Heart/mediastinum: Cardiac size is normal. Atherosclerotic calcifications are seen in the aorta. Lef t-sided cardiac defibrillator. Musculoskeletal: Multiple level degenerative disc disease changes seen throughout the spine. IMPRESSION: Mild pulmonary vascular congestion. No focal airspace consolidation. Correlate with BNP for congestiv e heart failure.
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
[2022-06-19] MEDS ORDERED: NALOXONE 0.4 MG/ML 1 ML VIAL IV PRN (22:21)
[2022-06-19] MEDS: APIXABAN 5 MG TAB PO SCH (23:59)
[2022-06-19] MEDS: SODIUM CHLORIDE 0.9% 1,000 ML IV SCH (23:59)
[2022-06-20] MEDS ORDERED: ARTIFICIAL TEARS-HYPROMELLOSE DROPS 15 ML BTL BOTH EYES PRN (01:00)
[2022-06-20 02:08] LABS: Basophils % (A) 1 %; Eosinophils # (A) 0.1 k/uL (0-0.7); Eosinophils % (A) 3 %; HCT 29.7 % (34.0-46.0); Hypochromasia Slight; Lymphocytes # (A) 1.2 k/uL (1.0-4.8); Lymphocytes % (A) 28 %; MCH 32.2 pg (25.0-35.0); MCHC 33.1 g/dL (31.0-37.0); MCV 97.5 fL (80.0-100.0); Mean Platelet Volume 8.3; Monocytes # (A) 0.2 k/uL (0-1.0); Monocytes % (A) 5 %; Neutrophils # (A) 2.6 k/uL (1.3-7.7); Neutrophils % (A) 62 %; Platelet Count 172 k/uL (150-450); RBC 3.05 m/uL (3.80-5.40); WBC 4.3 k/uL (3.8-10.6)
[2022-06-20 02:17] LABS: Calcium 8.3 mg/dL (8.4-10.2); Potassium 3.6 mmol/L (3.5-5.1)
[2022-06-20 03:10] LABS: HGB 9.8 gm/dL (11.4-16.0)
[2022-06-20] MEDS: NON FORMULARY DRUG (Latanoprostene Bunod [Vyzulta] 5 ML Ml) BOTH EYES SCH (07:06)
[2022-06-20] MEDS ORDERED: ALPRAZolam 0.25 MG TAB PO SCH (09:00)
[2022-06-20] MEDS ORDERED: OLANZapine 10 MG VIAL IM STA (09:03)
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
[2022-06-20 10:57] LABS: T4, Free (Free Thyroxine) 1.01 ng/dL (0.78-2.19)
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
[2022-06-20] MEDS: DORZOLAMIDE-TIMOLOL 2.23%/0.68 10ML BTL BOTH EYES SCH ×2 (16:15→20:09)
[2022-06-20] MEDS: APIXABAN 5 MG TAB PO SCH ×2 (16:15→20:05)
[2022-06-20] MEDS: MULTIVITAMINS, THERA 1 EACH TAB PO SCH (16:15)
[2022-06-20] MEDS: DIGOXIN 250 MCG TAB PO SCH ×2 (16:15→17:17)
[2022-06-20] MEDS: allopurinoL 100 MG TAB PO SCH (16:15)
[2022-06-20] MEDS: AMIODARONE 200 MG TAB PO SCH ×2 (16:15→20:05)
[2022-06-20] MEDS: BRIMONIDINE TARTRATE 0.2% DROPS 5 ML BTL BOTH EYES SCH ×2 (16:15→20:09)
[2022-06-20] MEDS: CALCIUM CARB-VIT D 500 MG-5 MCG TAB PO SCH ×2 (16:15→20:05)
[2022-06-20] MEDS ORDERED: OLANZapine 2.5 MG TAB PO PRN (16:15)
[2022-06-20] MEDS: SODIUM CHLORIDE 0.9% 1,000 ML IV SCH ×2 (16:16→20:48)
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
[2022-06-20] MEDS: ACETAMINOPHEN TAB 325 MG TAB PO PRN (20:04)
[2022-06-20] MEDS ORDERED: MELATONIN 3 MG TABLET PO SCH (21:00)
[2022-06-20] MEDS ORDERED: LATANOPROST 0.005% OPHTH DROPS 2.5 ML BTL BOTH EYES SCH (21:00)
[2022-06-20] MEDS ORDERED: MIRTAZAPINE 15 MG TAB PO SCH (21:00)
[2022-06-21] MEDS: NON FORMULARY DRUG (Latanoprostene Bunod [Vyzulta] 5 ML Ml) BOTH EYES SCH (06:27)
[2022-06-21] MEDS ORDERED: ALPRAZolam 0.25 MG TAB PO PRN (08:11)
[2022-06-21] MEDS ORDERED: FAMOTIDINE 20 MG TAB PO SCH (09:00)
[2022-06-21] MEDS ORDERED: OLANZapine 2.5 MG TAB PO SCH (09:00)
[2022-06-21] MEDS: allopurinoL 100 MG TAB PO SCH (09:05)
[2022-06-21] MEDS: MULTIVITAMINS, THERA 1 EACH TAB PO SCH (09:05)
[2022-06-21] MEDS: AMIODARONE 200 MG TAB PO SCH (09:05)
[2022-06-21] MEDS: CALCIUM CARB-VIT D 500 MG-5 MCG TAB PO SCH (09:06)
[2022-06-21] MEDS: DIGOXIN 250 MCG TAB PO SCH (09:08)
[2022-06-21] MEDS: APIXABAN 5 MG TAB PO SCH (09:08)
[2022-06-21] MEDS: BRIMONIDINE TARTRATE 0.2% DROPS 5 ML BTL BOTH EYES SCH (09:09)
[2022-06-21] MEDS: DORZOLAMIDE-TIMOLOL 2.23%/0.68 10ML BTL BOTH EYES SCH (09:09)
[2022-06-21] MEDS: SODIUM CHLORIDE 0.9% 1,000 ML IV SCH (09:15)
--- NOTE | 2022-06-21 09:23 | P.PN ---
Subjective Progress Note Date: 06/21/22 HISTORY OF PRESENT ILLNESS: The patient is an 86-year-old female who follows with cardiology at the [facility], who presented to the emergency room after experiencing several AICD shocks. The patient was walking into the local symphony, when she felt a thump in her chest. Her daughter states that although it knocked her backward, she did not fall and she did not have any syncope. She was escorted to a local chair or her defibrillator would then went off an additional 5-6 times according to the daughter. The daughter believes her heart rate was around 180 bpm by the time EMS arrived. Prior to this hospitalization, she was admitted back in May for a bowel obstruction. She was hypotensive during that visit, therefore her beta blockers were discontinued and she was also taken off of her digoxin. She did follow-up with her turbinated bone grinder at the [facility] who did not resume these medications. She does have a follow-up next Tuesday with her device clinic and her turbinated bone grinder. 06/21/2022 Patient examined this morning at the bedside. Patient denies chest pain or pressure. Denies SOB. Telemetry reveals atrial fibrillation with controlled ventricular rates in the 90s. Blood pressure stable. However, she was hypote nsive yesterday evening with a BP in the 80s. PHYSICAL EXAM: VITAL SIGNS: Reviewed. GENERAL: Well-developed in no acute distress. NECK: Supple. No JVD or thyromegaly LUNGS: Respirations even and unlabored. Lungs essentially clear to auscultation bilaterally. HEART: Irregular rate and rhythm. S1 and S2 heard. EXTREMITIES: Normal range of motion. No clubbing or cyanosis. Peripheral pulses intact. No lower extremity edema ASSESSMENT: Persistent atrial fibrillation with RVR Inappropriate AICD shocks secondary to atrial fibrillation Hypotension, improving History of cardiomyopathy with improved EF History of CHF History of PPM/AICD implantation PLAN: Patient has been resumed on Digoxin Beta blockers remain on hold secondary to soft blood pressures Continue oral amiodarone Patient has an appointment with her primary turbinated bone grinder next week Daughter requesting discharge home today. Agreeable to DC with close outpatient follow up. Nurse practitioner note has been reviewed by physician. Signing provider agrees with the documented findings, assessment, and plan of care. Objective - Vital Signs Vital signs: Vital Signs Temp 97.8 F 06/20/22 20:00 Pulse 99 06/21/22 04:00 Resp 19 06/21/22 04:00 BP 118/70 06/21/22 04:00 Pulse Ox 97 06/21/22 04:00 FiO2 Intake & Output 06/20/22 06/21/22 06/21/22 18:59 06:59 18:59 Intake Total 0 118 Balance 0 118 Intake: Oral 0 118 Other: # Voids 1 1 - Labs CBC & Chem 7: 06/21/22 09:13 06/21/22 09:13
[2022-06-21 10:20] LABS: Basophils # (A) 0.1 k/uL (0-0.2); Basophils % (A) 1 %; Eosinophils # (A) 0.2 k/uL (0-0.7); Eosinophils % (A) 6 %; HCT 31.6 % (34.0-46.0); HGB 10.1 gm/dL (11.4-16.0); Hypochromasia Marked; Lymphocytes # (A) 0.8 k/uL (1.0-4.8); Lymphocytes % (A) 22 %; MCH 31.6 pg (25.0-35.0); MCHC 31.8 g/dL (31.0-37.0); MCV 99.3 fL (80.0-100.0); Mean Platelet Volume 8.4; Monocytes # (A) 0.2 k/uL (0-1.0); Monocytes % (A) 5 %; Neutrophils # (A) 2.2 k/uL (1.3-7.7); Neutrophils % (A) 63 %; Platelet Count 187 k/uL (150-450); RBC 3.18 m/uL (3.80-5.40); RDW 14.4 % (11.5-15.5); WBC 3.5 k/uL (3.8-10.6)
[2022-06-21] MEDS: ACETAMINOPHEN TAB 325 MG TAB PO PRN (10:36)
[2022-06-21 10:42] LABS: ALT 22 U/L (4-34); AST 29 U/L (14-36); African American GFR (CKD) >90 (>60 ml/min/1.73 sqM); Albumin 2.7 g/dL (3.5-5.0); Alkaline Phosphatase 51 U/L (38-126); Anion Gap 7 mmol/L; Blood Urea Nitrogen 4 mg/dL (7-17); Calcium 8.2 mg/dL (8.4-10.2); Carbon Dioxide 22 mmol/L (22-30); Chloride 111 mmol/L (98-107); Glucose 102 mg/dL (74-99); Non-African American GFR(CKD) 81 (>60 ml/min/1.73 sqM); Sodium 140 mmol/L (137-145); Total Bilirubin 0.3 mg/dL (0.2-1.3); Total Protein 4.9 g/dL (6.3-8.2)
[2022-06-21 10:52] VITALS: RESP 20
[2022-06-21 12:16] VITALS: BP 125/68; PULSE 91; TEMP 98
--- NOTE | 2022-06-21 15:01 | P.PN ---
Progress Note - Text Progress Note Date: 06/21/22 Interval History: Patient was seen resting in bed and was directable and agreeable to speak with process description writer in her room. Currently present next to her as the patient's daughter. The patient is in agreement to having her daughter present during the psychiatric evaluation. Currently, the patient and the patient's daughter are requesting discharge. The patient is currently alert and oriented to self and to the month however has difficulty with the year. She is able to identify that she is in the hospital today. The patient's daughter provides a history consistent with a diagnosis of neurocognitive disorder. The patient has been having a significant decline in memory over the past few years. Furthermore, the patient would often have difficulty with confusion and would often be irritable when being reoriented by her family. The patient does have significant support by her children. The patient is currently denying any suicidal or homicidal ideation. She reports no auditory or visual hallucinations. The patient's daughter wishes that the patient is started on Namenda however review the patient's notes reveal that we are waiting for clearance from cardiology before starting this medication. No other issues or concerns were brought up with this provider. Mental Status Exam: General Appearance: Patient appears to be stated age is alert, directable, and cooperative. Behavior: Patient is calmly seated without any agitated behavior. Speech: Patient's speech is fluent and nonpressured. Mood/Affect: Mood is ready to go, affect is congruent and bright. Suicidality/Homicidality: Patient denies having any suicidal or homicidal ideation intent or plan. Perceptions: Patient denies any visual hallucinations and denies any auditory hallucinations Though content/process: There is no evidence of any delusional thought content and thought process is linear and goal-directed. Memory and concentration: Patient is currently alert and oriented to person and location only. 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 Patient is not presenting with imminent risk for harm to self or others. She has supportive family. -Delirium precautions recommended with patient including - avoiding use of narcotics and [employer] sedatives, limit anticholinergic medications when possible, frequent re-orientation, minimize use of restraints, open window shades during the day and close them at night -Would recommend the following medication changes/additions: No medication recommendations made at this time. Agree with medication changes made by Dr. Avendano. Will defer initiation of namenda to outpatient provider. Recommend cardiology clearance for initiation of this medication. -Patient is cleared psychiatrically for discharge. Recommend outpatient neurology follow-up for major neurocognitive disorder. -Psychiatry will sign off at this point, please contact with any questions.
== END 2022-06-21 15:14 | disposition home or self-care (01) | DRG 310 ==
LOC: EC 19:46 → 3SCARD 22:21
PROVIDERS: ADMIT Internal Medicine; ATTEND Internal Medicine
DX: I48.19 Other persistent atrial fibrillation (principal); G30.9 Alzheimer's disease, unspecified; I95.9 Hypotension, unspecified; F02.80 Dementia in other diseases classified elsewhere, unspecified severity, without behavioral disturbance, psychotic disturbance, mood disturbance, and anxiety; I48.92 Unspecified atrial flutter; J44.9 Chronic obstructive pulmonary disease, unspecified; H54.61 Unqualified visual loss, right eye, normal vision left eye; F10.21 Alcohol dependence, in remission; I25.10 Atherosclerotic heart disease of native coronary artery without angina pectoris; R45.1 Restlessness and agitation; F40.240 Claustrophobia; I42.9 Cardiomyopathy, unspecified; R41.0 Disorientation, unspecified; T42.4X5A Adverse effect of benzodiazepines, initial encounter; I50.9 Heart failure, unspecified; M19.90 Unspecified osteoarthritis, unspecified site; Z79.01 Long term (current) use of anticoagulants; Z79.899 Other long term (current) drug therapy; Z82.49 Family history of ischemic heart disease and other diseases of the circulatory system; Z95.810 Presence of automatic (implantable) cardiac defibrillator; Z88.6 Allergy status to analgesic agent; Z91.030 Bee allergy status; Z60.2 Problems related to living alone; Z91.81 History of falling
CPT/HCPCS: 36415; 71046; 80048; 80053; 83735; 84439; 84443; 84481; 84484; 85025; 85610; 85730; 93005; 96365; 96375; 99291

== ENCOUNTER 2022-06-28 07:46 | Day surgery (SDC) | payer MEDICARE, BC ==
[2022-06-24 09:09] VITALS: BMI 19.1
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
[~2022-06-28 07:46] MED LIST: LACTATED RINGERS 1,000 ML IV SCH
[2022-06-28 08:19] VITALS: TEMP 98.5
[2022-06-28] MEDS ORDERED: LIDOCAINE 2% INJ 20 MG/ML (2 ML VIAL) ONE (08:47)
[2022-06-28] MEDS ORDERED: PROPOFOL 10 MG/ML 20 ML VIAL IV ONE (08:47)
[2022-06-28 09:13] VITALS: RESP 16
--- NOTE | 2022-06-28 09:17 | P.PCN ---
Date of Procedure: 06/28/22 Description of Procedure: PREOPERATIVE DIAGNOSIS: Acute gastrointestinal bleeding Positive stool occult blood Anticoagulant use POSTOPERATIVE DIAGNOSIS: Acute bleeding arteriovenous malformation, stomach Acute gastrointestinal bleeding Positive stool occult blood Anticoagulant use OPERATION: Esophagogastroduodenoscopy with ablation using ERBE for AVM, bleeding SURGEON: Lalitha Murillo MD ANESTHESIA: MAC. INDICATIONS: The patient is a 86-year-old female who presents with gastrointestinal bleeding. Benefits and risks of the procedure were described. Informed consent was obtained. DESCRIPTION: The patient was brought into the endoscopy suite and laid in the left lateral decubitus position. An Olympus gastroscope was passed along the posterior oropharynx down to the distal esophagus where the squamocolumnar junction was encountered at 35 cm from the incisors. The stomach was entered and no bile reflux was found. 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 Additional findings are listed below. The first through third portion of the duodenum was examined and unremarkable. Retroflexion of the scope confirmed Hill grade 2 lower esophageal valve. The squamocolumnar junction demonstrated LA grade A erosive esophagitis. The stomach was desufflated. The patient tolerated the procedure well. FINDINGS: Squamocolumnar junction 35 cm from the incisors. Diaphragmatic hiatus at 35 cm. Hill grade 2 lower esophageal valve. LA grade A erosive esophagitis. No active duodenitis. 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 CBC ordered with recheck 2. Hold blood thinner for 48 hours prior to restart 3. For recurrent bleed, may need to avoid anticoagulants Plan - Discharge Summary Discharge Rx Participant: No New Discharge Prescriptions: Continue allopurinoL [Zyloprim] 100 mg PO DAILY Dorzolamide-Timol 2.23%/0.68% [Cosopt] 1 drop BOTH EYES BID Brimonidine Tartrate [Alphagan P 0.2% Ophth Soln] 1 drop BOTH EYES BID Latanoprost/Pf [Latanoprost 0.005% Eye Drop] 1 drop BOTH EYES HS Calcium Carbonate/Vitamin D3 [Calcium 500-Vit D3 5 Mcg (200 Iu)] 1 tab PO BID Multivitamins, Thera [Multivitamin (formulary)] 1 tab PO DAILY Melatonin 6 mg PO HS tab ALPRAZolam [Xanax] 0.125 mg PO BID PRN PRN Reason: Anxiety Amiodarone [Cordarone] 200 mg PO BID tab Artificial Tears-Hypromellose [Artificial Tear Drops] 1 drops BOTH EYES Q4HR PRN ml PRN Reason: Dry Eye(S) Acetaminophen Tab [Tylenol] 650 mg PO Q4HR PRN tab PRN Reason: Fever And/ Or Pain Mirtazapine 7.5 mg PO HS Latanoprostene Bunod [Vyzulta] 1 drop BOTH EYES HS Apixaban [Eliquis] 2.5 mg PO BID tab Digoxin [Lanoxin] 250 mcg PO DAILY tab OLANZapine [ZyPREXA] 2.5 mg PO DAILY PRN tab PRN Reason: Agitation Memantine [Namenda] 5 mg PO BID Cholecalciferol [Vitamin D3 (25 Mcg = 1000 Iu)] 50 mcg PO DAILY Cyanocobalamin (Vitamin B-12) [Vitamin B-12] 1,000 mcg PO DAILY Discharge Medication List allopurinoL [Zyloprim] 100 mg PO DAILY 04/28/16 [History] Brimonidine Tartrate [Alphagan P 0.2% Ophth Soln] 1 drop BOTH EYES BID 08/02/18 [History] Dorzolamide-Timol 2.23%/0.68% [Cosopt] 1 drop BOTH EYES BID 08/02/18 [History] Latanoprost/Pf [Latanoprost 0.005% Eye Drop] 1 drop BOTH EYES HS 08/02/18 [History] Calcium Carbonate/Vitamin D3 [Calcium 500-Vit D3 5 Mcg (200 Iu)] 1 tab PO BID 10/30/18 [History] Multivitamins, Thera [Multivitamin (formulary)] 1 tab PO DAILY 10/30/18 [History] Acetaminophen Tab [Tylenol] 650 mg PO Q4HR PRN tab 06/01/22 [Rx] Artificial Tears-Hypromellose [Artificial Tear Drops] 1 drops BOTH EYES Q4HR PRN ml 06/01/22 [Rx] Melatonin 6 mg PO HS tab 06/01/22 [Rx] ALPRAZolam [Xanax] 0.125 mg PO BID PRN 06/19/22 [History] Latanoprostene Bunod [Vyzulta] 1 drop BOTH EYES HS 06/19/22 [History] Mirtazapine 7.5 mg PO HS 06/19/22 [History] Amiodarone [Cordarone] 200 mg PO BID tab 06/21/22 [Rx] Apixaban [Eliquis] 2.5 mg PO BID tab 06/21/22 [Rx] Digoxin [Lanoxin] 250 mcg PO DAILY tab 06/21/22 [Rx] OLANZapine [ZyPREXA] 2.5 mg PO DAILY PRN tab 06/21/22 [Rx] Cholecalciferol [Vitamin D3 (25 Mcg = 1000 Iu)] 50 mcg PO DAILY 06/24/22 [History] Cyanocobalamin (Vitamin B-12) [Vitamin B-12] 1,000 mcg PO DAILY 06/24/22 [History] Memantine [Namenda] 5 mg PO BID 06/24/22 [History] Follow up Appointment(s)/Referral(s): Lalitha Murillo MD [STAFF PHYSICIAN] - 07/13/22 Patient Instructions/Handouts: Gastrointestinal Bleeding (DC) Activity/Diet/Wound Care/Special Instructions: HOLD BLOOD THINNER UNTIL 07/01/22 Discharge Disposition: HOME SELF-CARE
[2022-06-28 09:32] VITALS: BP 117/66; PULSE 71
[2022-06-28 09:42] LABS: Basophils % (A) 1 %; Eosinophils # (A) 0.3 k/uL (0-0.7); Eosinophils % (A) 6 %; HCT 35.6 % (34.0-46.0); HGB 11.8 gm/dL (11.4-16.0); Hypochromasia Slight; Lymphocytes # (A) 0.7 k/uL (1.0-4.8); Lymphocytes % (A) 12 %; MCH 31.7 pg (25.0-35.0); MCHC 33.2 g/dL (31.0-37.0); MCV 95.5 fL (80.0-100.0); Mean Platelet Volume 7.9; Monocytes # (A) 0.3 k/uL (0-1.0); Monocytes % (A) 5 %; Neutrophils # (A) 4.1 k/uL (1.3-7.7); Neutrophils % (A) 76 %; Platelet Count 171 k/uL (150-450); RBC 3.73 m/uL (3.80-5.40); RDW 13.6 % (11.5-15.5); WBC 5.4 k/uL (3.8-10.6)
== END 2022-06-28 09:48 | disposition home or self-care (01) ==
LOC: ORWHC2ENDO 07:46
PROVIDERS: ATTEND Surgery Plastic and Reconstructive Surgery
DX: K21.00 Gastro-esophageal reflux disease with esophagitis, without bleeding (principal); K92.2 Gastrointestinal hemorrhage, unspecified; I25.10 Atherosclerotic heart disease of native coronary artery without angina pectoris; I48.20 Chronic atrial fibrillation, unspecified; I50.9 Heart failure, unspecified; Z95.810 Presence of automatic (implantable) cardiac defibrillator; M19.90 Unspecified osteoarthritis, unspecified site; Z90.49 Acquired absence of other specified parts of digestive tract; Z90.710 Acquired absence of both cervix and uterus; Z90.89 Acquired absence of other organs; Z98.890 Other specified postprocedural states; Z83.3 Family history of diabetes mellitus; Z82.49 Family history of ischemic heart disease and other diseases of the circulatory system; Z79.899 Other long term (current) drug therapy
CPT/HCPCS: 85025; 43255; 43270; J2704; J2001

== ENCOUNTER 2022-07-06 09:30 | Emergency (ER) | payer MEDICARE, BC ==
[2022-07-06 09:55] VITALS: TEMP 97.8
[2022-07-06] MEDS ORDERED: SODIUM CHLORIDE 0.9% 1,000 ML IV STA (10:02)
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
[2022-07-06 10:31] LABS: Basophils % (A) 1 %; Eosinophils # (A) 0.5 k/uL (0-0.7); Eosinophils % (A) 9 %; HGB 11.9 gm/dL (11.4-16.0); Lymphocytes # (A) 0.7 k/uL (1.0-4.8); Lymphocytes % (A) 13 %; MCV 93.8 fL (80.0-100.0); Mean Platelet Volume 7.6; Monocytes # (A) 0.2 k/uL (0-1.0); Monocytes % (A) 4 %; Neutrophils # (A) 4.1 k/uL (1.3-7.7); Neutrophils % (A) 72 %; Platelet Count 218 k/uL (150-450); RBC 3.84 m/uL (3.80-5.40); RDW 13.3 % (11.5-15.5); WBC 5.7 k/uL (3.8-10.6)
[2022-07-06 10:41] LABS: INR 1.1 (<1.2); Partial Thromboplastin Time 27.7 sec (22.0-30.0); Prothrombin Time 11.5 sec (9.0-12.0)
[2022-07-06 10:53] LABS: Albumin 3.2 g/dL (3.5-5.0); Calcium 8.8 mg/dL (8.4-10.2); Potassium 4.3 mmol/L (3.5-5.1); Total Bilirubin 0.5 mg/dL (0.2-1.3); Total Protein 5.8 g/dL (6.3-8.2)
[2022-07-06 11:43] LABS: Appearance,Urine Cloudy (Clear); Bilirubin,Urine Negative (Negative); Blood,Urine Large (Negative); Color,Urine Red; Glucose,Urine (UA) Negative (Negative); Ketones,Urine Negative (Negative); Leukocyte Esterase,Urine Trace (Negative); Mucus,Urine Rare /hpf; Nitrite,Urine Negative (Negative); Protein,Urine 1+ (Negative); RBC,Urine >182 /hpf (0-5); Specific Gravity,Urine 1.018 (1.001-1.035); Urobilinogen,Urine <2.0 mg/dL (<2.0); WBC,Urine 14 /hpf (0-5)
--- NOTE | 2022-07-06 12:24 | CT ---
EXAMINATION TYPE: CT abdomen pelvis w con DATE OF EXAM: 07/06/2022 COMPARISON: None HISTORY: Lower abdominal pain, hematuria CT DLP: 539.1 mGycm Automated exposure control for dose reduction was used. CONTRAST: CT scan of the abdomen pelvis is performed with IV Contrast, patient injected with 100 ml mL of Isovu e 300. FINDINGS- exam limited by motion artifact. LUNG BASES- heart is enlarged and there is coronary artery calcification. Subsegmental changes at th e lung bases are most typical of atelectasis. Cardiac lead is incidentally noted. Dense coronary amira ry calcification or stenting cyst seen. Correlate clinically. LIVER/GB- mild intrahepatic biliary ductal dilation. No obvious gallstones. Common bile duct measur es 7 mm within normal limits for the patient's age group. However, the proximal common bile duct taiwo ures approximately 1 cm and is prominent in size. There is mild prominence of the pancreatic duct wit hout evidence of discrete pancreatic lesion. PANCREAS- No gross abnormality is seen. SPLEEN- No gross abnormality is seen. ADRENALS- No gross abnormality is seen. KIDNEYS/BLADDER-no hydronephrosis or nephrolithiasis. Benign simple cyst right kidney. BOWEL- nonspecific gas pattern with no evidence of obstruction. Mild fullness to the gastric antrum could be related to incomplete distention correlate clinically to exclude gastritis or peptic ulcer d isease. Previous surgery suggested within the bowel in the upper pelvis. Diverticulosis of the sigmoi d colon. LYMPH NODES- No greater than 1cm abdominal or pelvic lymph nodes are appreciated. OSSEOUS STRUCTURES- there is hypertrophic and degenerative changes of the spine with a grade 1 anter olisthesis L3 on L4. Multilevel facet arthropathy and foraminal encroachment. OTHER- bladder markedly distended. Atherosclerotic change aorta with a maximal dimension of 1.6 cm. Atherosclerotic change of the mesenteric vasculature. IMPRESSION- 1. Marked distention of the bladder correlate clinically. 2. Mild intrahepatic biliary ductal and proximal extrahepatic biliary ductal dilation consider follow -up ultrasound as there is also mild prominence of the pancreatic duct. 3. Wall thickening of the gastric antrum may be related to incomplete distention correlate clinically to exclude a mild gastritis or peptic ulcer disease. 4. Severe cardiomegaly. Subsegmental changes posteriorly felt to be more typical of atelectasis than pneumonitis.
[2022-07-06 17:29] VITALS: BP 122/71; PULSE 66; RESP 16
== END 2022-07-06 15:30 | disposition home or self-care (01) ==
LOC: EC 09:30
DX: R31.9 Hematuria, unspecified (principal); R33.9 Retention of urine, unspecified; I48.91 Unspecified atrial fibrillation; I25.10 Atherosclerotic heart disease of native coronary artery without angina pectoris; M19.90 Unspecified osteoarthritis, unspecified site; Z88.8 Allergy status to other drugs, medicaments and biological substances; Z91.030 Bee allergy status; Z88.5 Allergy status to narcotic agent; Z88.6 Allergy status to analgesic agent; Z88.4 Allergy status to anesthetic agent
CPT/HCPCS: 36415; 80053; 82150; 83690; 85025; 85610; 85730; 81001; 87086; 74177; 99284; 96360; Q9967

== ENCOUNTER 2022-08-23 21:45 | Emergency (ER) | payer MEDICARE, BC ==
[2022-08-23 22:00] VITALS: TEMP 98.2
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
[2022-08-23] MEDS ORDERED: SODIUM CHLORIDE 0.9% 1,000 ML IV STA ×2 (23:20)
[2022-08-23 23:58] LABS: Basophils # (A) 0.1 k/uL (0-0.2); Basophils % (A) 1 %; Eosinophils # (A) 0.3 k/uL (0-0.7); Eosinophils % (A) 5 %; HCT 33.9 % (34.0-46.0); HGB 11.9 gm/dL (11.4-16.0); Lymphocytes # (A) 1.3 k/uL (1.0-4.8); Lymphocytes % (A) 18 %; MCH 31.7 pg (25.0-35.0); MCV 90.6 fL (80.0-100.0); Mean Platelet Volume 7.5; Monocytes # (A) 0.3 k/uL (0-1.0); Monocytes % (A) 4 %; Neutrophils # (A) 5.2 k/uL (1.3-7.7); Neutrophils % (A) 71 %; Platelet Count 235 k/uL (150-450); RBC 3.75 m/uL (3.80-5.40); RDW 15.9 % (11.5-15.5); WBC 7.3 k/uL (3.8-10.6)
[2022-08-24 00:09] VITALS: BP 116/67; PULSE 89; RESP 16
[2022-08-24 00:09] LABS: INR 3.3 (<1.2); Partial Thromboplastin Time 38.5 sec (22.0-30.0); Prothrombin Time 32.2 sec (9.0-12.0)
[2022-08-24 00:13] LABS: Albumin 2.7 g/dL (3.5-5.0); Calcium 8.6 mg/dL (8.4-10.2); Potassium 4.4 mmol/L (3.5-5.1); Total Bilirubin 0.2 mg/dL (0.2-1.3); Total Protein 5.6 g/dL (6.3-8.2)
[2022-08-24 00:45] LABS: Appearance,Urine Cloudy (Clear); Bilirubin,Urine Negative (Negative); Blood,Urine Large (Negative); Color,Urine Yellow; Glucose,Urine (UA) Negative (Negative); Hyaline Casts,Urine 4 /lpf (0-2); Ketones,Urine Negative (Negative); Leukocyte Esterase,Urine Large (Negative); Mucus,Urine Occasional /hpf; Nitrite,Urine Negative (Negative); PH, Urine 5.5 (5.0-8.0); Protein,Urine Trace (Negative); RBC,Urine >182 /hpf (0-5); Specific Gravity,Urine 1.019 (1.001-1.035); Squamous Epithelial Cell,Urine 2 /hpf (0-4); Urobilinogen,Urine <2.0 mg/dL (<2.0); WBC,Urine 128 /hpf (0-5)
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
== END 2022-08-24 01:34 | disposition home or self-care (01) ==
LOC: EC 21:45
DX: S00.83XA Contusion of other part of head, initial encounter (principal); N39.0 Urinary tract infection, site not specified; F03.90 Unspecified dementia, unspecified severity, without behavioral disturbance, psychotic disturbance, mood disturbance, and anxiety; I48.91 Unspecified atrial fibrillation; I25.10 Atherosclerotic heart disease of native coronary artery without angina pectoris; I50.9 Heart failure, unspecified; M19.90 Unspecified osteoarthritis, unspecified site; F41.9 Anxiety disorder, unspecified; Z79.899 Other long term (current) drug therapy; Z79.01 Long term (current) use of anticoagulants; Z88.8 Allergy status to other drugs, medicaments and biological substances; Z88.5 Allergy status to narcotic agent; Z88.6 Allergy status to analgesic agent; Z88.4 Allergy status to anesthetic agent; W19.XXXA Unspecified fall, initial encounter; Z91.030 Bee allergy status
CPT/HCPCS: 99284 ×2; 96365 ×2; 96361 ×3; 36415; 93005; 80053; 85025; 85610; 85730; 81001; 87086; 70450; J0696

== ENCOUNTER 2022-12-26 12:00 | Emergency (ER) | payer MEDICARE, BC ==
[2022-12-26 12:15] VITALS: TEMP 97.3
[2022-12-26] MEDS ORDERED: SODIUM CHLORIDE 0.9% 1,000 ML IV STA (12:41)
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
[2022-12-26 13:18] LABS: Basophils % (A) 0 %; Eosinophils # (A) 0.2 k/uL (0-0.7); Eosinophils % (A) 3 %; HCT 32.9 % (34.0-46.0); HGB 10.6 gm/dL (11.4-16.0); Lymphocytes # (A) 1.2 k/uL (1.0-4.8); Lymphocytes % (A) 17 %; MCH 28.6 pg (25.0-35.0); MCHC 32.2 g/dL (31.0-37.0); MCV 88.6 fL (80.0-100.0); Mean Platelet Volume 7.3; Monocytes # (A) 0.5 k/uL (0-1.0); Monocytes % (A) 7 %; Neutrophils % (A) 71 %; Platelet Count 227 k/uL (150-450); RBC 3.71 m/uL (3.80-5.40); RDW 15.1 % (11.5-15.5); WBC 7.1 k/uL (3.8-10.6)
[2022-12-26 13:31] LABS: Albumin 3.6 g/dL (3.5-5.0); Calcium 8.4 mg/dL (8.4-10.2); Magnesium 1.9 mg/dL (1.6-2.3); Total Bilirubin 0.5 mg/dL (0.2-1.3); Total Protein 6.7 g/dL (6.3-8.2)
--- NOTE | 2022-12-26 13:35 | CT ---
EXAMINATION TYPE: CT brain miranda guillermo con DATE OF EXAM: 12/26/2022 COMPARISON: 08/13/2022 HISTORY: fall CT DLP: [address] of the brain was performed. The ventricles, basal cisterns and sulci overlying the cerebral convexities demonstrate mild enlargem ent. There is no evidence for intracranial hemorrhage or sulcal effacement. There is decreased attenuatio n about the periventricular white matter and deep white matter of both cerebral hemispheres, compatib le with chronic small vessel ischemia. No mass effects are seen. If symptoms persist consider MRI. Osseous calvarium is intact. Chronic paranasal sinusitis. IMPRESSION: 1. Age related atrophic and chronic small vessel ischemic change without acute intracranial process seen at this time. CT Cervical Spine: Unenhanced CT of the cervical spine was performed with bone and soft tissue window settings submitted . Coronal and sagittal reconstruction is obtained. There is normal alignment and prevertebral soft tissues. No evidence for acute cervical fracture . Mo derate to severe degenerative disc space narrowing and spondylosis. Nonacute anterior subluxation of C4 on C5 of 4 mm. Degenerative changes of the cervical apophyseal joints. Biapical scarring. IMPRESSION: 1. No evidence for acute fracture or subluxation of the cervical spine.
--- NOTE | 2022-12-26 13:39 | XR ---
EXAMINATION TYPE: XR pelvis AP view DATE OF EXAM: 12/26/2022 CLINICAL HISTORY: pain TECHNIQUE: Single view the pelvis is submitted. FINDINGS: No evidence for fracture, dislocation or bony lesion. Joint spaces are well-preserved. S I joints appear symmetric. IMPRESSION: 1. No acute fracture or dislocation seen. ICD 10 NO FRACTURE, INITIAL EVALUATION
--- NOTE | 2022-12-26 13:40 | XR ---
EXAMINATION TYPE: XR chest 1V portable DATE OF EXAM: 12/26/2022 HISTORY: Shortness of breath. COMPARISON: 06/19/2022 TECHNIQUE: Single view of the chest is submitted. FINDINGS: Demonstrated are scattered senescent parenchymal change. There is no evidence for focal infiltrate. The heart is stable. Hilar and mediastinal structures are within normal limits. Degenerative changes are seen of the dorsal spine. IMPRESSION: 1. Chronic changes without evidence for acute pulmonary disease.
[2022-12-26 13:48] LABS: INR 2.9 (<1.2); Partial Thromboplastin Time 36.8 sec (22.0-30.0); Prothrombin Time 28.3 sec (9.0-12.0)
[2022-12-26 14:04] VITALS: BP 104/67; PULSE 62; RESP 19
[2022-12-27 16:48] LABS: Appearance,Urine Cloudy (Clear); Bacteria,Urine Few /hpf; Bilirubin,Urine Negative (Negative); Blood,Urine Large (Negative); Calcium Oxalate Crystals,Urine Moderate /hpf; Color,Urine Yellow; Glucose,Urine (UA) Negative (Negative); Hyaline Casts,Urine 4 /lpf (0-2); Ketones,Urine Negative (Negative); Leukocyte Esterase,Urine Moderate (Negative); Mucus,Urine Rare /hpf; Nitrite,Urine Negative (Negative); PH, Urine 5.5 (5.0-8.0); Protein,Urine Trace (Negative); RBC,Urine >182 /hpf (0-5); Specific Gravity,Urine 1.023 (1.001-1.035); Squamous Epithelial Cell,Urine 3 /hpf (0-4); Urobilinogen,Urine <2.0 mg/dL (<2.0); WBC,Urine 26 /hpf (0-5)
== END 2022-12-26 15:35 | disposition home or self-care (01) ==
LOC: EC 12:00
DX: I67.82 Cerebral ischemia (principal); I48.91 Unspecified atrial fibrillation; I25.10 Atherosclerotic heart disease of native coronary artery without angina pectoris; I50.9 Heart failure, unspecified; M19.90 Unspecified osteoarthritis, unspecified site; F41.9 Anxiety disorder, unspecified; Z79.01 Long term (current) use of anticoagulants; Z79.1 Long term (current) use of non-steroidal anti-inflammatories (NSAID); Z91.030 Bee allergy status; Z88.8 Allergy status to other drugs, medicaments and biological substances; Z88.5 Allergy status to narcotic agent; Z88.6 Allergy status to analgesic agent; W19.XXXA Unspecified fall, initial encounter
CPT/HCPCS: 36415; 70450; 71045; 72125; 72170; 80053; 81001; 82550; 83735; 85025; 85610; 85730; 87086; 93005

== ENCOUNTER 2022-12-28 08:34 | Emergency (ER) | payer MEDICARE, BC ==
[2022-12-28 08:41] VITALS: BP 115/68; PULSE 66; RESP 18; TEMP 98
--- NOTE | 2022-12-28 09:31 | XR ---
EXAMINATION TYPE: XR lumbosacral spine min 4V DATE OF EXAM: 12/28/2022 Comparison: 05/31/2022 Clinical History: 87-year-old female fall one week ago, lower back pain, Trauma Findings: Osteopenia. Rounded calcification measuring 1 cm in the right upper quadrant is unchanged, etiology u nclear. Staple line related to prior bowel surgery in the left mid abdomen redemonstrated. Moderate degenerative disc disease L4-L5. Advanced hypertrophic facet arthropathy throughout. No vert ebral compression collapse or malalignment is seen. Impression: 1. Hypertrophic facet arthropathy throughout. 2. Osteopenia. No vertebral compression collapse seen. 3. Moderate degenerative disc disease L4-L5.
[2022-12-28 09:54] LABS: Basophils % (A) 0 %; Eosinophils # (A) 0.2 k/uL (0-0.7); Eosinophils % (A) 4 %; HCT 30.7 % (34.0-46.0); HGB 9.9 gm/dL (11.4-16.0); Lymphocytes % (A) 18 %; MCH 27.9 pg (25.0-35.0); MCHC 32.4 g/dL (31.0-37.0); Mean Platelet Volume 7.5; Monocytes # (A) 0.3 k/uL (0-1.0); Monocytes % (A) 6 %; Neutrophils # (A) 3.9 k/uL (1.3-7.7); Neutrophils % (A) 70 %; Platelet Count 213 k/uL (150-450); Poikilocytosis Slight; RBC 3.57 m/uL (3.80-5.40); RDW 15.5 % (11.5-15.5); WBC 5.6 k/uL (3.8-10.6)
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
[2022-12-28 10:23] LABS: Albumin 3.1 g/dL (3.5-5.0); Calcium 8.1 mg/dL (8.4-10.2); Total Bilirubin 0.3 mg/dL (0.2-1.3)
[2022-12-28] MEDS ORDERED: SODIUM CHLORIDE 0.9% 500 ML 500 ML IV ONE (10:44)
[2022-12-28] MEDS ORDERED: KETOROLAC 15 MG/ML 1 ML VIAL IVP STA (10:44)
[2022-12-28 12:39] LABS: Appearance,Urine Cloudy (Clear); Bacteria,Urine Rare /hpf; Bilirubin,Urine Negative (Negative); Blood,Urine Large (Negative); Color,Urine Yellow; Glucose,Urine (UA) Negative (Negative); Ketones,Urine Negative (Negative); Leukocyte Esterase,Urine Small (Negative); Mucus,Urine Rare /hpf; Nitrite,Urine Negative (Negative); PH, Urine 5.5 (5.0-8.0); Protein,Urine Trace (Negative); RBC,Urine >182 /hpf (0-5); Specific Gravity,Urine 1.016 (1.001-1.035); Squamous Epithelial Cell,Urine <1 /hpf (0-4); Urobilinogen,Urine <2.0 mg/dL (<2.0); WBC,Urine 30 /hpf (0-5)
== END 2022-12-28 11:54 | disposition home or self-care (01) ==
LOC: EC 08:34
DX: S39.012A Strain of muscle, fascia and tendon of lower back, initial encounter (principal); K52.9 Noninfective gastroenteritis and colitis, unspecified; M51.36 Other intervertebral disc degeneration, lumbar region; I48.91 Unspecified atrial fibrillation; I25.10 Atherosclerotic heart disease of native coronary artery without angina pectoris; I50.9 Heart failure, unspecified; M19.90 Unspecified osteoarthritis, unspecified site; F41.9 Anxiety disorder, unspecified; Z79.01 Long term (current) use of anticoagulants; Z91.030 Bee allergy status; Z88.6 Allergy status to analgesic agent; Z88.5 Allergy status to narcotic agent; Z88.8 Allergy status to other drugs, medicaments and biological substances; W19.XXXA Unspecified fall, initial encounter
CPT/HCPCS: 96361 ×2; 96374 ×2; 99284 ×2; 36415; 80053; 85025; 81001; 87086; 87077; 87186; 72110; J1885